=== PATIENT | male | born 1940 | race Caucasian/White ===

== ENCOUNTER 2017-01-18 18:04 | Emergency (ER) | payer MEDICARE ==
[2017-01-18 18:08] VITALS: BP 146/77
--- NOTE | 2017-01-18 19:34 | ED ---
Upper Extremity Pain - HPI Summary HPI Summary: Patient was using a pneumatic nail gun and his left middle finger nail was under a board that a nail went through and he suffered a puncture wound to the nail. It barely bleed and he just wants to make sure it didn't hit the bone. He denies pain and has not taken anything. No swelling, redness or drainage noted. - History of Current Complaint Chief Complaint: EDExtremityUpper Stated Complaint: NAIL THROUGH FINGER Time Seen by Provider: 01/18/17 18:51 Hx Obtained From: Patient Mechanism Of Injury: Blunt Trauma Onset/Duration: Started Minutes Ago, Traumatic, Still Present Timing: Constant Severity Initially: Mild Severity Currently: None Pain Location: Finger Character: Unable to Describe Aggravating Factor(s): Nothing Alleviating Factor(s): Nothing Associated Signs & Symptoms: Positive: Negative - Allergies/Home Medications Allergies/Adverse Reactions: Allergies Allergy/AdvReac Type Severity Reaction Status Date / Time Morphine Allergy Unknown Unknown Verified 08/09/16 16:28 Reaction Details Statins Allergy Unknown Unknown Verified 08/09/16 16:28 Reaction Details PMH/Surg Hx/FS Hx/Imm Hx Endocrine/Hematology History: Reports: Hx Anticoagulant Therapy - PLAVIX Denies: Hx Diabetes, Hx Unexplained Bleeding Cardiovascular History: Reports: Hx Angina, Hx Angioplasty, Hx Coronary Artery Disease, Hx Hypertension Denies: Hx Auto Implanted Cardiovert Defib, Hx Cardiac Arrest, Hx Congenital Heart Disease, Hx Congestive Heart Failure, Hx Deep Vein Thrombosis, Hx Hypercholesterolemia, Hx Hypotension, Hx Pacemaker/ICD, Hx Peripheral Vascular Disease, Hx Rheumatic Fever, Hx Syncope, Hx Valvular Heart Disease, Other Cardiovascular Problems/Disorders Respiratory History: Denies: Hx Asthma GI History: Reports: Hx Ulcer - takes omeprazole Denies: Other GI Disorders History: Reports: Other Problems/Disorders - prostate ca approx 2007 prostatectomy Denies: Hx Renal Disease Sensory History: Reports: Hx Cataracts - 2 removed one each eye, Hx Contacts or Glasses Comment Only: Other Sensory Impairments - hx left eye detatched retina Opthamlomology History: Reports: Hx Cataracts - 2 removed one each eye, Hx Contacts or Glasses Comment Only: Other Sensory Impairments - hx left eye detatched retina Neurological History: Reports: Hx Transient Ischemic Attacks (TIA) - drs with dr renee, ? recent tia Denies: Other Neuro Impairments/Disorders Psychiatric History: Denies: Hx Panic Disorder - Cancer History Cancer Type, Location and Year: PROSTATE Hx Chemotherapy: No Hx Radiation Therapy: No - Surgical History Surgery Procedure, Year, and Place: BY PASS 1992, HERNIA 2008, PROSTATECTOMY, EYE PUCKER REPAIR, DETACHED RETINA(CLEARED FOR MRI NOVEMBER [address] VICK) TONSILECTOMY, STERNUM WIRES, STENTS 2001,2009 Infectious Disease History: No Infectious Disease History: Denies: Traveled Outside the [place] in Last 30 Days - Family History Known Family History: Positive: Cardiac Disease - Social History Occupation: Retired Lives: With Family Alcohol Use: Occasionally Alcohol Amount: wine Hx Substance Use: No Substance Use Type: Reports: None Hx Tobacco Use: No Smoking Status (MU): Never Smoked Tobacco Review of Systems Negative: Myalgia, Decreased ROM, Edema Positive: Other - pinpoint punture wound to mid-nail of left middle finger. Negative: Bruising Negative: Paresthesia, Numbness All Other Systems Reviewed And Are Negative: Yes Physical Exam Triage Information Reviewed: Yes Vital Signs On Initial Exam: Initial Vitals Temp Pulse Resp BP Pulse Ox 96.6 F 57 20 146/77 100 01/18/17 18:06 01/18/17 18:06 01/18/17 18:06 01/18/17 18:06 01/18/17 18:06 Vital Signs Reviewed: Yes Appearance: Positive: Well-Appearing, No Pain Distress, Well-Nourished Skin: Positive: Warm, Skin Color Reflects Adequate Perfusion, Dry, Soft Head/Face: Positive: Normal Head/Face Inspection Eyes: Positive: EOMI, LUKE, Conjunctiva Clear ENT: Positive: Hearing grossly normal Respiratory/Lung Sounds: Positive: Breath Sounds Present Cardiovascular: Positive: RRR Musculoskeletal: Positive: Strength/ROM Intact. Negative: Pain @ - he denies pain to palpation over the nail, Edema Left Diagnostics - Vital Signs Vital Signs Temp Pulse Resp BP Pulse Ox 01/18/17 18:08 96.9 F 54 20 146/77 100 01/18/17 18:06 96.6 F 57 20 146/77 100 - Laboratory Lab Statement: Any lab studies that have been ordered have been reviewed, and results considered in the medical decision making process. - Radiology No standard instances Xray Interpretation: No Acute Changes Radiology Interpretation Completed By: Radiologist Course/Dx - Diagnoses Differential Diagnosis/HQI/PQRI: Positive: Bursitis, Contusion, Laceration, Strain, Sprain Provider Diagnoses: superficial puncture wound Discharge - Discharge Plan Condition: Stable Disposition: HOME Patient Education Materials: Puncture Wound (ED), Tetanus (ED) Referrals: Js Claudio MD [Primary Care Provider] - Additional Instructions: You have a superficial puncture wound to your nail. Soak the finger in warm soapy water three times daily for 3 days. Follow-up with your primary care provider in 2 days for a wound check. Return to the emergency department if symptoms worsen.
[2017-01-18] MEDS ORDERED: Tetan/Diph/Pertus SYR(Tdap)* 0.5 ML SYR(BOOSTRIX) use SYR IM ONE (19:47)
--- NOTE | 2017-01-18 20:48 | RAD ---
Indication: Left finger injury. 3 views of left middle finger demonstrates no fracture. There is a tiny radiopaque foreign body noted in the soft tissues at the level of the the distal interphalangeal joint. IMPRESSION: No fractures identified. Question foreign body at the distal interphalangeal joint on the volar aspect.
== END 2017-01-18 20:00 | disposition home or self-care (01) ==
LOC: ED 18:04
DX: S61.233A Puncture wound without foreign body of left middle finger without damage to nail, initial encounter (principal); W45.0XXA Nail entering through skin, initial encounter; Y93.9 Activity, unspecified; Y92.9 Unspecified place or not applicable
CPT/HCPCS: 73140; 90471; 90715; 99281

== ENCOUNTER 2017-07-02 22:20 | Emergency (ER) | payer MEDICARE ==
[2017-07-02] MEDS ORDERED: Diltiazem IV* 5 MG/ML 5 ML VIAL (for loading dose/IV Push) (25 MG) IV SLOW PU ONE (23:06)
[2017-07-02 23:42] LABS: Hematocrit 44 % (42-52); Hemoglobin 14.6 g/dl (14.0-18.0); Mean Corpuscular HGB Conc 34 g/dl (31-36); Mean Corpuscular Hemoglobin 30 pg (27-31); Mean Corpuscular Volume 91 fL (80-94); Mean Platelet Volume 9 um3 (7.4-10.4); Red Cell Distribution Width 13 % (10.5-15); White Blood Count 5.1 10^3/ul (3.5-10.8)
[2017-07-03] MEDS ORDERED: Diltiazem IV* 5 MG/ML 5 ML VIAL (for loading dose/IV Push) (25 MG) IV SLOW PU ONE (00:01)
[2017-07-03 00:03] LABS: Albumin 4.1 g/dL (3.2-5.2); BUN/Creatinine Ratio 20.4 (8-20); EGFR African American 95.1 (>60); Globulin 2.8 g/dL (2-4); Magnesium 2.1 mg/dL (1.9-2.7); Potassium 4.1 mmol/L (3.5-5.0); Total Bilirubin 0.4 mg/dL (0.2-1.0); Total Protein 6.9 g/dL (6.4-8.9)
[2017-07-03 00:04] LABS: Troponin I 0.01 ng/mL (<0.04)
[2017-07-03 00:55] LABS: TSH (Thyroid Stimulating Horm) 1.52 mcIU/mL (0.34-5.60)
--- NOTE | 2017-07-03 01:24 | ED ---
Manisha Mijares Alfonso, scribed for Efra So MD on 07/02/17 at 2307 . HPI Cardiac - HPI Summary HPI Summary: This patient is a 77 year old M presenting to [facility] accompanied by with a chief complaint of racing palpitations for several days that worsened since late this afternoon. The patient rates the pain 0/10 in severity. Symptoms aggravated by nothing. Symptoms alleviated by nothing. Patient reports lightheadedness and chest pain. Patient denies SOB. The patient is on a blood thinner. - History of Current Complaint Chief Complaint: EDDysrhythmPalp Stated Complaint: IRREGULAR HEART RATE Hx Obtained From: Patient Onset/Duration: Started Hours Ago, Still Present Timing: Constant, Lasting Hours Pain Intensity: 0 Pain Scale Used: 0-10 Numeric Character: Fast Aggravating Factor(s): Nothing Alleviating Factor(s): Nothing Associated Signs and Symptoms: Positive: Other: - lightheadedness, chest pain; NEGATIVE: SOB - Allergy/Home Medications Allergies/Adverse Reactions: Allergies Allergy/AdvReac Type Severity Reaction Status Date / Time Morphine Allergy Unknown Unknown Verified 07/02/17 22:30 Reaction Details Statins Allergy Unknown Unknown Verified 07/02/17 22:30 Reaction Details PMH/Surg Hx/FS Hx/Imm Hx Previously Healthy: No Endocrine/Hematology History: Reports: Hx Anticoagulant Therapy - PLAVIX Denies: Hx Diabetes, Hx Unexplained Bleeding Cardiovascular History: Reports: Hx Angina, Hx Angioplasty, Hx Coronary Artery Disease, Hx Hypertension Denies: Hx Auto Implanted Cardiovert Defib, Hx Cardiac Arrest, Hx Congenital Heart Disease, Hx Congestive Heart Failure, Hx Deep Vein Thrombosis, Hx Hypercholesterolemia, Hx Hypotension, Hx Pacemaker/ICD, Hx Peripheral Vascular Disease, Hx Rheumatic Fever, Hx Syncope, Hx Valvular Heart Disease, Other Cardiovascular Problems/Disorders Respiratory History: Denies: Hx Asthma GI History: Reports: Hx Ulcer - takes omeprazole Denies: Other GI Disorders History: Reports: Other Problems/Disorders - prostate ca approx 2007 prostatectomy Denies: Hx Renal Disease Sensory History: Reports: Hx Cataracts - 2 removed one each eye, Hx Contacts or Glasses Comment Only: Other Sensory Impairments - hx left eye detatched retina Opthamlomology History: Reports: Hx Cataracts - 2 removed one each eye, Hx Contacts or Glasses Comment Only: Other Sensory Impairments - hx left eye detatched retina Neurological History: Reports: Hx Transient Ischemic Attacks (TIA) - drs with dr renee, ? recent tia Denies: Other Neuro Impairments/Disorders Psychiatric History: Denies: Hx Panic Disorder - Cancer History Cancer Type, Location and Year: PROSTATE Hx Chemotherapy: No Hx Radiation Therapy: No - Surgical History Surgery Procedure, Year, and Place: BY PASS 1992, HERNIA 2008, PROSTATECTOMY, EYE PUCKER REPAIR, DETACHED RETINA(CLEARED FOR MRI NOVEMBER [address] VICK) TONSILECTOMY, STERNUM WIRES, STENTS 2001,2009 Infectious Disease History: No Infectious Disease History: Denies: Traveled Outside the US in Last 30 Days - Family History Known Family History: Positive: Cardiac Disease - Social History Alcohol Use: Occasionally Alcohol Amount: wine Hx Substance Use: No Substance Use Type: Reports: None Hx Tobacco Use: No Smoking Status (MU): Never Smoked Tobacco Review of Systems Negative: Fever Positive: Palpitations, Chest Pain Negative: Shortness Of Breath Neurological: Other - Lightheadedness All Other Systems Reviewed And Are Negative: Yes Physical Exam - Summary Physical Exam Summary: VITAL SIGNS: Reviewed. GENERAL: Patient is a well-developed and nourished male who is lying comfortable in the stretcher. Patient is not in any acute respiratory distress. HEAD AND FACE: No signs of trauma. No ecchymosis, hematomas or skull depressions. No sinus tenderness. EYES: PERRLA, EOMI x 2, No injected conjunctiva, no nystagmus. EARS: Hearing grossly intact. Ear canals and tympanic membranes are within normal limits. MOUTH: Oropharynx within normal limits. NECK: Supple, trachea is midline, no adenopathy, no JVD, no carotid bruit, no c- spine tenderness, neck with full ROM. CHEST: Symmetric, no tenderness at palpation LUNGS: Clear to auscultation bilaterally. No wheezing or crackles. CVS: Regular rhythm, tachycardia. S1 and S2 present, no murmurs or gallops appreciated. ABDOMEN: Soft, non-tender. No signs of distention. No rebound no guarding, and no masses palpated. Bowel sounds are normal. EXTREMITIES: FROM in all major joints, no cyanosis or clubbing. Trace pitting edema in bilateral lower extremities. NEURO: Alert and oriented x 3. No acute neurological deficits. Speech is normal and follows commands. SKIN: Dry and warm Triage Information Reviewed: Yes Vital Signs On Initial Exam: Initial Vitals Temp Pulse Resp BP Pulse Ox 97.7 F 115 16 163/93 98 07/02/17 22:20 07/02/17 22:20 07/02/17 22:20 07/02/17 22:20 07/02/17 22:20 Vital Signs Reviewed: Yes - Ben Coma Scale Coma Scale Total: 15 Diagnostics - Vital Signs Vital Signs Temp Pulse Resp BP Pulse Ox 07/02/17 22:48 10 131/81 07/02/17 22:20 97.7 F 115 16 163/93 98 - Laboratory Lab Results: Lab Results 07/02/17 07/02/17 07/02/17 Range/Units 23:30 23:30 23:30 WBC 5.1 (3.5-10.8) 10^3/ul RBC 4.80 (4.0-5.4) 10^6/ul Hgb 14.6 (14.0-18.0) g/dl Hct 44 (42-52) % MCV 91 (80-94) fL MCH 30 (27-31) pg MCHC 34 (31-36) g/dl RDW 13 (10.5-15) % Plt Count 156 (150-450) 10^3/ul MPV 9 (7.4-10.4) um3 Neut % (Auto) 51.7 (38-83) % Lymph % (Auto) 26.5 (25-47) % [place] % (Auto) 14.1 H (1-9) % Eos % (Auto) 6.6 H (0-6) % Baso % (Auto) 1.1 (0-2) % Absolute Neuts (auto) 2.6 (1.5-7.7) 10^3/ul Absolute Lymphs (auto) 1.4 (1.0-4.8) 10^3/ul Absolute Monos (auto) 0.7 (0-0.8) 10^3/ul Absolute Eos (auto) 0.3 (0-0.6) 10^3/ul Absolute Basos (auto) 0.1 (0-0.2) 10^3/ul Absolute Nucleated RBC 0 10^3/ul Nucleated RBC % 0.1 INR (Anticoag Therapy) 0.99 (0.89-1.11) APTT 30.2 (26.0-36.3) seconds Sodium 136 (133-145) mmol/L Potassium 4.1 (3.5-5.0) mmol/L Chloride 105 (101-111) mmol/L Carbon Dioxide 26 (22-32) mmol/L Anion Gap 5 (2-11) mmol/L BUN 20 (6-24) mg/dL Creatinine 0.98 (0.67-1.17) mg/dL Est GFR ( Amer) 95.1 (>60) Est GFR (Non-Af Amer) 74.0 (>60) BUN/Creatinine Ratio 20.4 H (8-20) Glucose 125 H (70-100) mg/dL Calcium 9.0 (8.6-10.3) mg/dL Magnesium 2.1 (1.9-2.7) mg/dL Total Bilirubin 0.40 (0.2-1.0) mg/dL AST 24 (13-39) U/L ALT 29 (7-52) U/L Alkaline Phosphatase 98 (34-104) U/L Troponin I 0.01 (<0.04) ng/mL Total Protein 6.9 (6.4-8.9) g/dL Albumin 4.1 (3.2-5.2) g/dL Globulin 2.8 (2-4) g/dL Albumin/Globulin Ratio 1.5 (1-3) TSH 1.52 (0.34-5.60) mcIU/mL Result Diagrams: 07/02/17 23:30 07/02/17 23:30 Lab Statement: Any lab studies that have been ordered have been reviewed, and results considered in the medical decision making process. - EKG 2234 Cardiac Rate: Tachycardia EKG Rhythm: Atrial Flutter - 102 BPM EKG Interpretation: Normal axis. Nonspecific t wave changes. 0014 Cardiac Rate: Bradycardia EKG Rhythm: Sinus Bradycardia - BPM 54 EKG Interpretation: after 20 mg of Diltiazem IV. Nml axis. Nml intervals. Nonspecific T changes Disposition - Course Assessment/Plan: This patient is a 77 year old M presenting to [facility] accompanied by with a chief complaint of racing palpitations for several days that worsened since late this afternoon. The patient rates the pain 0/10 in severity. Symptoms aggravated by nothing. Symptoms alleviated by nothing. Patient reports lightheadedness and chest pain. Patient denies SOB. The patient is on a blood thinner. An EKG reveals A-flutter at 102 BPM. A second EKG reveals , after 20 mg of Diltiazem, sinus bradycardia at 54 BPM. In the ED course the patient was given Diltiazem IV push. He has a history of an ablation. This patient use to take 50 mg BID of atenolol and was recently decreased to 25 mg BID. Pt on Elikaren. He has a Cardiology appointment in 1-2 days. I recommended he must speak to criminal investigator customs regarding atenolol dosing and consult an pipeline superintendent division. Patient will be discharged with follow up from Patient Carrier and PCP. The patient is agreeable with this plan. - Diagnoses Provider Diagnoses: Paroxysmal atrial flutter Discharge - Discharge Plan Condition: Stable Disposition: HOME Patient Education Materials: Atrial Flutter (ED) Referrals: Js Claudio MD [Primary Care Provider] - Additional Instructions: Call your criminal investigator customs tomorrow to discuss with him increasing the Atenolol to 50 mg twice a day. You may need to follow up with your pipeline superintendent division. Cont Elquis. Return to ED if worse. The documentation as recorded by the Manisha forde Alfonso accurately reflects the service I personally performed and the decisions made by me, Efra So MD.
[2017-07-03 01:41] VITALS: BP 134/74
[2017-07-05] MEDS ORDERED: Acetaminophen TAB* 325 MG PO PRN (10:14)
[2017-07-05] MEDS ORDERED: Sotalol TAB* 80 MG PO SCH (11:00)
[2017-07-05] MEDS ORDERED: Saline FLUSH-PERIPHERAL* 10 ML SYRINGE PERIPH SCH (11:00)
[2017-07-05] MEDS ORDERED: Apixaban* 5 MG TAB PO SCH (21:00)
[2017-07-05] MEDS ORDERED: Lisinopril TAB* 10 MG PO SCH (21:00)
[2017-07-06] MEDS ORDERED: Aspirin Low Dose CHEW TAB* 81 MG PO SCH (09:00)
[2017-07-06] MEDS ORDERED: GLUCOSAMINE CHONDROITIN PO SCH (09:00)
[2017-07-06] MEDS ORDERED: amLODIPine TAB* 5 MG PO SCH (09:00)
[2017-07-06] MEDS ORDERED: Rosuvastatin (NF) 5 MG TAB PO SCH (09:00)
--- NOTE | 2017-07-06 11:45 | RAD ---
Indication: Coronary artery disease, angina with tachycardia. Myocardial perfusion scan was performed utilizing 1 day protocol. Rest myocardial perfusion was performed after intravenous injection of 10.8 mCi of technetium 99 and tetrofosmin. Pharmacological stress was applied and 26.3 mCi of technetium 99 and tetrofosmin was injected for the rest portion of the study. There is homogeneous distribution of the radiotracer throughout the left ventricle. There is no evidence of fixed or reversible perfusion defect identified. The ejection fraction at stress is 38% which is decreased. Evaluation of wall motion demonstrates diffuse hypokinesis. IMPRESSION: Decreased ejection fraction of 38%. No evidence of fixed or mobile perfusion defect. ASSESSMENT: Intermediate risk Based on imaging criteria from ACC/AHA 2002 Guideline Update for the Management of Patients With Chronic Stable Angina Table 23. Noninvasive Risk Stratification.
== END 2017-07-03 01:42 | disposition home or self-care (01) ==
LOC: ED 22:20
DX: I48.92 Unspecified atrial flutter (principal); Z79.02 Long term (current) use of antithrombotics/antiplatelets; Z85.46 Personal history of malignant neoplasm of prostate; Z88.5 Allergy status to narcotic agent; I10 Essential (primary) hypertension; I25.10 Atherosclerotic heart disease of native coronary artery without angina pectoris; I20.9 Angina pectoris, unspecified; Z86.73 Personal history of transient ischemic attack (TIA), and cerebral infarction without residual deficits
CPT/HCPCS: 36415; 78452; 80053; 83735; 84443; 84484; 85025; 85610; 85730; 93005; 96374; 96376; 99284; A9502

== ENCOUNTER 2017-07-05 08:48 | Observation (INO) | payer MEDICARE ==
[2017-07-05 10:56] LABS: BUN/Creatinine Ratio 17.7 (8-20); Calcium 8.7 mg/dL (8.6-10.3); EGFR African American 80.7 (>60); EGFR Non-African American 62.8 (>60); Potassium 4.3 mmol/L (3.5-5.0)
[2017-07-05 11:21] LABS: TSH (Thyroid Stimulating Horm) 0.97 mcIU/mL (0.34-5.60)
[2017-07-05] MEDS ORDERED: Acetaminophen TAB* 325 MG PO PRN (12:43)
[2017-07-05] MEDS: [UNRECOGNIZED DRUG - OTHER] PERIPH SCH ×2 (14:25→21:22)
[2017-07-05] MEDS: Sotalol TAB* 80 MG PO SCH ×2 (14:26→21:21)
--- NOTE | 2017-07-05 14:34 | HP ---
CC: Dr. Claudio; Dr. Cohen; Dr. Anand Blanchard HISTORY AND PHYSICAL: DATE OF ADMISSION: 07/05/17 HISTORY OF PRESENT ILLNESS: Mr. Arzola is a 77-year-old gentleman followed by my partner Dr. Cohen with a history of atypical paroxysmal atrial flutter. He has undergone ablation with Dr. Anand Blanchard in the past. The patient presented to the emergency department 3 days ago on with complaints of palpitations and racing of heart and EKGs revealed a narrow complex tachycardia just over 100 beats per minute. He then spontaneously went into his normal rhythm, which he did not recall. The patient then called yesterday telling me that he left the emergency department with the instructions to double his atenolol from 25 mg twice a day to 50 mg twice a day, but he continued to feel racing with any sort of activity. He had breakfast and lunch yesterday and I advised him to present today for possible cardioversion. On arrival to the ICU this morning, the patient's ECG showed a regular atrial rhythm at 90 beats a minute with the first-degree AV block. He then spontaneously went into sinus rhythm in the 50s. I printed and reviewed his ECGs from the ED night and his tachycardia was consistent with junctional versus ectopic atrial tachycardia at a 102 beats a minute, QRS axis plus [address]. Today's rhythm as stated that we can now see the P-waves are from the T- waves at the lower rate and is consistent with an ectopic atrial rhythm with a prolonged WV interval as opposed to shorter normal WV interval in a sinus rhythm (EKGs with sinus rhythm shows sinus rhythm at 54 beats a minute, WV interval of 203 beats per minute versus the WV interval of 260 beats a minute with the ectopic rhythm.) The prolonged WV interval could be rate related or based on the origin of the atrial rhythm. According to the patient when his heart is jumping around or racing, he gets substernal chest discomfort. Reminiscent of discomfort he had before his bypass and his says with when he feels his heart is racing, his color is not good, he gets very red and does not look well. The patient otherwise felt well. When he feels he is in rhythm, he denies any of the exertional dyspnea or chest discomfort. PAST MEDICAL HISTORY: 1. The patient has a past medical history of paroxysmal atrial flutter, status post flutter ablation of 01/27/17. 2. Ectopic atrial tachycardia. 3. Coronary artery disease. 4. With history of bypass surgery in 1992 (POWERS to the LAD, YAEL to OM2 saphenous vein graft to D1, saphenous vein graft to distal right coronary artery and PDA). He has had subsequent stenting most recently in October 2014 in [place] with stenting to the proximal LAD, integrity drug-eluting stent. 5. dyslipidemia, 6. hypertension, 7. TIA in September 2014 in [place], 8. sleep apnea (CPAP). PAST SURGICAL HISTORY: Includes his bypass surgery in 1992, inguinal hernia repair in 2007, macular pucker in 1990, tonsillectomy in 1971, varicose veins in 2010, detached retina in 1990, and multiple stents in 2008 and 2014. OUTPATIENT MEDICATIONS: Include: 1. Eliquis 5 mg b.i.d. 2. Atenolol 50 mg b.i.d. 3. Crestor 5 mg a day. 4. Amlodipine 10 mg a day. 5. Aspirin 81 mg a day. 6. MultiVites. 7. Glucosamine chondroitin. 8. Lisinopril 20 mg a day. 9. Nitroglycerin p.r.n. 10. Omeprazole p.r.n. ALLERGIES: Allergies include STATINS. FAMILY HISTORY: Significant that his father of heart problems at age 62. He has 3 brothers with a history of stents and bypass in his brothers. His mother had a history of probable renal failure dying between age 75 to 80. SOCIAL HISTORY: Significant that is , lives with his , retired, never smoked, a cup of coffee a day, no alcohol intake and active. REVIEW OF SYSTEMS: A 14-point review of systems done. He denies any recent fevers, chills, sweats. No recent travel or change in activity. They had friends in town, they are eating heavier food what they called finer food than usual, but he denies any recent alcohol. He states regular cup of coffee a day. No recreational drugs. No [id number] medications and no missed medications. The patient denies change in bowel or bladder habits or change in sleep habits and was positive for several days of racing of the heart, exercise intolerance and with racing of the lower substernal chest discomfort and feeling poorly as above. All other review of systems was negative. PHYSICAL EXAMINATION GENERAL APPEARANCE: The patient is a tall leaned male in no acute distress. VITAL SIGNS: Blood pressure 134/74; pulse on arrival was 90, currently 54; respiratory rate is 12 to 15; temperature 97.6; oxygen saturation on room air 97 %. HEENT: Mucous membranes moist. NECK: Without increased JVP appreciated. Good carotid pulses that are symmetrical and no thyromegaly. LUNGS: Breath sounds were clear with good effort. No wheezes, rales, or rhonchi. CORONARY: S1, S2, regular without murmurs or rubs. Midline sternotomy scar is well healed. ABDOMEN: Flat, nontender. No hepatosplenomegaly or masses are nontender. No epigastric discomfort. EXTREMITIES: Lower extremities showed trace edema and were warm. NEUROLOGIC: Awake, alert, and oriented x3. No gross sensory or motor deficits and ambulating in the room normally. SKIN: Warm, dry. Cheeks are smalls. No cyanosis appreciated. DIAGNOSTIC STUDIES/LAB DATA: EKG from the ED July 02, 2017 at 2234 shows a regular narrow complex rhythm at 102 beats a minute. P-waves were not seen, in hindsight they are buried in the T-waves and therefore it is a regular atrial rhythm with the first-degree AV block with WV interval of approximately 380 milliseconds, QT interval of 377 milliseconds. We have still in the ED repeat EKG 07/03/17 at 1400 shows normal sinus rhythm 54 beats a minute QRS axis plus 60, normal AV and IV conduction x WV interval 203 milliseconds and a corrected QT interval of 417 milliseconds. A 12-lead ECG on arrival this morning shows normal sinus rhythm 90 beats a minute with the first-degree AV block with a WV interval of 258 milliseconds. QRS axis plus 60 normal AV and IV conduction, QTc of 475 milliseconds, QT of 388 milliseconds. T-waves are somewhat flattened laterally compared with his 12 -lead ECG from sinus rhythm. Labs; white count 5.1, hemoglobin 14.6, hematocrit 44, platelets 156. INR 0.99 , PTT 30.2. Sodium 136, potassium 4.1, chloride 105, bicarb 26, BUN 20, creatinine 0.98, glucose 125, ALT of 29, TSH 1.52. Troponin pending. ASSESSMENT AND PLAN: In summary, Mr. Arzola is a 77-year-old gentleman with distant bypass stenting is recently in 2014. He has a history of paroxysmal atrial flutter and ectopic atrial rhythm for which he has undergone flutter ablation earlier this summer. The patient now presents with recurrent episodes of racing of the heart associated with substernal chest discomfort. In the office, his atenolol had been back down from 50 mg b.i.d. to 25 mg b.i.d. 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 As the patient is symptomatic with his mild tachycardia that I believe is from an ectopic atrial pacer. I think we should try to suppress the ectopic pacer and I am going to try converting the atenolol to a low dose of sotalol 40 mg b.i.d. I am going to put him on the monitor to watch his QT interval and lower rate. Because he is symptomatic with possible anginal equivalent I am going to also order an exercise stress test on him. We will try to do it on his medications, but he may need to be converted to a chemical test. The indication for it observation in order to watch his QT interval and evaluate for possible ischemia, understood to the patient and his . [id number] #: [id number] MTDD
[2017-07-05] MEDS ORDERED: Lisinopril TAB* 10 MG PO SCH (21:00)
[2017-07-05] MEDS: Apixaban* 5 MG TAB PO SCH (21:21)
[2017-07-06] MEDS: [UNRECOGNIZED DRUG - OTHER] PERIPH SCH (04:24)
[2017-07-06] MEDS: Apixaban* 5 MG TAB PO SCH (08:34)
[2017-07-06] MEDS: Sotalol TAB* 80 MG PO SCH (08:35)
[2017-07-06] MEDS ORDERED: CMC:Rosuvastatin (NF) 5 MG TAB PO SCH (09:00)
[2017-07-06] MEDS ORDERED: Aspirin Low Dose CHEW TAB* 81 MG PO SCH (09:00)
[2017-07-06] MEDS ORDERED: amLODIPine TAB* 5 MG PO SCH (09:00)
[2017-07-06] MEDS ORDERED: Multivitamins/Minerals TAB PO SCH (09:00)
[2017-07-06] MEDS ORDERED: Regadenoson* 0.4 MG/5 ML SYRINGE ONE (09:34)
[2017-07-06] MEDS ORDERED: Aminophylline IV* 25 MG/ML 10 ML VIAL ONE (09:35)
[2017-07-06 12:51] VITALS: BP 143/87
--- NOTE | 2017-07-07 03:25 | DS ---
CC: Dr. Js Claudio * DISCHARGE SUMMARY: DATE OF ADMISSION: 07/05/17 DATE OF DISCHARGE: 07/06/17 INDICATION FOR ADMISSION: Atrial tachycardia. Please see Dr. Holm's admission history and physical regarding his presentation. The patient is a 77-year-old gentleman with a history of coronary artery disease, history of atrial flutter, and atrial tachycardias, who was admitted to the hospital because of atrial tachycardia. The patient called Dr. Holm over the weekend saying his heart rate was racing. The patient had had a recent flutter ablation up at [facility] in January of 2017. Since then, he has been having episodes of atrial tachycardia also with bradycardia when he is in normal sinus rhythm. I have been adjusting his atenolol medication. The patient came to the hospital and was in an atrial tachycardia at 100 beats per minute. He subsequently broke to a sinus bradycardia at 50 beats per minute. The patient was also describing intermittent chest pain. He was admitted to the hospital for evaluation. SUMMARY OF HOSPITAL COURSE: The patient had been going in and out of atrial tachycardia at 100 beats per minute and normal sinus rhythm at 50 beats per minute. The patient was started on a very low dose of sotalol at 40 mg b.i.d. The patient did well overnight. This morning, the patient underwent a chemical nuclear stress test, which demonstrated normal perfusion throughout his myocardium. No evidence of ischemia. He had normal LV function. After extensive discussion with the patient, the decision was to place a permanent pacemaker. Because the patient is on Eliquis, the decision is the patient will be discharged home and follow up next Thursday for dual-chamber permanent pacemaker implantation. The patient was agreeable with this plan. OUTPATIENT MEDICATIONS: 1. Eliquis 5 mg b.i.d. until 07/12/17. 2. Atenolol 50 mg twice a day. 3. Crestor 5 mg a day. 4. Amlodipine 10 mg a day. 5. Aspirin 81 mg a day. 6. Multivitamin a day. 7. Glucosamine. 8. Lisinopril 20 mg a day. 9. Omeprazole 20 mg a day. ALLERGIES: He is intolerant of statin medications, but has been able to tolerate Crestor at 5 mg a day. LABORATORY DATA: No significant laboratory studies except for at admission when they were normal. DISPOSITION: The patient will be discharged home for followup. Pacemaker implantation in 1 week. [id number]/[facility] #: [id number] NYA
--- NOTE | 2017-07-07 11:10 | RAD ---
Indication: Coronary artery disease, angina with tachycardia. Myocardial perfusion scan was performed utilizing 1 day protocol. Rest myocardial perfusion was performed after intravenous injection of 10.8 mCi of technetium 99 and tetrofosmin. Pharmacological stress was applied and 26.3 mCi of technetium 99 and tetrofosmin was injected for the rest portion of the study. There is homogeneous distribution of the radiotracer throughout the left ventricle. There is no evidence of fixed or reversible perfusion defect identified. The ejection fraction at stress is 38% which is decreased. Evaluation of wall motion demonstrates diffuse hypokinesis. IMPRESSION: Decreased ejection fraction of 38%. No evidence of fixed or mobile perfusion defect. ASSESSMENT: Intermediate risk Based on imaging criteria from ACC/AHA 2002 Guideline Update for the Management of Patients With Chronic Stable Angina Table 23. Noninvasive Risk Stratification. MTDD
== END 2017-07-06 14:26 | disposition home or self-care (01) ==
LOC: SDS 08:48 → CHICATH 08:48 → MEDTELE 08:49 → EDSTATUS 10:01
PROVIDERS: ADMIT Specialist; ATTEND Specialist
DX: I47.1 Supraventricular tachycardia (principal); I25.10 Atherosclerotic heart disease of native coronary artery without angina pectoris; I10 Essential (primary) hypertension; E78.5 Hyperlipidemia, unspecified; I48.92 Unspecified atrial flutter; Z79.01 Long term (current) use of anticoagulants; Z79.899 Other long term (current) drug therapy; Z86.73 Personal history of transient ischemic attack (TIA), and cerebral infarction without residual deficits; G47.30 Sleep apnea, unspecified
CPT/HCPCS: 36415; 80048; 83735; 84443; 93005; 93017; A9270-GY; G0378; J0280; J2785

== ENCOUNTER 2017-07-13 08:12 | Observation (INO) | payer MEDICARE ==
[2017-07-13] MEDS ORDERED: ceFAZolin 2 GM PREMIX (*) 2 GM/50 ML BAG IVPB ONE (08:20)
[2017-07-13] MEDS ORDERED: CEFAZOLIN IVPB ONE (08:20)
[2017-07-13] MEDS ORDERED: SODIUM CHLORIDE IVPB ONE (08:20)
[2017-07-13] MEDS ORDERED: Diazepam TAB(*) 5 MG PO ONE (08:20)
[2017-07-13] MEDS ORDERED: NS 0.9% 1000 ML* 1,000 ML IV SCH (08:30)
[2017-07-13] MEDS ORDERED: Diazepam TAB(*) 5 MG ONE (10:06)
[2017-07-13] MEDS ORDERED: Lidocaine 1% INJ* 10 MG/ML 30 ML SDV ONE (10:14)
[2017-07-13] MEDS ORDERED: Midazolam* 1 MG/ML 5 ML VIAL (5 MG) ONE (10:23)
[2017-07-13] MEDS ORDERED: fentaNYL* 50 MCG/ML 2 ML VIAL (100 MCG VIAL) ONE (10:23)
[2017-07-13] MEDS ORDERED: oxyCODONE/Acetamin 5/325 MG* TAB PO PRN (11:37)
--- NOTE | 2017-07-13 14:57 | RAD ---
INDICATION: Device implant COMPARISON: July 17, 2016 TECHNIQUE: An AP portable view obtained at 1300 hours is submitted. FINDINGS: Bones/Soft Tissues: There are no acute bony findings. There is a left-sided cardiac pacemaker. There is prior sternotomy Cardiomediastinal: The cardiomediastinal silhouette is normal. Lungs: There are no infiltrates. There is no pneumothorax. There is no vascular congestion. Pleura: There are no pleural effusions. Other: None IMPRESSION: LEFT-SIDED CHRONIC PACEMAKER. LUNGS CLEAR.
[2017-07-13] MEDS: Acetaminophen TAB* 325 MG PO PRN ×2 (15:02→20:50)
[2017-07-13] MEDS ORDERED: CEFAZOLIN IVPB SCH (16:30)
[2017-07-13] MEDS ORDERED: SODIUM CHLORIDE IVPB SCH (16:30)
[2017-07-13] MEDS: ceFAZolin 1 GM* Q8H x 3 doses IVPB SCH ×4 (16:41→23:42)
[2017-07-13] MEDS: Atenolol TAB* 50 MG PO SCH (20:50)
[2017-07-13] MEDS ORDERED: Lisinopril TAB* 10 MG PO SCH (21:00)
[2017-07-14 07:42] VITALS: BP 140/70
[2017-07-14] MEDS: ceFAZolin 1 GM* Q8H x 3 doses IVPB SCH ×2 (07:58)
[2017-07-14] MEDS: Atenolol TAB* 50 MG PO SCH (07:58)
--- NOTE | 2017-07-14 08:16 | OP ---
CC: Dr Js Claudio OPERATIVE REPORT: DATE OF OPERATION: 07/13/17 DATE OF : 38 SURGEON: Rex Cohen MD ANESTHESIA: Local anesthesia with conscious sedation. PRE-OP DIAGNOSES: Sick sinus syndrome, atrial flutter. POST-OP DIAGNOSES: Sick sinus syndrome, atrial flutter. OPERATIVE PROCEDURE: Dual-chamber pacemaker implantation. INDICATIONS: The patient is a 77-year-old gentleman with a history of coronary artery disease, histo ry of paroxysmal atrial flutter, who underwent a flutter ablation this past spring. The patient cont inues to have episodes of bradycardia and atrial flutter. Permanent pacemaker implantation was recom mended. ESTIMATED BLOOD LOSS: Nil. COMPLICATIONS: None. DESCRIPTION OF PROCEDURE: The patient was brought to the procedure room in a fasting state. Informe d consent had been obtained prior to the procedure. All labs had been reviewed. The patient was araseli gary supine on the procedure table. His left deltopectoral area was cleaned and draped in the usual f ashion. 1% lidocaine was used for local anesthesia. The left axillary vein was entered by a suellen galindo Seldinger technique using ultrasound guidance. A guidewire was placed. The second guidewire was p laced in the same technique. A 4-cm incision was made in the pectoral area and blunt dissection was carried down to the pectoral fascia. A pocket was fashioned for the pacemaker. Over the first guide wire, a 7-Urdu sheath introducer was placed, through which a right ventricular lead was advanced th e RV apex. The right ventricular lead is a Medtronic model 5076, serial #[id number] that had an R-wa ve sensitivity of 7, impedance 1480 ohms, threshold 1 volt at 0.5 milliseconds. The ventricular lead was sutured to the pectoral fascia using 0 silk. Over the second guidewire, a 7-Urdu sheath intro ducer was placed, through which a right atrial lead was advanced to the high right atrium. The right atrial lead is a Medtronic model 5076, serial #[id number] that had a P-wave sensitivity of 0.6, impe dance 700 ohms, threshold 1.3 volts at 0.5 milliseconds. The atrial lead was then sutured to the pect oral fascia using 0 silk. The pocket was flushed with antibiotic-infused normal saline. A generator was attached appropriately to the ventricular and atrial lead. The generator is a Thinker Thing model A 2DR01, serial #[id number]. The device was placed into the pocket. The surgical incision was closed in 3 layers. The patient was returned to the holding area in stable condition. [id number]/[facility] #: [id number]
--- NOTE | 2017-07-14 08:31 | RAD ---
INDICATION: Status post cardiac pacer implantation. COMPARISON: Similar chest x-ray July 13, 2017 TECHNIQUE: PA and lateral views of the chest were obtained. FINDINGS: Stable iatrogenic findings include a left upper chest to lead cardiac pacemaker with surgical clips overlying the skin. Also noted are sternotomy wires and surgical clips at the superior right of midline mediastinum. The heart and mediastinum are normal in size and contour. The lungs are grossly clear. There is no evidence of large pleural effusion. Visualized bones are normal for the patient's age. There is no radiographic evidence of free air beneath the diaphragm IMPRESSION: STABLE POSTOPERATIVE FINDINGS WITHOUT PNEUMOTHORAX OR OTHER RADIOGRAPHICALLY APPARENT CARDIOPULMONARY DISEASE.
[2017-07-14] MEDS ORDERED: amLODIPine TAB* 5 MG PO SCH (09:00)
[2017-07-14] MEDS ORDERED: Aspirin Low Dose CHEW TAB* 81 MG PO SCH (09:00)
--- NOTE | 2017-07-15 00:43 | DS ---
DISCHARGE SUMMARY: DATE OF ADMISSION: 07/13/17 DATE OF DISCHARGE: 07/14/17 INDICATION FOR ADMISSION: Dual-chamber pacemaker implantation. DIAGNOSES: Sick sinus syndrome, atrial fibrillation. HISTORY OF PRESENT ILLNESS: Please see admission history and physical for details of patient's presentation. The patient is a 77-year-old gentleman with a history of coronary artery disease, history of atrial flutter, history of sick sinus syndrome, who I recommended pacemaker implantation for maximization of his medical therapy. SUMMARY OF HOSPITAL COURSE: The patient was brought to the holding area at the [facility] and was prepped for dual-chamber pacemaker implantation. The patient went to the operating room and had a dual-chamber pacemaker implanted. It is a Medtronic model A2DR01. Implantation went without difficulty. Post procedure chest x-ray showed normal position of the atrial and ventricular leads. The patient had no issues overnight. This morning, the patient's pacemaker was interrogated and had a P-wave sensitivity of 1.8 and R-wave sensitivity of 13. Atrial impedance 513 ohms, ventricular impedance 930 ohms. Atrial threshold 0.5 volts at 0.4 milliseconds. Ventricular threshold 0.4 volts at 0.4 milliseconds. He is atrial paced 98% of the time, ventricularly paced 1.4% of the time, no arrhythmias. DISPOSITION: The patient will be discharged home. DISCHARGE MEDICATIONS: Are the same as admission. 1. Eliquis 5 mg b.i.d. 2. Atenolol 50 mg b.i.d. 3. Crestor 5 mg a day. 4. Amlodipine 10 mg a day. 5. Aspirin 81 mg a day. 6. Multivitamin. 7. Lisinopril 20 mg a day. 8. Nitroglycerin p.r.n. 9. Omeprazole 20 mg a day. 10. The patient will be on Keflex 500 mg 3 times a day for 3 days. FOLLOWUP: The patient will up follow with me in 1 week. He will do daily dressing changes and the structure packet was discharged with the patient. The patient will restart his Eliquis in the morning of 07/15/17. PHYSICAL EXAMINATION: On physical exam, temperature 97.7, heart rate is 70, blood pressure 140/70, respiratory rate is 20. Lungs are clear to auscultation. Cardiac Exam: S1 and S2 without any murmurs, rubs, or gallops. The pacemaker site is clean, dry, and intact. No erythema, no hematoma. No ecchymosis. DISPOSITION: The patient will be discharged home. [id number]/[facility] #: [id number] MTDD
== END 2017-07-14 10:40 | disposition home or self-care (01) ==
LOC: CHICATH 08:12 → MEDTELE 11:19
PROVIDERS: ADMIT Specialist; ATTEND Specialist
DX: I49.5 Sick sinus syndrome (principal); I48.0 Paroxysmal atrial fibrillation; Z79.01 Long term (current) use of anticoagulants; I25.10 Atherosclerotic heart disease of native coronary artery without angina pectoris; E78.5 Hyperlipidemia, unspecified; I45.10 Unspecified right bundle-branch block; Z95.5 Presence of coronary angioplasty implant and graft; Z79.899 Other long term (current) drug therapy; Z88.1 Allergy status to other antibiotic agents
CPT/HCPCS: 33208; 71010; 71020; 93005; A9270-GY; C1785; C1898; G0378; J0690; J2250; J3010

== ENCOUNTER 2017-07-18 13:27 | Inpatient (IN) | payer MEDICARE ==
[2017-07-18] MEDS ORDERED: fentaNYL* 50 MCG/ML 2 ML VIAL (100 MCG VIAL) IV SLOW PU ONE (13:49)
[2017-07-18] MEDS ORDERED: Nitroglycerin TAB 0.4 MG* 0.4 MG TAB SL ONE (13:49)
[2017-07-18] MEDS ORDERED: Ondansetron INJ* 2 MG/ML VIAL IV ONE ×2 (13:49→14:49)
[2017-07-18] MEDS ORDERED: NS 0.9% 1000 ML* 1,000 ML IV SCH (14:00)
[2017-07-18 14:01] LABS: Hematocrit 44 % (42-52); Hemoglobin 14.6 g/dl (14.0-18.0); Mean Corpuscular HGB Conc 34 g/dl (31-36); Mean Corpuscular Hemoglobin 30 pg (27-31); Mean Corpuscular Volume 91 fL (80-94); Mean Platelet Volume 10 um3 (7.4-10.4); Red Blood Count 4.81 10^6/ul (4.0-5.4); Red Cell Distribution Width 13 % (10.5-15); White Blood Count 5.9 10^3/ul (3.5-10.8)
[2017-07-18 14:13] LABS: Albumin 4.1 g/dL (3.2-5.2); BUN/Creatinine Ratio 18.6 (8-20); C Reactive Protein 3.39 mg/L (< 5.00); Calcium 9.2 mg/dL (8.6-10.3); EGFR African American 90.8 (>60); EGFR Non-African American 70.6 (>60); Globulin 2.6 g/dL (2-4); Magnesium 2.2 mg/dL (1.9-2.7); Potassium 4.2 mmol/L (3.5-5.0); Total Bilirubin 0.5 mg/dL (0.2-1.0); Total Protein 6.7 g/dL (6.4-8.9)
[2017-07-18 14:17] LABS: Troponin I 0.06 ng/mL (<0.04)
--- NOTE | 2017-07-18 14:57 | RAD ---
INDICATION: Chest pain in a patient with a recently placed cardiac pacemaker COMPARISON: Most recent comparison chest x-rays July 14, 2017 TECHNIQUE: Single AP portable view of the chest was obtained. FINDINGS: Image quality is compromised due to the relative inferiority of a portable chest x-ray. The left upper chest cardiac pacemaker with 2 leads overlying the heart is unchanged from the prior chest x-ray. There are skin malini overlying the left upper chest. Sternotomy wires and surgical clips are seen overlying the mediastinum. The heart and mediastinum exhibit normal size and contour. The lungs are grossly clear. There is no evidence of a large pleural effusion. Visualized bones are normal for the patient's age. IMPRESSION: Stable iatrogenic findings described above.
[2017-07-18] MEDS ORDERED: Aspirin Low Dose CHEW TAB* 81 MG PO ONE (14:58)
[2017-07-18] MEDS ORDERED: Aspirin Low Dose CHEW TAB* 81 MG ONE (15:00)
[2017-07-18] MEDS ORDERED: Clopidogrel TAB* 300 MG PO ONE (15:13)
[2017-07-18] MEDS ORDERED: Nitroglycerin TAB 0.4 MG* 0.4 MG TAB SL PRN (15:29)
[2017-07-18 16:08] LABS: TSH (Thyroid Stimulating Horm) 1.05 mcIU/mL (0.34-5.60)
--- NOTE | 2017-07-18 16:41 | ED ---
[place] Emily, scribed for Sancho Young MD on 07/18/17 at 1343 . HPI Chest Pain - HPI Summary HPI Summary: This patient is a 77 year old M presenting to [facility] accompanied by with a chief complaint of burning, diffuse CP that began yesterday. Symptoms worsened at 0700 today. The patient rates the pain 8/10 in severity. Symptoms aggravated by ambulation, deep breaths, and cold air. Symptoms alleviated by nitroglycerin tabs. Patient reports ankle edema (chronic). Patient denies abd pain, SOB, nausea, diaphoresis, and wheezing. Pt has had a pacemaker implanted on 2016. Pt reports symptoms being similar to symptoms he experienced prior to his CABG. Allergies noted. - History of Current Complaint Chief Complaint: EDChestPainROMI Time Seen by Provider: 07/18/17 13:34 Hx Obtained From: Patient Onset/Duration: Started Days Ago, Still Present Timing: Constant, Lasting Days Initial Severity: Severe Current Severity: Severe Pain Intensity: 8 Pain Scale Used: 0-10 Numeric Chest Pain Location: Diffuse Character: Burning Aggravating Factor(s): Other: - Ambulation, deep breaths, and cold air Alleviating Factor(s): Other: - NTG Associated Signs and Symptoms: Positive: Other: - Positive ankle edema (chronic) . Negative abd pain, SOB, nausea, diaphoresis, and wheezing - Allergy/Home Medications Allergies/Adverse Reactions: Allergies Allergy/AdvReac Type Severity Reaction Status Date / Time Morphine Allergy Unknown Unknown Verified 07/02/17 22:30 Reaction Details Statins Allergy Unknown Unknown Verified 07/02/17 22:30 Reaction Details PMH/Surg Hx/FS Hx/Imm Hx Previously Healthy: No Endocrine/Hematology History: Reports: Hx Anticoagulant Therapy - eloquis Denies: Hx Diabetes, Hx Unexplained Bleeding Cardiovascular History: Reports: Hx Angina, Hx Angioplasty, Hx Coronary Artery Disease, Hx Hypertension Denies: Hx Auto Implanted Cardiovert Defib, Hx Cardiac Arrest, Hx Congenital Heart Disease, Hx Congestive Heart Failure, Hx Deep Vein Thrombosis, Hx Hypercholesterolemia, Hx Hypotension, Hx Pacemaker/ICD, Hx Peripheral Vascular Disease, Hx Rheumatic Fever, Hx Syncope, Hx Valvular Heart Disease, Other Cardiovascular Problems/Disorders Respiratory History: Reports: Hx Sleep Apnea - uses CPAP at home Denies: Hx Asthma GI History: Reports: Hx Ulcer - takes omeprazole Denies: Other GI Disorders History: Reports: Other Problems/Disorders - prostate ca approx 2007 prostatectomy Denies: Hx Renal Disease Sensory History: Reports: Hx Cataracts - 2 removed one each eye, Hx Hearing Problem Denies: Hx Contacts or Glasses, Hx Hearing Aid Comment Only: Other Sensory Impairments - hx left eye detatched retina Opthamlomology History: Reports: Hx Cataracts - 2 removed one each eye Denies: Hx Contacts or Glasses Comment Only: Other Sensory Impairments - hx left eye detatched retina Neurological History: Reports: Hx Transient Ischemic Attacks (TIA) - drs with dr renee, ? recent tia Denies: Other Neuro Impairments/Disorders Psychiatric History: Denies: Hx Panic Disorder - Cancer History Cancer Type, Location and Year: PROSTATE Hx Chemotherapy: No Hx Radiation Therapy: No - Surgical History Surgery Procedure, Year, and Place: BY PASS 1992, HERNIA 2008, PROSTATECTOMY, EYE PUCKER REPAIR, DETACHED RETINA(CLEARED FOR MRI NOVEMBER [address] VICK) TONSILECTOMY, STERNUM WIRES, STENTS 2001,2009 Infectious Disease History: No Infectious Disease History: Denies: Hx Clostridium Difficile, Hx Hepatitis, Hx Human Immunodeficiency Virus (HIV), Hx of Known/Suspected MRSA, Hx Shingles, Hx Tuberculosis, Traveled Outside the [place] in Last 30 Days - Family History Known Family History: Positive: Cardiac Disease - Social History Occupation: Retired Lives: With Family Alcohol Use: Weekly Alcohol Amount: reports a couple of drink/week Hx Substance Use: No Substance Use Type: Reports: None Hx Tobacco Use: No Smoking Status (MU): Never Smoked Tobacco Review of Systems Negative: Skin Diaphoresis Positive: Chest Pain Positive: Other - Negative wheezing. Negative: Shortness Of Breath Negative: Abdominal Pain, Nausea Positive: Edema - Ankle (chronic) All Other Systems Reviewed And Are Negative: Yes Physical Exam Triage Information Reviewed: Yes Vital Signs On Initial Exam: Initial Vitals Temp Pulse Resp BP Pulse Ox 97.7 F 72 16 146/71 98 07/18/17 13:30 07/18/17 13:30 07/18/17 13:30 07/18/17 13:30 07/18/17 13:30 Vital Signs Reviewed: Yes Appearance: Positive: Well-Appearing, Pain Distress - Mild Skin: Positive: Warm, Skin Color Reflects Adequate Perfusion, Dry, Other - Incision is clean, dry, and intact. No erythema Head/Face: Positive: Normal Head/Face Inspection Eyes: Positive: EOMI, LUKE ENT: Positive: Normal ENT inspection Neck: Positive: Supple, Nontender Respiratory/Lung Sounds: Positive: Clear to Auscultation, Breath Sounds Present Cardiovascular: Positive: RRR Abdomen Description: Positive: Nontender, Soft Bowel Sounds: Positive: Present Musculoskeletal: Positive: Normal, Strength/ROM Intact Neurological: Positive: Normal, Sensory/Motor Intact, Alert, Oriented to Person Place, Time Diagnostics - Vital Signs Vital Signs Temp Pulse Resp BP Pulse Ox 07/18/17 13:30 97.7 F 72 16 146/71 98 - Laboratory Lab Results: Lab Results 07/18/17 07/18/17 07/18/17 Range/Units 13:47 13:47 13:47 WBC (3.5-10.8) 10^3/ul RBC (4.0-5.4) 10^6/ul Hgb (14.0-18.0) g/dl Hct (42-52) % MCV (80-94) fL MCH (27-31) pg MCHC (31-36) g/dl RDW (10.5-15) % Plt Count (150-450) 10^3/ul MPV (7.4-10.4) um3 Neut % (Auto) (38-83) % Lymph % (Auto) (25-47) % [place] % (Auto) (1-9) % Eos % (Auto) (0-6) % Baso % (Auto) (0-2) % Absolute Neuts (auto) (1.5-7.7) 10^3/ul Absolute Lymphs (auto) (1.0-4.8) 10^3/ul Absolute Monos (auto) (0-0.8) 10^3/ul Absolute Eos (auto) (0-0.6) 10^3/ul Absolute Basos (auto) (0-0.2) 10^3/ul Absolute Nucleated RBC 10^3/ul Nucleated RBC % INR (Anticoag Therapy) 1.14 H (0.77-1.02) APTT 31.5 (26.0-36.3) seconds D-Dimer, Quantitative 225 (Less Than 230) ng/mL Sodium 136 (133-145) mmol/L Potassium 4.2 (3.5-5.0) mmol/L Chloride 103 (101-111) mmol/L Carbon Dioxide 26 (22-32) mmol/L Anion Gap 7 (2-11) mmol/L BUN 19 (6-24) mg/dL Creatinine 1.02 (0.67-1.17) mg/dL Est GFR ( Amer) 90.8 (>60) Est GFR (Non-Af Amer) 70.6 (>60) BUN/Creatinine Ratio 18.6 (8-20) Glucose 136 H (70-100) mg/dL Lactic Acid (0.5-2.0) mmol/L Calcium 9.2 (8.6-10.3) mg/dL Magnesium 2.2 (1.9-2.7) mg/dL Total Bilirubin 0.50 (0.2-1.0) mg/dL AST 30 (13-39) U/L ALT 31 (7-52) U/L Alkaline Phosphatase 92 (34-104) U/L Total Creatine Kinase 39 (10-223) U/L CK-MB (CK-2) 1.4 (0.6-6.3) ng/mL Troponin I 0.06 H* (<0.04) ng/mL C-Reactive Protein 3.39 (< 5.00) mg/L B-Natriuretic Peptide 91 ( - 100) pg/mL Total Protein 6.7 (6.4-8.9) g/dL Albumin 4.1 (3.2-5.2) g/dL Globulin 2.6 (2-4) g/dL Albumin/Globulin Ratio 1.6 (1-3) Lipase 12 (11.0-82.0) U/L TSH 1.05 (0.34-5.60) mcIU/mL 07/18/17 07/18/17 Range/Units 13:47 13:47 WBC 5.9 (3.5-10.8) 10^3/ul RBC 4.81 (4.0-5.4) 10^6/ul Hgb 14.6 (14.0-18.0) g/dl Hct 44 (42-52) % MCV 91 (80-94) fL MCH 30 (27-31) pg MCHC 34 (31-36) g/dl RDW 13 (10.5-15) % Plt Count 164 (150-450) 10^3/ul MPV 10 (7.4-10.4) um3 Neut % (Auto) 60.5 (38-83) % Lymph % (Auto) 20.2 L (25-47) % [place] % (Auto) 12.1 H (1-9) % Eos % (Auto) 6.4 H (0-6) % Baso % (Auto) 0.8 (0-2) % Absolute Neuts (auto) 3.6 (1.5-7.7) 10^3/ul Absolute Lymphs (auto) 1.2 (1.0-4.8) 10^3/ul Absolute Monos (auto) 0.7 (0-0.8) 10^3/ul Absolute Eos (auto) 0.4 (0-0.6) 10^3/ul Absolute Basos (auto) 0 (0-0.2) 10^3/ul Absolute Nucleated RBC 0 10^3/ul Nucleated RBC % 0.1 INR (Anticoag Therapy) (0.77-1.02) APTT (26.0-36.3) seconds D-Dimer, Quantitative (Less Than 230) ng/mL Sodium (133-145) mmol/L Potassium (3.5-5.0) mmol/L Chloride (101-111) mmol/L Carbon Dioxide (22-32) mmol/L Anion Gap (2-11) mmol/L BUN (6-24) mg/dL Creatinine (0.67-1.17) mg/dL Est GFR ( Amer) (>60) Est GFR (Non-Af Amer) (>60) BUN/Creatinine Ratio (8-20) Glucose (70-100) mg/dL Lactic Acid 1.3 (0.5-2.0) mmol/L Calcium (8.6-10.3) mg/dL Magnesium (1.9-2.7) mg/dL Total Bilirubin (0.2-1.0) mg/dL AST (13-39) U/L ALT (7-52) U/L Alkaline Phosphatase (34-104) U/L Total Creatine Kinase (10-223) U/L CK-MB (CK-2) (0.6-6.3) ng/mL Troponin I (<0.04) ng/mL C-Reactive Protein (< 5.00) mg/L B-Natriuretic Peptide ( - 100) pg/mL Total Protein (6.4-8.9) g/dL Albumin (3.2-5.2) g/dL Globulin (2-4) g/dL Albumin/Globulin Ratio (1-3) Lipase (11.0-82.0) U/L TSH (0.34-5.60) mcIU/mL Result Diagrams: 07/18/17 13:47 07/18/17 13:47 Lab Statement: Any lab studies that have been ordered have been reviewed, and results considered in the medical decision making process. - Radiology CXR Radiology Interpretation Completed By: Radiologist - CXR reveals, per radiologist, stable iatrogenic findings as described in radiology report. ED physician has reviewed this radiology report and agrees. - EKG 1336 Cardiac Rate: NL ST Segment: Normal EKG Interpretation: Atrial paced at 71 PM. Re-Evaluation - Re-Evaluation First Eval Re-Evaluation Time: 14:34 Change: Improved Comment: Discussed plan of care with pt Chest Pain Course/Dx - Course Course Of Treatment: DISCUSSED RESULTS WITH PATIENT. ADMIT HOSPITALIST. NO CRITICAL CARE TIME. - Diagnoses Provider Diagnoses: Chest pain, Troponin level elevated - Provider Notifications Discussed Care Of Patient With: Dereje Constantino Time Discussed With Above Provider: 14:40 Instructed by Provider To: Other - Consult with Dr. Constantino (hospitalist) at 1440. He agrees to admit pt. Discharge - Discharge Plan Condition: Stable Disposition: ADMITTED TO [facility] documentation as recorded by the [place] Emily accurately reflects the service I personally performed and the decisions made by me, Sancho Young MD.
[2017-07-18] MEDS: Atorvastatin* 80 MG TAB PO SCH (18:03)
--- NOTE | 2017-07-18 19:56 | HP ---
HISTORY AND PHYSICAL: DATE OF ADMISSION: 07/18/17 ADMITTING PROVIDER: Dereje Constantino MD CHIEF COMPLAINT: Burning chest pain, relieved by nitroglycerin. PRIMARY CARE PHYSICIAN: Dr. Js Claudio. PRINCIPAL [employer]INE [employer] ATTENDANT: Dr. Cohen. PAST MEDICAL HISTORY: CAD, status post CABG, 1992 with POWERS to LAD, YAEL to OM2 , saphenous vein graft to D1, saphenous vein graft to distal RCA and PDA, 4 stents, last 2 proximal LAD drug-eluting stents, October 2014; sick sinus syndrome ; atrial fibrillation, status post failed ablation procedures and status post permanent pacemaker, 07/13/17, with Dr. Cohen; GERD; hyperlipidemia. HISTORY OF PRESENT ILLNESS: Andrzej Arzola is a 77-year-old male, PMH as above, presenting with burning chest pain started last night with gradual onset while he was reading a book sitting down with no exertion, progressed to 7/10 burning sensation, took a nitroglycerin and quickly resolved, went to bed, woke up at 4 a.m. with a few minutes of bilateral numbness in both hands, which went away, and he went back to sleep. When he walked out to get the newspaper, he felt return of burning sensation, took another nitroglycerin with improvement in symptoms. Third episode while at lunch, had ran out of nitroglycerin, the pain eventually resolved. He presented to the [facility] ED for concern as these symptoms somewhat remind him of the feelings he had before he got his CABG in 1992 and not at all like his regular acid reflux-like symptoms. The pain radiates into his biceps during these events. Denied any shortness of breath or chest heaviness. No nausea up until the time he got in to the ED around 3 p.m. during my evaluation. He took aspirin 81 mg this morning along with his atenolol 50 mg (b.i.d.) and Eliquis 5 mg (b.i.d.). Initial troponin was 0.06. EKG was atrial paced rhythm at rate 71. The patient is being admitted for ACS rule out. He had a negative D-dimer 225. Denies any shortness of breath. MEDICATIONS: Include: 1. Amlodipine 10 mg q.a.m. 2. Crestor 5 mg q.h.s. 3. Prilosec 20 mg q.a.m. 4. Nitroglycerin 0.4 mg sublingual p.r.n. 5. Lisinopril 20 mg q.p.m. 6. Atenolol 50 mg b.i.d. 7. Eliquis 5 mg b.i.d. 8. Aspirin 81 mg q.a.m. 9. Tylenol 650 mg p.r.n. 10. Glucosamine chondroitin 1 capsule p.o. daily. 11. Multivitamin 1 capsule p.o. daily. ALLERGIES: The patient with some intolerance to higher doses of statins, morphine. FAMILY HISTORY: Father with likely heart attack, suddenly at age 62. Mother of acute renal failure. Two other brothers have coronary artery disease with 4 and 2 stents respectively. SOCIAL HISTORY: The patient is a never smoker. Occasional drinker. Medical proxy is his , Mayela Arzola. REVIEW OF SYSTEMS: Complete 14-point review of systems is negative except as per HPI. PHYSICAL EXAMINATION GENERAL APPEARANCE: No acute distress, sitting in the hospital bed, nonlabored breathing. VITAL SIGNS: Blood pressure 131/74, oxygen sat 99%, respiratory rate 13, heart rate 71, temperature 97.7. HEENT: Normocephalic, atraumatic. Pupils equal, round, and reactive to light. Extraocular motions intact. NECK: Supple. No cervical lymphadenopathy. PULMONARY: Clear to auscultation bilaterally with no wheezing, rales, or rhonchi. CARDIOVASCULAR: Regular rate and rhythm. No murmurs, rubs, or gallops. ABDOMEN: Soft, nontender, nondistended. No rebound or guarding or Talbot's sign. EXTREMITIES: 1 to 2+ pitting edema bilaterally (unchanged from baseline). Warm , well perfused. NEUROLOGICAL: Cranial nerves II through XII intact. Celery Wrapper strength intact. Hip flexion 5/5 bilaterally. Sensation intact in all extremities. No numbness. SKIN: No lesions. No rashes. DIAGNOSTIC STUDIES/LAB DATA: White count 5.9, hemoglobin 14.6, hematocrit 44, platelets 164. INR 1.14. Sodium 136, potassium 4.2, chloride 103, BUN 19, creatinine 1.02, glucose 136, lactic acid 1.3. AST 30, ALT 31, alk phos 92. Troponin 0.06. CK-MB 1.4. CRP 3.39. BNP 91. Albumin 4.9. Lipase 12. TSH pending. Imaging: Chest x-ray demonstrated no acute pulmonary process. EKG as per HPI. ASSESSMENT AND PLAN: 1. Andrzej Arzola is a 77-year-old male with history of coronary artery bypass graft, hyperlipidemia, atrial fibrillation, and sick sinus syndrome, status post recent permanent pacemaker placed, 07/13/17, presenting with burning chest pain, now nausea and episode of bilateral hand numbness that quickly resolved. The patient's symptoms suggest similar anginal equivalent to before he had his coronary artery bypass graft. He took 1 baby aspirin this morning. I have given him another 3 baby aspirin and though his chest pain is now resolved, I am applying nitroglycerin ointment as this is now the fourth episode in the last 18 hours. I am loading him with 300 mg of Plavix. Continue telemetry. Repeat EKG in a few hours. With severe chest pain, continue his aspirin 81 mg daily and Eliquis 5 twice a day. We are going to hold his Crestor 5 and give him atorvastatin 80 mg daily in the acute setting of potential ischemia or stable angina. The patient will be n.p.o. May need cardiac catheterization versus repeat stress test in the morning. Of note, his last stress test was very recently, 2 weeks ago, on 07/06/17, which was read as intermediate risk, ejection fraction 38% with diffuse hypokinesis. Last echo in our system, 03/04/17, with ejection fraction 40% to 45%, no regional wall motion or significant valvular dysfunction noted. In regard to his acute coronary syndrome rule out, chest pain, I will trend troponins q.3 hours, initial 0.06. 2. For his atrial fibrillation and sick sinus syndrome, status post pacemaker, we will continue his Eliquis 5 mg b.i.d. Continue telemetry. The patient denies any palpitations. 3. Hyperlipidemia. Change in statin as above. 4. Code status. He is full code. Medical proxy is Mayela Arzola, his . 5. For his gastroesophageal reflux disease, we will continue his Prilosec 20 mg q.a.m. The patient denies this feels like his gastroesophageal reflux disease like symptoms. [id number]/[facility] #: [id number] [facility]
[2017-07-18] MEDS: Acetaminophen TAB* 325 MG PO PRN (20:52)
[2017-07-18] MEDS: Apixaban* 5 MG TAB PO SCH (20:53)
[2017-07-18] MEDS: Atenolol TAB* 50 MG PO SCH (20:53)
[2017-07-18] MEDS ORDERED: Lisinopril TAB* 10 MG PO SCH (21:00)
[2017-07-19 06:29] LABS: HDL Cholesterol 32.7 mg/dL
[2017-07-19] MEDS ORDERED: Nitroglycerin 2% OINT* 1 GM PAK TOPICAL SCH (08:00)
[2017-07-19] MEDS: Aspirin Low Dose CHEW TAB* 81 MG PO SCH (08:19)
[2017-07-19] MEDS: Atenolol TAB* 50 MG PO SCH ×2 (08:19→21:43)
[2017-07-19] MEDS: Apixaban* 5 MG TAB PO SCH (08:19)
[2017-07-19] MEDS ORDERED: Omeprazole CAP* 20 MG PO SCH (09:00)
[2017-07-19] MEDS: Nitroglycerin 0.4 MG/HR PATCH* (10 MG) TRANSDERM SCH (11:20)
[2017-07-19 11:29] LABS: Hematocrit 45 % (42-52); Hemoglobin 15.4 g/dl (14.0-18.0); Mean Corpuscular HGB Conc 34 g/dl (31-36); Mean Corpuscular Hemoglobin 30 pg (27-31); Mean Corpuscular Volume 89 fL (80-94); Mean Platelet Volume 9 um3 (7.4-10.4); Red Blood Count 5.06 10^6/ul (4.0-5.4); Red Cell Distribution Width 13 % (10.5-15); White Blood Count 5.6 10^3/ul (3.5-10.8)
[2017-07-19] MEDS ORDERED: Clopidogrel TAB* 300 MG PO ONE (11:36)
[2017-07-19] MEDS: amLODIPine TAB* 5 MG PO SCH (12:09)
[2017-07-19] MEDS ORDERED: Heparin VIAL(*) 5000 UNITS/ML VIAL (FIVE THOUSAND) IV SCH (14:00)
[2017-07-19] MEDS ORDERED: Heparin DRIP 25,000 UNITS(*) 25,000 UNITS/500 ML BAG IV SCH (14:00)
[2017-07-19] MEDS: Acetaminophen TAB* 325 MG PO PRN (14:15)
--- NOTE | 2017-07-19 16:27 | CONS ---
CC: Dr. Cohen; Dr. Claudio CARDIOLOGY CONSULTATION: DATE OF CONSULT: 07/19/17 CONSULTING PHYSICIAN: Dr. Constantino. PATIENT OF: Dr. Cohen and Dr. Claudio REASON FOR EVALUATION: Chest pain. HISTORY OF PRESENT ILLNESS: This is a very pleasant 77-year-old gentleman with a longstanding history of coronary artery disease, tachy-fahad syndrome, hypertension, hyperlipidemia, status post recent pacemaker implantation who says that he was in his usual state of health until approximately 07/04/17. He said at that time he had some exertional chest pain after walking, which resolved with resting for a couple of minutes. He said it is the first time that it happened in years. He said 2 days ago and yesterday, he had several episodes of chest discomfort, some of which occurred while sitting, one of which occurred after eating, and one of which occurred with walking briefly. He said these episodes consisted of a pressure in his chest. It radiated across his chest, without associated gas, diaphoresis or shortness of breath. He said it was reminiscent of what he had prior to his bypass surgery in 1992. It took him a few minutes to get a nitro and one episode lasted for about 10 or 15 minutes before he took a nitro and then his pain was relieved in 1 to 2 minutes. He had 3 episodes yesterday and one the day before. Because of his symptoms, he came to the emergency room. He has had no further overnight. He said that if he does walk around the oneil here briskly, he will start to get a feeling of mild chest discomfort and then it resolves with resting. He said he has no pain just walking around the room and going to the toilet. He has had no orthopnea, no peripheral edema, no fevers, chills or sweats. No syncope or near syncope. He said he had a pacemaker placed on 07/13/17, and since then he said he has had resolution of the racing heart rates. He states that his episodes of elevated heart rate seem to have improved. PAST MEDICAL HISTORY: Includes coronary artery disease, status post coronary artery bypass grafting in 1992. He has also had 4 subsequent interventions. He said the last one at this hospital was 5 or 6 years ago when he had 2 stents placed and in October 2014 he had a stent placed in his LAD at [facility] in [place]. His catheterization from July 2011 revealed normal LV function and the LAD was occluded after its diagonal branch and proximally he had a stent, which was open and had a 10% in-stent restenosis. There was a small septal software development specialist measuring 1.2 that had a proximal 95% lesion. The circumflex was open and patent. Two stents to the mid proximal and mid left circumflex were open. Two OM branches patent. RCA was dominant. Mid portion RCA was open and patent. There was 40% narrowing of the right coronary artery at the ostium of the PDA. The POWERS to the LAD was open and patent. Saphenous vein graft to OM was not injected. It was known to be occluded. Severe 3-vessel coronary artery disease. POWERS patent to the LAD. Sensitive circumflex LAD and right coronary were open and patent. Critical stenosis of the septal software development specialist at the LAD with a 95% ostial stenosis of the posterior descending of the right coronary artery, on maximum medical therapy. He also has a history of hyperlipidemia. He has been intolerant of some statins , but is tolerating his current statin. He has hypertension. Denies tobacco use. He has had TIAs in the past. He has tachy-fahad syndrome. He had an ablation in January 2017 for atrial tachycardia and atrial flutter. He had successful ablation for atrial flutter. A Medtronic pacemaker was placed on . He had bypass surgery in 1992. He had cataract surgery and retinal surgery, hernia surgery, and prostatectomy for prostate cancer. His allergies include intolerance of some statins and he says sometimes he feels uncomfortable on morphine. He has sleep apnea, TIA in September 2014, detached retina in 1990, varicose veins in 2010, tonsillectomy in 1971. Of note, he did have a recent admission for possible cardioversion in February. He was seen by Dr. Holm, underwent LORE, which revealed an EF of 40% to 45%, mild RV dysfunction , trace AI, [id number] MR, mild TR, atrial flutter. He did have successful conversion of Aflutter to normal sinus rhythm. He also had a nuclear stress test on 07/06/17. He had had angina with tachycardia. EF was 38%, it was decreased. Diffuse hypokinesis, EF of 38%, intermediate risk, with no evidence of fixed or reversible perfusion defects. MEDICATIONS: As an inpatient include: 1. Atorvastatin 80 mg, that is up from Crestor 5 mg. 2. Acetaminophen p.r.n. 3. Aspirin 81 mg a day. 4. IV heparin. 5. Lisinopril 20 mg a day. 6. Nitroglycerin patch 10 mg, on in the morning, off in the evening. 7. Omeprazole 20 mg a day. 8. He is also on atenolol 50 mg b.i.d. As an outpatient, he had been on: 1. Amlodipine 10 mg a day. 2. Eliquis 5mg b.i.d. 3. Rosuvastatin 5 mg instead of the Lipitor. FAMILY HISTORY: Includes 2 brothers, one 83 who has had 2 stents and one 70 who has had 4 stents. 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 He has no children. He is . He has a cup of decaffeinated coffee a day. He has 2 glasses of wine a week. He denies tobacco use. PHYSICAL EXAMINATION: On physical exam, he is a well-developed, well-nourished gentleman, in no apparent distress. Weight 198 pounds. Pulse of 70, blood pressure 133/73, O2 sat 96%. No significant JVD. Carotids 2+ without bruits. No cervical adenopathy or thyromegaly. Extraocular muscles are intact. Sclerae anicteric. Cardiac Exam: S1, S2, with no murmurs, gallops, or rubs. Chest was clear. No CVAT. Abdomen: Obese. Bowel sounds present, nontender. No hepatosplenomegaly. Femoral pulses intact without bruits. Distal pulses intact. No edema. Motor strength 5/5 bilaterally. Unable to elicit deep tendon reflexes in the lower extremities, 2/4 in the upper extremities. Alert and oriented x3. LABORATORY DATA/DIAGNOSTIC STUDIES: Labs include normal CBC. BUN of 19, creatinine of 1.02. Troponin of 0.6, 0.7, and 0.7. Cholesterol 107, LDL 54, HDL of 33. EKG from this morning revealed poor baseline atrial paced rhythm with first- degree AV block and nonspecific inferior ST-T changes. EKG from yesterday revealed sinus rhythm with poor baseline, somewhat more pronounced lateral, minor nonspecific ST-T changes and inferolateral ST-T changes, slightly improved compared to yesterday. The EKG from 07/13/17 revealed normal sinus rhythm with really no ST changes. Chest x-ray from 07/18/17 revealed pacemaker, no effusion. IMPRESSION: My impression is that Mr. Arzola has a history of coronary disease, hypertension, hyperlipidemia, and multiple revascularizations, now presents with angina at rest and with minimal exertion, raising possibility of acute coronary syndrome. His EKG show minimal nonspecific changes. His troponins are minimally elevated. Given the decrease in EF noted on his LORE and his stress test in recent months and his new symptoms, I suspect that he may have progression of his coronary artery disease. PLan: Given his symptoms with minimal exertion and at rest, I suggest that we continue the IV heparin that was added yesterday. We will hold his Eliquis. We would recommend consideration of a cardiac catheterization. I will discuss this with Dr. Cohen. I would add nitrates as you are doing. We will consider the possibility that pacemaker in a rate response mode may be increasing heart rate with exertion and increasing myocardial demand. If he continue to have angina, we may have to consider reprograming his pacemaker. He, in the past, has had trouble tolerating statins. He may develop fatigue or weakness on his atorvastatin 80 mg. We would recommend switching back to Crestor after this admission or sooner if he develops symptoms. We would continue aspirin. We will add Plavix to his regimen in the short term, but would avoid exterminator, given the potential for increased risk of bleeding in the absence of fresh stent. We will also consider restarting a low dose of amlodipine to help with angina. [id number]/[facility] #: [id number] [facility]
[2017-07-19] MEDS: Atorvastatin* 80 MG TAB PO SCH (17:54)
--- NOTE | 2017-07-19 19:18 | PN ---
Subjective Date of Service: 07/19/17 Interval History: Chest pain/buring free after ED. Troponins flat 0.06, 0.06, 0.07. However when walked around unit today burning sensation started to return. Cardiology consulted for possible LHC vs repeat stress consideration. Heparin gtt started. eliquis stopped. Nitro patch Objective Active Medications: Acetaminophen (Tylenol Tab*) 650 mg PO QID PRN PRN Reason: PAIN OR TEMPERATURE Last Admin: 07/19/17 14:15 Dose: 650 mg Amlodipine Besylate (Norvasc Tab*) 2.5 mg PO DAILY [facility] Last Admin: 07/19/17 12:09 Dose: 2.5 mg Aspirin (Aspirin Low Dose Tab*) 81 mg PO DAILY [facility] Last Admin: 07/19/17 08:19 Dose: 81 mg Atenolol (Tenormin Tab*) 50 mg PO BID [facility] Last Admin: 07/19/17 08:19 Dose: 50 mg Atorvastatin Calcium (Lipitor*) 80 mg PO 1700 [facility] Last Admin: 07/19/17 17:54 Dose: 80 mg Clopidogrel Bisulfate (Plavix Tab*) 75 mg PO DAILY [facility] Heparin Sodium (Porcine) (Heparin Vial(*)) 0 units IV .PER PROTOCOL [facility] PRN Reason: Protocol Heparin Sodium/Dextrose (Heparin Drip 25,000 Units(*)) 25,000 units in 500 mls @ 0 mls/hr IV .NO INITIAL BOLUS [facility]; As Directed PRN Reason: Protocol Last Admin: 07/19/17 14:07 Dose: 25 mls/hr Lisinopril (Prinivil Tab*) 5 mg PO DAILY [facility] Nitroglycerin (Nitroglycerin Tab 0.4 Mg*) 0.4 mg SL . NEEDED PRN PRN Reason: PAIN - CHEST Nitroglycerin (Nitroglycerin 10 Mg Patch*) 1 patch TRANSDERM DAILY [facility] Last Admin: 07/19/17 11:20 Dose: 1 patch Pantoprazole Sodium (Protonix Tab (Nf)) 40 mg PO DAILY [facility] Pharmacy Profile Note (Nitro Patch/Oint Remove*) 1 note TOPICAL BEDTIME [facility] Vital Signs 07/18/17 07/18/17 07/19/17 20:30 23:48 04:01 Temperature 99.0 F 97.9 F Pulse Rate 70 72 70 Respiratory 20 20 20 Rate Blood Pressure 136/65 120/60 135/69 (mmHg) O2 Sat by Pulse 99 96 98 Oximetry 07/19/17 07/19/17 07/19/17 07:17 11:25 15:10 Temperature 97.5 F 97.2 F 97.6 F Pulse Rate 70 70 70 Respiratory 18 18 17 Rate Blood Pressure 133/73 137/76 110/63 (mmHg) O2 Sat by Pulse 96 97 95 Oximetry Oxygen Devices in Use Now: None Appearance: NAD Eyes: No Scleral Icterus, PERRLA Ears/Nose/Mouth/Throat: NL Teeth, Lips, Gums, Mucous Membranes Moist Neck: NL Appearance and Movements; NL JVP Respiratory: Symmetrical Chest Expansion and Respiratory Effort, Clear to Auscultation Cardiovascular: NL Sounds; No Murmurs; No JVD, RRR Abdominal: NL Sounds; No Tenderness; No Distention, No Hepatosplenomegaly Extremities: - - 1+ edema Skin: No Rash or Ulcers Neurological: Alert and Oriented x 3, NL Sensation, NL Muscle Strength and Tone Result Diagrams: 07/19/17 11:19 07/19/17 11:19 Additional Lab and Data: Laboratory Results - last 24 hr 07/19/17 07/19/17 07/19/17 05:47 05:50 11:19 WBC 5.6 RBC 5.06 Hgb 15.4 Hct 45 MCV 89 MCH 30 MCHC 34 RDW 13 Plt Count 156 MPV 9 Neut % (Auto) 66.8 Lymph % (Auto) 16.4 L [place] % (Auto) 11.3 H Eos % (Auto) 4.5 Baso % (Auto) 1.0 Absolute Neuts (auto) 3.7 Absolute Lymphs (auto) 0.9 L Absolute Monos (auto) 0.6 Absolute Eos (auto) 0.3 Absolute Basos (auto) 0.1 Absolute Nucleated RBC 0.01 Nucleated RBC % 0.1 APTT BUN Hemoglobin A1c 5.7 H Triglycerides 104 Cholesterol 107 LDL Cholesterol 54 HDL Cholesterol 32.7 07/19/17 07/19/17 11:19 11:19 WBC RBC Hgb Hct MCV MCH MCHC RDW Plt Count MPV Neut % (Auto) Lymph % (Auto) [place] % (Auto) Eos % (Auto) Baso % (Auto) Absolute Neuts (auto) Absolute Lymphs (auto) Absolute Monos (auto) Absolute Eos (auto) Absolute Basos (auto) Absolute Nucleated RBC Nucleated RBC % APTT 32.1 BUN 18 Hemoglobin A1c Triglycerides Cholesterol LDL Cholesterol HDL Cholesterol Assess/Plan/Problems-Billing Assessment: 77 yo male PMH CABG and 4 subsequent stents (last October 2014), GERD, very recent PPM , aFib. P/w burning chest pain relieved by nitro. NSTEMI with planned [facility] 07/20/17 - Patient Problems (1) CAD (coronary artery disease) Current Visit: Yes Status: Acute Code(s): I25.10 - ATHSCL HEART DISEASE OF [place] CORONARY ARTERY W/O ANG PCTRS SNOMED Code(s): 09108253 Comment: Appreciate Cardiolgy recs s/p plavix load 300mg on admission. Continue 75mg daily (this is new med, was not on triple therapy prior) stop eliquis, start heparin gtt. continue aspirin 81mg (s/p 324 on admission) crestor 5mg was increased to atorvastation 80mg but plan decrease in near future /discharge if [facility] w/o suspicious lesion may need to reprogram his new PPM. very recent stress test (intermediate risk 07/06 with diffuse hypokinesis EF 38% ) ECHO planned [facility] 07/20 (2) Hx of CABG Current Visit: Yes Status: Acute Comment: plan as above. (3) GERD (gastroesophageal reflux disease) Current Visit: Yes Status: Acute Code(s): K21.9 - GASTRO-ESOPHAGEAL REFLUX DISEASE WITHOUT ESOPHAGITIS SNOMED Code(s): 494194897 Comment: continue prilosec chest pain does not feel like his normal acid reflux symptoms. (4) Atrial flutter Current Visit: Yes Status: Acute Code(s): I48.92 - UNSPECIFIED ATRIAL FLUTTER SNOMED Code(s): 4046732 Comment: s/p PPM Mg>2, K>4. None on tele (5) CHF (congestive heart failure) Current Visit: Yes Status: Acute Code(s): I50.9 - HEART FAILURE, UNSPECIFIED SNOMED Code(s): 60085450 Comment: EF 38% on recent stress test, EF 40-45% on last ECHO per cardiology repeat ECHO continue lisinopril, BB. Status and Disposition: medicine inpatient Attending: Dereje Constantino
[2017-07-19] MEDS: Nitro Patch/OINT Remove TOPICAL SCH (21:48)
[2017-07-19] MEDS: Psyllium PAK PO SCH (21:49)
[2017-07-20] MEDS ORDERED: Perflutren Lipid Microsphere* 3 ML VIAL ONE (07:47)
[2017-07-20 08:35] LABS: Hematocrit 43 % (42-52); Hemoglobin 14.4 g/dl (14.0-18.0); Mean Corpuscular HGB Conc 34 g/dl (31-36); Mean Corpuscular Hemoglobin 30 pg (27-31); Mean Corpuscular Volume 89 fL (80-94); Mean Platelet Volume 9 um3 (7.4-10.4); Red Blood Count 4.76 10^6/ul (4.0-5.4); Red Cell Distribution Width 13 % (10.5-15); White Blood Count 4.6 10^3/ul (3.5-10.8)
--- NOTE | 2017-07-20 09:06 | ECHO ---
Patient: PAULA JORGENSEN [facility] Rec#: [id number] : 1940 Date: 07/20/2017 Age: 77y Height: 180.34 cm / 71.0 in Weight: 89.81 kg / 197.9 lbs Sex: M BSA: 2.1 Room#: 443 Admit Date#: 07/18/2017 Type: Inpatient Referring: Dereje Constantino Reading: Rex Cohen MD [employer] Manager: Lora Wolfe,RDCS,RDMS CC: Js Claudio MD Transthoracic Echocardiogram Indication: CP BP: 126/63 HR: 72 Rhythm: NSR Findings History: Recent pacemaker.CAD, CABG, PCI, AFIB, HLD, GLENN Technical Comments: The study quality is fair. Completed 0830 Left Ventricle: The left ventricular chamber size is normal. Mild to moderate concentric left ventricular hypertrophy is observed. Left ventricular systolic function is at the lower limits of normal. The estimated ejection fraction is 45-50%. Abnormal left ventricular diastolic filling is observed, consistent with impaired relaxation. Left Atrium: The left atrium is mildly dilated. Right Ventricle: The right ventricle wall thickness is mildly increased. The right ventricular cavity size is normal. The right ventricular global systolic function is mildly reduced. A pacemaker wire is visualized in the right ventricle. Right Atrium: The right atrium is mildly dilated. A pacemaker wire is visualized in the right atrium. Aortic Valve: There is no evidence of aortic valve thickening. Systolic excursion of the aortic valve is normal. There is a trace of aortic regurgitation. There is no evidence of aortic stenosis. Mitral Valve: The mitral valve leaflets are mildly thickened. There is a trace of mitral regurgitation. There is no evidence of mitral stenosis. Tricuspid Valve: The tricuspid valve leaflets are normal. There is trace tricuspid regurgitation. Unable to estimate the right ventricular systolic pressure. Pulmonic Valve: The pulmonic valve structure is not well visualized. Pericardium: There is no significant pericardial effusion. Aorta: The aortic root appears normal. There is no dilatation of the aortic arch. Pulmonary Artery: The main pulmonary artery is not well visualized. Venous: The inferior vena cava appears normal. There is a greater than 50% respiratory change in the inferior vena cava dimension. Contrast: Definity was used to optimize study. A total of 3 ml was used Summary: There are no significant changes when compared to the previous study done on 03/04/17 Conclusions Mild to moderate concentric left ventricular hypertrophy is observed. Left ventricular systolic function is at the lower limits of normal. The estimated ejection fraction is 45-50%. A pacemaker wire is visualized in the right atrium. There is a trace of aortic regurgitation. There is a trace of mitral regurgitation. There is trace tricuspid regurgitation. Unable to estimate the right ventricular systolic pressure. There is no significant pericardial effusion. There are no significant changes when compared to the previous study done on 03/04/17 Measurements Name Value Normal Range RVIDd (AP) 2D 2.7 cm (0.9 - 2.6) RAd ISD 4CH 5.4 cm (3.4 - 4.9) RA (A4C)W 4.8 cm (2.9 - 4.6) IVSd (2D) 1.4 cm (0.6 - 1) LVPWd (2D) 1.3 cm (0.6 - 1) LVIDd (2D) 4.2 cm (3.6 - 5.4) LVIDs (2D) 3.9 cm - LV FS (2D) 7 % (25 - 45) Aortic Annulus 2 cm (1.4 - 2.6) Ao root diameter (2D) 3.2 cm (2.1 - 3.5) Ascending Ao 3 cm (2.1 - 3.4) Aortic arch 2.8 cm (1.8 - 3.4) LA dimension (AP) 2D 4.3 cm (2.3 - 3.8) LAd ISD 4CH 6.1 cm (2.9 - 5.3) LA ISD 4CH W 4.2 cm (2.5 - 4.5) Name Value Normal Range LA ESV SP 4CH (A/L) 71.33 ml - LA ESV SP 2CH (A/L) 96.66 ml - LA ESV BP (A/L) 83.35 ml - LA ESV BP (A/L) index 40 ml/m2 - LA ESV SP 4CH (MOD) 65.81 ml - LA ESV SP 2CH (MOD) 90.73 ml - Name Value Normal Range MV E-wave Vmax 0.4 m/sec - MV deceleration time 252 msec - MV A-wave Vmax 0.7 m/sec - MV E:A ratio 0.6 ratio - LV septal e' Vmax 0.06 m/sec - LV lateral e' Vmax 0.07 m/sec - LV E:e' septal ratio 7 ratio - LV E:e' lateral ratio 6 ratio - Name Value Normal Range AV Vmax 1.2 m/sec - AV VTI 25 cm - AV peak gradient 6 mmHg - AV mean gradient 3.3 mmHg - LVOT Vmax 0.8 m/sec - LVOT VTI 15.7 cm - LVOT peak gradient 2.8 mmHg - LVOT mean gradient 1.2 mmHg - JETT Vmax 0.5 m/sec - Name Value Normal Range RAP 8 mmHg - IVC diameter 1.2 cm - Name Value Normal Range PV Vmax 0.5 m/sec - PV peak gradient 1 mmHg -
[2017-07-20] MEDS: Atenolol TAB* 50 MG PO SCH ×2 (09:58→20:49)
[2017-07-20] MEDS: Nitroglycerin 0.4 MG/HR PATCH* (10 MG) TRANSDERM SCH (09:58)
[2017-07-20] MEDS: Psyllium PAK PO SCH (09:58)
[2017-07-20] MEDS: Clopidogrel TAB* 75 MG PO SCH (09:58)
[2017-07-20] MEDS: Lisinopril TAB* 5 MG PO SCH (09:58)
[2017-07-20] MEDS: CMC: Pantoprazole TAB (NF) 40 MG TAB PO SCH (09:58)
[2017-07-20] MEDS: amLODIPine TAB* 5 MG PO SCH (09:58)
[2017-07-20] MEDS: Aspirin Low Dose CHEW TAB* 81 MG PO SCH (09:59)
[2017-07-20] MEDS: Atorvastatin* 80 MG TAB PO SCH (16:11)
--- NOTE | 2017-07-20 18:11 | PN ---
Subjective Date of Service: 07/20/17 Interval History: No complaints of chest pain return overnight. Dr. Cohen planning [facility] 07/21. No other complaints. Objective Active Medications: Acetaminophen (Tylenol Tab*) 650 mg PO QID PRN PRN Reason: PAIN OR TEMPERATURE Last Admin: 07/19/17 14:15 Dose: 650 mg Amlodipine Besylate (Norvasc Tab*) 2.5 mg PO DAILY [facility] Last Admin: 07/20/17 09:58 Dose: 2.5 mg Aspirin (Aspirin Low Dose Tab*) 81 mg PO DAILY [facility] Last Admin: 07/20/17 09:59 Dose: 81 mg Atenolol (Tenormin Tab*) 50 mg PO BID [facility] Last Admin: 07/20/17 09:58 Dose: 50 mg Atorvastatin Calcium (Lipitor*) 80 mg PO 1700 [facility] Last Admin: 07/20/17 16:11 Dose: 80 mg Clopidogrel Bisulfate (Plavix Tab*) 75 mg PO DAILY [facility] Last Admin: 07/20/17 09:58 Dose: 75 mg Lisinopril (Prinivil Tab*) 5 mg PO DAILY [facility] Last Admin: 07/20/17 09:58 Dose: 5 mg Nitroglycerin (Nitroglycerin Tab 0.4 Mg*) 0.4 mg SL . NEEDED PRN PRN Reason: PAIN - CHEST Nitroglycerin (Nitroglycerin 10 Mg Patch*) 1 patch TRANSDERM DAILY [facility] Last Admin: 07/20/17 09:58 Dose: 1 patch Pantoprazole Sodium (Protonix Tab (Nf)) 40 mg PO DAILY [facility] Last Admin: 07/20/17 09:58 Dose: 40 mg Pharmacy Profile Note (Nitro Patch/Oint Remove*) 1 note TOPICAL BEDTIME [facility] Last Admin: 07/19/17 21:48 Dose: 1 note Psyllium Hydrophilic Mucilloid (Metamucil Ross*) 1 pkt PO DAILY [facility] Last Admin: 07/20/17 09:58 Dose: 1 pkt Vital Signs 07/19/17 07/19/17 07/19/17 20:00 20:03 23:55 Temperature 98.0 F 98.3 F Pulse Rate 70 70 Respiratory 16 16 20 Rate Blood Pressure 112/64 123/63 (mmHg) O2 Sat by Pulse 96 97 Oximetry 07/20/17 07/20/17 07/20/17 03:44 08:00 09:09 Temperature 99.7 F 98.9 F Pulse Rate 75 69 Respiratory 20 16 16 Rate Blood Pressure 126/63 141/75 (mmHg) O2 Sat by Pulse 97 97 Oximetry 07/20/17 07/20/17 11:53 15:36 Temperature 98.2 F 98.7 F Pulse Rate 70 70 Respiratory 16 18 Rate Blood Pressure 130/70 118/68 (mmHg) O2 Sat by Pulse 97 98 Oximetry Oxygen Devices in Use Now: None Appearance: NAD Eyes: No Scleral Icterus, PERRLA Ears/Nose/Mouth/Throat: NL Teeth, Lips, Gums, Mucous Membranes Moist Neck: NL Appearance and Movements; NL JVP, Trachea Midline Respiratory: Symmetrical Chest Expansion and Respiratory Effort, Clear to Auscultation Cardiovascular: NL Sounds; No Murmurs; No JVD, RRR Abdominal: NL Sounds; No Tenderness; No Distention, No Hepatosplenomegaly Extremities: No Edema Skin: No Rash or Ulcers, No Nodules or Sclerosis Neurological: Alert and Oriented x 3, NL Sensation, NL Muscle Strength and Tone Result Diagrams: 07/20/17 08:14 07/19/17 11:19 Additional Lab and Data: Laboratory Results - last 24 hr 07/19/17 07/20/17 07/20/17 22:43 08:14 08:14 WBC 4.6 RBC 4.76 Hgb 14.4 Hct 43 MCV 89 MCH 30 MCHC 34 RDW 13 Plt Count 139 L MPV 9 Neut % (Auto) 56.3 Lymph % (Auto) 24.2 L [place] % (Auto) 11.8 H Eos % (Auto) 6.7 H Baso % (Auto) 1.0 Absolute Neuts (auto) 2.6 Absolute Lymphs (auto) 1.1 Absolute Monos (auto) 0.5 Absolute Eos (auto) 0.3 Absolute Basos (auto) 0 Absolute Nucleated RBC 0.01 Nucleated RBC % 0.1 APTT 74.6 H 72.7 H Assess/Plan/Problems-Billing Assessment: 77 yo male PMH CABG and 4 subsequent stents (last October 2014), GERD, very recent PPM , aFib. P/w burning chest pain relieved by nitro. NSTEMI with planned C 07/21/17 - Patient Problems (1) CAD (coronary artery disease) Current Visit: Yes Status: Acute Code(s): I25.10 - ATHSCL HEART DISEASE OF [place] CORONARY ARTERY W/O ANG PCTRS SNOMED Code(s): 45143119 Comment: Appreciate Cardiolgy recs s/p plavix load 300mg on admission. Continue 75mg daily (this is new med, was not on triple therapy prior) eliquis has been held since AM 12/3 dose, on heparin gtt. continue aspirin 81mg (s/p 324 on admission) crestor 5mg was increased to atorvastation 80mg but plan decrease in near future /discharge if [facility] w/o suspicious lesion may need to reprogram his new PPM. very recent stress test (intermediate risk 07/06 with diffuse hypokinesis EF 38% ) 07/20 ECHO: EF 40-45%, diastolic dysfunction planned [facility] 07/21 (2) Hx of CABG Current Visit: Yes Status: Acute Comment: plan as above. (3) GERD (gastroesophageal reflux disease) Current Visit: Yes Status: Acute Code(s): K21.9 - GASTRO-ESOPHAGEAL REFLUX DISEASE WITHOUT ESOPHAGITIS SNOMED Code(s): 842586028 Comment: continue prilosec chest pain does not feel like his normal acid reflux symptoms. (4) Atrial flutter Current Visit: Yes Status: Acute Code(s): I48.92 - UNSPECIFIED ATRIAL FLUTTER SNOMED Code(s): 8514245 Comment: s/p PPM Mg>2, K>4. None on tele (5) CHF (congestive heart failure) Current Visit: Yes Status: Acute Code(s): I50.9 - HEART FAILURE, UNSPECIFIED SNOMED Code(s): 85393075 Comment: stable EF 40-45% on ECHO with diastolic dysfunction. no regional wma continue lisinopril, BB. Status and Disposition: medicine inpatient Attending: Dereje Constantino
[2017-07-20] MEDS: Nitro Patch/OINT Remove TOPICAL SCH (20:50)
[2017-07-21] MEDS: CMC: Pantoprazole TAB (NF) 40 MG TAB PO SCH (08:39)
[2017-07-21] MEDS: Aspirin Low Dose CHEW TAB* 81 MG PO SCH (08:39)
[2017-07-21] MEDS: Atenolol TAB* 50 MG PO SCH ×2 (08:39→21:28)
[2017-07-21] MEDS: amLODIPine TAB* 5 MG PO SCH (08:40)
[2017-07-21] MEDS: Lisinopril TAB* 5 MG PO SCH (08:40)
[2017-07-21] MEDS: Clopidogrel TAB* 75 MG PO SCH (08:40)
[2017-07-21] MEDS: Psyllium PAK PO SCH (08:41)
[2017-07-21] MEDS: Nitroglycerin 0.4 MG/HR PATCH* (10 MG) TRANSDERM SCH (08:41)
[2017-07-21] MEDS ORDERED: Lidocaine 1% INJ* 10 MG/ML 30 ML SDV ONE (09:14)
[2017-07-21] MEDS ORDERED: Heparin 2 UNITS/ML IVPREMIX* 3,000 ML IV ONE (09:14)
[2017-07-21] MEDS ORDERED: Midazolam* 1 MG/ML 10 ML VIAL (10 MG) ONE (09:14)
[2017-07-21] MEDS ORDERED: fentaNYL* 50 MCG/ML 2 ML VIAL (100 MCG VIAL) ONE (09:14)
[2017-07-21] MEDS ORDERED: Iohexol 350 (CONTRAST) 200 ML MDV IV ONE (09:15)
[2017-07-21] MEDS ORDERED: Clopidogrel TAB* 75 MG ONE (10:16)
[2017-07-21] MEDS ORDERED: nitroGLYCERIN DRIP* 25,000 MCG/250 ML BTL ONE (10:22)
[2017-07-21] MEDS ORDERED: Nitroglycerin TAB 0.4 MG* 0.4 MG TAB SL PRN (11:00)
[2017-07-21] MEDS: NS 0.9% 1000 ML* 1,000 ML IV SCH ×2 (11:19→19:37)
[2017-07-21] MEDS ORDERED: Metoprolol Tartrate IV* 1 MG/ML 5 ML VIAL IV ONE (14:00)
--- NOTE | 2017-07-21 17:07 | PN ---
Subjective Date of Service: 07/21/17 Interval History: Pt is feeling well. He denies any groin pain. No chest pain or SOB. Objective Active Medications: Acetaminophen (Tylenol Tab*) 650 mg PO QID PRN PRN Reason: PAIN OR TEMPERATURE Last Admin: 07/19/17 14:15 Dose: 650 mg Amlodipine Besylate (Norvasc Tab*) 2.5 mg PO DAILY [facility] Last Admin: 07/21/17 08:40 Dose: 2.5 mg Aspirin (Aspirin Low Dose Tab*) 81 mg PO DAILY [facility] Last Admin: 07/21/17 08:39 Dose: 81 mg Atenolol (Tenormin Tab*) 50 mg PO BID [facility] Last Admin: 07/21/17 08:39 Dose: 50 mg Atorvastatin Calcium (Lipitor*) 80 mg PO 1700 [facility] Last Admin: 07/20/17 16:11 Dose: 80 mg Clopidogrel Bisulfate (Plavix Tab*) 75 mg PO DAILY [facility] Last Admin: 07/21/17 08:40 Dose: 75 mg Sodium Chloride (Ns 0.9% 1000 Ml*) 1,000 mls @ 100 mls/hr IV .per rate [facility] Stop: 07/22/17 05:00 Last Admin: 07/21/17 11:19 Dose: 100 mls/hr Lisinopril (Prinivil Tab*) 5 mg PO DAILY [facility] Last Admin: 07/21/17 08:40 Dose: 5 mg Nitroglycerin (Nitroglycerin Tab 0.4 Mg*) 0.4 mg SL . NEEDED PRN PRN Reason: PAIN - CHEST Nitroglycerin (Nitroglycerin 10 Mg Patch*) 1 patch TRANSDERM DAILY [facility] Last Admin: 07/21/17 08:41 Dose: Not Given Nitroglycerin (Nitroglycerin Tab 0.4 Mg*) 0.4 mg SL Q5M PRN PRN Reason: ANGINA Pantoprazole Sodium (Protonix Tab (Nf)) 40 mg PO DAILY [facility] Last Admin: 07/21/17 08:39 Dose: 40 mg Pharmacy Profile Note (Nitro Patch/Oint Remove*) 1 note TOPICAL BEDTIME [facility] Last Admin: 07/20/17 20:50 Dose: 1 note Psyllium Hydrophilic Mucilloid (Metamucil Ross*) 1 pkt PO DAILY [facility] Last Admin: 07/21/17 08:41 Dose: Not Given Vital Signs - 8 hr 07/21/17 07/21/17 07/21/17 11:14 11:15 11:25 Temperature 97.6 F Pulse Rate 70 70 Respiratory 21 14 21 Rate Blood Pressure 168/72 154/76 (mmHg) O2 Sat by Pulse 100 100 Oximetry 07/21/17 07/21/17 07/21/17 11:30 11:31 11:45 Temperature 97.6 F Pulse Rate 70 70 70 Respiratory 19 14 15 Rate Blood Pressure 144/84 156/79 151/84 (mmHg) O2 Sat by Pulse 99 100 100 Oximetry 07/21/17 07/21/17 07/21/17 12:00 12:17 12:30 Temperature Pulse Rate 70 70 70 Respiratory 12 9 12 Rate Blood Pressure 147/84 157/93 140/83 (mmHg) O2 Sat by Pulse 100 100 100 Oximetry 07/21/17 07/21/17 07/21/17 12:45 13:00 13:15 Temperature Pulse Rate 70 70 70 Respiratory 14 7 5 Rate Blood Pressure 147/83 160/86 152/87 (mmHg) O2 Sat by Pulse 100 100 99 Oximetry 07/21/17 07/21/17 07/21/17 13:30 13:45 13:47 Temperature Pulse Rate 70 70 70 Respiratory 7 7 9 Rate Blood Pressure 145/85 160/88 150/88 (mmHg) O2 Sat by Pulse 99 99 99 Oximetry 07/21/17 14:00 Temperature Pulse Rate 70 Respiratory 10 Rate Blood Pressure 144/82 (mmHg) O2 Sat by Pulse 100 Oximetry Oxygen Devices in Use Now: Nasal Cannula Appearance: Elderly male lying flat in bed, NAD Eyes: No Scleral Icterus Ears/Nose/Mouth/Throat: Mucous Membranes Moist Respiratory: Symmetrical Chest Expansion and Respiratory Effort, Clear to Auscultation Cardiovascular: NL Sounds; No Murmurs; No JVD, RRR, No Edema Abdominal: NL Sounds; No Tenderness; No Distention Extremities: No Clubbing, Cyanosis Skin: No Rash or Ulcers, No Nodules or Sclerosis Neurological: Alert and Oriented x 3 Result Diagrams: 07/20/17 08:14 07/19/17 11:19 Additional Lab and Data: Laboratory Results - last 24 hr 07/19/17 07/20/17 07/20/17 22:43 08:14 08:14 WBC 4.6 RBC 4.76 Hgb 14.4 Hct 43 MCV 89 MCH 30 MCHC 34 RDW 13 Plt Count 139 L MPV 9 Neut % (Auto) 56.3 Lymph % (Auto) 24.2 L [place] % (Auto) 11.8 H Eos % (Auto) 6.7 H Baso % (Auto) 1.0 Absolute Neuts (auto) 2.6 Absolute Lymphs (auto) 1.1 Absolute Monos (auto) 0.5 Absolute Eos (auto) 0.3 Absolute Basos (auto) 0 Absolute Nucleated RBC 0.01 Nucleated RBC % 0.1 APTT 74.6 H 72.7 H Assess/Plan/Problems-Billing 77 yo male PMHx of CABG and 4 subsequent stents (last October 2014), GERD, very recent PPM , aFib. P/w burning chest pain relieved by nitro and was admitted for NSTEMI. - Patient Problems (1) CAD (coronary artery disease) Current Visit: Yes Status: Acute Code(s): I25.10 - ATHSCL HEART DISEASE OF [place] CORONARY ARTERY W/O ANG PCTRS SNOMED Code(s): 28980315 Comment: s/p catheterization today. He received a BLANCA. Continue ASA 81mg daily, lipitor. The patient follows with Dr. Cohen as an outpatient. He will need to follow up with Dr. Cohen in about 7 days. (2) Atrial flutter Current Visit: Yes Status: Acute Code(s): I48.92 - UNSPECIFIED ATRIAL FLUTTER SNOMED Code(s): 3130662 Comment: Pt will need to be resumed on elquis when ok'ed with cardiology. (3) GERD (gastroesophageal reflux disease) Current Visit: Yes Status: Acute Code(s): K21.9 - GASTRO-ESOPHAGEAL REFLUX DISEASE WITHOUT ESOPHAGITIS SNOMED Code(s): 432493051 Comment: Continue prilosec. (4) DVT prophylaxis Current Visit: Yes Status: Acute Code(s): NLQ4844 - SNOMED Code(s): 347261893 (5) Full code status Current Visit: Yes Status: Acute Code(s): Z78.9 - OTHER SPECIFIED HEALTH STATUS SNOMED Code(s): 753940842 Status and Disposition: medicine inpatient
[2017-07-21] MEDS: Atorvastatin* 80 MG TAB PO SCH (17:54)
[2017-07-21] MEDS: Nitro Patch/OINT Remove TOPICAL SCH (21:28)
[2017-07-22] MEDS: Acetaminophen TAB* 325 MG PO PRN (00:08)
--- NOTE | 2017-07-22 02:29 | CATH ---
CC: Dr. Rex Cohen; Dr. Js Claudio * INTERVENTIONAL REPORT: DATE OF PROCEDURE: 07/21/17 - ROOM #ICU-04 INDICATION FOR THE PROCEDURE: Patient with unstable angina on presentation, acute coronary syndrome with critical 90% to 95% distal right coronary artery lesion prior to the posterior descending artery. PROCEDURE: Primary stenting of the distal right coronary artery with 3.0 x 16 mm long Synergy drug-eluting stent. The patient was already prepped and draped in sterile fashion by Dr. Cohen, who performed the diagnostic catheterization. A 6-Macedonian sheath was in place. The patient received a total of 7500 units of heparin intravenously for anticoagulation and had received an additional 150 mg of clopidogrel. Guiding views were obtained utilizing a 6-[place]acedonian ART four curve right coronary artery guide catheter. The guidewire was a Orthocon 0.014 guidewire. The stent was a 3.0 x 16 mm long Synergy drug-eluting stent dilated to high pressure with post deployment dilatations to high pressure utilizing a 3.0 x 8 mm noncompliant Emerge balloon. Following this, the artery was assessed in multiple views. RESULTS: Successful intervention into critically stenosed distal right coronary artery (90% to 95% stenosed) with residual stenosis of 0% SHELLI 3 flow and no dissection seen. The patient will be managed for his general cardiology by Dr. Rex Cohen, his primary wildlife conservationist.Recommendations to remain on dual antiplatelet therapy at this point for a minimum of year's time should be considered, however if the patient is placed back on a NOAC agent, consideration at some point for switching him to just clopidogrel and the NOAC agent would be reasonable. This will be at the discretion of Dr. Cohen. [id number]/[facility] #: [id number] [facility]
[2017-07-22] MEDS: NS 0.9% 1000 ML* 1,000 ML IV SCH (03:36)
--- NOTE | 2017-07-22 04:49 | CATH ---
CC: Dr. Js Claudio; Dr. Jerson Brown * CARDIAC CATHETERIZATION: DATE OF STUDY: 07/21/17 - ROOM #ICU-04 PROCEDURE: Cardiac catheterization including coronary angiography, internal mammary artery angiography, left heart catheterization. INDICATION: Unstable angina; coronary artery disease. The patient is a 77-year-old gentleman with a long history of coronary artery disease. The patient has had a bypass surgery in 1992 and multiple stents since then. 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 The patient was admitted to the hospital with unstable angina. The patient had a stress test less than a month ago which showed normal perfusion throughout the myocardium. Cardiac catheterization was recommended. DESCRIPTION OF PROCEDURE: The patient was brought to the cardiac catheterization lab in a fasting state. Informed consent had been obtained prior to the procedure. All labs had been reviewed. The patient was placed supine on the catheterization stable. Both femoral areas were cleaned and draped in the usual fashion. 1% lidocaine was used for local anesthesia. The right femoral artery was entered via modified Seldinger technique and a 6- Bengali sheath introducer was placed. The patient underwent coronary angiography and internal mammary angiography using a 6- Bengali JL4 catheter and 6-Bengali JESUS ALBERTO catheter. At the end of the procedure, the patient underwent angioplasty and stenting to his right coronary artery by Dr. Brown. Please see his report. The patient tolerated the procedure well. There were no complications. A total of 4.7 minutes of fluoro time was used. The report stated that there was a 160 cc of Omnipaque dye used for my procedure. I do not think that is correct. I think I used less than a 100 cc of Omnipaque dye. FINDINGS: HEMODYNAMICS: Central aortic blood pressure 154/72 with a mean of 103. The aortic valve was crossed and end-diastolic pressure of 14 was recorded. CORONARY ARTERIES: 1. Left main: The left main was normal in size. It bifurcated into the LAD and circumflex. There was no evidence of stenosis. 2. Left anterior descending artery: The LAD was normal in size. It gave off 1 diagonal vessel, that was normal. The LAD was occluded after the first diagonal. There was a septal instrument specialist with a 90% stenosis in the proximal portion. 3. Left circumflex artery: The circumflex artery was normal in size. It gave off 3 obtuse marginal branches. There was no evidence of stenosis. There was a fourth obtuse marginal branch between the first and third obtuse marginal that was completely occluded. 4. Right coronary artery: The RCA was normal in size. It was a dominant vessel. It gave off the PDA and a large posterolateral branch. The proximal portion of the right coronary artery was mildly calcified. The stent to the distal RCA was open and patent except for the distal one-third that had a 95% stenosis in the stent itself. The PDA itself and posterolateral branches had no disease. Internal mammary artery to the LAD was open and patent. The touchdown to the LAD was normal. The mid and distal LAD was without disease. The patient had a free YAEL graft in the past that was occluded. The patient also had a saphenous vein graft to the OM2 vessel and the PDA that was occluded, was well known in the past. IMPRESSION: 1. Occluded LAD with a patent POWERS to the distal LAD. 2. A 95% in-stent restenosis of the right coronary artery stent. 3. Stent to the left circumflex artery was open and patent. RECOMMENDATION: The patient will undergo angioplasty and stenting of the right coronary artery. [id number]/[facility] #: [id number] [facility]
[2017-07-22 06:29] LABS: Hematocrit 42 % (42-52); Hemoglobin 14.1 g/dl (14.0-18.0); Mean Corpuscular HGB Conc 34 g/dl (31-36); Mean Corpuscular Hemoglobin 31 pg (27-31); Mean Corpuscular Volume 90 fL (80-94); Mean Platelet Volume 9 um3 (7.4-10.4); Red Blood Count 4.62 10^6/ul (4.0-5.4); Red Cell Distribution Width 13 % (10.5-15); White Blood Count 5.5 10^3/ul (3.5-10.8)
[2017-07-22 06:32] LABS: BUN/Creatinine Ratio 15.8 (8-20); Calcium 8.7 mg/dL (8.6-10.3); EGFR African American 91.9 (>60); EGFR Non-African American 71.4 (>60); Potassium 4.2 mmol/L (3.5-5.0)
--- NOTE | 2017-07-22 08:47 | PN ---
Subjective Date of Service: 07/22/17 Interval History: Pt is feeling well. He denies any groin pain. No CP or SOB. He has started to move around a little this am and feels well. Objective Active Medications: Acetaminophen (Tylenol Tab*) 650 mg PO QID PRN PRN Reason: PAIN OR TEMPERATURE Last Admin: 07/22/17 00:08 Dose: 650 mg Amlodipine Besylate (Norvasc Tab*) 2.5 mg PO DAILY [facility] Last Admin: 07/21/17 08:40 Dose: 2.5 mg Aspirin (Aspirin Low Dose Tab*) 81 mg PO DAILY [facility] Last Admin: 07/21/17 08:39 Dose: 81 mg Atenolol (Tenormin Tab*) 50 mg PO BID [facility] Last Admin: 07/21/17 21:28 Dose: 50 mg Atorvastatin Calcium (Lipitor*) 80 mg PO 1700 [facility] Last Admin: 07/21/17 17:54 Dose: 80 mg Clopidogrel Bisulfate (Plavix Tab*) 75 mg PO DAILY [facility] Last Admin: 07/21/17 08:40 Dose: 75 mg Lisinopril (Prinivil Tab*) 5 mg PO DAILY [facility] Last Admin: 07/21/17 08:40 Dose: 5 mg Nitroglycerin (Nitroglycerin Tab 0.4 Mg*) 0.4 mg SL . NEEDED PRN PRN Reason: PAIN - CHEST Nitroglycerin (Nitroglycerin 10 Mg Patch*) 1 patch TRANSDERM DAILY [facility] Last Admin: 07/21/17 08:41 Dose: Not Given Nitroglycerin (Nitroglycerin Tab 0.4 Mg*) 0.4 mg SL Q5M PRN PRN Reason: ANGINA Pantoprazole Sodium (Protonix Tab (Nf)) 40 mg PO DAILY [facility] Last Admin: 07/21/17 08:39 Dose: 40 mg Pharmacy Profile Note (Nitro Patch/Oint Remove*) 1 note TOPICAL BEDTIME [facility] Last Admin: 07/21/17 21:28 Dose: 1 note Psyllium Hydrophilic Mucilloid (Metamucil Ross*) 1 pkt PO DAILY [facility] Last Admin: 07/21/17 08:41 Dose: Not Given Vital Signs - 8 hr 07/22/17 07/22/17 07/22/17 00:55 01:00 02:00 Temperature Pulse Rate 70 70 70 Respiratory 19 11 11 Rate Blood Pressure 123/66 128/82 134/72 (mmHg) O2 Sat by Pulse 95 96 94 Oximetry 07/22/17 07/22/17 07/22/17 03:00 03:52 04:00 Temperature 98.1 F Pulse Rate 69 69 Respiratory 12 13 Rate Blood Pressure 135/77 122/76 (mmHg) O2 Sat by Pulse 97 97 Oximetry 07/22/17 07/22/17 07/22/17 05:00 06:00 06:01 Temperature Pulse Rate 69 72 Respiratory 7 14 10 Rate Blood Pressure 100/58 (mmHg) O2 Sat by Pulse 94 97 Oximetry 07/22/17 08:00 Temperature 98.2 F Pulse Rate Respiratory Rate Blood Pressure (mmHg) O2 Sat by Pulse Oximetry Oxygen Devices in Use Now: None Appearance: Elderly male sitting up in bed, NAD Eyes: No Scleral Icterus Ears/Nose/Mouth/Throat: Mucous Membranes Moist Respiratory: Symmetrical Chest Expansion and Respiratory Effort, Clear to Auscultation Cardiovascular: NL Sounds; No Murmurs; No JVD, RRR Abdominal: NL Sounds; No Tenderness; No Distention Extremities: No Clubbing, Cyanosis Skin: No Rash or Ulcers, No Nodules or Sclerosis Neurological: Alert and Oriented x 3 Result Diagrams: 07/22/17 05:20 07/22/17 05:20 Additional Lab and Data: Laboratory Results - last 24 hr 07/19/17 07/20/17 07/20/17 22:43 08:14 08:14 WBC 4.6 RBC 4.76 Hgb 14.4 Hct 43 MCV 89 MCH 30 MCHC 34 RDW 13 Plt Count 139 L MPV 9 Neut % (Auto) 56.3 Lymph % (Auto) 24.2 L Isabela % (Auto) 11.8 H Eos % (Auto) 6.7 H Baso % (Auto) 1.0 Absolute Neuts (auto) 2.6 Absolute Lymphs (auto) 1.1 Absolute Monos (auto) 0.5 Absolute Eos (auto) 0.3 Absolute Basos (auto) 0 Absolute Nucleated RBC 0.01 Nucleated RBC % 0.1 APTT 74.6 H 72.7 H Microbiology and Other Data: Microbiology 07/21/17 19:40 Nasal Screen MRSA (PCR)(LADAN) - Final Nasal Mrsa Negative Assess/Plan/Problems-Billing 77 yo male PMHx of CABG and 4 subsequent stents (last October 2014), GERD, very recent PPM , aFib. P/w burning chest pain relieved by nitro and was admitted for NSTEMI. - Patient Problems (1) CAD (coronary artery disease) Current Visit: Yes Status: Acute Code(s): I25.10 - ATHSCL HEART DISEASE OF [place] CORONARY ARTERY W/O ANG PCTRS SNOMED Code(s): 59107372 Comment: The patient is s/p BLANCA to the distal RCA. The patient is doing well today. Dr. Brown will follow up the groin today. Continue aspirin, plavix and lipitor. Follow up with Dr. Cohen in about 7 days. Will get the patient up and moving this AM and likely d/c home later today. (2) HTN (hypertension) Current Visit: Yes Status: Acute Code(s): I10 - ESSENTIAL (PRIMARY) HYPERTENSION SNOMED Code(s): 23574554 Comment: The patient's amlodipine and lisinopril doses have been reduced significantly. His BP needs to be monitored closely and if his blood pressure increases his doses will need to be increased. (3) Atrial flutter Current Visit: Yes Status: Acute Code(s): I48.92 - UNSPECIFIED ATRIAL FLUTTER SNOMED Code(s): 9888512 Comment: Pt remains in NSR. Will resume eliquis on Thursday if he is feeling well. However, if the patient develops an irregular HR he needs to alert Dr. Cohen and get started on the eliquis sooner. (4) GERD (gastroesophageal reflux disease) Current Visit: Yes Status: Acute Code(s): K21.9 - GASTRO-ESOPHAGEAL REFLUX DISEASE WITHOUT ESOPHAGITIS SNOMED Code(s): 041664716 Comment: Continue prilosec. (5) DVT prophylaxis Current Visit: Yes Status: Acute Code(s): MZF8286 - SNOMED Code(s): 999721299 Comment: ambulation-home today. (6) Full code status Current Visit: Yes Status: Acute Code(s): Z78.9 - OTHER SPECIFIED HEALTH STATUS SNOMED Code(s): 828758384 Status and Disposition: medicine inpatient
[2017-07-22] MEDS: Clopidogrel TAB* 75 MG PO SCH (09:22)
[2017-07-22] MEDS: amLODIPine TAB* 5 MG PO SCH (09:22)
[2017-07-22] MEDS: Atenolol TAB* 50 MG PO SCH (09:22)
[2017-07-22] MEDS: Lisinopril TAB* 5 MG PO SCH (09:22)
[2017-07-22] MEDS: Aspirin Low Dose CHEW TAB* 81 MG PO SCH (09:22)
[2017-07-22] MEDS: Nitroglycerin 0.4 MG/HR PATCH* (10 MG) TRANSDERM SCH (09:23)
[2017-07-22] MEDS: CMC: Pantoprazole TAB (NF) 40 MG TAB PO SCH (09:29)
[2017-07-22] MEDS: Psyllium PAK PO SCH (09:30)
[2017-07-22] MEDS ORDERED: Atenolol TAB* 25 MG PO ONE (09:49)
[2017-07-22 11:19] VITALS: BP 128/74
== END 2017-07-22 12:20 | disposition home or self-care (01) | DRG 287 ==
LOC: ED 13:27 → OBSVTOIN 14:28 → MEDTELE 14:28 → ICU 07-21 11:16
PROVIDERS: ADMIT Internal Medicine; ATTEND Hospitalist
PROC: B211YZZ Fluoroscopy of Multiple Coronary Arteries using Other Contrast (ICD-10-PCS; 2017-07-21)
PROC: 4A023N7 Measurement of Cardiac Sampling and Pressure, Left Heart, Percutaneous Approach (ICD-10-PCS; principal; 2017-07-21 09:00)
DX: I25.110 Atherosclerotic heart disease of native coronary artery with unstable angina pectoris (principal); I11.0 Hypertensive heart disease with heart failure; I48.91 Unspecified atrial fibrillation; I49.5 Sick sinus syndrome; Z95.1 Presence of aortocoronary bypass graft; Z95.5 Presence of coronary angioplasty implant and graft; E78.5 Hyperlipidemia, unspecified; Z95.0 Presence of cardiac pacemaker; K21.9 Gastro-esophageal reflux disease without esophagitis; Z79.01 Long term (current) use of anticoagulants; Z79.1 Long term (current) use of non-steroidal anti-inflammatories (NSAID); Z79.82 Long term (current) use of aspirin; Z79.899 Other long term (current) drug therapy; Z82.49 Family history of ischemic heart disease and other diseases of the circulatory system
CPT/HCPCS: 36415; 71010; 80048; 80053; 80061; 82550; 82553; 83036; 83605; 83690; 83735; 83880; 84443; 84484; 84520; 85025; 85379; 85610; 85730; 86140; 87641; 93005; 93306; 93455; 94660; 99156; 99157; A9270-GY; C1725; C1769; C1876; C1887; C8929; J1644; J2250; J2405; J3010; J3490

== ENCOUNTER 2018-04-08 15:45 | Observation (INO) | payer MEDICARE ==
[2018-04-08] MEDS ORDERED: Nitroglycerin TAB 0.4 MG* 0.4 MG TAB SL ONE (15:54)
--- NOTE | 2018-04-08 16:02 | ED ---
HPI Chest Pain - HPI Summary HPI Summary: This patient is a 78 year old M presenting to [facility] accompanied by his with a chief complaint of 4/10 diffuse CP since 04/07/18. Pt was at [facility] and the provider said she couldnt find an underlying rhythm. Pt is paced but barely keeping up; pt will become bradycardic into the 40s, then pacer will kick in and pt will go back into the 70s. Pt endorses all of his teeth ache, and his teeth feel like they are going to pop out. He endorses diffuse CP with deep breaths, and peripheral edema (baseline). Pt denies nausea and diaphoresis. He notes that the pain yesterday was sporadic and randomly located, including his abdomen and chest. SHx 5 stents, 4x CABG. Denies PMHx PE , DVT, DM, and AL. - History of Current Complaint Chief Complaint: EDChestPainROMI Time Seen by Provider: 04/08/18 15:52 Hx Obtained From: Patient Onset/Duration: Started Days Ago, Still Present Timing: Intermittent - with deep breaths, Lasting Days Initial Severity: Moderate Current Severity: Mild Pain Intensity: 0 Pain Scale Used: 0-10 Numeric Chest Pain Location: Diffuse Chest Pain Radiates: Yes Chest Pain Radiates To:: Jaw Character: Dull/Aching, Tightness Aggravating Factor(s): Deep Breaths Alleviating Factor(s): Nothing Associated Signs and Symptoms: Positive: Chest Pain, Abdominal Pain, Edema - baseline. Negative: Fever, Diaphoresis, Nausea - Allergy/Home Medications Allergies/Adverse Reactions: Allergies Allergy/AdvReac Type Severity Reaction Status Date / Time morphine Allergy Unknown Unknown Verified 04/08/18 16:58 Reaction Details Vubwgpx-Aeh-Qrr Reductase Allergy Unknown Unknown Verified 04/08/18 16:58 Inhibitor Reaction Details Home Medications: Home Medications Clopidogrel TAB* [Plavix TAB*] 75 mg PO DAILY 04/08/18 [History Confirmed ] Codeine Phosphate/Guaifenesin [Guaifen-Codeine 100-10 mg/5 ml] 5 - 10 ml PO Q12HR PRN 04/08/18 [History Confirmed 04/08/18] Gluc Murray/Chondro Murray A/Vit C/Mn [Glucosamine Chondroitin] 1 tab PO DAILY 04/08/18 [History Confirmed 04/08/18] Lisinopril TAB* [Prinivil TAB*] 5 mg PO DAILY 04/08/18 [History Confirmed ] Metoprolol Succinate XL TAB* [Toprol XL TAB*] 50 mg PO BID 04/08/18 [History Confirmed 04/08/18] Nitroglycerin TAB 0.4 MG* 0.4 mg SL Q5M PRN 04/08/18 [History Confirmed 04/08/18 ] Pantoprazole TAB (NF) [Protonix TAB (NF)] 40 mg PO DAILY 04/08/18 [History Confirmed 04/08/18] Rosuvastatin (NF) [Crestor (NF)] 5 mg PO DAILY 04/08/18 [History Confirmed 04/08] amLODIPine TAB* [Norvasc 5 mg TAB*] 10 mg PO DAILY 04/08/18 [History Confirmed 04/08/18] PMH/Surg Hx/FS Hx/Imm Hx Endocrine/Hematology History: Reports: Hx Anticoagulant Therapy - eloquis Denies: Hx Diabetes, Hx Unexplained Bleeding Cardiovascular History: Reports: Hx Angina, Hx Angioplasty, Hx Coronary Artery Disease, Hx Hypertension, Hx Pacemaker/ICD Denies: Hx Auto Implanted Cardiovert Defib, Hx Cardiac Arrest, Hx Congenital Heart Disease, Hx Congestive Heart Failure, Hx Deep Vein Thrombosis, Hx Hypercholesterolemia, Hx Hypotension, Hx Peripheral Vascular Disease, Hx Rheumatic Fever, Hx Syncope, Hx Valvular Heart Disease, Other Cardiovascular Problems/Disorders Respiratory History: Reports: Hx Sleep Apnea - uses CPAP at home Denies: Hx Asthma GI History: Reports: Hx Ulcer - takes omeprazole Denies: Other GI Disorders History: Reports: Other Problems/Disorders - prostate ca approx 2007 prostatectomy Denies: Hx Renal Disease Sensory History: Reports: Hx Cataracts - 2 removed one each eye, Hx Hearing Problem Denies: Hx Contacts or Glasses, Hx Legally Blind, Hx Deafness, Hx Hearing Aid Comment Only: Other Sensory Impairments - hx left eye detatched retina Opthamlomology History: Reports: Hx Cataracts - 2 removed one each eye Denies: Hx Contacts or Glasses, Hx Legally Blind Comment Only: Other Sensory Impairments - hx left eye detatched retina EENT History: Denies: Hx Deafness Neurological History: Reports: Hx Transient Ischemic Attacks (TIA) - drs with dr renee, ? recent tia Denies: Other Neuro Impairments/Disorders Psychiatric History: Denies: Hx Panic Disorder, Hx Schizophrenia - Cancer History Cancer Type, Location and Year: PROSTATE Hx Chemotherapy: No Hx Radiation Therapy: No - Surgical History Surgery Procedure, Year, and Place: BY PASS 1992, HERNIA 2008, PROSTATECTOMY, EYE PUCKER REPAIR, DETACHED RETINA(CLEARED FOR MRI NOVEMBER [address] VICK) TONSILECTOMY, STERNUM WIRES, STENTS 2001,2009 Infectious Disease History: Yes Infectious Disease History: Denies: Hx Clostridium Difficile, Hx Hepatitis, Hx Human Immunodeficiency Virus (HIV), Hx of Known/Suspected MRSA, Hx Shingles, Hx Tuberculosis, Traveled Outside the [place] in Last 30 Days - Family History Known Family History: Positive: Cardiac Disease - Social History Occupation: Retired Lives: With Family Alcohol Use: Weekly Alcohol Amount: reports a couple of drink/week Hx Substance Use: No Substance Use Type: Reports: None Hx Tobacco Use: No Smoking Status (MU): Never Smoked Tobacco Review of Systems Negative: Fever, Skin Diaphoresis Positive: Dental Pain Positive: Chest Pain Negative: Nausea Positive: no symptoms reported Positive: Arthralgia - jaw ache, Edema - baseline peripheral All Other Systems Reviewed And Are Negative: Yes Physical Exam - Summary Physical Exam Summary: General: well-appearing, no pain distress Skin: warm, color reflects adequate perfusion, dry Head: normal Eyes: EOMI, LUKE ENT: normal Neck: supple, non-tender Respiratory: CTA, breath sounds present Cardiovascular: RRR Abdomen: soft, non-tender Bowel: present Musculoskeletal: normal, strength/ROM intact Neurological: sensory/motor intact, A&O x3 Psychological: affect/mood appropriate Triage Information Reviewed: Yes Vital Signs On Initial Exam: Initial Vitals Temp Pulse Resp BP Pulse Ox 97.6 F 74 16 143/68 99 04/08/18 15:48 04/08/18 15:48 04/08/18 15:48 04/08/18 15:48 04/08/18 15:48 Vital Signs Reviewed: Yes Diagnostics - Vital Signs Vital Signs Temp Pulse Resp BP Pulse Ox 04/08/18 15:52 77 13 140/79 99 04/08/18 15:51 74 23 99 04/08/18 15:48 97.6 F 74 16 143/68 99 - Laboratory Result Diagrams: 04/08/18 16:08 04/08/18 16:08 Lab Statement: Any lab studies that have been ordered have been reviewed, and results considered in the medical decision making process. - Radiology CXR Xray Interpretation: No Acute Changes Radiology Interpretation Completed By: Radiologist - Post-surgical change, no active disease. Dr. Young has reviewed this report. - EKG 1554 Cardiac Rate: NL - 84 EKG Rhythm: Atrial Fibrillation EKG Interpretation: Ventricularly paced complexes, no PVCs Re-Evaluation - Re-Evaluation First Eval Re-Evaluation Time: 16:56 Change: Improved Comment: Discussed results. Pt did not endorse tooth/dental pain. Chest Pain Course/Dx - Course Course Of Treatment: ADMIT HOSPITALIST - Diagnoses Provider Diagnoses: Chest pain - Provider Notifications Discussed Care Of Patient With: Marlyn Patel Time Discussed With Above Provider: 17:11 Instructed by Provider To: Other - accepts admission Discharge - Sign-Out/Discharge Documenting (check all that apply): Patient Departure - Admit - Discharge Plan Condition: Stable Disposition: ADMITTED TO [facility] Referrals: Js Claudio MD [Primary Care Provider] - - Billing Disposition and Condition Condition: STABLE Disposition: Admitted to [facility] - Attestation Statements Document Initiated by Scribe: Yes Documenting Scribe: Emerson Richard Provider For Whom Scribe is Documenting (Include Credential): Dr. Sancho Young MD Scribe Attestation: Emerson Mijares scribed for Dr. Sancho Young MD on 04/08/18 at 1808. Scribe Documentation Reviewed: Yes Provider Attestation: The documentation as recorded by the Emerson forde accurately reflects the service I personally performed and the decisions made by me, Dr. Sancho Young MD
[2018-04-08] MEDS: NS 0.9% 1000 ML* 1,000 ML IV SCH ×2 (16:14→19:40)
[2018-04-08 16:17] LABS: ABS Basophils 0.1 10^3/ul (0-0.2); ABS Eosinophils 0.3 10^3/ul (0-0.6); ABS Lymphocytes 1.2 10^3/ul (1.0-4.8); ABS Monocytes 0.6 10^3/ul (0-0.8); ABS Neutrophils 3.1 10^3/ul (1.5-7.7); ABS Nucleated RBC 0 10^3/ul; Eosinophil % 5.7 % (0-6); Hematocrit 40 % (42-52); Hemoglobin 13.6 g/dl (14.0-18.0); Lymphocyte % 22.1 % (25-47); Mean Corpuscular HGB Conc 34 g/dl (31-36); Mean Corpuscular Hemoglobin 31 pg (27-31); Mean Corpuscular Volume 90 fL (80-94); Nucleated Red Blood Cells % 0; Platelet Count 150 10^3/ul (150-450); Red Blood Count 4.45 10^6/ul (4.00-5.40); Red Cell Distribution Width 13 % (10.5-15); White Blood Count 5.3 10^3/ul (3.5-10.8)
--- NOTE | 2018-04-08 16:18 | RAD ---
INDICATION: Chest pain COMPARISON: July 18, 2017 TECHNIQUE: An AP portable view obtained at 1601 hours is submitted. FINDINGS: Bones/Soft Tissues: There are no acute bony findings. There is sternotomy. There is a left-sided cardiac pacemaker, unchanged Cardiomediastinal: The cardiomediastinal silhouette is normal. Lungs: There are no infiltrates. Pleura: There are no pleural effusions. Other: None IMPRESSION: POSTSURGICAL CHANGE. NO ACTIVE DISEASE.
[2018-04-08 16:36] LABS: EGFR Non-African American 63.9 (>60)
[2018-04-08] MEDS ORDERED: Al Hydrox/Mg Hydrox/Simet LIQ* 30 ML UDC PO PRN (18:27)
[2018-04-08] MEDS ORDERED: Morphine INJ* 2 MG/ML 1 ML SYRINGE (TWO MG - NEW SYRINGE VERSION) IV PRN (18:27)
[2018-04-08] MEDS ORDERED: Acetaminophen TAB* 325 MG PO PRN (18:27)
[2018-04-08] MEDS ORDERED: Temazepam CAP* 15 MG PO PRN (18:27)
[2018-04-08] MEDS ORDERED: Nitroglycerin TAB 0.4 MG* 0.4 MG TAB SL PRN (18:32)
--- NOTE | 2018-04-08 21:02 | HP ---
CC: Dr. Claudio; Dr. Cohen; Dr. Robins * HISTORY AND PHYSICAL: DATE OF ADMISSION: 04/08/18 PRIMARY CARE PROVIDER: Dr. Claudio. RESEARCH INSTRUMENTATION TECHNICIAN: Dr. Cohen. CHIEF COMPLAINT: Jaw pain and chest pain. HISTORY OF PRESENT ILLNESS: Mr. Arzola is a 78-year-old male with history of significant coronary artery disease status post coronary artery bypass grafting in 1992 as well as subsequent total of 5 stents with the most recent one into the right coronary artery in July 2017, who presents complaining of chest pain. The patient also complains of jaw pain. He stated that it occurred yesterday, 1 episode, and today in the morning upon awakening and getting up out of bed. He stated that the pain was in bilateral jaws and radiated to his chest. He also stated that he felt like it hurt to breathe for a few seconds and then it resolved. He also noted that he has had increased fatigue for the past couple of weeks, but no decrease in exercise tolerance per se. His initial troponin is unremarkable, but he had some EKG changes, although it is difficult to evaluate the patient's paced rhythm. He is going to be placed on overnight observation with the diagnosis of chest pain. PAST MEDICAL HISTORY: 1. History of coronary artery bypass grafting in 1992. 2. History of a total of 5 stents, the most recent one into RCA in July 2017. 3. History of atrial fibrillation status post ablation procedures and pacemaker placement for tachybrady syndrome. 4. History of hyperlipidemia. 5. Gastroesophageal reflux disease. 6. History of hernia surgery. 7. History of retinal surgery. 8. History of cataract surgery. 9. History of prostatectomy for prostate cancer. 10. History of TIA in September 2014. 11. Obstructive sleep apnea. 12. History of detached retina in 1990. 13. Varicose vein surgery in 2010. 14. Tonsillectomy in 1971. ALLERGIES: Include intolerance to morphine and statins. FAMILY HISTORY: Positive for father who of a sudden cardiac at the age of 62. Mother of acute renal failure. The patient's both brothers also have history of heart disease with stents in the past. SOCIAL HISTORY: The patient denies any tobacco or drug use. He drinks alcohol rarely. His healthcare proxy is his , Mayela. REVIEW OF SYSTEMS: Please see history of present illness. All of the remaining 12 systems were reviewed with the patient and were otherwise negative. PHYSICAL EXAMINATION GENERAL: The patient is a very pleasant 78-year-old male who is in no acute distress. Alert, awake, and oriented x3. VITAL SIGNS: Blood pressure of 142/80, heart rate of 81 and regular, respiratory rate 16, oxygen saturation 99% on room air, temperature 97.5. HEENT: Head: Atraumatic, normocephalic. Eyes: Pupils are equal, reactive to light and accommodation. Oropharynx clear. Mucosa moist. NECK: Supple. No JVD. No bruits bilaterally. RESPIRATORY: Clear to auscultation bilaterally. CARDIOVASCULAR: Regular rate and rhythm. No murmur. ABDOMEN: Soft, nontender. Bowel sounds are present in all 4 quadrants. EXTREMITIES: There is no edema. Pulses are +2 bilaterally. No clubbing or cyanosis. NEUROLOGIC: Speech is clear. Cranial nerves II through XII grossly intact. Motor strength is 5/5 bilaterally. PSYCHIATRIC: Oriented x3 with no evidence of anxiety or depression. LABORATORY DATA: Show white blood cell count of 5.3, hemoglobin of 13.6, hematocrit of 40, and platelets of 150,000. Sodium 136, potassium 4.4, chloride 109, carbon dioxide 22, BUN 18, creatinine 1.11. Liver function tests were unremarkable. Troponin of 0. Brain natriuretic peptide was 420. TSH of 1.01. IMAGING: Portable chest x-ray showed postsurgical changes and no acute disease. The patient's EKG showed what appears to be new inversion in the leads V3 and V4 to V5, comparing with EKGs from July 2017. The patient also has underlying, today, AFib and flutter with ventricular paced complexes. ASSESSMENT AND PLAN: 1. In regards to the patient's chest pain. It does appear to maybe anginal like. At this point, the patient is chest pain free. I discussed the case with Dr. Robins. The patient's troponin is unremarkable. His EKG may be different from prior due to the patient's pacer. At this point, it was recommended for the patient to undergo a cardiac stress test, which is going to be pharmacologic in the morning assuming his troponins continue to be negative. The patient is going to be continued on his aspirin and Plavix. 2. In regards to the patient's paroxysmal atrial fibrillation. Currently, it appears to be in the underlying rhythm. The patient is going to be continued on metoprolol succinate for rate control as well as Eliquis for anticoagulation. 3. For DVT prophylaxis, the patient is on Eliquis. 4. The patient's code status is full and his surrogate is his . TIME SPENT: Approximately 55 minutes were spent on the admission of this patient, more than half that time was spent [id number] with the patient during the interview and physical exam. [id number]/[facility] #: [id number] [facility]
[2018-04-08] MEDS: Metoprolol Succinate XL TAB* 50 MG PO SCH (21:03)
[2018-04-08] MEDS: Apixaban* 5 MG TAB PO SCH (21:03)
--- NOTE | 2018-04-08 22:58 | CONS ---
CC: Dr. Rex Cohen; Dr. Claudio * CARDIOLOGY CONSULTATION: DATE OF CONSULT: 04/08/18 PATIENT OF: Dr. Rex Cohen. CONSULTING PHYSICIAN: Dr. Padilla. REASON FOR EVALUATION: Chest pain, abnormal EKG. HISTORY OF PRESENT ILLNESS: This is a very pleasant 78-year-old gentleman who has a history of coronary artery disease. He was in his usual state of health and went camping last week until when he returned earlier this week. He said on Thursday night, he noted some funny sensations in his abdomen and on Thursday during the day, he had some sharp fleeting sensations in his chest. He said these were lasting second in various areas over his chest, not associated with any gas, diaphoresis, nausea, vomiting, or lightheadedness. He said this morning, he continued to have some lesser fleeting pain in his chest, but was also having some pain in his teeth and jaw, he said that lasted several hours. He says sometimes a deep breath would make it hurt worse. Because of those symptoms, he went to see his physician and he was noted to have some EKG change and was referred to the emergency room. He denies any discomforts currently. He denies any fevers, chills, or sweats. No hematemesis, hematochezia. No nausea, vomiting, or diarrhea. He said he exercises regularly and works out at the [facility] 2 to 3 times a week and does about 45 minutes of aerobics each time. He last did that and felt well doing that. PAST MEDICAL HISTORY: Includes hypertension, coronary artery disease, status post bypass grafting in 1992 and he has had 5 stents since then, the most recent stent was in July 2017, and he had a pacemaker placed for tachybrady syndrome. He has a history of paroxysmal atrial fibrillation, which he is not aware of. He has a history of hyperlipidemia. He denies tobacco use or diabetes. PAST SURGICAL HISTORY: Includes the bypass surgery, prostate resection, herniorrhaphy, and he has had multiple eye surgeries including a macular pucker. MEDICATIONS: As an outpatient include: 1. Glucosamine/chondroitin. 2. Metoprolol XL 50 mg b.i.d. 3. Amlodipine 5 mg 2 tablets a day. 4. Plavix 75 mg a day. 5. Rosuvastatin 5 mg a day. 6. Lisinopril 5 mg a day. 7. Protonix 40 mg a day. 8. Aspirin 81 mg a day. 9. Eliquis 5 mg b.i.d. 10. Codeine. ALLERGIES: Include MORPHINE with unknown reaction and STATINS with unknown reaction, although he is on rosuvastatin now. SOCIAL HISTORY: He drinks decaffeinated coffee. He has about 2 glasses of wine a week. He is . No children. 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 REVIEW OF SYSTEMS: Review of systems x10 was negative except as above. PHYSICAL EXAM: He is a well-developed, well-nourished gentleman, in no apparent distress. Blood pressure 142/80, pulse 81, afebrile, O2 sat 99% on room air. No significant JVD. Carotids 2+ without bruits. No cervical adenopathy or thyromegaly. Cardiac Exam: S1, S2, without murmurs, gallops, or rubs. Chest was clear. No CVAT. Abdomen: Bowel sounds present, nontender. Femoral pulses intact without bruits. Distal pulses intact. No edema. Motor strength 5/5 bilaterally. Deep tendon reflexes 2/4. Alert and oriented x3. DIAGNOSTIC STUDIES/LAB DATA: Include a white count of 5.3, hemoglobin of 13.6, hematocrit of 40, platelet count of 150. Sodium 136, potassium of 4.4, BUN of 18, creatinine of 1.1. BNP elevated at 420. Troponin of 0. Normal TSH. D- dimer less than 200. Chest x-ray, postsurgical change. Nothing acute. His EKG from today revealed normal. The atrial fibrillation with inferior T- wave inversion, occasional and rare PVCs, inferolateral ST-T changes. Previous EKG from July 2017 revealed sinus rhythm with minor nonspecific inferior T-wave flattening and EKG from July 2017 revealed atrial pacing with nonspecific inferior ST-T changes. His pacemaker interrogation from January 2018 revealed AFib for 9 hours of the time with a controlled heart rate, on average in AFib. IMPRESSION: My impression is that Mr. Arzola has chest pain of unclear etiology, somewhat atypical pattern with negative troponin after several hours of jaw pain yesterday. He has nonspecific EKG changes, some of his symptoms are fleeting and worse with respiratory changes, raising the possibility of inflammatory process. The EKG changes are nonspecific and could represent ischemia or pericarditis or post-pacer changes. RECOMMENDATIONS: For the time being, I have recommended the followin. Would rule out for DC as you are doing. 2. Would check serial troponins and EKGs. 3. Would check a CRP and sed rate. 4. Would arrange a nuclear stress test tomorrow to exclude a coronary syndrome and ischemia. 5. It was possible that his symptoms may be related to more persistent atrial fibrillation. Further recommendations will depend on his clinical course. [id number]/[facility] #: [id number] [facility]
[2018-04-09] MEDS: NS 0.9% 1000 ML* 1,000 ML IV SCH (05:11)
[2018-04-09] MEDS ORDERED: Lisinopril TAB* 5 MG PO SCH (09:00)
[2018-04-09] MEDS ORDERED: Clopidogrel TAB* 75 MG PO SCH (09:00)
[2018-04-09] MEDS ORDERED: amLODIPine TAB* 5 MG PO SCH (09:00)
[2018-04-09] MEDS ORDERED: Aspirin 81 mg CHEW TAB* 81 MG TAB.CHEW PO SCH (09:00)
[2018-04-09] MEDS ORDERED: Multivitamins/Minerals TAB PO SCH (09:00)
[2018-04-09] MEDS: Apixaban* 5 MG TAB PO SCH (10:06)
[2018-04-09] MEDS: Metoprolol Succinate XL TAB* 50 MG PO SCH (10:08)
--- NOTE | 2018-04-09 10:09 | ECHO ---
Patient: PAULA JORGENSEN [facility] Rec#: [id number] : 1940 Date: 04/09/2018 Age: 78y Height: 183 cm / 72.0 in Weight: 90.7 kg / 199.9 lbs Sex: M BSA: 2.13 Room#: 438 Admit Date#: 04/08/2018 Type: Inpatient Referring: Emeterio Robins MD Reading: Emeterio Robins MD [employer] Coordinator: Lora Rudd LISA CC: Rex Cohen MD Transthoracic Echocardiogram Indication: Chest Pain BP: 120/70 HR: 71 Rhythm: Paced Findings History: HTN,CABG',PCI ',HLD. Technical Comments: The study quality is fair. Completed at 0825. Left Ventricle: The left ventricular chamber size is normal. Mild concentric left ventricular hypertrophy is observed. There are multiple regional wall motion abnormalities. The estimated ejection fraction is 40-45%. Ventricular septal wall motion has a post-operative appearance. There is abnormal ventricular septal wall motion consistent with right ventricular pacemaker. Abnormal left ventricular diastolic function is observed. The mid anteroseptal, mid anterior, mid anterolateral, mid inferoseptal, apical anterior, and apical lateral wall segments are hypokinetic (score 2). Overall wallmotion score index is 1.38 Left Atrium: The left atrium is moderately dilated. Right Ventricle: The right ventricular cavity size is normal. The right ventricular global systolic function is mildly to moderately reduced. A pacemaker wire is visualized in the right ventricle. Right Atrium: The right atrium is mildly dilated. A pacemaker wire is visualized in the right atrium. Aortic Valve: The aortic valve is trileaflet. The aortic valve leaflets are mildly thickened. Systolic excursion of the aortic valve cusps is reduced. There is no evidence of aortic regurgitation. There is no evidence of aortic stenosis. Mitral Valve: The mitral valve leaflets are mildly thickened. There is a trace of mitral regurgitation. There is no evidence of mitral stenosis. Tricuspid Valve: The tricuspid valve leaflets are normal. There is mild tricuspid regurgitation. No pulmonary hypertension is noted. There is no tricuspid stenosis. Pulmonic Valve: The pulmonic valve structure is not well visualized. Pericardium: The pericardium appears normal. Aorta: There is no dilatation of the ascending aorta. The aortic arch is not well visualized. There is no dilation of the aortic root. Pulmonary Artery: The main pulmonary artery is not well visualized. Venous: The inferior vena cava appears normal in size. There is a greater than 50% respiratory change in the inferior vena cava dimension. Conclusions There are multiple regional wall motion abnormalities. The estimated ejection fraction is 40-45%. Abnormal left ventricular diastolic function is observed. The left atrium is moderately dilated. Ventricular septal wall motion has a post-operative appearance. There is abnormal ventricular septal wall motion consistent with right ventricular pacemaker. Mild concentric left ventricular hypertrophy is observed. The right ventricular cavity size is normal. The right ventricular global systolic function is mildly to moderately reduced. The right atrium is mildly dilated. The aortic valve leaflets are mildly thickened. There is a trace of mitral regurgitation. Mild decrease in EF c/t 07/2017 when the ef was 45-50%. Measurements Name Value Normal Range RVIDd (AP) 2D 3.6 cm (0.9 - 2.6) RVDdMajor (2D) 2.4 cm (2.2 - 4.4) RAd ISD 4CH 5.4 cm (3.4 - 4.9) RA (A4C)W 4.4 cm (2.9 - 4.6) IVSd (2D) 0.9 cm (0.6 - 1) LVPWd (2D) 1.1 cm (0.6 - 1) LVIDd (2D) 4.6 cm (3.6 - 5.4) LVIDs (2D) 4 cm - LV FS (2D) 13 % (25 - 45) Aortic Annulus 2 cm (1.4 - 2.6) Ao root diameter (2D) 3.3 cm (2.1 - 3.5) Ascending Ao 3 cm (2.1 - 3.4) LA dimension (AP) 2D 5 cm (2.3 - 3.8) LAd ISD 4CH 6 cm (2.9 - 5.3) LA ISD 4CH W 3.8 cm (2.5 - 4.5) Name Value Normal Range LA ESV SP 4CH (A/L) 29 ml - LA ESV SP 2CH (A/L) 38 ml - LA ESV BP (A/L) index 34 ml/m2 - Name Value Normal Range MV E-wave Vmax 1.2 m/sec - LV E:e' septal ratio 0.1 ratio - LV E:e' lateral ratio 0.12 ratio - Name Value Normal Range AV Vmax 1.1 m/sec - AV VTI 23.8 cm - AV peak gradient 2 mmHg - AV mean gradient 1 mmHg - LVOT Vmax 0.8 m/sec - LVOT VTI 16.8 cm - LVOT peak gradient 2 mmHg - LVOT mean gradient 1 mmHg - Name Value Normal Range TR Vmax 2.2 m/sec - TR peak gradient 20 mmHg - RAP 3 mmHg - RVSP 23 mmHg - IVC diameter 1.9 cm - Name Value Normal Range PV Vmax 0.6 m/sec - PV peak gradient 2 mmHg - Wallmotion BAS Normal BA Normal BAL Normal MAGALY Normal BI Normal BIS Normal MAS Hypokinetic MA Hypokinetic MAL Hypokinetic MIL Normal FL Normal MIS Hypokinetic Normal AA Hypokinetic AL Hypokinetic AI Normal APEX Normal
[2018-04-09 11:31] VITALS: BP 139/65
[2018-04-09] MEDS ORDERED: Aminophylline IV* 25 MG/ML 10 ML VIAL ONE (11:37)
[2018-04-09] MEDS ORDERED: Regadenoson* 0.4 MG/5 ML SYRINGE ONE (11:37)
--- NOTE | 2018-04-09 13:03 | RAD ---
HISTORY: CP, EKG changes COMPARISONS: July 06, 2017 TECHNIQUE: A 1 day stress/rest myocardial perfusion study was performed, with pharmacologic stress. The stress portion was monitored by Dr. Pradhan. Gated SPECT imaging was performed, without CT-based attenuation correction secondary to patient physical limitation DOSE: Stress: Technetium 99m tetrofosmin, 26.29 millicuries, injected at 11:55 AM on April 09, 2018 Rest: Technetium 99m tetrofosmin, 10.6 millicuries, injected at 6:45 AM on April 09, 2018 Pharmacologic agent: Lexiscan FINDINGS: CARDIAC MONITORING: Nondiagnostic EKG portion secondary to baseline abnormalities. EF: 54 % TID: 104 MOTION: There is septal hypokinesia PERFUSION: There are no fixed or reversible perfusion defects. OTHER: None IMPRESSION: NO FIXED OR REVERSIBLE PERFUSION DEFECTS. ASSESSMENT: INTERMEDIATE RISK. Based on imaging criteria from ACC/AHA 2002. Guideline Update for the Management of Patient's with Chronic Stable Angina, table 23. Noninvasive Risk Stratification.
--- NOTE | 2018-04-10 01:35 | DS ---
CC: Dr. Robins; Dr. Cohen.* DISCHARGE SUMMARY: DATE OF ADMISSION: 04/08/18 DATE OF DISCHARGE: 04/09/18 PRIMARY CARE PROVIDER: Dr. Claudio. WORK TICKET DISTRIBUTOR: Dr. Cohen. DISCHARGE DIAGNOSES: Chest pain with cardiac stress test negative for reversible change that would indicate ischemia. SECONDARY DIAGNOSES: 1. History of coronary artery disease, status post coronary artery bypass graft in 1992. 2. History of multiple cardiac stents total of 5, with the last one in July 2017. 3. History of paroxysmal atrial fibrillation, status post ablation procedure and pacemaker placement for tachybrady syndrome. 4. Hyperlipidemia. 5. Gastroesophageal reflux disease. 6. History of hernia surgery. 7. History of cataract surgery and retinal surgery. 8. History of prostatectomy for prostate cancer. 9. History of transient ischemic attack in September 2014. MEDICATIONS ON DISCHARGE: Unchanged from admission and includes: 1. Amlodipine 10 mg daily. 2. Aspirin 81 mg daily. 3. Plavix 75 mg daily. 4. Glucosamine chondroitin 1 tablet daily. 5. Lisinopril 5 mg daily. 6. Metoprolol succinate 50 mg b.i.d. 7. Multivitamin 1 tablet daily. 8. Nitroglycerin on p.r.n. basis. 9. Protonix 40 mg daily. 10. Crestor 5 mg daily. 11. Eliquis 5 mg b.i.d. CONSULTATIONS DONE DURING THE HOSPITAL STAY: Include Dr. Robins from cardiology. LABORATORY DATA AND STUDIES PERFORMED DURING THE HOSPITAL STAY: Included: The patient's troponin continued to be 0 throughout his hospital stay. The patient' s D-dimer was below 200. Brain natriuretic peptide was 420. The patient's nuclear medicine cardiac stress is documented on 04/09/18 show no fixed or reversible perfusion defects but intermediate risk due to EF of 54% and septal hypokinesia. The patient's transthoracic echocardiogram, impression: "multiple regional wall motion abnormalities estimated ejection fraction of 40 to 45%, abnormal ventricular diastolic function. Left atrium is moderately dilated. Ventricular septal motion has postoperative appearance. There was abnormal ventricular septal wall motion consistent with right ventricular pacemaker. There was mild concentric for ventricular hypertrophy. There was trace mitral regurgitation. There was mild decrease in EF comparing with July 2017, when the EF was noted to be 45 to 50%." HOSPITALIZATION COURSE: Andrzej Arzola is a 78-year-old male who presented complaining of chest pain as described in history and physical dictated by myself on 04/08/18. Shortly, the patient had another episode of chest pain that appeared to be positional. It happened when he was lying down and more so when he was lying on the left side and resolved when he was lying on the right side. His troponin continued to be negative throughout his hospital stay and his cardiac stress test was deemed intermediate risk due to septal motion abnormality. The patient's echocardiogram was evaluated by Dr. Robins. It was as above. The patient at the time of discharge was chest pain free for several hours. 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 At this point, the suspicion is that the chest pain could be related to musculoskeletal origin. The patient was recommended to follow with primary care provider in approximately 4 to [address] Cohen in approximately 3 to 4 weeks. PHYSICAL EXAMINATION AT DISCHARGE: Unchanged from admission. [id number] #: [id number] MTDD
== END 2018-04-09 15:32 | disposition home or self-care (01) ==
LOC: ED 15:45 → MEDTELE 18:19
PROVIDERS: ADMIT Internal Medicine; ATTEND Internal Medicine
DX: R07.9 Chest pain, unspecified (principal); I25.10 Atherosclerotic heart disease of native coronary artery without angina pectoris; Z95.5 Presence of coronary angioplasty implant and graft; I25.2 Old myocardial infarction; Z95.1 Presence of aortocoronary bypass graft; E78.5 Hyperlipidemia, unspecified; K21.9 Gastro-esophageal reflux disease without esophagitis; Z95.0 Presence of cardiac pacemaker; R68.84 Jaw pain; I48.91 Unspecified atrial fibrillation; R06.02 Shortness of breath; Z79.899 Other long term (current) drug therapy; Z79.82 Long term (current) use of aspirin; Z79.01 Long term (current) use of anticoagulants; G47.33 Obstructive sleep apnea (adult) (pediatric); Z86.73 Personal history of transient ischemic attack (TIA), and cerebral infarction without residual deficits
CPT/HCPCS: 36415; 71045; 78452; 80053; 82550; 82553; 83605; 83690; 83735; 83880; 84443; 84484; 85025; 85379; 85610; 85652; 85730; 86140; 93005; 93017; 93306; 96360; 96361; 99284; A9270-GY; A9502; G0378; J0280; J2785

== ENCOUNTER 2018-04-14 19:58 | Emergency (ER) | payer MEDICARE ==
--- OUTSIDE RECORDS SUMMARY | 2018-04-14 20:31 | XMS REPORT ---
:1940 External Reference #:[id number] Author Organization [facility] Address [address] [place] [address] [place] [address] Phone [phone] Care Team Providers Name Role Phone Js Claudio MD Care Team Information Muffler Tender Unavailable Js Claudio MD Primary Care Physician Unavailable Payers Type Date Identification Numbers Payment Provider Subscriber Medicare Primary Policy Number: [id number] Medicare Andrzej Arzola PayID: [id number] [address] [place] [address] [facility] Part B Policy Number: [id number] [facility] Andrzej Arzola PayID: [id number] [address] [place] [address] Problems Date Description Provider Status Onset: 12/07/2013 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 Active Onset: 12/07/2013 Premature beats Rex Cohen M.D. Active Onset: 07/19/2015 Obstructive sleep apnea syndrome Hiram Noel M.D. 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 Active Family History Date Family Member(s) Problem(s) Comments General non contributory Father of heart issue at age 62 Mother ?Renal failure age 75-80 Siblings 3 Siblings Brothers w/stents, bypass Social History Type Date Description Comments Marital Status Lives With Occupation Retired Cigarette Use Never Smoked Cigarettes ETOH Use Occasionally consumes wine Smoking Patient has never smoked Recreational Drug Use Denies Drug Use Daily Caffeine Comsumes on average 1 cup of decaff 1-2 cups daily coffee per day Exercise Type/Frequency Active with housework Allergies, Adverse Reactions, Alerts Date Description Reaction Status Severity Comments 06/03/2013 Statin Drugs arm/muscle ache active 12/07/2013 NKDA inactive Medications Medication Date Status Form Strength Qnty SIG Indications Ordering Provider Pantoprazole 12/01/ Active Tablets DR 40mg 1 by Peter Claudio 2018 mouth MD Js every day Amlodipine 09/30/ Active Tablets 10mg 90tabs 1 by Rex Rae Besylate 2017 mouth Brand, every day M.D. Toprol XL 07/23/ Active Tablets ER 50mg 180tab 1 by Rex Rae 2016 24HR s mouth Brand, twice M.D. daily Clopidogrel 07/21/ Active Tablets 75mg 90tabs 1 by Rex Rae Bisulfate 2016 mouth Brand, every day M.D. Eliquis 03/03/ Active Tablets 5mg 180tab 1 by Rex Rae 2016 s mouth Brand, twice a M.D. day Crestor 01/02/ Active Tablets 5mg 90tabs 1 by I25.810 Rex Rae 2015 mouth Brand, every day M.D. Aspirin Low Dose / Active Tablets 81mg 30tabs 1 po qd Unknown 0000 Multivitamins / Active Tablets 90tabs 1 po qd Unknown 0000 Glucosamine-Matias / Active Tablets 500-400 1 po Unknown droitin 0000 daily Nitrostat / Active Tablets 0.4mg 1bottl one sl Rxe Rae 0000 Sub e q5min up Brand, to 3 M.D. doses as needed Lisinopril / Active Tablets 5mg 90tabs 1 by Rex Rae 0000 mouth Brand, every day M.D. Amlodipine 07/28/ Hx Tablets 2.5mg 90tabs 1 by Rex Rae Besylate 2017 - mouth Brand, 09/30/ every day M.D. 2018 Keflex 07/14/ Hx Capsules 500mg 9caps 1 by Rex Rae 2017 - mouth Brand, 07/17/ three M.D. 2017 times a day for 3 days Atenolol 12/09/ Hx Tablets 50mg 180tab 1 tablet Rex Rae 2017 - s by mouth Brand, 07/22/ twice a M.D. 2016 day.( dose change at hospital) Multaq 07/09/ Hx Tablets 400mg 60tabs 1 by I47.1 Rex Rae 2015 - mouth Brand, 12/08/ twice a M.D. 2016 Atenolol 05/11/ Hx Tablets 25mg 1 by Rex Rae 2015 - mouth Brand, 12/10/ every day M.D. 2016 Clopidogrel 01/05/ Hx Tablets 75mg 90tabs 1 tab by Rex Rae Bisulfate 2014 - mouth Brand, 03/03/ every day M.D. 2016 Lisinopril 06/15/ Hx Tablets 20mg 90tabs 1 by 414.02 Rex Rae 2013 - mouth Brand, 11/15/ every day M.D. 2014 Enalapril 07/17/ Hx Tablets 20mg 90tabs 1 po qd 414.02 Rex Rae Maleate 2012 - Brand, 06/15/ M.D. 2013 Amlodipine 12/09/ Hx Tablets 10mg 90tabs 1 by Rex Rae Besylate 2012 - mouth Brand, 07/21/ every day M.D. 2016 Atorvastatin 12/09/ Hx Tablets 10mg 45tabs take 1/2 Rex Rae Calcium 2012 - tablet at Brand, 06/03/ bedtime M.D. 2012 Ramipril 10/12/ Hx Capsules 10mg 180cap 2 tabs by Rex Rae 2012 - s mouth Brand, 07/17/ every day M.D. 2012 Atorvastatin 06/28/ Hx Tablets 20mg 45tabs take 1/2 Rex Rae Calcium 2011 - tablet at Brand, 12/06/ bedtime M.D. 2012 Nitrostat 06/28/ Hx Tablets 0.4mg 1bottl One SL Rex Rae 2011 - Sub e prn chest Brand, 11/15/ pain, december M.D. 2014 repeat x2 every 5 minutes, if no relief call 911 Amlodipine / Hx Tablets 10mg 90tabs 1 po qd Unknown Besylate 0000 - 2012 Clopidogrel / Hx Tablets 75mg 90tabs 1 tab by Rex Rae 0000 - mouth Brand, 01/05/ every day M.D. 2014 Omeprazole /00/ Hx Capsules 20mg 90caps 1 po qd Unknown 0000 - DR 2016 Atenolol 00/ Hx Tablets 50mg 90tabs 1 by Rex Rae 0000 - mouth Brand, 05/12/ every day M.D. 2015 Pravastatin 00/ Hx Tablets 20mg 1 tablet Unknown Sodium 0000 - by mouth once 2015 daily at bedtime Enalapril / Hx Tablets 20mg 1 by Unknown Maleate 0000 - mouth 11/15/ every day 2014 Livalo / Hx Tablets 1mg 30tabs 1 tab by Rex Rae 0000 - mouth Brand, every M.D. 2015 night Lisinopril / Hx Tablets 20mg 90tabs 1 by Rex Rae 0000 - mouth Brand, 07/21/ day M.D. 2016 Omeprazole / Hx Capsules 20mg prn Unknown 0000 - DR 2016 Amlodipine / Hx Tablets 2.5mg 1 by Rex Rae Besylate 0000 - mouth Brand, 07/28/ day M.D. 2016 Medications Administered in Office Medication Date Status Form Strength Qnty SIG Indications Ordering Provider Technetium TC Administered Injection Gilberto Kennedy 99M 017 DO Zuhair Tetrofosmin, FACC Per Unit Dose Up To 40 Millicuries Technetium TC Administered Injection Rex Rae 99M 016 Gibson Cohen Tetrofosmin, Per Unit Dose Up To 40 Millicuries Technetium TC Administered Injection Rex Rae 99M 015 Gibson Cohen Tetrofosmin, Per Unit Dose Up To 40 Millicuries Vital Signs Date Vital Result Comment 02/10/2018 Height 71 inches 5'11" Weight 193.00 lb with shoes Heart Rate 70 /min BP Systolic Sitting 120 mmHg Lue reg cuff BP Diastolic Sitting 70 mmHg Lue reg cuff BP Systolic Standing 128 mmHg Lue reg cuff BP Diastolic Standing 70 mmHg Lue reg cuff Respiratory Rate 16 /min BMI (Body Mass Index) 26.9 kg/m2 Ejection Fraction 45-50% date 07/20/17 ECHO 09/30/2017 Height 71 inches 5'11" Weight 195.00 lb No shoes Heart Rate 70 /min BP Systolic Sitting 146 mmHg Rue reg cuff BP Diastolic Sitting 86 mmHg Rue reg cuff BP Systolic Standing 144 mmHg Rue reg cuff BP Diastolic Standing 90 mmHg Rue reg cuff Respiratory Rate 16 /min BMI (Body Mass Index) 27.2 kg/m2 Ejection Fraction 45-50% 07/20/2017-echo 07/28/2017 Height 71 inches 5'11" Weight 194.00 lb w/ shoes Heart Rate 70 /min reg BP Systolic Sitting 130 mmHg Rue, reg cuff BP Diastolic Sitting 80 mmHg Rue, reg cuff BP Systolic Standing 126 mmHg Rue BP Diastolic Standing 80 mmHg Rue Respiratory Rate 16 /min BMI (Body Mass Index) 27.1 kg/m2 Ejection Fraction 45-50% as of 2016 echo 04/24/2017 Height 71 inches 5'11" Weight 198.00 lb Heart Rate 60 /min BP Systolic Sitting 168 mmHg Rue reg cuff BP Diastolic Sitting 82 mmHg Rue reg cuff BP Systolic Standing 164 mmHg Rue BP Diastolic Standing 82 mmHg Rue Respiratory Rate 16 /min BMI (Body Mass Index) 27.6 kg/m2 Ejection Fraction 55-60% 06/05/16 03/03/2017 Height 71 inches 5'11" Weight 196.50 lb with shoes Heart Rate 100 /min BP Systolic Sitting 126 mmHg Lue reg cuff BP Diastolic Sitting 90 mmHg Lue reg cuff BP Systolic Standing 134 mmHg Lue reg cuff BP Diastolic Standing 100 mmHg Lue reg cuff Respiratory Rate 16 /min BMI (Body Mass Index) 27.4 kg/m2 12/10/2016 Height 71 inches 5'11" Weight 199.00 lb with shoes Heart Rate 58 /min irregular BP Systolic Sitting 146 mmHg Lue reg cuff BP Diastolic Sitting 70 mmHg Lue reg cuff BP Systolic Standing 142 mmHg Lue reg cuff BP Diastolic Standing 72 mmHg Lue reg cuff Respiratory Rate 16 /min BMI (Body Mass Index) 27.8 kg/m2 Ejection Fraction 55-60% echo 05/201612/09/2016 Height 71 inches 5'11" Weight 199.00 lb Heart Rate 56 /min BP Systolic Sitting 116 mmHg BP Diastolic Sitting 58 mmHg Respiratory Rate 14 /min Pain Level 0 O2 % BldC Oximetry 97 % BMI (Body Mass Index) 27.8 kg/m2 07/31/2016 Height 71 inches 5'11" Weight 199.00 lb no shoes Heart Rate 54 /min BP Systolic Sitting 156 mmHg Rue reg cuff BP Diastolic Sitting 70 mmHg Rue reg cuff BP Systolic Standing 152 mmHg Rue reg cuff BP Diastolic Standing 72 mmHg Rue reg cuff Respiratory Rate 16 /min BMI (Body Mass Index) 27.8 kg/m2 Ejection Fraction 55-60% 06/05/2016 07/09/2016 Height 71 inches 5'11" Weight 198.00 lb w/ shoes Heart Rate 60 /min reg BP Systolic Sitting 124 mmHg Rue, reg cuff BP Diastolic Sitting 76 mmHg Rue, reg cuff BP Systolic Standing 120 mmHg Rue BP Diastolic Standing 70 mmHg Rue Respiratory Rate 16 /min BMI (Body Mass Index) 27.6 kg/m2 Ejection Fraction 55-60% as of 06/05/16 echo 06/04/2016 Height 71 inches 5'11" Weight 193.00 lb Heart Rate 60 /min BP Systolic Sitting 146 mmHg LA reg cuff BP Diastolic Sitting 86 mmHg LA reg cuff BP Systolic Standing 152 mmHg LA BP Diastolic Standing 88 mmHg LA Respiratory Rate 14 /min BMI (Body Mass Index) 26.9 kg/m2 Waist to Hip Ratio 69% 05/26/12 2016 Height 71 inches 5'11" Weight 196.00 lb with shoes Heart Rate 58 /min BP Systolic Sitting 150 mmHg Ra reg cuff BP Diastolic Sitting 76 mmHg Ra reg cuff BP Systolic Standing 146 mmHg Ra reg cuff BP Diastolic Standing 76 mmHg Ra reg cuff Respiratory Rate 16 /min BMI (Body Mass Index) 27.3 kg/m2 Ejection Fraction 69% 05/26/12 12/06/2015 Height 71 inches 5'11" Weight 195.00 lb Heart Rate 59 /min BP Systolic Sitting 136 mmHg BP Diastolic Sitting 74 mmHg Respiratory Rate 16 /min O2 % BldC Oximetry 98 % BMI (Body Mass Index) 27.2 kg/m2 08/02/2015 Height 71.5 inches 5'11.50" Weight 189.00 lb no shoes Heart Rate 60 /min BP Systolic Sitting 138 mmHg LA, reg cuff BP Diastolic Sitting 78 mmHg LA, reg cuff BP Systolic Standing 136 mmHg LA BP Diastolic Standing 78 mmHg LA Respiratory Rate 16 /min BMI (Body Mass Index) 26.0 kg/m2 Ejection Fraction 69% 05/26/12 07/19/2015 Height 71.5 inches 5'11.50" Weight 196.00 lb Heart Rate 62 /min BP Systolic Sitting 130 mmHg BP Diastolic Sitting 60 mmHg Respiratory Rate 18 /min O2 % BldC Oximetry 98 % BMI (Body Mass Index) 27.0 kg/m2 Neck Circumference in inches 16.5 01/12/2015 Height 71.5 inches 5'11.50" Weight 190.31 lb with shoes Heart Rate 58 /min BP Systolic Sitting 136 mmHg Ra, reg cuff BP Diastolic Sitting 62 mmHg Ra, reg cuff BP Systolic Standing 132 mmHg Ra BP Diastolic Standing 66 mmHg Ra Respiratory Rate 14 /min BMI (Body Mass Index) 26.2 kg/m2 Ejection Fraction 69% 05/26/2012 12/01/2014 Height 71.5 inches 5'11.50" Weight 190.00 lb with shoes Heart Rate 60 /min BP Systolic Sitting 130 mmHg LA, reg cuff BP Diastolic Sitting 66 mmHg LA, reg cuff BP Systolic Standing 122 mmHg LA BP Diastolic Standing 70 mmHg LA Respiratory Rate 14 /min BMI (Body Mass Index) 26.1 kg/m2 12/01/2014 Height 71.5 inches 5'11.50" Weight 190.00 lb Heart Rate 60 /min BP Systolic Sitting 146 mmHg BP Diastolic Sitting 70 mmHg Respiratory Rate 12 /min BMI (Body Mass Index) 26.1 kg/m2 06/15/2014 Height 71.5 inches 5'11.50" Weight 190.00 lb with shoes Heart Rate 62 /min BP Systolic Sitting 118 mmHg LA, reg cuff BP Diastolic Sitting 82 mmHg LA, reg cuff BP Systolic Standing 120 mmHg LA BP Diastolic Standing 82 mmHg LA Respiratory Rate 16 /min BMI (Body Mass Index) 26.1 kg/m2 12/07/2013 Height 71.5 inches 5'11.50" Weight 190.00 lb Heart Rate 60 /min BP Systolic Sitting 132 mmHg Ra reg cuff BP Diastolic Sitting 82 mmHg Ra reg cuff BP Systolic Standing 130 mmHg Ra BP Diastolic Standing 80 mmHg Ra Respiratory Rate 16 /min BMI (Body Mass Index) 26.1 kg/m2 06/03/2013 Heart Rate 56 /min BP Systolic Sitting 138 mmHg Lf arm, reg cuff BP Diastolic Sitting 72 mmHg Lf arm, reg cuff BP Systolic Standing 144 mmHg BP Diastolic Standing 72 mmHg Respiratory Rate 16 /min 12/06/2012 Heart Rate 52 /min BP Systolic Sitting 158 mmHg BP Diastolic Sitting 62 mmHg Respiratory Rate 14 /min 06/07/2012 Weight 180.00 lb Heart Rate 58 /min BP Systolic 120 mmHg BP Diastolic 78 mmHg Results Test Date Test Result H/L Range Note Basic Metabolic Panel 07/05/2017 Sodium 134 mmol/L 133-145 Potassium 4.3 mmol/L 3.5-5.0 Chloride 104 mmol/L 101-111 Co2 Carbon Dioxide 26 mmol/L 22-32 Anion Gap 4 mmol/L 2-11 Glucose 104 mg/dL High 70-100 Blood Urea Nitrogen 20 mg/dL 6-24 Creatinine 1.13 mg/dL 0.67-1.17 BUN/Creatinine Ratio 17.7 8-20 Calcium 8.7 mg/dL 8.6-10.3 Egfr Non- 62.8 >60 Egfr 80.7 >60 1 Laboratory test finding 07/05/2017 Magnesium 2.0 mg/dL 1.9-2.7 TSH (Thyroid Stim Horm) 0.97 mcIU/mL 0.34-5.60 CBC Auto Diff 04/28/2017 White Blood Count 4.7 10^3/uL 3.5-10.8 Red Blood Count 4.79 10^6/uL 4.0-5.4 Hemoglobin 14.7 g/dL 14.0-18.0 Hematocrit 43 % 42-52 Mean Corpuscular Volume 90 fL 80-94 Mean Corpuscular Hemoglobin 31 pg 27-31 Mean Corpuscular HGB Conc 34 g/dL 31-36 Red Cell Distribution Width 13 % 10.5-15 Platelet Count 145 10^3/uL Low 150-450 Mean Platelet Volume 10 um3 7.4-10.4 Abs Neutrophils 2.3 10^3/uL 1.5-7.7 Abs Lymphocytes 1.4 10^3/uL 1.0-4.8 Abs Monocytes 0.6 10^3/uL 0-0.8 Abs Eosinophils 0.4 10^3/uL 0-0.6 Abs Basophils 0.1 10^3/uL 0-0.2 Abs Nucleated RBC 0.01 10^3/uL Granulocyte % 48.3 % 38-83 Lymphocyte % 29.1 % 25-47 Monocyte % 13.3 % High 1-9 Eosinophil % 8.1 % High 0-6 Basophil % 1.2 % 0-2 Nucleated Red Blood Cells % 0.1 Basic Metabolic Panel 04/28/2017 Sodium 137 mmol/L 133-145 Potassium 4.5 mmol/L 3.5-5.0 Chloride 106 mmol/L 101-111 Co2 Carbon Dioxide 28 mmol/L 22-32 Anion Gap 3 mmol/L 2-11 Glucose 106 mg/dL High 70-100 Blood Urea Nitrogen 13 mg/dL 6-24 Creatinine 1.07 mg/dL 0.67-1.17 BUN/Creatinine Ratio 12.1 8-20 Calcium 9.3 mg/dL 8.6-10.3 Egfr Non- 66.8 >60 Egfr 86.0 >60 2 Basic Metabolic Panel 02/01/2014 Sodium 134 mmol/L 133-145 3 Potassium 4.8 mmol/L 3.7-5.6 3 Chloride 103 mmol/L 101-111 3 Co2 Carbon Dioxide 27 mmol/L 22-32 3 Anion Gap 4 mmol/L 2-11 3 Glucose 98 mg/dL 70-100 3 Blood Urea Nitrogen 17 mg/dL 6-24 3 Creatinine 1.00 mg/dL 0.67-1.17 3 BUN/Creatinine Ratio 17.0 8-20 3 Calcium 8.9 mg/dL 8.6-10.3 3 Egfr Non- 72.8 >60 3 Egfr 93.7 >60 3, 4 Laboratory test finding 02/01/2014 Troponin I 0.00 ng/mL <0.03 3, 5 1 Because ethnic data is not always readily available, this report includes an eGFR for both -Americans and non- Americans. The National Kidney Disease Education Program (NKDEP) does not endorse the use of the MDRD equation for patients that are not between the ages of 18 and 70, are , have extremes of body size, muscle mass, or nutritional status, or are non- or non-. According to the National Kidney Foundation, irrespective of diagnosis, the stage of the disease is based on the level of kidney function: Stage Description GFR(mL/min/1.73 m(2)) 1 Kidney damage with normal or decreased GFR 90 2 Kidney damage with mild decrease in GFR 60-89 3 Moderate decrease in GFR 30-59 4 Severe decrease in GFR 15-29 5 Kidney failure <15 (or dialysis) 2 Because ethnic data is not always readily available, this report includes an eGFR for both -Americans and non- Americans. The National Kidney Disease Education Program (NKDEP) does not endorse the use of the MDRD equation for patients that are not between the ages of 18 and 70, are , have extremes of body size, muscle mass, or nutritional status, or are non- or non-. According to the National Kidney Foundation, irrespective of diagnosis, the stage of the disease is based on the level of kidney function: Stage Description GFR(mL/min/1.73 m(2)) 1 Kidney damage with normal or decreased GFR 90 2 Kidney damage with mild decrease in GFR 60-89 3 Moderate decrease in GFR 30-59 4 Severe decrease in GFR 15-29 5 Kidney failure <15 (or dialysis) 3 today 02/01/14 4 Because ethnic data is not always readily available, this report includes an eGFR for both -Americans and non- Americans. The National Kidney Disease Education Program (NKDEP) does not endorse the use of the MDRD equation for patients that are not between the ages of 18 and 70, are , have extremes of body size, muscle mass, or nutritional status, or are non- or non-. According to the National Kidney Foundation, irrespective of diagnosis, the stage of the disease is based on the level of kidney function: Stage Description GFR(mL/min/1.73 m(2)) 1 Kidney damage with normal or decreased GFR 90 2 Kidney damage with mild decrease in GFR 60-89 3 Moderate decrease in GFR 30-59 4 Severe decrease in GFR 15-29 5 Kidney failure <15 (or dialysis) 5 Reference Range and Interpretation: TnI (ng/mL) Interpretation Less Than 0.03 ng/mL Not supportive of diagnosis of ME 0.03 - 0.50 ng/mL Indeterminate: suggest serial studies if clinically indicated. Greater than 0.5 ng/mL Consistent with diagnosis of ME Procedures Date CPT Code Description Status 01/27/2018 26321 Pace Maker Eval W/Iterative Adjment Dual Lead Completed 01/27/2018 74054 Pace Maker Eval W/Iterative Adjment Dual Lead Completed 08/26/2017 37481 Pace Maker Eval W/Iterative Adjment Dual Lead Completed 08/26/2017 15675 Pace Maker Eval W/Iterative Adjment Dual Lead Completed 07/28/2017 35127 EKG Tracing & Interpretation Completed 07/22/2017 46725 EKG, Interpretation Only Completed 07/21/2017 15576 Cardiac Cath,LT Hrtmincl Intraprocedural Ink LT Completed Ventricul Mammary 07/21/2017 20012 EKG, Interpretation Only Completed 07/21/2017 16923 Percutaneous Transcatheter Placement Of Intracoronary Completed Stent 07/20/2017 52592 ECHO Transthorasic Realtime 2D W Doppler & Color Flow Completed Hosp 07/19/2017 23525 EKG, Interpretation Only Completed 07/14/2017 71939 Pace Maker Eval W/Iterative Adjment Dual Lead Completed 07/14/2017 78753 EKG, Interpretation Only Completed 07/13/2017 716[address] Sequential Atrial And Ventricular Completed 07/13/2017 22176 EKG, Interpretation Only Completed 07/13/2017 38842 Moderate Sedation Services; Same Phys Intl 15 Mins; PT Completed >=5 Years 07/13/2017 30074 Moderate Sedation Services; Same Phys Each Additional Completed 15 Mins 07/06/2017 39396 Treadmill Interp/Report Only Completed 07/06/2017 98865 Stress Test Supervsn W/Out I/R Completed 07/06/2017 06721 EKG, Interpretation Only Completed 07/05/2017 19829 EKG, Interpretation Only Completed 04/24/2017 39488 EKG Tracing & Interpretation Completed 03/11/2017 34055 Stress Test Completed 03/11/2017 34030 Myocardial Perfusion Imaging Tomographic (Spect) Completed Multiple Studies 03/04/2017 53123 Cardioversion Completed 03/04/2017 81574 EKG, Interpretation Only Completed 03/04/2017 03483 Echocardiography, Transesophageal, Real Time W/Image 2D Completed W/W/O M-M 03/04/2017 11450 Pulse Wave/Continuous-Interp.RPT Completed 03/04/2017 16402 Color Flow Doppler/Interp & Reprt Completed 03/03/2017 03438 EKG Tracing & Interpretation Completed 02/24/2017 72644 Holter Monitor Review (24 hr)dr review & interp only Completed 02/06/2017 18271 ECG Monitor/Recording W/Visual Superimposition Scanning Completed 12/10/2016 48983 EKG Tracing & Interpretation Completed 07/31/2016 03851 EKG Tracing & Interpretation Completed 06/06/2016 73884 Mobile Cardiovascular Telemetry Over 24 HR Up To 30 Completed Days 06/05/2016 83764 ECHO Transthoracic, Real-Time 2D With Doppler And Color Completed Flow 06/04/2016 18671 EKG Tracing & Interpretation Completed 02/28/2016 04583 Stress Test Completed 02/28/2016 88311 Myocardial Perfusion Imaging Tomographic (Spect) Completed Multiple Studies 2016 65538 EKG Tracing & Interpretation Completed 01/04/2015 34591 Stress Test Completed 01/04/2015 90690 Myocardial Perfusion Imaging Tomographic (Spect) Completed Multiple Studies 12/01/2014 69583 EKG Tracing & Interpretation Completed 06/15/2014 33623 EKG Tracing & Interpretation Completed 02/01/2014 77284 EKG, Interpretation Only Completed 06/03/2013 27884 Holter Monitoring 24 HR New Completed 06/03/2013 07093 EKG Tracing & Interpretation Completed 02/21/2013 79126 Holter Monitoring 24 HR New Completed 06/28/2012 93801 EKG Tracing & Interpretation Completed 06/16/2012 50369 EKG, Interpretation Only Completed 06/15/2012 71826 EKG, Interpretation Only Completed 05/26/2012 97993 ECHO Transthoracic, Real-Time 2D With Doppler And Color Completed Flow 05/20/2012 37187 ECHO Transthoracic, Real-Time 2D With Doppler And Color Completed Flow Encounters Type Date Location Provider CPT E/M Dx Office Visit 02/10/2018 10:30a [facility] Adriane Cohen, [address] [address] [facility].DArnold I25.110 Z95.0 Office Visit 09/30/2017 3:45p [facility] [place] Adriane Cohen, 43256 Z95.0 [facility] M.DArnold I49.5 I25.110 I10 Office Visit 07/28/2017 2:00p [facility] Adriane Cohen, 15534 I25.110 [facility] AT [facility].Butch Z95.1 R07.9 Z95.0 I49.5 Office Visit 07/22/2017 2:45p [facility],jordon Patel, 94712 I24.9 Hospitalists D.O. I25.119 E78.5 I48.0 Office Visit 07/22/2017 2:26p [facility] Jerson Brown, 86255 I25.110 Aeronautical Engineer AT [facility] M.D., FACC, FSCAI Office Visit 07/21/2017 2:44p [facility] Marlyn Patel, 83124 I24.9 Hospitalists D.O. I25.119 E78.5 I48.0 Office Visit 07/20/2017 9:58a [facility] Rex Cohen, 61745 I25.110 [facility] M.DArnold Office Visit 07/20/2017 2:44p [facility], [place] [address] I24.9 Hospitalists I25.119 E78.5 I48.0 Office Visit 07/19/2017 11:57a [facility] Emeterio Robins, 32958 I25.119 M.D. I10 E78.5 R79.89 Office Visit 07/19/2017 2:43p [facility], [place] [address] I24.9 Hospitalists I25.119 E78.5 I48.0 Office Visit 07/18/2017 2:42p [facility], [place] [address] I24.9 Hospitalists I25.119 E78.5 I48.0 Office Visit 07/06/2017 10:52a [facility] Rex Cohen, 45707 I25.10 [facility] Gibson I49.5 Office Visit 07/05/2017 1:58p [facility] Of Naomi Holm M.D. 79984 R00.2 Aeronautical Engineer R07.9 Office Visit 04/24/2017 8:30a [facility] Rex Cohen, 70325 I48.4 Robbi Arreaga R94.31 I25.10 Office Visit 03/03/2017 2:15p [facility] Of Naomi Holm M.D. 61881 I47.1 [facility] I48.0 I48.4 I25.10 Office Visit 12/10/2016 10:45a [facility] Rex Cohen, 30195 I25.810 Robbi Arreaga I47.1 Office Visit 12/09/2016 9:30a [facility] Rosangela Turner, 71764 G47.33 Services Of [facility] DNP, RN, [facility]- R09.02 Office Visit 07/31/2016 12:15p [facility] Butch Cohen, 23844 I25.810 Aeronautical Engineer M.D. R00.2 R07.89 Office Visit 07/09/2016 9:45a [facility] Butch Cohen, 35835 I25.810 Aeronautical Engineer M.D. R00.2 I47.1 Office Visit 06/04/2016 1:15p [facility] Butch Cohen, 35852 I25.810 Aeronautical Engineer M.D. R00.2 R42 Office Visit 2016 8:30a [facility] Butch Cohen, 04307 I25.810 [facility] M.DArnold R07.89 R00.2 Office Visit 12/06/2015 10:30a [facility] Hiram Noel, 14329 G47.33 Services Of [facility] M.DArnold Office Visit 08/02/2015 10:00a [facility] Butch Cohen, 85280 I25.810 [facility] M.D. I10 R07.89 Office Visit 07/19/2015 10:00a [facility] Hiram Noel, 89105 G47.33 Services Of Aeronautical Engineer M.DArnold Office Visit 01/12/2015 11:00a [facility] Rexdemetrio Cohen, 84144 414.01 Robbi Arreaga 414.02 Office Visit 12/01/2014 11:30a [facility] 6[address] 414.02 Robbi Arreaga 401.9 Office Visit 12/01/2014 9:00a [facility] Tucker Kennedy 14994 346.02 [facility] Office Visit 06/15/2014 11:15a [facility] Rex Rae 58426 414.02 Gibson Cohen 401.9 414.01 Office Visit 12/07/2013 9:15a [facility] Rex Butch Cohen 80849 414.02 Robbi Arreaga 401.9 427.69 Office Visit 06/03/2013 1:15p [facility] Of Nurse [facility] 34363 785.1 [facility] Office Visit 04/08/2013 3:45p [place] Cardiology Rex Cohen, [id number] 414.9 [facility] M.Butch 427.69 Office Visit 02/24/2013 2:15p [facility] Rex Cohen, 39978 414.9 [facility] M.Butch 427.69 401.9 Office Visit 12/09/2012 1:30p [facility] Rex Cohen, 56829 414.9 Aeronautical Engineer M.DArnold Office Visit 12/06/2012 8:30a [facility] Gokul Ballesteros, [id number] 782.0 Services Of Aeronautical Engineer M.DArnold Office Visit 06/28/2012 2:45p [facility] Adriane Cohen, 93845 414.9 Aeronautical Engineer [place] [facility] [place] M.Butch 414.02 Office Visit 06/15/2012 4:09p [facility] Adriane Cohen, 69705 [phone] Robbi Roque.Butch 414.9 Office Visit 06/07/2012 8:45a [facility] Gokul Ballesteros, 04096 782.0 Services Of Robbi Arreaga 794.02 Office Visit 06/03/2012 1:45p [facility] Rex Cohen, 13691 414.9 Robbi M.Butch 414.02 Office Visit 05/13/2012 1:00p [facility] Gokul Ballesteros, 97414 435.9 Services Of Robbi M.DArnold Plan of Care 02/10/2018 - Rex Cohen M.D.I10 Essential (primary) hypertensionFollow up :6 [id number] 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
[2018-04-14 20:47] LABS: ABS Basophils 0 10^3/ul (0-0.2); ABS Eosinophils 0.3 10^3/ul (0-0.6); ABS Lymphocytes 1.3 10^3/ul (1.0-4.8); ABS Monocytes 0.6 10^3/ul (0-0.8); ABS Nucleated RBC 0 10^3/ul; Eosinophil % 5.8 % (0-6); Hematocrit 41 % (42-52); Hemoglobin 13.8 g/dl (14.0-18.0); Lymphocyte % 24.2 % (25-47); Mean Corpuscular HGB Conc 34 g/dl (31-36); Mean Corpuscular Hemoglobin 31 pg (27-31); Mean Corpuscular Volume 90 fL (80-94); Mean Platelet Volume 8.7 um3 (7.4-10.4); Nucleated Red Blood Cells % 0.1; Platelet Count 179 10^3/ul (150-450); Red Blood Count 4.51 10^6/ul (4.00-5.40); Red Cell Distribution Width 14 % (10.5-15); White Blood Count 5.2 10^3/ul (3.5-10.8)
[2018-04-14 20:53] LABS: INR 1.16 (0.77-1.02)
[2018-04-14 21:05] LABS: EGFR Non-African American 54.7 (>60)
[2018-04-14] MEDS ORDERED: Diltiazem IV VIAL* 5 MG/ML 10 ML VIAL IV SLOW PU ONE (21:20)
[2018-04-14] MEDS ORDERED: Diltiazem IV* 5 MG/ML 5 ML VIAL (for loading dose/IV Push) (25 MG) IV SLOW PU ONE (22:00)
--- NOTE | 2018-04-14 22:38 | ED ---
HPI Cardiac - HPI Summary HPI Summary: Patient is a 78 y/o M w/ c/o irregular heartbeat and tachycardia. Patient denies any chest pain and discomfort. Heart rhythm is described as a "flippy- floppy" and rate is tachycardic. He reports some slight SOB. Per triage, nothing aggravates/alleviates SX, denies N/V. Sx onset this afternoon while he was at [employer] doing cardiac exercises. Patient has a pacemaker for afib and high pulse. Patient is on eliquis and clavix. He notes he was here last week for chest pain with no palpitations. He stated overnight and received an ECHO. Dad had cardiac problems, denies PMHx of diabetes. He denies smoking and alcohol use. Home medications and allergies are reviewed. - History of Current Complaint Chief Complaint: EDDysrhythmPalp Stated Complaint: IRREGULAR HEARTBEAT Time Seen by Provider: 04/14/18 21:09 Hx Obtained From: Patient Onset/Duration: Started Hours Ago - onset this afternoon, Still Present Current Severity: None - pain denied. Pain Intensity: 0 Pain Scale Used: 0-10 Numeric - 0/10 Aggravating Factor(s): Nothing Alleviating Factor(s): Nothing Associated Signs and Symptoms: Positive: Shortness of Breath, Palpitations - "flippy-floppy" rhythm and fast rate. Negative: Chest Pain, Nausea, Vomiting - Additional Pertinent History Primary Care Physician: JEFFRY - Allergy/Home Medications Allergies/Adverse Reactions: Allergies Allergy/AdvReac Type Severity Reaction Status Date / Time morphine Allergy Unknown Unknown Verified 04/14/18 20:09 Reaction Details Rdfvicr-Fhj-Ywp Reductase Allergy Unknown Unknown Verified 04/14/18 20:09 Inhibitor Reaction Details PMH/Surg Hx/FS Hx/Imm Hx Endocrine/Hematology History: Reports: Hx Anticoagulant Therapy - eloquis Denies: Hx Diabetes, Hx Unexplained Bleeding Cardiovascular History: Reports: Hx Angina, Hx Angioplasty, Hx Coronary Artery Disease, Hx Hypercholesterolemia, Hx Hypertension, Hx Myocardial Infarction, Hx Pacemaker/ICD Denies: Hx Auto Implanted Cardiovert Defib, Hx Cardiac Arrest, Hx Congenital Heart Disease, Hx Congestive Heart Failure, Hx Deep Vein Thrombosis, Hx Hypotension, Hx Peripheral Vascular Disease, Hx Rheumatic Fever, Hx Syncope, Hx Valvular Heart Disease, Other Cardiovascular Problems/Disorders Respiratory History: Reports: Hx Sleep Apnea - uses CPAP at home Denies: Hx Asthma GI History: Reports: Hx Ulcer - takes omeprazole Denies: Other GI Disorders History: Reports: Other Problems/Disorders - prostate ca approx 2007 prostatectomy Denies: Hx Renal Disease Sensory History: Reports: Hx Cataracts - 2 removed one each eye, Hx Hearing Problem Denies: Hx Contacts or Glasses, Hx Legally Blind, Hx Deafness, Hx Hearing Aid Comment Only: Other Sensory Impairments - hx left eye detatched retina Opthamlomology History: Reports: Hx Cataracts - 2 removed one each eye Denies: Hx Contacts or Glasses, Hx Legally Blind Comment Only: Other Sensory Impairments - hx left eye detatched retina Neurological History: Reports: Hx Transient Ischemic Attacks (TIA) - drs with dr renee, ? recent tia Denies: Other Neuro Impairments/Disorders Psychiatric History: Denies: Hx Panic Disorder, Hx Schizophrenia - Cancer History Cancer Type, Location and Year: PROSTATE Hx Chemotherapy: No Hx Radiation Therapy: No - Surgical History Surgery Procedure, Year, and Place: BY PASS 1992, HERNIA 2008, PROSTATECTOMY, EYE PUCKER REPAIR, DETACHED RETINA(CLEARED FOR MRI NOVEMBER [address] VICK) TONSILECTOMY, STERNUM WIRES, STENTS 2001,2009 Infectious Disease History: No Infectious Disease History: Denies: Hx Clostridium Difficile, Hx Hepatitis, Hx Human Immunodeficiency Virus (HIV), Hx of Known/Suspected MRSA, Hx Shingles, Hx Tuberculosis, Traveled Outside the [place] in Last 30 Days - Family History Known Family History: Positive: Cardiac Disease - Social History Alcohol Use: Occasionally Alcohol Amount: reports a couple of drink/week Hx Substance Use: No Substance Use Type: Reports: None Hx Tobacco Use: No Smoking Status (MU): Never Smoked Tobacco Review of Systems Positive: Palpitations - "flippy-floppy" rhythm and fast rate . Negative: Chest Pain Positive: Shortness Of Breath Negative: Vomiting, Nausea All Other Systems Reviewed And Are Negative: Yes Physical Exam - Summary Physical Exam Summary: Appearance: Well appearing, no pain distress Skin: warm, dry, reflects adequate perfusion Head/face: normal Eyes: EOMI, LUKE ENT: normal, JVD in neck Neck: supple, non-tender Respiratory: CTA, breath sounds present Cardiovascular: irregularly irregular rhythm with an occasional fast-paced rate , pulses symmetrical; pacemaker in left chest, sternotomy scar at left chest. Abdomen: non-tender, soft Bowel Sounds: present Musculoskeletal: strength/ROM intact; LE edema and LLE scar from stent placement in leg Neuro: normal, sensory motor intact, A&Ox3 Triage Information Reviewed: Yes Vital Signs On Initial Exam: Initial Vitals Temp Pulse Resp BP Pulse Ox 98.5 F 75 16 169/94 97 04/14/18 20:09 04/14/18 20:09 04/14/18 20:09 04/14/18 20:09 04/14/18 20:09 Vital Signs Reviewed: Yes Diagnostics - Vital Signs Vital Signs Temp Pulse Resp BP Pulse Ox 04/14/18 21:45 72 16 106/61 95 04/14/18 20:09 98.5 F 75 16 169/94 97 - Laboratory Lab Results: Lab Results 04/14/18 04/14/18 04/14/18 Range/Units 20:36 20:36 20:36 WBC 5.2 (3.5-10.8) 10^3/ul RBC 4.51 (4.00-5.40) 10^6/ul Hgb 13.8 L (14.0-18.0) g/dl Hct 41 L (42-52) % MCV 90 (80-94) fL MCH 31 (27-31) pg MCHC 34 (31-36) g/dl RDW 14 (10.5-15) % Plt Count 179 (150-450) 10^3/ul MPV 8.7 (7.4-10.4) um3 Neut % (Auto) 56.8 (38-83) % Lymph % (Auto) 24.2 L (25-47) % [place] % (Auto) 12.4 H (0-7) % Eos % (Auto) 5.8 (0-6) % Baso % (Auto) 0.8 (0-2) % Absolute Neuts (auto) 3.0 (1.5-7.7) 10^3/ul Absolute Lymphs (auto) 1.3 (1.0-4.8) 10^3/ul Absolute Monos (auto) 0.6 (0-0.8) 10^3/ul Absolute Eos (auto) 0.3 (0-0.6) 10^3/ul Absolute Basos (auto) 0 (0-0.2) 10^3/ul Absolute Nucleated RBC 0 10^3/ul Nucleated RBC % 0.1 INR (Anticoag Therapy) 1.16 H (0.77-1.02) Sodium 136 (135-145) mmol/L Potassium 3.9 (3.5-5.0) mmol/L Chloride 106 (101-111) mmol/L Carbon Dioxide 23 (22-32) mmol/L Anion Gap 7 (2-11) mmol/L BUN 20 (6-24) mg/dL Creatinine 1.27 H (0.67-1.17) mg/dL Est GFR ( Amer) 66.2 (>60) Est GFR (Non-Af Amer) 54.7 (>60) BUN/Creatinine Ratio 15.7 (8-20) Glucose 149 H (70-100) mg/dL Lactic Acid (0.5-2.0) mmol/L Calcium 8.6 (8.6-10.3) mg/dL Total Bilirubin 0.50 (0.2-1.0) mg/dL AST 18 (13-39) U/L ALT 21 (7-52) U/L Alkaline Phosphatase 85 (34-104) U/L Total Creatine Kinase 58 (10-223) U/L Troponin I 0.00 (<0.04) ng/mL B-Natriuretic Peptide ( - 100) pg/mL Total Protein 6.6 (6.4-8.9) g/dL Albumin 4.1 (3.2-5.2) g/dL Globulin 2.5 (2-4) g/dL Albumin/Globulin Ratio 1.6 (1-3) TSH 1.10 (0.34-5.60) mcIU/mL Thyroxine (T4) 9.45 (6.09-12.23) mcg/mL 04/14/18 04/14/18 Range/Units 20:36 20:36 WBC (3.5-10.8) 10^3/ul RBC (4.00-5.40) 10^6/ul Hgb (14.0-18.0) g/dl Hct (42-52) % MCV (80-94) fL MCH (27-31) pg MCHC (31-36) g/dl RDW (10.5-15) % Plt Count (150-450) 10^3/ul MPV (7.4-10.4) um3 Neut % (Auto) (38-83) % Lymph % (Auto) (25-47) % [place] % (Auto) (0-7) % Eos % (Auto) (0-6) % Baso % (Auto) (0-2) % Absolute Neuts (auto) (1.5-7.7) 10^3/ul Absolute Lymphs (auto) (1.0-4.8) 10^3/ul Absolute Monos (auto) (0-0.8) 10^3/ul Absolute Eos (auto) (0-0.6) 10^3/ul Absolute Basos (auto) (0-0.2) 10^3/ul Absolute Nucleated RBC 10^3/ul Nucleated RBC % INR (Anticoag Therapy) (0.77-1.02) Sodium (135-145) mmol/L Potassium (3.5-5.0) mmol/L Chloride (101-111) mmol/L Carbon Dioxide (22-32) mmol/L Anion Gap (2-11) mmol/L BUN (6-24) mg/dL Creatinine (0.67-1.17) mg/dL Est GFR ( Amer) (>60) Est GFR (Non-Af Amer) (>60) BUN/Creatinine Ratio (8-20) Glucose (70-100) mg/dL Lactic Acid 1.0 (0.5-2.0) mmol/L Calcium (8.6-10.3) mg/dL Total Bilirubin (0.2-1.0) mg/dL AST (13-39) U/L ALT (7-52) U/L Alkaline Phosphatase (34-104) U/L Total Creatine Kinase (10-223) U/L Troponin I (<0.04) ng/mL B-Natriuretic Peptide 262 H ( - 100) pg/mL Total Protein (6.4-8.9) g/dL Albumin (3.2-5.2) g/dL Globulin (2-4) g/dL Albumin/Globulin Ratio (1-3) TSH (0.34-5.60) mcIU/mL Thyroxine (T4) (6.09-12.23) mcg/mL Result Diagrams: 04/14/18 20:36 04/14/18 20:36 Lab Statement: Any lab studies that have been ordered have been reviewed, and results considered in the medical decision making process. - Radiology CXR Xray Interpretation: Positive (See Comments) Radiology Interpretation Completed By: ED Physician - small right pleura effusion, no other significant changes - EKG 2114 Cardiac Rate: Other Rate - ventricular paced rhythm with rate of [address] Segment: Non-Specific EKG Interpretation: left axis deviation Re-Evaluation - Re-Evaluation First Eval Re-Evaluation Time: 22:24 Change: Improved Comment: Patient states he is completely better. Discussed follow up and discharge plan. He is agreeable with this plan. Disposition - Course Course Of Treatment: Patient with a history of underlying atrial fibrillation who received a pacemaker for that presents with palpitations and rapid heartbeat while at the gym. He is found to have rapid atrial fibrillation underlying. He was given calcium channel jose j which improved this. His heart rate was down into the 70s, totally ventricularly paced. 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 Discharged in good condition. - Differential Dx - Cardiopulmonary Differential Diagnoses - Cardiopulmonary: Atrial Fibrillation, Atrial Flutter, Hyperkalemia, Hypokalemia, Paroxysmal VT - Diagnoses Provider Diagnoses: Rapid atrial fibrillation - Physician Notifications Discussed Care Of Patient With: Naomi Holm Time Discussed With Above Provider: 21:30 Instructed by Provider To: Other - Dr. Holm was consulted on patient's case at 21:30; patient will have his heart rhythm recontrolled and patient will be discharged. 21:37 -- Dr. Holm called back to discuss plan of care further. Patient will be given diltiazem and told to stop taking amlodipine. - Critical Care Time Critical Care Time: 30-74 min - Critical care time is exclusive of separately billable procedures Discharge - Sign-Out/Discharge Documenting (check all that apply): Patient Departure - discharge - Discharge Plan Condition: Improved Disposition: HOME Prescriptions: dilTIAZem HCl [Diltiazem ER] 120 mg PO DAILY #30 cap.er.deg Patient Education Materials: A-fib (Atrial Fibrillation) (ED) Referrals: Js Claudio MD [Primary Care Provider] - Rex Cohen MD [Medical Doctor] - Additional Instructions: Stop your amlodipine. Medication has been prescribed call diltiazem. Return with chest pain, palpitations, shortness of breath, worse, new symptoms or other concerns. Call Dr. Cohen first thing in the morning to follow-up. - Billing Disposition and Condition Condition: IMPROVED Disposition: Home - Attestation Statements Document Initiated by Scribe: Yes Documenting Scribe: Harjit Nelson Provider For Whom Scribe is Documenting (Include Credential): Vinay Killian MD Scribe Attestation: I, Harjit Nelson, scribed for Vinay Killian MD on 04/15/18 at 0623. Scribe Documentation Reviewed: Yes Provider Attestation: The documentation as recorded by the scribHarjit valverde accurately reflects the service I personally performed and the decisions made by me, Vinay Killian MD
[2018-04-14 22:49] VITALS: BP 124/73
--- NOTE | 2018-04-15 07:32 | RAD ---
INDICATION: Palpitations COMPARISON: April 08, 2018 TECHNIQUE: An AP portable view obtained at 2018 hours is submitted. FINDINGS: Bones/Soft Tissues: There are no acute bony findings. There is sternotomy. There is a left-sided cardiac pacemaker. Cardiomediastinal: The cardiomediastinal silhouette is normal. Lungs: There are no infiltrates. Pleura: There are no significant pleural effusions. Other: None IMPRESSION: CABG. CARDIAC PACEMAKER. NO ACTIVE DISEASE. R0
== END 2018-04-14 22:48 | disposition home or self-care (01) ==
LOC: ED 19:58
DX: I48.91 Unspecified atrial fibrillation (principal); Z79.01 Long term (current) use of anticoagulants; Z95.810 Presence of automatic (implantable) cardiac defibrillator; R06.02 Shortness of breath; K25.9 Gastric ulcer, unspecified as acute or chronic, without hemorrhage or perforation; Z85.46 Personal history of malignant neoplasm of prostate; Z95.1 Presence of aortocoronary bypass graft; Z88.5 Allergy status to narcotic agent
CPT/HCPCS: 36415; 71045; 80053; 82550; 83605; 83880; 84436; 84443; 84484; 85025; 85610; 93005; 96374; 99284; J3490

== ENCOUNTER 2018-05-22 18:02 | Emergency (ER) | payer MEDICARE ==
--- OUTSIDE RECORDS SUMMARY | 2018-05-22 18:37 | XMS REPORT ---
:1940 External Reference #:[id number] Author Organization [employer] Address [address] [place] [address] [place] [address] Phone [phone] Care Team Providers Name Role Phone Js Claudio MD Primary Care Physician Unavailable Payers Type Date Identification Numbers Payment Provider Subscriber Medicare Primary Policy Number: [id number] Medicare Andrzej Arzola PayID: [id number] [address] [place] [address] [facility] Part B Policy Number: [id number] [facility] Andrzej Arzola PayID: [id number] [address] [place] [address] Problems Date Description Provider Status Onset: 12/07/2013 [...] 03/03/2017 Atrial flutter Naomi Holm M.D. Active Onset: 04/09/2018 Hyperlipidemia Marine Padilla M.D. 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 Active Onset: 04/08/2018 Jaw pain Marine Padilla M.D. Active Onset: 04/08/2018 Paroxysmal atrial fibrillation Marine Padilla M.D. Active Family History Date Family Member(s) [...] Form Strength Qnty SIG Indications Ordering Provider Multaq 05/19/ Active Tablets 400mg 60tabs 1 by I25.110 Rex Rae 2017 mouth Brand, twice a M.D. day Pantoprazole 12/01/ Active Tablets DR 40mg 1 by Peter Claudio 2018 mouth MD Js every day Toprol XL 07/23/ Active Tablets ER 50mg 180tab 1 by Rex Rae 2017 24HR s mouth Brand, twice M.D. daily [...] 30tabs 1 po qd Unknown 0000 Multivitamins 00// Active Tablets 90tabs 1 po qd Unknown 0000 Glucosamine-Matias / Active Tablets 500-400 1 po Unknown droitin 0000 daily Nitrostat / Active Tablets 0.4mg 1bottl one sl Rex Rae 0000 Sub e q5min up Brand, to 3 M.D. doses as needed Lisinopril / Active Tablets 5mg 90tabs 1 by Rex Rae 0000 mouth Brand, every day M.D. Amlodipine 09/30/ Hx Tablets 10mg 90tabs 1 by Rex Rae Besylate 2017 - mouth Brand, 05/18/ every day M.D. 2017 Amlodipine 07/28/ Hx Tablets 2.5mg 90tabs 1 by Rex Rae Besylate 2016 - mouth Brand, 09/30/ every day M.D. 2017 Keflex 07/14/ Hx Capsules 500mg 9caps 1 by Rex Rae 2016 - mouth Brand, 07/17/ three M.D. 2017 times a day for 3 days Atenolol 12/09/ Hx Tablets 50mg 180tab 1 tablet Rex Rae 2016 - s by mouth Brand, 07/22/ twice a M.D. 2016 day.( dose change at hospital) Multaq 07/09/ Hx Tablets 400mg 60tabs 1 by I47.1 Rex Rae 2015 - mouth Brand, 12/08/ twice a M.D. 2016 day Atenolol 05/11/ Hx Tablets 25mg 1 by [...] Atorvastatin 12/09/ Hx Tablets 10mg 45tabs take /2 Rex Rae Calcium 2012 - tablet at Brand, 06/03/ bedtime M.D. 2012 Ramipril 10/12/ Hx Capsules 10mg 180cap 2 tabs by Rex Rae 2012 - s mouth Brand, 07/17/ every day M.D. 2012 Atorvastatin 06/28/ Hx Tablets 20mg 45tabs take 08/18 Rex Rae Calcium 2011 - tablet at [...] Rex Rae 0000 - mouth Brand, 01/05/ day M.D. 2014 Omeprazole / Hx Capsules 20mg 90caps 1 po qd Unknown 0000 - DR 2016 Atenolol / Hx Tablets 50mg 90tabs 1 by Rex Rae 0000 - mouth Brand, 05/12/ day M.D. 2015 Pravastatin / Hx Tablets 20mg 1 tablet Unknown Sodium 0000 - by mouth 11/15/ once 2015 daily at bedtime Enalapril / Hx Tablets 20mg 1 by Unknown Maleate 0000 - mouth 11/15/ day 2014 Livalo / Hx Tablets 1mg 30tabs 1 tab by Rex Rae 0000 - mouth Brand, 01/01/ M.D. 2016 night Lisinopril / Hx Tablets 20mg 90tabs 1 by Rex Rae 0000 - mouth Brand, 07/21/ day M.D. 2016 Omeprazole / Hx Capsules 20mg prn Unknown 0000 - DR 2016 Amlodipine / Hx Tablets 2.5mg 1 by Rex Rae Besylate 0000 - mouth Brand, 07/28/ every day M.D. 2016 Diltiazem HCL / Hx Tablets 120mg 1 by Rex Rae 0000 - mouth Brand, 05/20/ day M.D. 2018 Medications Administered in Office Medication Date Status Form Strength Qnty SIG Indications Ordering Provider Technetium TC Administered Injection Gilberto Moffett DO Tetrofosmin, FACC Per Unit Dose Up To 40 Millicuries Technetium TC Administered Injection Rex DArnold 99M 016 Gibson Cohen Tetrofosmin, Per Unit Dose Up To 40 Millicuries Technetium TC Administered Injection Rex DArnold 99M 015 Gibson Cohen Tetrofosmin, Per Unit Dose Up To 40 Millicuries Vital Signs Date Vital Result Comment 05/19/2018 Height 71 inches 5'11" Weight 194.00 lb with shoes Heart Rate 66 /min BP Systolic Sitting 146 mmHg Lue reg cuff BP Diastolic Sitting 88 mmHg Lue reg cuff BP Systolic Standing 140 mmHg Lue reg cuff BP Diastolic Standing 80 mmHg Lue reg cuff Respiratory Rate 16 /min BMI (Body Mass Index) 27.1 kg/m2 04/27/2018 Height 71 inches 5'11" Weight 193.00 lb Heart Rate 68 /min BP Systolic Sitting 148 mmHg Lue regular cuff BP Diastolic Sitting 88 mmHg Lue regular cuff Respiratory Rate 20 /min BMI (Body Mass Index) 26.9 kg/m2 Ejection Fraction 40-45% 02/10/2018 Height 71 inches 5'11" Weight 193.00 [...] Non- 66.8 >60 Egfr 86.0 >60 2 Laboratory test finding 02/01/2014 Troponin I 0.00 ng/mL <0.03 3, 4 Basic Metabolic Panel 02/01/2014 Sodium 134 mmol/L [...] 72.8 >60 3 Egfr 93.7 >60 3, 5 1 Because ethnic data is [...] <15 (or dialysis) 3 today 02/01/14 4 Reference Range and Interpretation: TnI (ng/mL) Interpretation Less Than 0.03 ng/mL Not supportive of diagnosis of [place] 0.03 - 0.50 ng/mL Indeterminate: suggest serial studies if clinically indicated. Greater than 0.5 ng/mL Consistent with diagnosis of [place] 5 Because ethnic data is not always readily [...] 15-29 5 Kidney failure <15 (or dialysis) Procedures Date CPT Code Description Status 05/19/2018 11298 EKG Tracing & Interpretation Completed 05/18/2018 87202 Pace Maker Eval W/Iterative Adjment Dual Lead Completed 04/09/2018 90411 ECHO Transthorasic Realtime 2D W Doppler & Color Flow Completed Hosp 04/09/2018 54557 Treadmill Interp/Report Only Completed 04/09/2018 13499 Stress Test Supervsn W/Out I/R Completed 01/27/2018 82599 Pace Maker Eval W/Iterative Adjment Dual Lead Completed 01/27/2018 19627 Pace Maker Eval W/Iterative Adjment Dual Lead Completed 08/26/2017 14552 Pace Maker Eval W/Iterative Adjment Dual Lead Completed 08/26/2017 02755 Pace Maker Eval W/Iterative Adjment Dual Lead Completed 07/28/2017 56218 EKG Tracing & Interpretation Completed 07/22/2017 27823 EKG, Interpretation Only Completed 07/21/2017 77807 Cardiac Cath,LT Hrtmincl Intraprocedural Ink LT Completed Ventricul Mammary 07/21/2017 98529 EKG, Interpretation Only Completed 07/21/2017 60413 Percutaneous Transcatheter Placement Of Intracoronary Completed Stent 07/20/2017 00396 ECHO Transthorasic Realtime 2D W Doppler & Color Flow Completed Hosp 07/19/2017 20821 EKG, Interpretation Only Completed 07/14/2017 64231 Pace Maker Eval W/Iterative Adjment Dual Lead Completed 07/14/2017 38936 EKG, Interpretation Only Completed 07/13/2017 88659 Moderate Sedation Services; Same Phys Each Additional Completed 15 Mins 07/13/2017 41006 Moderate Sedation Services; Same Phys Intl 15 Mins; PT Completed >=5 Years 07/13/2017 45406 EKG, Interpretation Only Completed 07/13/2017 87842 Perm Pacemaker Av Sequential Atrial And Ventricular Completed 07/06/2017 78199 Treadmill Interp/Report Only Completed 07/06/2017 15631 Stress Test Supervsn W/Out I/R Completed 07/06/2017 56861 EKG, Interpretation Only Completed 07/05/2017 37616 EKG, Interpretation Only Completed 04/24/2017 21189 EKG Tracing & Interpretation Completed 03/11/2017 52801 Stress Test Completed 03/11/2017 26649 Myocardial Perfusion Imaging Tomographic (Spect) Completed Multiple Studies 03/04/2017 78453 Cardioversion Completed 03/04/2017 28225 EKG, Interpretation Only Completed 03/04/2017 04166 Echocardiography, Transesophageal, Real Time W/Image 2D Completed W/W/O M-M 03/04/2017 72689 Pulse Wave/Continuous-Interp.RPT Completed 03/04/2017 45596 Color Flow Doppler/Interp & Reprt Completed 03/03/2017 92631 EKG Tracing & Interpretation Completed 02/24/2017 04660 Holter Monitor Review (24 hr)dr review & interp only Completed 02/06/2017 50559 ECG Monitor/Recording W/Visual Superimposition Scanning Completed 12/10/2016 92878 EKG Tracing & Interpretation Completed 07/31/2016 27923 EKG Tracing & Interpretation Completed 06/06/2016 06529 Mobile Cardiovascular Telemetry Over 24 HR Up To 30 Completed Days 06/05/2016 46128 ECHO Transthoracic, Real-Time 2D With Doppler And Color Completed Flow 06/04/2016 92187 EKG Tracing & Interpretation Completed 02/28/2016 97748 Stress Test Completed 02/28/2016 10824 Myocardial Perfusion Imaging Tomographic (Spect) Completed Multiple Studies 2016 92749 EKG Tracing & Interpretation Completed 01/04/2015 47792 Stress Test Completed 01/04/2015 11121 Myocardial Perfusion Imaging Tomographic (Spect) Completed Multiple Studies 12/01/2014 07346 EKG Tracing & Interpretation Completed 06/15/2014 16512 EKG Tracing & Interpretation Completed 02/01/2014 98251 EKG, Interpretation Only Completed 06/03/2013 54130 Holter Monitoring 24 HR New Completed 06/03/2013 68234 EKG Tracing & Interpretation Completed 02/21/2013 40894 Holter Monitoring 24 HR New Completed 06/28/2012 61017 EKG Tracing & Interpretation Completed 06/16/2012 32357 EKG, Interpretation Only Completed 06/15/2012 06146 EKG, Interpretation Only Completed 05/26/2012 93529 ECHO Transthoracic, Real-Time 2D With Doppler And Color Completed Flow 05/20/2012 88117 ECHO Transthoracic, Real-Time 2D With Doppler And Color Completed Flow Encounters Type Date Location Provider CPT E/M Dx Office Visit 04/27/2018 1:00p [facility] Adriane Cohen, 48427 I10 [facility] MArtur I25.110 Z95.0 I48.0 Office Visit 04/09/2018 11:45a [facility], Marine Padilla, 28615 R07.9 Hospitalists MArtur I48.91 I25.10 E78.5 Office Visit 04/08/2018 11:45a [facility], Marine Padilla, 71189 I48.0 Hospitalists MArtur R68.84 R07.9 Office Visit 04/08/2018 2:30p [facility] Emeterio Robins M.D. 42199 R07.9 R94.31 R68.84 Office Visit 02/10/2018 10:30a [facility] Rex Cohen, 87553 I10 M.Butch I25.110 Z95.0 Office Visit 09/30/2017 3:45p [facility] Adriane Cohen, 44741 Z95.0 [facility] Gibson I49.5 I25.110 I10 Office Visit 07/28/2017 2:00p [facility] Adriane Cohen 23827 I25.110 Dobby Loom Chain Pegger AT [facility] M.DArnold Z95.1 R07.9 Z95.0 I49.5 Office Visit 07/22/2017 2:45p [facility],pc Marlyn Patel, 29420 I24.9 Hospitalists D.O. I25.119 E78.5 I48.0 Office Visit 07/22/2017 2:26p [facility] Of Jerson Stephanie, 28117 I25.110 Dobby [employer] Chain Pegger AT [facility] M.Butch, FAC, FSCAI Office Visit 07/21/2017 2:44p [facility],pc Marlyn Patel, 47933 I24.9 Hospitalists D.O. I25.119 E78.5 I48.0 Office Visit 07/20/2017 2:44p [facility], [place] [address] I24.9 Hospitalists I25.119 E78.5 I48.0 Office Visit 07/20/2017 9:58a [facility] Of Rex Cohen, 16273 I25.110 Robbi M.D. Office Visit 07/19/2017 2:43p [facility], [place] [address] I24.9 Hospitalists I25.119 E78.5 I48.0 Office Visit 07/19/2017 11:57a [facility] Emeterio Robins, 02428 I25.119 M.D. I10 E78.5 R79.89 Office Visit 07/18/2017 2:42p [facility], [place] [address] I24.9 Hospitalists I25.119 E78.5 I48.0 Office Visit 07/06/2017 10:52a [facility] Of Rex Cohen, 35993 I25.10 Dobby L[employer] Chain Pegger M.DArnold I49.5 Office Visit 07/05/2017 1:58p [facility] Of Naomi Holm M.D. 66845 R00.2 Dobby L[employer] Chain Pegger R07.9 Office Visit 04/24/2017 8:30a [facility] Adriane Cohen, 04786 I48.4 Robbi Arreaga R94.31 I25.10 Office Visit 03/03/2017 2:15p [facility] Naomi Holm M.D. 19069 I47.1 [facility] I48.0 I48.4 I25.10 Office Visit 12/10/2016 10:45a [facility] ArletteArnold Cohen, 46929 I25.810 Dobby Loom Chain Pegger M.D. I47.1 Office Visit 12/09/2016 9:30a [facility] Rosangela Turner, 33964 G47.33 Services Of [facility] ALFREDO RN, [facility]- R09.02 Office Visit 07/31/2016 12:15p [facility] Butch Cohen, 17059 I25.810 [employer] Chain Pegger M.D. R00.2 R07.89 Office Visit 07/09/2016 9:45a [facility] Butch Cohen, 54215 I25.810 [employer] Chain Pegger M.DArnold R00.2 I47.1 Office Visit 06/04/2016 1:15p [facility] Butch Cohen, 97808 I25.810 Dobby Loom Chain Pegger M.D. R00.2 R42 Office Visit 2016 8:30a [facility] Butch Cohen, 44544 I25.810 Dobby Loom Chain Pegger M.D. R07.89 R00.2 Office Visit 12/06/2015 10:30a [facility] Hiram Noel, 45944 G47.33 Services Of D[employer] Chain Pegger M.D. Office Visit 08/02/2015 10:00a [facility] Butch Cohen, 73822 I25.810 Dobby Loom Chain Pegger M.D. I10 R07.89 Office Visit 07/19/2015 10:00a [facility] Hiram Noel, 46362 G47.33 Services Of [employer] Chain Pegger M.D. Office Visit 01/12/2015 11:00a [facility] Rex Cohen, 27781 414.01 Robbi Roque.Butch 414.02 Office Visit 12/01/2014 11:30a [facility] Butch Cohen, 33651 414.02 Robbi M.DArnold 401.9 Office Visit 12/01/2014 9:00a [facility] Tucker Kennedy 63719 346.02 [facility] Office Visit 06/15/2014 11:15a [facility] Of [facility] Rex Rae 13905 414.02 Gibson Cohen 401.9 414.01 Office Visit 12/07/2013 9:15a [facility] Of Rex Cohen, 80800 414.02 Dobby Loom Chain Pegger M.D. 401.9 427.69 Office Visit 06/03/2013 1:15p [facility] [place] [address] 785.1 [facility] Office Visit 04/08/2013 3:45p [facility] Of Rex Cohen, 48575 414.9 Dobby Loom Chain Pegger M.D. 427.69 Office Visit 02/24/2013 2:15p [facility] Of Rex Cohen, 36224 414.9 Dobby Loom Chain Pegger M.D. 427.69 401.9 Office Visit 12/09/2012 1:30p [facility] Of Rex Cohen, 96383 414.9 Dobby Loom Chain Pegger M.DArnold Office Visit 12/06/2012 8:30a [facility] Gokul Ballesteros, 53720 782.0 Services Of Robbi M.DArnold Office Visit 06/28/2012 2:45p [facility] Of Rex Cohen, 44294 414.9 [facility] AT [facility] MArtur 414.02 Office Visit 06/15/2012 4:09p [facility] Of Rex Cohen, 49553 786.50 Dobby L[employer] Chain Pegger M.D. 414.9 Office Visit 06/07/2012 8:45a [facility] Gokul Ballesteros, 78531 782.0 Services Of [place] Chain Pegger MArnoldD. 794.02 Office Visit 06/03/2012 1:45p [facility] Of Rex Cohen, 15344 414.9 [place] Chain Pegger M.D. 414.02 Office Visit 05/13/2012 1:00p [facility] Gokul Ballesteros, 73279 435.9 Services Of [place] Chain Pegger M.D. Plan of Care Future Appointment(s):06/29/2018 1:00 pm - Rex Cohen M.D. at [facility]05/25/2018 9:30 am - Rex Cohen M.D. at [facility]05/19/2018 - Rex Cohen M.D.I25.110 Athscl heart disease of [place] cor art w unstable ang pctrsNew Medication:Multaq 400 mgNew Orders:CardioversionFollow up:1 hfymqH64.91 Unspecified atrial fibrillation
--- OUTSIDE RECORDS SUMMARY | 2018-05-22 18:38 | XMS REPORT ---
:1940 External Reference #:[id number] Author Organization [employer] Address [address] [facility] [place] [address] [place] [address] Phone [phone] Care Team Providers Name Role Phone Js Claudio MD Primary Care Physician Unavailable Payers Type Date Identification Numbers Payment Provider Subscriber Medicare Primary Policy Number: [id number] Medicare Andrzej Arzola PayID: [id number] [address] [place] [address] [facility] Part B Policy Number: [id number] [facility] Andrzej Arzola PayID: [id number] [address] [place] [address] Problems Date Description Provider Status Onset: 12/07/2013 [...] Active Onset: 04/09/2018 [facility] heart disease of [place] Marine Padilla M.D. 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 Eliquis 03/03/ Active Tablets 5mg 180tab 1 by Rex Rae 2017 s mouth Brand, twice a M.D. day Crestor 01/02/ Active Tablets 5mg 90tabs 1 by I25.810 Rex Rae 2016 mouth Brand, every day M.D. Aspirin Low [...] Rae 0000 mouth Brand, every day M.D. Diltiazem HCL / Active Tablets 120mg 1 by Rex Rae 0000 mouth Brand, every day M.D. Amlodipine 07/28/ Hx Tablets 2.5mg 90tabs 1 by Rex Rae Besylate 2016 - mouth Brand, 09/30/ every day M.D. 2017 Keflex 07/14/ Hx Capsules 500mg 9caps 1 by Rex Rae 2016 - mouth Brand, 07/17/ three M.D. 2016 times a day for 3 days Atenolol [...] - mouth Brand, 11/15/ every day M.D. 2015 Enalapril 07/17/ Hx Tablets 20mg 90tabs 1 [...] Atorvastatin 06/28/ Hx Tablets 20mg 45tabs take /2 Rex Rae Calcium 2011 - tablet at Brand, 12/06/ bedtime M.D. 2012 Nitrostat 06/28/ Hx Tablets 0.4mg 1bottl One SL Rex Rae 2011 - Sub e prn chest Brand, 11/15/ pain, december M.D. 2014 repeat x2 every 5 minutes, if no relief call 911 Amlodipine /00/ Hx Tablets 10mg 90tabs 1 po qd Unknown Besylate 0000 - 2012 Clopidogrel / Hx Tablets 75mg 90tabs 1 tab by Rex Rae 0000 - mouth Brand, 01/05/ every day M.D. 2014 Omeprazole 00/ Hx Capsules 20mg 90caps 1 po qd Unknown [address] 2016 Atenolol / Hx Tablets 50mg 90tabs 1 by Rex Rae 0000 - mouth Brand, 05/12/ every day M.D. 2015 Pravastatin / Hx Tablets 20mg 1 tablet Unknown Sodium 0000 - by mouth 11/15/ once 2015 daily at bedtime Enalapril / Hx Tablets 20mg 1 by Unknown Maleate 0000 - mouth 11/15/ day 2014 Livalo / Hx Tablets 1mg 30tabs 1 tab by Rex Rae 0000 - mouth Brand, 01/01/ every M.D. 2016 night Lisinopril / Hx Tablets 20mg 90tabs 1 by Rex Rae 0000 - mouth Brand, 07/21/ every day M.D. 2016 Omeprazole 00/ Hx Capsules 20mg prn Unknown [address] 2016 Amlodipine 00/ Hx Tablets 2.5mg 1 by Rex Rae Besylate 0000 - mouth Brand, 07/28/ every day M.D. 2016 Medications Administered in Office Medication Date Status Form Strength Qnty SIG Indications Ordering Provider Technetium TC Administered Injection Gilberto Kennedy 99M 017 DO Zuhair Tetrofosmin, FACC Per Unit Dose Up To 40 Millicuries Technetium TC Administered Injection Rex aRe 99M 016 Gibson Cohen Tetrofosmin, Per Unit Dose Up To 40 Millicuries Technetium TC Administered Injection Rex Cohen M.D. Tetrofosmin, Per Unit Dose Up To 40 Millicuries Vital Signs Date Vital Result Comment 04/27/2018 Height 71 inches 5'11" Weight 193.00 [...] 0.03 ng/mL Not supportive of diagnosis of [place] 0.03 - 0.50 ng/mL Indeterminate: suggest serial studies if clinically indicated. Greater than 0.5 ng/mL Consistent with diagnosis of WI 5 Because ethnic data is not always [...] dialysis) Procedures Date CPT Code Description Status 04/09/2018 25039 ECHO Transthorasic Realtime 2D W Doppler & Color Flow Completed Hosp 04/09/2018 82373 Treadmill Interp/Report Only Completed 04/09/2018 69471 Stress Test Supervsn W/Out I/R Completed 01/27/2018 59658 Pace Maker Eval W/Iterative Adjment Dual Lead Completed 01/27/2018 29511 Pace Maker Eval W/Iterative Adjment Dual Lead Completed 08/26/2017 99778 Pace Maker Eval W/Iterative Adjment Dual Lead Completed 08/26/2017 46588 Pace Maker Eval W/Iterative Adjment Dual Lead Completed 07/28/2017 22397 EKG Tracing & Interpretation Completed 07/22/2017 47427 EKG, Interpretation Only Completed 07/21/2017 04319 Cardiac Cath,LT Hrtmincl Intraprocedural Ink LT Completed Ventricul Mammary 07/21/2017 75004 EKG, Interpretation Only Completed 07/21/2017 48713 Percutaneous Transcatheter Placement Of Intracoronary Completed Stent 07/20/2017 61007 ECHO Transthorasic Realtime 2D W Doppler & Color Flow Completed Hosp 07/19/2017 76864 EKG, Interpretation Only Completed 07/14/2017 37644 EKG, Interpretation Only Completed 07/14/2017 68248 Pace Maker Eval W/Iterative Adjment Dual Lead Completed 07/13/2017 09249 Moderate Sedation Services; Same Phys Each Additional Completed 15 Mins 07/13/2017 33493 Moderate Sedation Services; Same Phys Intl 15 Mins; PT Completed >=5 Years 07/13/2017 73872 EKG, Interpretation Only Completed 07/13/2017 71900 Perm Pacemaker Av Sequential Atrial And Ventricular Completed 07/06/2017 73077 Treadmill Interp/Report Only Completed 07/06/2017 65721 Stress Test Supervsn W/Out I/R Completed 07/06/2017 29867 EKG, Interpretation Only Completed 07/05/2017 61854 EKG, Interpretation Only Completed 04/24/2017 70123 EKG Tracing & Interpretation Completed 03/11/2017 32660 Stress Test Completed 03/11/2017 40081 Myocardial Perfusion Imaging Tomographic (Spect) Completed Multiple Studies 03/04/2017 03236 Cardioversion Completed 03/04/2017 39892 EKG, Interpretation Only Completed 03/04/2017 99482 Echocardiography, Transesophageal, Real Time W/Image 2D Completed W/W/O M-M 03/04/2017 73221 Pulse Wave/Continuous-Interp.RPT Completed 03/04/2017 14983 Color Flow Doppler/Interp & Reprt Completed 03/03/2017 37398 EKG Tracing & Interpretation Completed 02/24/2017 04259 Holter Monitor Review (24 hr)dr review & interp only Completed 02/06/2017 23951 ECG Monitor/Recording W/Visual Superimposition Scanning Completed 12/10/2016 60535 EKG Tracing & Interpretation Completed 07/31/2016 46478 EKG Tracing & Interpretation Completed 06/06/2016 02525 Mobile Cardiovascular Telemetry Over 24 HR Up To 30 Completed Days 06/05/2016 15127 ECHO Transthoracic, Real-Time 2D With Doppler And Color Completed Flow 06/04/2016 80190 EKG Tracing & Interpretation Completed 02/28/2016 97763 Stress Test Completed 02/28/2016 42048 Myocardial Perfusion Imaging Tomographic (Spect) Completed Multiple Studies 2016 33800 EKG Tracing & Interpretation Completed 01/04/2015 16047 Stress Test Completed 01/04/2015 10424 Myocardial Perfusion Imaging Tomographic (Spect) Completed Multiple Studies 12/01/2014 65004 EKG Tracing & Interpretation Completed 06/15/2014 09659 EKG Tracing & Interpretation Completed 02/01/2014 97615 EKG, Interpretation Only Completed 06/03/2013 73204 Holter Monitoring 24 HR New Completed 06/03/2013 99571 EKG Tracing & Interpretation Completed 02/21/2013 84106 Holter Monitoring 24 HR New Completed 06/28/2012 93184 EKG Tracing & Interpretation Completed 06/16/2012 00106 EKG, Interpretation Only Completed 06/15/2012 99664 EKG, Interpretation Only Completed 05/26/2012 32648 ECHO Transthoracic, Real-Time 2D With Doppler And Color Completed Flow 05/20/2012 99741 ECHO Transthoracic, Real-Time 2D With Doppler And Color Completed Flow Encounters Type Date Location Provider CPT E/M Dx Office Visit 04/09/2018 [place] [facility] Ceballos,jordon Padilla M.D. 19929 R07.9 11:45a Hospitalists I48.91 I25.10 E78.5 [facility] Visit [facility]/08[facility]2018 [facility], 28477 I48.0 [facility] Gibson R68.84 R07.9 Office Visit 04/08/2018 2:30p [facility] Emeterio Robins M.D. 74524 R07.9 R94.31 R68.84 Office Visit 02/10/2018 10:30a [facility] Rex Cohen, 46436 I10 M.DArnold I25.110 Z95.0 Office Visit 09/30/2017 3:45p [facility] Cohen, [address] [facility] I25.110 I10 Office Visit 07/28/2017 2:00p [facility] Adriane Cohen, 05784 I25.110 [facility] Z95.1 R07.9 Z95.0 I49.5 Office Visit 07/22/2017 2:26p [facility] Rhoda Brown, 82341 I25.110 [employer] Delivery Driver AT [facility] Gibson, FACC, [facility] Office Visit 07/22/2017 2:45p [facility] Patel, 11112 I24.9 Hospitalists D.O. I25.119 E78.5 I48.0 Office Visit 07/21/2017 2:44p [facility],jordon Patel, 54567 I24.9 Hospitalists D.O. I25.119 E78.5 I48.0 Office Visit 07/20/2017 2:44p [facility],[place] [address] I24.9 Hospitalists I25.119 E78.5 I48.0 Office Visit 07/20/2017 9:58a [facility] Rex Cohen, 77289 I25.110 [employer] Delivery Driver M.D. Office Visit 07/19/2017 2:43p [facility], [place] [address] I24.9 Hospitalists I25.119 E78.5 I48.0 Office Visit 07/19/2017 11:57a [facility] Emeterio Robins, 90354 I25.119 M.D. I10 E78.5 R79.89 Office Visit 07/18/2017 2:42p [facility], [place] [address] I24.9 Hospitalists I25.119 E78.5 I48.0 Office Visit 07/06/2017 10:52a [facility] Rex Cohen, 39064 I25.10 Robbi Arreaga I49.5 Office Visit 07/05/2017 1:58p [facility] Of Naomi Holm M.D. 55900 R00.2 [employer] Delivery Driver R07.9 Office Visit 04/24/2017 8:30a [facility] Rex Cohen, 37176 I48.4 Robbi Arreaga R94.31 I25.10 Office Visit 03/03/2017 2:15p [facility] Naomi Holm M.D. 41084 I47.1 Robbi I48.0 I48.4 I25.10 Office Visit 12/10/2016 10:45a [facility] Rex Cohen, 44958 I25.810 Robbi Arreaga I47.1 Office Visit 12/09/2016 9:30a [facility] Rosangela Turner, 45029 G47.33 Services Of [facility] ALFREDO, RN, MEDIA ACCOUNT EXECUTIVE- R09.02 Office Visit 07/31/2016 12:15p [facility] Rex Cohen, 48370 I25.810 Robbi Arreaga R00.2 R07.89 Office Visit 07/09/2016 9:45a [facility] Rex Cohen, 03612 I25.810 Robbi Arreaga R00.2 I47.1 Office Visit 06/04/2016 1:15p [facility] ArletteArnold Cohen, 97894 I25.810 [employer]ourier Delivery Driver M.D. R00.2 R42 Office Visit 2016 8:30a [facility] Of Rex ArletteArnold Cohen, 85840 I25.810 [employer] Delivery Driver M.D. R07.89 R00.2 Office Visit 12/06/2015 10:30a [facility] Hiram Noel, 78071 G47.33 Services Of [employer] Delivery Driver M.D. Office Visit 08/02/2015 10:00a [facility] ArletteArnold Cohen, 81796 I25.810 [employer] Delivery Driver M.D. I10 R07.89 Office Visit 07/19/2015 10:00a [facility] Hiram Noel, 89766 G47.33 Services Of [employer] Delivery Driver M.D. Office Visit 01/12/2015 11:00a [facility] Butch Cohen, 52099 414.01 [employer] Delivery Driver M.DArnold 414.02 Office Visit 12/01/2014 11:30a [facility] Butch Cohen, 87224 414.02 Robbi M.DArnold 401.9 Office Visit 12/01/2014 9:00a [facility] Tucker Kennedy 47167 346.02 [facility] Office Visit 06/15/2014 11:15a [facility] Rex Rae 36206 414.02 Gibson Cohen 401.9 414.01 Office Visit 12/07/2013 9:15a [facility] Butch Cohen, 39025 414.02 Robbi OakesDArnold 401.9 427.69 Office Visit 06/03/2013 1:15p [facility] [place] [address] 785.1 [facility] Office Visit 04/08/2013 3:45p [facility] Rex Cohen, 91477 414.9 Robbi M.DArnold 427.69 Office Visit 02/24/2013 2:15p [facility] Rex Cohen, 97775 414.9 [employer] Delivery [employer] M.DArnold 427.69 401.9 Office Visit 12/09/2012 1:30p [facility] Butch Cohen 68586 414.9 Robbi M.DArnold Office Visit 12/06/2012 8:30a [facility] Gokul Ballesteros, 67125 782.0 Services Of Courier Delivery Driver M.DArnold Office Visit 06/28/2012 2:45p [facility] Rex Cohen, 58690 414.9 Courier Delivery Driver AT [facility] M.Butch 414.02 Office Visit 06/15/2012 4:09p [facility] Adriane Cohen, 72110 786.50 Robbi Arreaga 414.9 Office Visit 06/07/2012 8:45a [facility] Gokul Ballesteros, 88094 782.0 Services Of Robbi Arreaga 794.02 Office Visit 06/03/2012 1:45p [facility] Adriane Cohen, 21497 414.9 Robbi Arreaga 414.02 Office Visit 05/13/2012 1:00p Thelma Ballesteros, 51250 435.9 Services Of Robbi Arreaga Plan of Care Future Appointment(s):06/02/2018 2:45 pm - Rex Cohen M.D. 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
--- NOTE | 2018-05-22 18:53 | ED ---
Complex/Multi-Sys Presentation - HPI Summary HPI Summary: Patient is a 78 y/o F w/ c/o chest pain, diffuse abdominal pain, and upper back pain. Patient reports abdominal pain onset in the past five days. He states that he saw Dr. Cohen about his abdominal pain. Dr. Cohen changed his medication from cardizem to multaq as a result. However, he reports that abdominal pain has still persisted. He notes that he has "mostly" been in afib over the past few weeks as well; he is scheduled for an appointment with Dr. Cohen in three days to deal with this. He notes some slight nausea, constipation and SOB. V/D is denied. Patient reports that abdominal pain is aggravated by food. He states that eating today at 1500 greatly aggravated his pain. Exertion aggravates upper back and chest pain. Patient is on Eliquis and Plavix. He reports bypass 25 years ago. On triage, pain is rated 2/10, nothing is noted to aggravate/alleviate Sx. Home medications and allergies are reviewed. - History Of Current Complaint Chief Complaint: EDChestPainROMI Time Seen by Provider: 05/22/18 18:14 Hx Obtained From: Patient Onset/Duration: Lasting Days - abdominal pain onset 5 days ago, Still Present Timing: Constant Severity Currently: Mild - 2/10 Location: Pain At: - chest, upper back, abdomen Aggravating Factor(s): eating aggravates abdominal pain, exertion aggravates upper back and chest pain Alleviating Factor(s): nothing Associated Signs And Symptoms: Positive: SOB, Chest Pain, Nausea, Abdominal Pain , Back Pain, Other - constipation. Negative: Vomiting, Diarrhea - Allergies/Home Medications Allergies/Adverse Reactions: Allergies Allergy/AdvReac Type Severity Reaction Status Date / Time morphine Allergy Unknown Unknown Verified 05/22/18 18:35 Reaction Details Xynpica-Rnu-Mxh Reductase Allergy Unknown Unknown Verified 05/22/18 18:35 Inhibitor Reaction Details Home Medications: Home Medications Dronedarone TAB* [Multaq TAB*] 400 mg PO BID 05/22/18 [History Confirmed ] PMH/Surg Hx/FS Hx/Imm Hx Endocrine/Hematology History: Reports: Hx Anticoagulant Therapy - eloquis Denies: Hx Diabetes, Hx Unexplained Bleeding Cardiovascular History: Reports: Hx Angina, Hx Angioplasty, Hx Coronary Artery Disease, Hx Hypercholesterolemia, Hx Hypertension, Hx Myocardial Infarction, Hx Pacemaker/ICD Denies: Hx Auto Implanted Cardiovert Defib, Hx Cardiac Arrest, Hx Congenital Heart Disease, Hx Congestive Heart Failure, Hx Deep Vein Thrombosis, Hx Hypotension, Hx Peripheral Vascular Disease, Hx Rheumatic Fever, Hx Syncope, Hx Valvular Heart Disease, Other Cardiovascular Problems/Disorders Respiratory History: Reports: Hx Sleep Apnea - uses CPAP at home Denies: Hx Asthma GI History: Reports: Hx Ulcer - takes omeprazole Denies: Other GI Disorders History: Reports: Other Problems/Disorders - prostate ca approx 2007 prostatectomy Denies: Hx Renal Disease Sensory History: Reports: Hx Cataracts - 2 removed one each eye, Hx Hearing Problem Denies: Hx Contacts or Glasses, Hx Legally Blind, Hx Deafness, Hx Hearing Aid Comment Only: Other Sensory Impairments - hx left eye detatched retina Opthamlomology History: Reports: Hx Cataracts - 2 removed one each eye Denies: Hx Contacts or Glasses, Hx Legally Blind Comment Only: Other Sensory Impairments - hx left eye detatched retina Neurological History: Reports: Hx Transient Ischemic Attacks (TIA) - drs with dr renee, ? recent tia Denies: Other Neuro Impairments/Disorders Psychiatric History: Denies: Hx Panic Disorder, Hx Schizophrenia - Cancer History Cancer Type, Location and Year: PROSTATE Hx Chemotherapy: No Hx Radiation Therapy: No - Surgical History Surgery Procedure, Year, and Place: BY PASS 1992, HERNIA 2008, PROSTATECTOMY, EYE PUCKER REPAIR, DETACHED RETINA(CLEARED FOR MRI NOVEMBER [address] VICK) TONSILECTOMY, STERNUM WIRES, STENTS 2001,2009 Infectious Disease History: No Infectious Disease History: Denies: Hx Clostridium Difficile, Hx Hepatitis, Hx Human Immunodeficiency Virus (HIV), Hx of Known/Suspected MRSA, Hx Shingles, Hx Tuberculosis, Traveled Outside the [place] in Last 30 Days - Family History Known Family History: Positive: Cardiac Disease - Social History Alcohol Use: Occasionally Alcohol Amount: reports a couple of drink/week Hx Substance Use: No Substance Use Type: Reports: None Hx Tobacco Use: No Smoking Status (MU): Never Smoked Tobacco Review of Systems Positive: Chest Pain Positive: Shortness Of Breath Positive: Abdominal Pain, Nausea, Other - constipation . Negative: Vomiting, Diarrhea Positive: Other - upper back pain All Other Systems Reviewed And Are Negative: Yes Physical Exam - Summary Physical Exam Summary: Appearance: The patient is well-nourished in no acute distress and in no acute pain. Skin: The skin is warm and dry and skin color reflects adequate perfusion. HEENT: The head is normocephalic and atraumatic. The pupils are equal and reactive. The conjunctivae are clear and without drainage. Nares are patent and without drainage. Mouth reveals moist mucous membranes and the throat is without erythema and exudate. The external ears are intact. The ear canals are patent and without drainage. The tympanic membranes are intact. Neck: The neck is supple with full range of motion and non-tender. There are no carotid bruits. There is no neck vein distension. Respiratory: Chest is non-tender. Lungs are clear to auscultation and breath sounds are symmetrical and equal. Cardiovascular: Heart is regular rate and rhythm. There is no murmur or rub auscultated. There is no peripheral edema and pulses are symmetrical and equal. Abdomen: The abdomen is soft. Mild diffuse abdominal tenderness is noted. There are normal bowel sounds heard in all four quadrants and there is no organomegaly palpated. Musculoskeletal: There is no back tenderness noted. Extremities are non-tender with full range of motion. There is good capillary refill. There is no peripheral edema or calf tenderness elicited. Neurological: Patient is alert and oriented to person, place and time. The patient has symmetrical motor strength in all four extremities. Cranial nerves are grossly intact. Deep tendon reflexes are symmetrical and equal in all four extremities. Psychiatric: The patient has an appropriate affect and does not exhibit any anxiety or depression. Triage Information Reviewed: Yes Vital Signs On Initial Exam: Initial Vitals Temp Pulse Resp BP Pulse Ox 97.6 F 94 16 143/101 97 05/22/18 18:07 05/22/18 18:07 05/22/18 18:07 05/22/18 18:07 05/22/18 18:07 Vital Signs Reviewed: Yes Diagnostics - Vital Signs Vital Signs Temp Pulse Resp BP Pulse Ox 05/22/18 18:17 87 11 96 05/22/18 18:16 78 14 153/87 96 05/22/18 18:07 97.6 F 94 16 143/101 97 - Laboratory Result Diagrams: 05/22/18 19:13 05/22/18 19:13 Lab Statement: Any lab studies that have been ordered have been reviewed, and results considered in the medical decision making process. - Ultrasound No standard instances Ultrasound Interpretation: No Acute Changes - No evidence of gallstones or other acute processes. Ultrasound Interpretation Completed By: Radiologist - ED physician has reviewed this report. - EKG 1821 Cardiac Rate: Other Rate - rate of 79 bpm EKG Rhythm: Atrial Fibrillation EKG Comparison: No Significant Change - afib w/ controlled rate, paced escaped beats, no change from prior. Complex Multi-Symp Course/Dx Course Of Treatment: Mr. Arzola presented with a complaint of about a week of abdominal pain that is diffuse. At times it goes up into his chest. He has been in and out of atrial fibrillation with a controlled rate for a couple of months and is scheduled for defibrillation on Thursday with Dr. Cohen. He is on Plavix and eloquent this. He's been urinating and moving his bowels normally and eating normally. His abdomen was mildly and diffusely tender. He saw Dr. Cohen on for this pain and Dr. Cohen felt that it could be due to some of his medications and switched some around. He also called on Thursday and an additional change was made. He was worked up here with labs including delayed troponin and a gallbladder ultrasound because the pain which has been waxing and waning for a week got suddenly very much worse today after he ate ham. His workup was unremarkable, he remained steady here and has been kept on a monitor. - Diagnoses Provider Diagnoses: Abdominal pain Discharge - Sign-Out/Discharge Documenting (check all that apply): Patient Departure - discharge - Discharge Plan Condition: Stable Disposition: HOME Patient Education Materials: Abdominal Pain (ED) Referrals: Js Claudio MD [Primary Care Provider] - 2 Days Additional Instructions: RETURN TO ED FOR ANY NEW OR WORSENING SYMPTOMS. FOLLOW UP WITH PRIMARY CARE PHYSICIAN IN 1-2 DAYS. - Billing Disposition and Condition Condition: STABLE Disposition: Home - Attestation Statements Document Initiated by Scribe: Yes Documenting Scribe: Harjit Nelson Provider For Whom Bandar is Documenting (Include Credential): Seth Croft MD Scribe Attestation: Harjit Mijares , scribed for Seth Croft MD on 05/23/18 at 1605. Scribe Documentation Reviewed: Yes Provider Attestation: The documentation as recorded by the Harjit forde accurately reflects the service I personally performed and the decisions made by me, Seth Croft MD
[2018-05-22 19:27] LABS: ABS Basophils 0.1 10^3/ul (0-0.2); ABS Eosinophils 0.3 10^3/ul (0-0.6); ABS Lymphocytes 1.1 10^3/ul (1.0-4.8); ABS Monocytes 0.7 10^3/ul (0-0.8); ABS Neutrophils 4.2 10^3/ul (1.5-7.7); ABS Nucleated RBC 0 10^3/ul; Eosinophil % 4.3 % (0-6); Hematocrit 41 % (42-52); Hemoglobin 13.8 g/dl (14.0-18.0); Lymphocyte % 17.7 % (25-47); Mean Corpuscular HGB Conc 34 g/dl (31-36); Mean Corpuscular Hemoglobin 31 pg (27-31); Mean Corpuscular Volume 91 fL (80-94); Mean Platelet Volume 9.2 um3 (7.4-10.4); Nucleated Red Blood Cells % 0; Platelet Count 152 10^3/ul (150-450); Red Blood Count 4.52 10^6/ul (4.00-5.40); Red Cell Distribution Width 14 % (10.5-15); White Blood Count 6.3 10^3/ul (3.5-10.8)
[2018-05-22 19:42] LABS: EGFR Non-African American 55.7 (>60)
[2018-05-22 20:09] LABS: Urine Appearance Clear; Urine Blood Negative (Negative); Urine Color Yellow; Urine Ketones Negative (Negative); Urine Protein Negative (Negative); Urine Urobilinogen Negative (Negative)
--- NOTE | 2018-05-22 22:20 | RAD ---
EXAM: US Abdomen Limited, Right Upper Quadrant CLINICAL HISTORY: 78 years old, male; Pain; Abdominal pain; Epigastric; Additional info: Ruq pain TECHNIQUE: Real-time ultrasound of the right upper quadrant with image documentation. COMPARISON: No relevant prior studies available. FINDINGS: Liver: The liver is normal in size and echotexture. No intrahepatic bile duct dilation. Gallbladder: The gallbladder is noted without evidence of stones. There is borderline wall thickening. No pericholecystic abnormalities. No focal pattern is noted. Common bile duct: 3.5 mm in diameter No stones. No dilation. Pancreas: Visualized pancreas appears normal. Right kidney: Unremarkable. No stones. No solid mass. No hydronephrosis. There is a small right pleural effusion. IMPRESSION: No evidence of gallstones or other acute process. To contact [facility] with a general question: Operations Center - [phone] For direct physician to physician contact: Physician Hotline - [phone] [facility] ([facility] Facility ID #[id number])
[2018-05-22 23:11] VITALS: BP 150/81
== END 2018-05-22 23:13 | disposition home or self-care (01) ==
LOC: ED 18:02
DX: R10.9 Unspecified abdominal pain (principal); R06.02 Shortness of breath; R07.9 Chest pain, unspecified; R11.0 Nausea; M54.9 Dorsalgia, unspecified; Z79.01 Long term (current) use of anticoagulants
CPT/HCPCS: 36415; 76705; 80053; 81003; 83605; 83690; 84484; 85025; 86140; 93005; 99283

== ENCOUNTER 2018-09-01 20:56 | Emergency (ER) | payer MEDICARE ==
--- OUTSIDE RECORDS SUMMARY | 2018-09-01 21:21 | XMS REPORT | Continuity of Care Document ---
:1940 External Reference #:[id number] Author Name Mike Chan MD Address [facility] [place] [address] Care Team Providers Name Role Phone Js Claudio MD Care Team Information Warp Drawer Unavailable Js Claudio MD Primary Care Physician Unavailable Payers Type Date Identification Numbers Payment Provider Subscriber Expires: 1999 Policy Number: [id number] [facility] Andrzej Arzola Group Number: [id number] [address] PayID: [id number] [place] [address] Policy Number: [id number] Medicare Andrzej Arzola PayID: [id number] [facility] [address] [place] [address] Policy Number: [id number] [facility] Health Care Option Andrzej Arzola PayID: [id number] Claims, [address] [place] [address] Advance Directives Description No Information Available Problems Date Description Provider Status Onset: 07/15/2018 Epigastric pain Mike Chan MD Active Family History Date Family Member(s) Problem(s) Comments Father Heart Disease Social History Type Date Description Comments Sex Unknown Tobacco Use Start: Unknown Patient has never smoked Smoking Status Reviewed: 07/15/18 Patient has never smoked Allergies, Adverse Reactions, Alerts Date Description Reaction Status Severity Comments 06/18/2018 Morphine Liposomal Active 06/18/2018 Simvastatin Active Medications Medication Date Status Form Strength Qnty SIG Indications Ordering Provider Dexilant Active Capsules DR 60mg 90caps 1 by Mike Peña mouth ines Chan MD day Ranitidine HCL Active Tablets 150mg 60tabs 1 po q R10.13 Mike Peña hs MD Rocio Pantoprazole Active Tablets DR 40mg 90tabs 1 po q Mike Chong. Sodium 018 MD Rocio Aspirin Active Tablets 81mg Unknown 000 Eliquis Active Tablets 5mg Unknown 000 Rosuvastatin Active Tablets 5mg Unknown Calcium 000 Lisinopril Active Tablets 5mg Unknown 000 Clopidogrel Active Tablets 75mg Unknown Bisulfate 000 Toprol XL Active Tablets ER 50mg Unknown 000 24HR Nitrostat Active Tablets Sub 0.4mg Unknown 000 Glucosamine Active Capsules 500-400mg Unknown Chondroitin 000 Complex Multaq Active Tablets 400mg Unknown 000 Metamucil Active Unknown 000 Immunizations Description No Information Available Vital Signs Date Vital Result Comment 07/15/2018 2:54pm Height 71 inches 5'11" Weight 189.00 lb BP Systolic 138 mmHg BP Diastolic 92 mmHg Heart Rate 88 /min BMI (Body Mass Index) 26.4 kg/m2 Results Test Date Facility Test Result H/L Range Note [facility]a Microscopic(!) 05/22/2018 [facility] WBC <pending> [facility] RBC <pending> [facility] Epithelial Cells <pending> [facility] Crystals <pending> [facility] Bacteria <pending> [facility] Mucous <pending> [facility] Amorphous <pending> [facility] Yeast <pending> [facility] Casts <pending> Laboratory test 05/22/2018 [facility] Lactic Acid <pending> finding Ser/Plas Mol/Vol CMP(!) 05/22/2018 [facility] Sodium(!) <pending> Potassium(!) <pending> Chloride Serum/Plasma(!) <pending> Carbon Dioxide Ser/Plasm(!) <pending> BUN - Urea Nitrogen(!) <pending> Calcium Ser/Plasma Mass/Vol(!) <pending> Creatinine Serum Mass/Vol(!) <pending> Glucose Serum(!) <pending> BUN/Creatinine Ratio(!) <pending> Albumin Serum/Plasma(!) <pending> Alkaline Phosphatase(!) <pending> Bilirubin Total Mass/Vol(!) <pending> Ast - Sgot <pending> Alt - SGPT <pending> Protein Total <pending> Laboratory test 05/22/2018 [facility] Allergy Lipase Ige <pending> finding Troponin I <pending> C-Reative Protein <pending> CBC W/Auto 05/22/2018 [facility] White Blood <pending> Differential(!) Count Ser Auto CNT RBC Red Blood Count <pending> Hemoglobin Blood <pending> Hematocrit <pending> MCV (Corpuscular Volume) <pending> MCH (Corpuscular Hemoglobin) <pending> MCHC (Corpuscular Hemog Conc) <pending> RDW <pending> Platelet Count Blood Auto CNT <pending> MPV <pending> Lymph% <pending> [place]% <pending> Neutrophil % <pending> Absolute Lymphocytes <pending> Absolute Monocytes <pending> Absolute Neutrophils <pending> Laboratory test 04/14/2018 N2N/CCD Import B-Type Natriuretic 262 pg/mL High 1 finding Peptide BNP Creatine Kinase(CK) 58 U/L 10-223 Lactic Acid 1.0 mmol/L 0.5-2.0 2 TSH (Thyroid Stim Horm) 1.10 mcIU/mL 0.34-5.60 Thyroxine 9.45 ug/mL 6.09-12.23 Troponin I 0.00 ng/mL <0.04 CBC Auto Diff 04/14/2018 N2N/CCD Import Abs Basophils 0 10^3/uL 0-0.2 Abs Eosinophils 0.3 10^3/uL 0-0.6 Abs Lymphocytes 1.3 10^3/uL 1.0-4.8 Abs Monocytes 0.6 10^3/uL 0-0.8 Abs Neutrophils 3.0 10^3/uL 1.5-7.7 Abs Nucleated RBC 0 10^3/uL Basophil % 0.8 % 0-2 Eosinophil % 5.8 % 0-6 Granulocyte % 56.8 % 38-83 Hematocrit 41 % Low 42-52 Hemoglobin 13.8 g/dL Low 14.0-18.0 Lymphocyte % 24.2 % Low 25-47 Mean Corpuscular HGB Conc 34 g/dL 31-36 Mean Corpuscular Hemoglobin 31 pg 27-31 Mean Corpuscular Volume 90 fL 80-94 Mean Platelet Volume 8.7 um3 7.4-10.4 Monocyte % 12.4 % High 0-7 Nucleated Red Blood Cells % 0.1 1 Platelet Count 179 10^3/uL 150-450 Red Blood Count 4.51 10^6/uL 4.00-5.40 Red Cell Distribution Width 14 % 10.5-15 White Blood Count 5.2 10^3/uL 3.5-10.8 Comp Metabolic Panel 04/14/2018 N2N/CCD Import Albumin 4.1 g/dL 3.2-5.2 Albumin/Globulin Ratio 1.6 1 1-3 Alkaline Phosphatase 85 U/L 34-104 Alt 21 U/L 7-52 Anion Gap 7 mmol/L 2-11 Ast 18 U/L 13-39 BUN/Creatinine Ratio 15.7 1 8-20 Blood Urea Nitrogen 20 mg/dL 6-24 Calcium 8.6 mg/dL 8.6-10.3 Chloride 106 mmol/L 101-111 Co2 Carbon Dioxide 23 mmol/L 22-32 Creatinine 1.27 mg/dL High 0.67-1.17 Egfr 66.2 1 >60 3 Egfr Non- 54.7 1 >60 Globulin 2.5 g/dL 2-4 Glucose 149 mg/dL High 70-100 Potassium 3.9 mmol/L 3.5-5.0 Sodium 136 mmol/L 135-145 Total Bilirubin 0.50 mg/dL 0.2-1.0 Total Protein 6.6 g/dL 6.4-8.9 Inr/Protime 04/14/2018 N2N/CCD Import Inr 1.16 1 High 0.77-1.02 Laboratory test finding 07/05/2017 N2N/CCD Import Anion Gap 4 mmol/L 2- 11 BUN/Creatinine Ratio 17.7 1 8-20 Blood Urea Nitrogen 20 mg/dL 6-24 Calcium 8.7 mg/dL 8.6-10.3 Chloride 104 mmol/L 101-111 Co2 Carbon Dioxide 26 mmol/L 22-32 Creatinine 1.13 mg/dL 0.67-1.17 Egfr 80.7 1 >60 4 Egfr Non- 62.8 1 >60 Glucose 104 mg/dL High 70-100 Magnesium 2.0 mg/dL 1.9-2.7 Potassium 4.3 mmol/L 3.5-5.0 Sodium 134 mmol/L 133-145 TSH (Thyroid Stim Horm) 0.97 mcIU/mL 0.34-5.60 1 >100 to <200 pg/mL: likely compensated congestive heart failure (CHF) 200 to 400 pg/mL: likely moderate CHF >400 pg/mL: likely moderate to severe CHF 2 [facility] Severe Sepsis and Septic Shock Management Bundle Measure requires all lactic acids initially measuring >2.0 mmol/L be repeated. 3 Because ethnic data is not always readily [...] 15-29 5 Kidney failure <15 (or dialysis) 4 Because ethnic data is not always [...] Kidney failure <15 (or dialysis) Procedures Date Code Description Status 02/21/2008 18114 EGD+Biopsy Single Or Multiple Completed 11/11/2007 01557 Colonoscopy Completed 11/11/2007 26508 EGD+Biopsy Single Or Multiple Completed Encounters Description No Information Available Plan of Treatment 07/15/2018 - Mike Chan, MDR10.13 Epigastric painComments:I had a long discussion with the patient regarding all of his symptoms. I do wonder if the patient had peptic ulcer disease and is doing better at this time. He states the ranitidine has helped his symptoms dramatically greater than 80%. Discussed potential causes such as his aspirin use. We discussed PPIs. He does take one already. With the combination of the PPI and H2 jose j he seems to be much better. We also discussed gastroesophageal reflux disease. I do not hear any alarm symptoms. We discussed performing an upper endoscopy however he would like to hold off at this point.
--- OUTSIDE RECORDS SUMMARY | 2018-09-01 21:21 | XMS REPORT | Continuity of Care Document ---
:1940 External Reference #:[id number] Author Name Twila Schmitz O.D. Address [address] [place] [address] [place] [address] Care Team Providers Name Role Phone Js Claudio M.D. Primary Care Physician Unavailable Payers Type Date Identification Numbers Payment Provider Subscriber Policy Number: [id number] Medicare - [place] Andrzej Arzola PayID: [id number] [address] [place] [address] Policy Number: [id number] [facility] Andrzej Arzola PayID: [id number] [address] [place] [address] Advance Directives Description No Information Available Problems Date Description Provider Status Onset: Dry skin Active Onset: Itching of skin Active Onset: Gastric ulcer Active Onset: Essential hypertension Active Onset: Pure hypercholesterolemia Active Onset: 01/10/2015 Epiretinal membrane Twila Schmitz O.D. Active Onset: 01/10/2015 Myopia Twila Schmitz O.D. 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 Active Onset: 01/10/2016 Vitreous degeneration Twila Schmitz O.D. Active Onset: 01/10/2016 Presence of intraocular lens Twila Schmitz O.D. Active Onset: Cardiac pacemaker in situ Active Note: 07/2017 Onset: Placement of stent in coronary artery Active Note: 07/2017 Onset: 08/11/2018 Regular astigmatism Twila Schmitz O.D. 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 ETOH Use Occasionally consumes alcohol Tobacco Use Start: Unknown Patient has never smoked Recreational Drug Use Never Used Drugs Smoking Status Reviewed: 08/11/18 Patient has never smoked Allergies, Adverse Reactions, Alerts Description No Known Drug Allergies Medications Medication Date Status Form Strength Qnty SIG Indications Ordering Provider Amlodipine 00/00/ Active Tablets 10mg Unknown Besylate 0000 Plavix 00/00/ Active Tablets 75mg Unknown 0000 Aspirin 00/00/ Active Tablets 81mg Unknown 0000 Multivitamins / Active Capsules Unknown 0000 Glucosamine & / Active Packet [id number]- Unknown Chondroiti 0000 800mg-mg-U N/Vitamin D nit Maximum Strength Lisinopril /00/ Active Tablets 5mg Unknown 0000 Crestor / Active Tablets 5mg Unknown 0000 Eliquis / Active Tablets 5mg Unknown 0000 Metoprolol // Active Tablets ER 50mg Unknown Succinate ER 0000 24HR Multaq /00/ Active Tablets 400mg Unknown 0000 Ramipril / Hx Capsules 10mg Unknown 0000 - 2014 Atenolol / Hx Tablets 100mg 1x per Unknown 0000 - day 2016 Omeprazole // Hx Capsules DR 20mg Unknown 0000 - 2015 Livalo // Hx Tablets 1mg Unknown 0000 - 2015 Fluticasone / Hx Suspension 50mcg/Act Inhale 1 Unknown Propionate 0000 - [place] In 2017 Nostril Once Daily Nitrostat / Hx Tablets Sub 0.4mg Place One Unknown 0000 - Tablet 02/22/ Under The 2017 Tongue Every 5 Minutes For Up To 3 Doses as Immunizations Description No Information Available Vital Signs Description No Information Available Results Description No Information Available Procedures Date Code Description Status 08/06/2017 25327 Scanning Computerized Opthalmic Diagnostic Posterior Seg Completed Retina 08/06/2017 09231 Est Patient Intermediate Exam Completed 02/24/2017 12038 Scanning Computerized Opthalmic Diagnostic Posterior Seg Completed Retina 02/24/2017 48043 Est Patient Intermediate Exam Completed 11/21/2016 98487 Determination Of Refractive State Completed 11/21/2016 06359 Est Patient Comprehensive Exam Completed 01/10/2016 38747 Est Patient Comprehensive Exam Completed 01/10/2015 68050 Scanning Computerized Opthalmic Diagnostic Posterior Seg Completed Retina 01/10/2015 02597 Determination Of Refractive State Completed 01/10/2015 03276 Est Patient Comprehensive Exam Completed 07/21/2013 63907 Scanning Computerized Opthalmic Diagnostic Posterior Seg Completed Retina 07/21/2013 49601 Determination Of Refractive State Completed 07/21/2013 54643 Est Patient Comprehensive Exam Completed 12/20/2010 33212 Remove Secondary Cataract, Laser (Yag) Completed 12/13/2010 80148 Est Patient Comprehensive Exam Completed Encounters Description No Information Available Plan of Treatment 08/11/2018 - Twila Schmitz O.D.H35.342 Macular cyst, hole, or pseudohole, left eyeComments:Smoking can increase the risk of developing or worsening any eye related disease, as well as affect your overall health. If you are a smoker , we strongly recommend that you quit.If you are not a smoker, we strongly recommend that you do not start. if you notice any changes to your vision, please call the office to be seenFollow up:1 year OCT mac/DFE or sooner as [id number] Vitreous degeneration, bilateralComments:You have a Posterior Vitreous Detachment. If you have any changes in your floaters or flashing lights , please contact this office.H52.13 Myopia, bilateralComments:You have Myopia, or near sightedness. I have given you a prescription for glasses.H52.4 PresbyopiaComments:You have presbyopia. This is when the lens in your eye loses the ability to change focus, and happens as we age. A pair of reading glasses will help you see up close.H52.223 Regular astigmatism, bilateralComments: Astigmatism is a common vision condition that happens when a person's cornea is not symmetrical. Dr. Schmitz has given you a prescription to correct for this.
--- NOTE | 2018-09-01 21:44 | ED ---
HPI Chest Pain - HPI Summary HPI Summary: A 78 y/o male presents to [facility] with a chief complaint of one episode of sharp chest pain lasting seconds around 19:00. He also reports an episode of sharp left arm pain lasting 10-15 minutes and an episode of right arm pain which he describes as grabbing. Per triage note, he rates his pain as a 4/10. In the ED room he reports feeling fine. He has a Hx of CABG, stents and pacemaker. He takes baby aspirin every morning and also takes Plavix and Eliquis. He denies any SOB, N/V, swelling or diaphoresis. - History of Current Complaint Chief Complaint: EDChestPainROMI Time Seen by Provider: 09/01/18 21:28 Hx Obtained From: Patient Onset/Duration: Started Hours Ago, Resolved Timing: Intermittent, Lasting Seconds Initial Severity: Moderate Current Severity: Moderate Pain Intensity: 4 Pain Scale Used: 0-10 Numeric Chest Pain Location: Diffuse Chest Pain Radiates: No Character: Sharp/Stabbing Aggravating Factor(s): Nothing Alleviating Factor(s): Nothing Associated Signs and Symptoms: Negative: Shortness of Breath, Swelling, Fever, Diaphoresis, Nausea, Vomiting - Additional Pertinent History Primary Care Physician: JEFFRY - Allergy/Home Medications Allergies/Adverse Reactions: Allergies Allergy/AdvReac Type Severity Reaction Status Date / Time morphine Allergy Unknown Unknown Verified 05/22/18 18:35 Reaction Details Xmmwoth-Gwx-Nya Reductase Allergy Unknown Unknown Verified 05/24/18 13:33 Inhibitor Reaction Details Home Medications: Home Medications Ranitidine TAB (NF) [Zantac TAB (NF)] 150 mg PO BID 09/01/18 [History Confirmed 09/01/18] PMH/Surg Hx/FS Hx/Imm Hx Endocrine/Hematology History: Reports: Hx Anticoagulant Therapy - eloquis Denies: Hx Diabetes, Hx Unexplained Bleeding Cardiovascular History: Reports: Hx Angina, Hx Angioplasty, Hx Coronary Artery Disease, Hx Hypercholesterolemia, Hx Hypertension, Hx Myocardial Infarction, Hx Pacemaker/ICD Denies: Hx Auto Implanted Cardiovert Defib, Hx Cardiac Arrest, Hx Congenital Heart Disease, Hx Congestive Heart Failure, Hx Deep Vein Thrombosis, Hx Hypotension, Hx Peripheral Vascular Disease, Hx Rheumatic Fever, Hx Syncope, Hx Valvular Heart Disease, Other Cardiovascular Problems/Disorders Respiratory History: Reports: Hx Sleep Apnea - uses CPAP at home Denies: Hx Asthma GI History: Reports: Hx Ulcer - takes omeprazole Denies: Other GI Disorders History: Reports: Other Problems/Disorders - prostate ca approx 2007 prostatectomy Denies: Hx Renal Disease Sensory History: Reports: Hx Cataracts - 2 removed one each eye, Hx Hearing Problem Denies: Hx Contacts or Glasses, Hx Legally Blind, Hx Deafness, Hx Hearing Aid Comment Only: Other Sensory Impairments - hx left eye detatched retina Opthamlomology History: Reports: Hx Cataracts - 2 removed one each eye Denies: Hx Contacts or Glasses, Hx Legally Blind Comment Only: Other Sensory Impairments - hx left eye detatched retina Neurological History: Reports: Hx Transient Ischemic Attacks (TIA) - drs with dr renee, ? recent tia Denies: Other Neuro Impairments/Disorders Psychiatric History: Denies: Hx Panic Disorder, Hx Schizophrenia - Cancer History Cancer Type, Location and Year: PROSTATE Hx Chemotherapy: No Hx Radiation Therapy: No - Surgical History Surgery Procedure, Year, and Place: BY PASS 1992, HERNIA 2008, PROSTATECTOMY, EYE PUCKER REPAIR, DETACHED RETINA(CLEARED FOR MRI NOVEMBER [address] VICK) TONSILECTOMY, STERNUM WIRES, STENTS 2001,2009 Infectious Disease History: No Infectious Disease History: Denies: Hx Clostridium Difficile, Hx Hepatitis, Hx Human Immunodeficiency Virus (HIV), Hx of Known/Suspected MRSA, Hx Shingles, Hx Tuberculosis, Traveled Outside the [place] in Last 30 Days - Family History Known Family History: Positive: Cardiac Disease - Social History Alcohol Use: Occasionally Alcohol Amount: reports a couple of drink/week Hx Substance Use: No Substance Use Type: Reports: None Hx Tobacco Use: No Smoking Status (MU): Never Smoked Tobacco Review of Systems Negative: Fever, Skin Diaphoresis Negative: Shortness Of Breath Negative: Vomiting, Nausea Positive: Myalgia - left arm and right arm pain. Negative: Edema All Other Systems Reviewed And Are Negative: Yes Physical Exam - Summary Physical Exam Summary: VITAL SIGNS: Reviewed. GENERAL: Patient is a well-developed and nourished MALE who is lying comfortable in the stretcher. Patient is not in any acute respiratory distress. HEAD AND FACE: No signs of trauma. No ecchymosis, hematomas or skull depressions. No sinus tenderness. EYES: PERRLA, EOMI x 2, No injected conjunctiva, no nystagmus. EARS: Hearing grossly intact. Ear canals and tympanic membranes are within normal limits. MOUTH: Oropharynx within normal limits. NECK: Supple, trachea is midline, no adenopathy, no JVD, no carotid bruit, no c- spine tenderness, neck with full ROM. CHEST: Symmetric, no tenderness at palpation LUNGS: Clear to auscultation bilaterally. No wheezing or crackles. CVS: Regular rate and rhythm, S1 and S2 present, no murmurs or gallops appreciated. ABDOMEN: Soft, non-tender. No signs of distention. No rebound no guarding, and no masses palpated. Bowel sounds are normal. EXTREMITIES: FROM in all major joints, no edema, no cyanosis or clubbing. NEURO: Alert and oriented x 3. No acute neurological deficits. Speech is normal and follows commands. SKIN: Dry and warm Triage Information Reviewed: Yes Vital Signs On Initial Exam: Initial Vitals Temp Pulse Resp BP Pulse Ox 96.9 F 81 20 192/110 99 09/01/18 20:57 09/01/18 20:57 09/01/18 20:57 09/01/18 20:57 09/01/18 20:57 Vital Signs Reviewed: Yes Diagnostics - Vital Signs Vital Signs Temp Pulse Resp BP Pulse Ox 09/01/18 20:57 96.9 F 81 20 192/110 99 - Laboratory Result Diagrams: 09/01/18 21:58 09/01/18 21:59 Lab Statement: Any lab studies that have been ordered have been reviewed, and results considered in the medical decision making process. - EKG 21:06 Cardiac Rate: Other Rate - Atrial paced rhythm at 81 bpm Summary of EKG Findings: Atrial paced rhythm at 81 bpm with no ischemic changes Chest Pain Course/Dx - Course Course Of Treatment: A 78 y/o male presents to [facility] with a chief complaint of one episode of sharp chest pain lasting seconds around 19:00. The physical exam was unremarkable. Lab results obtained and WNL. Troponin of 0.00 at 21:59 and 00 :40. EKG revealed Atrial paced rhythm at 81 bpm with no ischemic changes. The patient will be discharged. Strict return precautions given. He is agreeable with this plan. - Diagnoses Provider Diagnoses: Atypical chest pain Discharge - Sign-Out/Discharge Documenting (check all that apply): Patient Departure - DC - Discharge Plan Condition: Stable Disposition: HOME Referrals: Js Claudio MD [Primary Care Provider] - (1-2 days) Additional Instructions: RETURN TO THE EMERGENCY DEPARTMENT FOR CHANGING OR WORSENING SYMPTOMS. FOLLOW UP WITH PCP IN 1-2 DAYS. - Billing Disposition and Condition Condition: STABLE Disposition: Home - Attestation Statements Document Initiated by Bandar: Yes Documenting Scribe: Jerson Kaplan Provider For Whom Bandar is Documenting (Include Credential): Efra So MD Scribe Attestation: I, Jerson Kaplan, scribed for Efra So MD on 09/02/18 at 0632. Scribe Documentation Reviewed: Yes Provider Attestation: The documentation as recorded by the Jerson forde accurately reflects the service I personally performed and the decisions made by me, Efra So MD Status of Scribe Document: Viewed
[2018-09-01 22:07] LABS: ABS Basophils 0.1 10^3/ul (0-0.2); ABS Eosinophils 0.4 10^3/ul (0-0.6); ABS Lymphocytes 1.3 10^3/ul (1.0-4.8); ABS Monocytes 0.7 10^3/ul (0-0.8); ABS Neutrophils 2.8 10^3/ul (1.5-7.7); ABS Nucleated RBC 0 10^3/ul; Eosinophil % 8.1 %; Hematocrit 45 % (42-52); Hemoglobin 14.9 g/dl (14.0-18.0); Lymphocyte % 24.4 %; Mean Corpuscular HGB Conc 33 g/dl (31-36); Mean Corpuscular Hemoglobin 30 pg (27-31); Mean Corpuscular Volume 90 fL (80-94); Nucleated Red Blood Cells % 0.1; Platelet Count 155 10^3/ul (150-450); Red Cell Distribution Width 14 % (10.5-15); White Blood Count 5.2 10^3/ul (3.5-10.8)
[2018-09-01 22:17] LABS: Activated Partial Thrombo Time 32.9 seconds (26.0-36.3); INR 1.12 (0.77-1.02)
[2018-09-01 22:23] LABS: Albumin 3.8 g/dL (3.2-5.2); Albumin/Globulin Ratio 1.8 (1-3); BUN/Creatinine Ratio 18.2 (8-20); Calcium 8.6 mg/dL (8.6-10.3); EGFR Non-African American 57.8 (>60); Globulin 2.1 g/dL (2-4); Potassium 4.2 mmol/L (3.5-5.0); Total Bilirubin 0.4 mg/dL (0.2-1.0); Total Protein 5.9 g/dL (6.4-8.9)
[2018-09-02 01:32] VITALS: BP 151/82
== END 2018-09-02 01:39 | disposition home or self-care (01) ==
LOC: ED 20:56
DX: R07.89 Other chest pain (principal); Z79.01 Long term (current) use of anticoagulants; Z88.6 Allergy status to analgesic agent; Z85.46 Personal history of malignant neoplasm of prostate
CPT/HCPCS: 36415; 80053; 83735; 84484; 85025; 85610; 85730; 93005; 99283

== ENCOUNTER 2018-09-29 19:18 | Observation (INO) | payer MEDICARE ==
--- OUTSIDE RECORDS SUMMARY | 2018-09-29 19:34 | XMS REPORT | Continuity of Care Document ---
:1940 External Reference #:[id number] Author Name Rico Yoko Care Team Providers Name Role Phone Js Claudio MD Primary Care Physician Unavailable Payers Date Identification Numbers Payment Provider Subscriber Policy Number: [id number] Medicare Andrzej Arzola PayID: [id number] [address] [place] [address] Policy Number: [id number] [facility] Andrzej Arzola PayID: [id number] [address] [place] [address] Advance Directives Description No Information Available Problems Date Description Provider Status Onset: 12/07/2013 [...] Hyperlipidemia Marine Padilla M.D. 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 Active Onset: 04/08/2018 Jaw pain Marine Padilla M.D. Active Onset: 04/08/2018 Paroxysmal atrial fibrillation Marine Padilla M.D. Active Family History Date Family Member(s) Observation Comments General non contributory Father of heart issue at age 62 Mother ?Renal failure age 75-80 Siblings 3 Siblings Brothers w/stents, bypass Social History Type Date Description Comments Sex Unknown Marital Status Lives With Occupation Retired Tobacco Use Start: Unknown Never Smoked Cigarettes Smoking Status Reviewed: 07/27/18 Never Smoked Cigarettes ETOH Use Occasionally consumes wine Tobacco Use Start: Unknown Patient has never smoked Recreational Drug Use Denies Drug Use Exercise Type/Frequency Active with housework Allergies, Adverse Reactions, Alerts Date Description Reaction Status Severity Comments 06/03/2013 Statin Drugs arm/muscle ache Active 12/07/2013 NKDA Inactive Medications Medication Date Status Form Strength Qnty SIG Indications Ordering Provider Dexilant 07/27/ Active Capsules 30mg 30caps 1 by Linda Kennedy [address] usama Iqbal, every day N.P. Multaq 05/19/ Active Tablets 400mg 60tabs 1 by I25.110 Rex Rae 2018 mouth Brand, twice a M.D. day Toprol XL 07/23/ Active Tablets ER [...] 01/02/ Active Tablets 5mg 90tabs 1 by [id number] Rex Rae 2016 mouth Brand, every day [...] Rae 0000 mouth Brand, every day M.D. Pantoprazole 12/01/ Hx Tablets DR 40mg 1 by Peter Claudio 2018 - mouth MD Js 07/26/ every day 2017 Amlodipine 09/30/ Hx Tablets 10mg 90tabs 1 by Rex Damonylate 2017 - mouth Brand, 05/18/ every day [...] mouth Brand, 01/05/ day M.D. 2014 Omeprazole 0000/ Hx Capsules 20mg 90caps 1 po qd Unknown 0000 - DR 2016 Atenolol / Hx Tablets 50mg 90tabs 1 by Rex Rae 0000 - mouth Brand, 05/12/ day M.D. 2015 Pravastatin / Hx Tablets 20mg 1 tablet Unknown Sodium 0000 - by mouth 11/15/ once 2015 daily at bedtime Enalapril / Hx Tablets 20mg 1 by Unknown Maleate 0000 - mouth day 2014 Livalo / Hx Tablets 1mg 30tabs 1 tab by Rex Rae 0000 - mouth Brand, M.D. 2016 night Lisinopril / Hx Tablets 20mg 90tabs 1 by Rex Rae 0000 - mouth Brand, 07/21/ every day M.D. 2016 Omeprazole 00/ Hx Capsules 20mg prn Unknown 0000 - DR 2016 Amlodipine 00/ Hx Tablets 2.5mg 1 by Rex Rae Besylate 0000 - mouth Brand, 07/28/ every day M.D. 2016 Diltiazem HCL / Hx Tablets 120mg 1 by Rex Rae 0000 - mouth Brand, 05/20/ every day M.D. 2018 Ranitidine HCL / Hx Tablets 150mg take one Unknown 0000 - tablet by mouth 2018 twice a day Medications Administered in Office Medication Date Status Form Strength Qnty SIG Indications Ordering Provider Technetium TC Administered Injection Gilberto SArnold 99M 017 DO Zuhair Tetrofosmin, FACC Per Unit Dose Up To 40 Millicuries Technetium TC Administered Injection Rex D. 99M 016 Gibson Cohen Tetrofosmin, Per Unit Dose Up To 40 Millicuries Technetium TC Administered Injection Rex DArnold 99M 015 Gibson Cohen Tetrofosmin, Per Unit Dose Up To 40 Millicuries Immunizations Description No Information Available Vital Signs Date Vital Result Comment 07/27/2018 1:18pm Height 71 inches 5'11" Weight 189.00 lb with shoes Heart Rate 80 /min BP Systolic Sitting 120 mmHg lue reg cuff BP Diastolic Sitting 80 mmHg lue reg cuff BP Systolic Standing 128 mmHg lue reg cuff BP Diastolic Standing 80 mmHg lue reg cuff Respiratory Rate 20 /min BMI (Body Mass Index) 26.4 kg/m2 Ejection Fraction 40-45% echo.04/09/18 06/29/2018 12:50pm Height 71 inches 5'11" Weight 186.38 lb Heart Rate 80 /min BP Systolic Sitting 126 mmHg BP Diastolic Sitting 84 mmHg Respiratory Rate 20 /min BMI (Body Mass Index) 26.0 kg/m2 Ejection Fraction 40-45% 04-09-2018 06/15/2018 1:41pm Height 71 inches 5'11" Weight 190.00 lb Heart Rate 72 /min BP Systolic Sitting 122 mmHg Lue regular cuff BP Diastolic Sitting 76 mmHg Lue regular cuff Respiratory Rate 16 /min O2 % BldC Oximetry 97 % BMI (Body Mass Index) 26.5 kg/m2 05/19/2018 4:25pm Height 71 inches 5'11" Weight 194.00 lb with shoes Heart Rate 66 /min BP Systolic Sitting 146 mmHg Lue reg cuff BP Diastolic Sitting 88 mmHg Lue reg cuff BP Systolic Standing 140 mmHg Lue reg cuff BP Diastolic Standing 80 mmHg Lue reg cuff Respiratory Rate 16 /min BMI (Body Mass Index) 27.1 kg/m2 04/27/2018 12:46pm Height 71 inches 5'11" Weight 193.00 lb Heart Rate 68 /min BP Systolic Sitting 148 mmHg Lue regular cuff BP Diastolic Sitting 88 mmHg Lue regular cuff Respiratory Rate 20 /min BMI (Body Mass Index) 26.9 kg/m2 Ejection Fraction 40-45% 02/10/2018 10:08am Height 71 inches 5'11" Weight 193.00 lb with shoes Heart Rate 70 /min BP Systolic Sitting 120 mmHg Lue reg cuff BP Diastolic Sitting 70 mmHg Lue reg cuff BP Systolic Standing 128 mmHg Lue reg cuff BP Diastolic Standing 70 mmHg Lue reg cuff Respiratory Rate 16 /min BMI (Body Mass Index) 26.9 kg/m2 Ejection Fraction 45-50% date 07/20/17 ECHO 09/30/2017 3:40pm Height 71 inches 5'11" Weight 195.00 lb No shoes Heart Rate 70 /min BP Systolic Sitting 146 mmHg Rue reg cuff BP Diastolic Sitting 86 mmHg Rue reg cuff BP Systolic Standing 144 mmHg Rue reg cuff BP Diastolic Standing 90 mmHg Rue reg cuff Respiratory Rate 16 /min BMI (Body Mass Index) 27.2 kg/m2 Ejection Fraction 45-50% 07/20/2017-echo 07/28/2017 1:40pm Height 71 inches 5'11" Weight 194.00 lb w/ shoes Heart Rate 70 /min reg BP Systolic Sitting 130 mmHg Rue, reg cuff BP Diastolic Sitting 80 mmHg Rue, reg cuff BP Systolic Standing 126 mmHg Rue BP Diastolic Standing 80 mmHg Rue Respiratory Rate 16 /min BMI (Body Mass Index) 27.1 kg/m2 Ejection Fraction 45-50% as of 2016 echo 04/24/2017 8:06am Height 71 inches 5'11" Weight 198.00 lb Heart Rate 60 /min BP Systolic Sitting 168 mmHg Rue reg cuff BP Diastolic Sitting 82 mmHg Rue reg cuff BP Systolic Standing 164 mmHg Rue BP Diastolic Standing 82 mmHg Rue Respiratory Rate 16 /min BMI (Body Mass Index) 27.6 kg/m2 Ejection Fraction 55-60% 06/05/16 03/03/2017 10:16am Height 71 inches 5'11" Weight 196.50 lb with shoes Heart Rate 100 /min BP Systolic Sitting 126 mmHg Lue reg cuff BP Diastolic Sitting 90 mmHg Lue reg cuff BP Systolic Standing 134 mmHg Lue reg cuff BP Diastolic Standing 100 mmHg Lue reg cuff Respiratory Rate 16 /min BMI (Body Mass Index) 27.4 kg/m2 12/10/2016 10:32am Height 71 inches 5'11" Weight 199.00 lb with shoes Heart Rate 58 /min irregular BP Systolic Sitting 146 mmHg Lue reg cuff BP Diastolic Sitting 70 mmHg Lue reg cuff BP Systolic Standing 142 mmHg Lue reg cuff BP Diastolic Standing 72 mmHg Lue reg cuff Respiratory Rate 16 /min BMI (Body Mass Index) 27.8 kg/m2 Ejection Fraction 55-60% echo 05/201612/09/2016 9:45am Height 71 inches 5'11" Weight 199.00 lb Heart Rate 56 /min BP Systolic Sitting 116 mmHg BP Diastolic Sitting 58 mmHg Respiratory Rate 14 /min Pain Level 0 O2 % BldC Oximetry 97 % BMI (Body Mass Index) 27.8 kg/m2 07/31/2016 11:51am Height 71 inches 5'11" Weight 199.00 lb no shoes Heart Rate 54 /min BP Systolic Sitting 156 mmHg Rue reg cuff BP Diastolic Sitting 70 mmHg Rue reg cuff BP Systolic Standing 152 mmHg Rue reg cuff BP Diastolic Standing 72 mmHg Rue reg cuff Respiratory Rate 16 /min BMI (Body Mass Index) 27.8 kg/m2 Ejection Fraction 55-60% 06/05/2016 07/09/2016 9:20am Height 71 inches 5'11" Weight 198.00 lb w/ shoes Heart Rate 60 /min reg BP Systolic Sitting 124 mmHg Rue, reg cuff BP Diastolic Sitting 76 mmHg Rue, reg cuff BP Systolic Standing 120 mmHg Rue BP Diastolic Standing 70 mmHg Rue Respiratory Rate 16 /min BMI (Body Mass Index) 27.6 kg/m2 Ejection Fraction 55-60% as of 06/05/16 echo 06/04/2016 1:13pm Height 71 inches 5'11" Weight 193.00 lb Heart Rate 60 /min BP Systolic Sitting 146 mmHg LA reg cuff BP Diastolic Sitting 86 mmHg LA reg cuff BP Systolic Standing 152 mmHg LA BP Diastolic Standing 88 mmHg LA Respiratory Rate 14 /min BMI (Body Mass Index) 26.9 kg/m2 Waist to Hip Ratio 69% 05/26/12 2016 8:06am Height 71 inches 5'11" Weight 196.00 lb with shoes Heart Rate 58 /min BP Systolic Sitting 150 mmHg Ra reg cuff BP Diastolic Sitting 76 mmHg Ra reg cuff BP Systolic Standing 146 mmHg Ra reg cuff BP Diastolic Standing 76 mmHg Ra reg cuff Respiratory Rate 16 /min BMI (Body Mass Index) 27.3 kg/m2 Ejection Fraction 69% 05/26/12 12/06/2015 10:25am Height 71 inches 5'11" Weight 195.00 lb Heart Rate 59 /min BP Systolic Sitting 136 mmHg BP Diastolic Sitting 74 mmHg Respiratory Rate 16 /min O2 % BldC Oximetry 98 % BMI (Body Mass Index) 27.2 kg/m2 08/02/2015 9:31am Height 71.5 inches 5'11.50" Weight 189.00 lb no shoes Heart Rate 60 /min BP Systolic Sitting 138 mmHg LA, reg cuff BP Diastolic Sitting 78 mmHg LA, reg cuff BP Systolic Standing 136 mmHg LA BP Diastolic Standing 78 mmHg LA Respiratory Rate 16 /min BMI (Body Mass Index) 26.0 kg/m2 Ejection Fraction 69% 05/26/12 07/19/2015 9:59am Height 71.5 inches 5'11.50" Weight 196.00 lb Heart Rate 62 /min BP Systolic Sitting 130 mmHg BP Diastolic Sitting 60 mmHg Respiratory Rate 18 /min O2 % BldC Oximetry 98 % BMI (Body Mass Index) 27.0 kg/m2 Neck Circumference in inches 16.5 01/12/2015 10:58am Height 71.5 inches 5'11.50" Weight 190.31 lb with shoes Heart Rate 58 /min BP Systolic Sitting 136 mmHg Ra, reg cuff BP Diastolic Sitting 62 mmHg Ra, reg cuff BP Systolic Standing 132 mmHg Ra BP Diastolic Standing 66 mmHg Ra Respiratory Rate 14 /min BMI (Body Mass Index) 26.2 kg/m2 Ejection Fraction 69% 05/26/2012 12/01/2014 11:20am Height 71.5 inches 5'11.50" Weight 190.00 lb with shoes Heart Rate 60 /min BP Systolic Sitting 130 mmHg LA, reg cuff BP Diastolic Sitting 66 mmHg LA, reg cuff BP Systolic Standing 122 mmHg LA BP Diastolic Standing 70 mmHg LA Respiratory Rate 14 /min BMI (Body Mass Index) 26.1 kg/m2 12/01/2014 9:23am Height 71.5 inches 5'11.50" Weight 190.00 lb Heart Rate 60 /min BP Systolic Sitting 146 mmHg BP Diastolic Sitting 70 mmHg Respiratory Rate 12 /min BMI (Body Mass Index) 26.1 kg/m2 06/15/2014 11:12am Height 71.5 inches 5'11.50" Weight 190.00 lb with shoes Heart Rate 62 /min BP Systolic Sitting 118 mmHg LA, reg cuff BP Diastolic Sitting 82 mmHg LA, reg cuff BP Systolic Standing 120 mmHg LA BP Diastolic Standing 82 mmHg LA Respiratory Rate 16 /min BMI (Body Mass Index) 26.1 kg/m2 12/07/2013 9:40am Height 71.5 inches 5'11.50" Weight 190.00 lb Heart Rate 60 /min BP Systolic Sitting 132 mmHg Ra reg cuff BP Diastolic Sitting 82 mmHg Ra reg cuff BP Systolic Standing 130 mmHg Ra BP Diastolic Standing 80 mmHg Ra Respiratory Rate 16 /min BMI (Body Mass Index) 26.1 kg/m2 06/03/2013 1:33pm Heart Rate 56 /min BP Systolic Sitting 138 mmHg Lf arm, reg cuff BP Diastolic Sitting 72 mmHg Lf arm, reg cuff BP Systolic Standing 144 mmHg BP Diastolic Standing 72 mmHg Respiratory Rate 16 /min 12/06/2012 8:35am Heart Rate 52 /min BP Systolic Sitting 158 mmHg BP Diastolic Sitting 62 mmHg Respiratory Rate 14 /min 06/07/2012 8:59am Weight 180.00 lb Heart Rate 58 /min BP Systolic 120 mmHg BP Diastolic 78 mmHg Results Test Date Facility Test Result H/L Range Note Basic Metabolic 07/05/2017 [facility] Sodium 134 mmol/L N 133- 145 Panel [address] [place] [address] [phone] Potassium 4.3 mmol/L N 3.5-5.0 Chloride 104 mmol/L N 101-111 Co2 Carbon Dioxide 26 mmol/L N 22-32 Anion Gap 4 mmol/L N 2-11 Glucose 104 mg/dL High 70-100 Blood Urea Nitrogen 20 mg/dL N 6-24 Creatinine 1.13 mg/dL N 0.67-1.17 BUN/Creatinine Ratio 17.7 N 8-20 Calcium 8.7 mg/dL N 8.6-10.3 Egfr Non- 62.8 >60 Egfr 80.7 >60 1 Laboratory test 07/05/2017 [facility] Magnesium 2.0 mg/dL N 1.9-2.[address] [place] [address] [phone] TSH (Thyroid Stim Horm) 0.97 mcIU/mL N 0.34-5.60 Basic Metabolic Panel 04/28/2017 [facility] Sodium 137 mmol/L N 133-[address] [place] [address] [phone] Potassium 4.5 mmol/L N 3.5-5.0 Chloride 106 mmol/L N 101-111 Co2 Carbon Dioxide 28 mmol/L N 22-32 Anion Gap 3 mmol/L N 2-11 Glucose 106 mg/dL High 70-100 Blood Urea Nitrogen 13 mg/dL N 6-24 Creatinine 1.07 mg/dL N 0.67-1.17 BUN/Creatinine Ratio 12.1 N 8-20 Calcium 9.3 mg/dL N 8.6-10.3 Egfr Non- 66.8 N >60 Egfr 86.0 N >60 2 CBC Auto Diff 04/28/2017 [facility] White Blood 4.7 10^3/uL N 3.5-10.[address] [place] [address] [phone] Red Blood Count 4.79 10^6/uL N 4.0-5.4 Hemoglobin 14.7 g/dL N 14.0-18.0 Hematocrit 43 % N 42-52 Mean Corpuscular Volume 90 fL N 80-94 Mean Corpuscular Hemoglobin 31 pg N 27-31 Mean Corpuscular HGB Conc 34 g/dL N 31-36 Red Cell Distribution Width 13 % N 10.5-15 Platelet Count 145 10^3/uL Low 150-450 Mean Platelet Volume 10 um3 N 7.4-10.4 Abs Neutrophils 2.3 10^3/uL N 1.5-7.7 Abs Lymphocytes 1.4 10^3/uL N 1.0-4.8 Abs Monocytes 0.6 10^3/uL N 0-0.8 Abs Eosinophils 0.4 10^3/uL N 0-0.6 Abs Basophils 0.1 10^3/uL N 0-0.2 Abs Nucleated RBC 0.01 10^3/uL N Granulocyte % 48.3 % N 38-83 Lymphocyte % 29.1 % N 25-47 Monocyte % 13.3 % High 1-9 Eosinophil % 8.1 % High 0-6 Basophil % 1.2 % N 0-2 Nucleated Red Blood Cells % 0.1 N Laboratory test 02/01/2014 [facility] Troponin I 0.00 ng/mL N <0.03 3, [address] [place] [address] [phone] Basic Metabolic 02/01/2014 [facility] Sodium 134 mmol/L N 133- [address] [place] [address] [phone] Potassium 4.8 mmol/L N 3.7-5.6 Chloride 103 mmol/L N 101-111 Co2 Carbon Dioxide 27 mmol/L N 22-32 Anion Gap 4 mmol/L N 2-11 Glucose 98 mg/dL N 70-100 Blood Urea Nitrogen 17 mg/dL N 6-24 Creatinine 1.00 mg/dL N 0.67-1.17 BUN/Creatinine Ratio 17.0 N 8-20 Calcium 8.9 mg/dL N 8.6-10.3 Egfr Non- 72.8 N >60 Egfr 93.7 N >60 5 1 Because ethnic data is not [...] 0.03 ng/mL Not supportive of diagnosis of RI 0.03 - 0.50 ng/mL Indeterminate: suggest serial studies if clinically indicated. Greater than 0.5 ng/mL Consistent with diagnosis of RI 5 Because ethnic data is not always [...] (or dialysis) Procedures Date Code Description Status 07/27/2018 53928 Pace Maker Eval W/Iterative Adjment Dual Lead Completed 07/27/2018 77357 Pace Maker Eval W/Iterative Adjment Dual Lead Completed 06/29/2018 48788 EKG Tracing & Interpretation Completed 05/25/2018 90362 Moderate Sedation Services; Same Phys Intl 15 Mins; PT >=5 Completed Years 05/25/2018 51520 Cardioversion Completed 05/19/2018 98706 EKG Tracing & Interpretation Completed 05/18/2018 74808 Pace Maker Eval W/Iterative Adjment Dual Lead Completed 05/18/2018 48643 Pace Maker Eval W/Iterative Adjment Dual Lead Completed 04/09/2018 84082 ECHO Transthorasic Realtime 2D W Doppler & Color Flow Hosp Completed 04/09/2018 87505 Treadmill Interp/Report Only Completed 04/09/2018 40452 Stress Test Supervsn W/Out I/R Completed 04/09/2018 48777 EKG, Interpretation Only Completed 01/27/2018 61783 Pace Maker Eval W/Iterative Adjment Dual Lead Completed 01/27/2018 08080 Pace Maker Eval W/Iterative Adjment Dual Lead Completed 08/26/2017 23387 Pace Maker Eval W/Iterative Adjment Dual Lead Completed 08/26/2017 77316 Pace Maker Eval W/Iterative Adjment Dual Lead Completed 07/28/2017 82180 EKG Tracing & Interpretation Completed 07/22/2017 25444 EKG, Interpretation Only Completed 07/21/2017 91218 Cardiac Cath,LT Hrtmincl Intraprocedural Ink LT Ventricul Completed Mammary 07/21/2017 97477 EKG, Interpretation Only Completed 07/21/2017 49030 Percutaneous Transcatheter Placement Of Intracoronary Completed Stent 07/20/2017 83001 ECHO Transthorasic Realtime 2D W Doppler & Color Flow Hosp Completed 07/19/2017 05589 EKG, Interpretation Only Completed 07/14/2017 82296 Pace Maker Eval W/Iterative Adjment Dual Lead Completed 07/14/2017 26981 EKG, Interpretation Only Completed 07/13/2017 58707 Moderate Sedation Services; Same Phys Each Additional 15 Completed Mins 07/13/2017 76511 Moderate Sedation Services; Same Phys Intl 15 Mins; PT >=5 Completed Years 07/13/2017 64796 EKG, Interpretation Only Completed 07/13/2017 77179 Perm Pacemaker Av Sequential Atrial And Ventricular Completed 07/06/2017 84114 Treadmill Interp/Report Only Completed 07/06/2017 53066 Stress Test Supervsn W/Out I/R Completed 07/06/2017 56156 EKG, Interpretation Only Completed 07/05/2017 05487 EKG, Interpretation Only Completed 04/24/2017 22759 EKG Tracing & Interpretation Completed 03/11/2017 58663 Stress Test Completed 03/11/2017 07758 Myocardial Perfusion Imaging Tomographic (Spect) Multiple Completed Studies 03/04/2017 36926 Color Flow Doppler/Interp & Reprt Completed 03/04/2017 93892 Pulse Wave/Continuous-Interp.RPT Completed 03/04/2017 90915 Echocardiography, Transesophageal, Real Time W/Image 2D Completed W/W/O M-M 03/04/2017 43500 EKG, Interpretation Only Completed 03/04/2017 04707 Cardioversion Completed 03/03/2017 68536 EKG Tracing & Interpretation Completed 02/24/2017 17074 Holter Monitor Review (24 hr)dr review & interp only Completed 02/06/2017 21301 ECG Monitor/Recording W/Visual Superimposition Scanning Completed 12/10/2016 10127 EKG Tracing & Interpretation Completed 07/31/2016 60230 EKG Tracing & Interpretation Completed 06/06/2016 60746 Mobile Cardiovascular Telemetry Over 24 HR Up To 30 Days Completed 06/05/2016 04802 ECHO Transthoracic, Real-Time 2D With Doppler And Color Completed Flow 06/04/2016 12341 EKG Tracing & Interpretation Completed 02/28/2016 66292 Stress Test Completed 02/28/2016 13625 Myocardial Perfusion Imaging Tomographic (Spect) Multiple Completed Studies 2016 96843 EKG Tracing & Interpretation Completed 01/04/2015 85632 Stress Test Completed 01/04/2015 34852 Myocardial Perfusion Imaging Tomographic (Spect) Multiple Completed Studies 12/01/2014 01056 EKG Tracing & Interpretation Completed 06/15/2014 16424 EKG Tracing & Interpretation Completed 02/01/2014 07561 EKG, Interpretation Only Completed 06/03/2013 67817 Holter Monitoring 24 HR New Completed 06/03/2013 17700 EKG Tracing & Interpretation Completed 02/21/2013 68179 Holter Monitoring 24 HR New Completed 06/28/2012 27790 EKG Tracing & Interpretation Completed 06/16/2012 46267 EKG, Interpretation Only Completed 06/15/2012 73304 EKG, Interpretation Only Completed 05/26/2012 61060 ECHO Transthoracic, Real-Time 2D With Doppler And Color Completed Flow 05/20/2012 05658 ECHO Transthoracic, Real-Time 2D With Doppler And Color Completed Flow Encounters Type Date Location Provider Dx Diagnosis Office Visit 07/27/2018 [facility] Linda Iqbal, Z95.0 Presence of 1:30p Of Pet Care Assistant N.P. cardiac pacemaker I48.0 Paroxysmal atrial fibrillation I49.5 Sick sinus syndrome I25.110 [facility] heart disease of [place] cor art w unstable ang pctrs I10 Essential (primary) hypertension Z98.61 Coronary angioplasty status Office Visit 06/29/2018 1:00p [facility] Rex Rae I25.110 [facility] heart Of Pet Care Assistant AT [facility] Gibson Cohen disease of [place] cor art w unstable ang pctrs I10 Essential (primary) hypertension Z95.0 Presence of cardiac pacemaker I48.0 Paroxysmal atrial fibrillation Office Visit 06/15/2018 [facility] And Rosangela G47.33 Obstructive sleep 1:45p Sleep Services Of ALFREDO Turner, RN, apnea (adult) [facility] 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 disease of [place] cor art w unstable ang pctrs I48.91 Unspecified atrial fibrillation Office Visit 04/27/2018 1:00p [facility] Rex Rae I10 Essential (primary) Of Robbi AT [facility] Gibson Cohen hypertension I25.110 Athscl heart disease of [place] cor art w unstable ang pctrs Z95.0 Presence of cardiac pacemaker I48.0 Paroxysmal atrial fibrillation Office Visit 04/09/2018 [facility] Marine Padilla, R07.9 Chest pain, 11:45a Assoc,pc M.DArnold unspecified Hospitalists I48.91 Unspecified atrial fibrillation I25.10 Athscl heart disease of [place] coronary artery w/o ang pctrs E78.5 Hyperlipidemia, unspecified Office Visit 04/08/2018 [facility] Marine Padilla, I48.0 Paroxysmal atrial 11:45a Assoc,pc M.DArnold fibrillation Hospitalists R68.84 Jaw pain R07.9 Chest pain, unspecified Office Visit 04/08/2018 2:30p [facility] Emeterio Atkins R07.9 Chest pain, [place] unspecified R94.31 Abnormal electrocardiogram [ECG] [EKG] R68.84 Jaw pain Office Visit 02/10/2018 10:30a [facility] Rex Rae I10 Essential (primary) Of Robbi Cohen M.D. hypertension I25.110 Athscl heart disease of [place] cor art w unstable ang pctrs Z95.0 Presence of cardiac pacemaker Office Visit 09/30/2017 3:45p [facility] Rex Rae Z95.0 Presence of Of Robbi Cohen M.D. cardiac pacemaker I49.5 Sick sinus syndrome I25.110 Athscl heart disease of [place] cor art w unstable ang pctrs I10 Essential (primary) hypertension Office Visit 07/28/2017 2:00p [facility] Rex Rae I25.110 Athscl heart Of [facility] AT [facility] Virgie Cohen. disease of [place] cor art w unstable ang pctrs Z95.1 Presence of aortocoronary bypass graft R07.9 Chest pain, unspecified Z95.0 Presence of cardiac pacemaker I49.5 Sick sinus syndrome Office Visit 07/22/2017 2:45p [facility] Marlyn I24.9 Acute ischemic Assoc,jordon Patel D.O. heart disease, Hospitalists unspecified I25.119 Athscl heart disease of [place] cor art w unsp ang pctrs E78.5 Hyperlipidemia, unspecified I48.0 Paroxysmal atrial fibrillation Office Visit 07/22/2017 [facility] Jerson Brown, I25.110 Athscl heart 2:26p Of [facility] AT [facility] Gibson, FACC, disease of [place] FSCAI cor art w unstable ang pctrs Office Visit 07/21/2017 [facility] Marlyn I24.9 Acute ischemic 2:44p Assoc,jordon Patel D.O. heart disease, Hospitalists unspecified I25.119 Athscl heart disease of [place] cor art w unsp ang pctrs E78.5 Hyperlipidemia, unspecified I48.0 Paroxysmal atrial fibrillation Office Visit 07/20/2017 2:44p [facility] Dereje Constantino I24.9 Acute ischemic Assoc,jordon CASTRO heart disease, Hospitalists unspecified I25.119 Athscl heart disease of [place] cor art w unsp ang pctrs E78.5 Hyperlipidemia, unspecified I48.0 Paroxysmal atrial fibrillation Office Visit 07/20/2017 [facility] Rex Rae I25.110 Athscl heart 9:58a Of [facility] Gibson Cohen disease of [place] cor art w unstable ang pctrs Office Visit 07/19/2017 [facility] Dereje Constantino MD I24.9 Acute ischemic 2:43p Assoc,pc heart disease, Hospitalists unspecified I25.119 Athscl heart disease of [place] cor art w unsp ang pctrs E78.5 Hyperlipidemia, unspecified I48.0 Paroxysmal atrial fibrillation Office Visit 07/19/2017 11:57a [facility] mEeterio Atkins I25.119 Athscl heart Gibson Robins disease of [place] cor art w unsp ang pctrs I10 Essential (primary) hypertension E78.5 Hyperlipidemia, unspecified R79.89 Other specified abnormal findings of blood chemistry Office Visit 07/18/2017 2:[facility]p [facility], I24.9 Acute ischemic Assoc,pc heart disease, Hospitalists unspecified I25.119 Athscl heart disease of [place] cor art w unsp ang pctrs E78.5 Hyperlipidemia, unspecified I48.0 Paroxysmal atrial fibrillation Office Visit 07/06/2017 10:52a [facility] Rex Rae I25.10 Athscl heart Of Robbi Cohen M.D. disease of [place] coronary artery w/o ang pctrs I49.5 Sick sinus syndrome Office Visit 07/05/2017 1:58p [facility] Naomi Holm, R00.2 Palpitations Of Robbi Arreaga R07.9 Chest pain, unspecified Office Visit 04/24/2017 8:30a [facility] Rex Rae I48.4 Atypical atrial Of Robbi Cohen M.D. 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 CABG w/o angina Pet Care Assistant pectoris R00.2 Palpitations R07.89 Other chest pain Office Visit 07/09/2016 Ava Rae I25.810 Atherosclerosis of 9:45a Cardiology Emili Cohen M.D. CABG w/o angina Pet Care Assistant pectoris R00.2 Palpitations I47.1 Supraventricular tachycardia Office Visit 06/04/2016 Hollidayhiram Rae I25.810 Atherosclerosis of 1:15p Cardiology Emili Cohen M.D. CABG w/o angina Pet Care Assistant pectoris R00.2 Palpitations R42 Dizziness and giddiness Office Visit 2016 Ava Rae I25.810 Atherosclerosis of 8:30a Cardiology Emili Cohen M.D. CABG w/o angina Pet Care Assistant pectoris R07.89 Other chest pain R00.2 Palpitations Office Visit 12/06/2015 Pulmonology And Hiram SK. G47.33 Obstructive sleep 10:30a Sleep Services Of Gibson Noel apnea (adult) [facility] (pediatric) Office Visit 08/02/2015 [facility] Smith Rae I25.810 Atherosclerosis of 10:00a Of Robbi Cohen M.D. CABG w/o angina pectoris I10 Essential (primary) hypertension R07.89 Other chest pain Office Visit 07/19/2015 Pulmonology And Hiram ANABELLA. G47.33 Obstructive sleep 10:00a Sleep Services Of Gibson Noel apnea (adult) [facility] (pediatric) Office Visit 01/12/2015 [facility] Smith Rae 414.01 Coronary 11:00a Of Robbi Cohen M.D. Atherosclerosis Craig 414.02 Coronary Atherosclerosis Autologous Vein Bypass Graft Office Visit 12/01/2014 Ava Rae 414.02 Coronary 11:30a Cardiology Emili Cohen M.D. Atherosclerosis Pet Care Assistant Autologous Vein Bypass Graft 401.9 Hypertension Unspec Office 12/01/2014 Neurohospitalist Tucker Kennedy 346.02 Migraine Visit 9:00a [facility]alton Calzada/Luciano Arreaga Mention Of Intractable Migraine Office 06/15/2014 [facility] Adriane Rae 414.02 Coronary Visit 11:15a Robbi Cohen M.D. Atherosclerosis Autologous Vein Bypass Graft 401.9 Hypertension Unspec 414.01 Coronary Atherosclerosis Craig Office Visit 12/07/2013 Ava Rae 414.02 Coronary 9:15a Cardiology Of Gibson Cohen Atherosclerosis [facility] Autologous Vein Bypass Graft 401.9 Hypertension Unspec 427.69 Premature Beats Other Office Visit 06/03/2013 1:15p [facility] Nurse Visit IC 785.1 Palpitations Of [facility] Office Visit 04/08/2013 3:45p [facility] Rex Rae 414.9 Ischemic Heart Of Robbi Cohen M.D. Disease Chronic Unspec 427.69 Premature Beats Other Office Visit 02/24/2013 2:15p [facility] Rex Rae 414.9 Ischemic Heart Of Robbi Cohen M.D. Disease Chronic Unspec 427.69 Premature Beats Other 401.9 Hypertension Unspec Office Visit 12/09/2012 1:30p [facility] Rex Rae 414.9 Ischemic Heart Of Robbi Cohen M.D. Disease Chronic Unspec Office Visit 12/06/2012 8:30a Thelma Hodgson 782.0 Skin Sensation Services Of Robbi Ballesteros M.D. Disturbance Office Visit 06/28/2012 2:45p [facility] Rex Rae 414.9 Ischemic Heart Of [facility] AT [facility] Gibson Cohen Disease Chronic Unspec 414.02 Coronary Atherosclerosis Autologous Vein Bypass Graft Office Visit 06/15/2012 4:09p [facility] Rex Rae 786.50 Pain Chest Of Robbi Cohen M.D. Unspec 414.9 Ischemic Heart Disease Chronic Unspec Office Visit 06/07/2012 8:45a Thelma Hodgson 782.0 Skin Sensation Services Of Robbi Ballesteros M.D. Disturbance 794.02 Electroencephalogram Abnormal Brain & Central Nervous Sys Office Visit 06/03/2012 1:45p [facility] Rex Rae 414.9 Ischemic Heart Of Robbi Cohen M.D. Disease Chronic Unspec 414.02 Coronary Atherosclerosis Autologous Vein Bypass Graft Office Visit 05/13/2012 1:00p Edgargómez Hodgson 435.9 TIA Ischemia Services Of Robbi Ballesteros M.D. Cerebral Transient Unspec Plan of Treatment Future Appointment(s):10/01/2018 11:15 am - Rex Cohen M.D. at [facility]06/15/2019 1:45 pm - Rosangela Turner DNP, RN, KNOTTING MACHINE OPERATOR PORTABLE-BC at Pulmonology And Sleep Services Of [facility]11/16/2018 6:00 am - Remote Device Checks at [facility]07/27/2018 - Linda Iqbal, N.P.Z95.0 Presence of cardiac hfmnlqcloD23.0 Paroxysmal atrial fibrillationComments:You had 19 seconds of afib. which didn't correlate with sweatingYou did have one episode of fast heart rhythm on 07/12 for 1min.Continue Eliquis and MultaqFollow up:OV Brand 2moI49.5 Sick sinus nvnqatnfE79.110 Atherosclerotic heart disease of [place] coronary artery withI10 Essential (primary) bbpuvfzvtlnbD58.61 Coronary angioplasty status
--- OUTSIDE RECORDS SUMMARY | 2018-09-29 19:34 | XMS REPORT | Continuity of Care Document ---
:1940 External Reference #:[id number] Author Name Mike Chan MD Address [facility] [place] [address] Care Team Providers Name Role Phone Js Claudio MD Care Team Information Relay Record Clerk Unavailable Js Claudio MD Primary Care Physician Unavailable Payers Type Date Identification Numbers Payment Provider Subscriber Expires: 1999 Policy Number: [id number] [facility] Andrzej Arzola Group Number: [id number] [address] PayID: [id number] [place] [address] Policy Number: [id number] Medicare Andrzej Arzola PayID: [id number] [facility] [address] [place] [address] Policy Number: [id number] [facility] Care Option Andrzej Arzola PayID: [id number] Claims, [address] [place] [address] Advance Directives Description No Information Available Problems Date Description Provider Status Onset: 07/15/2018 Epigastric pain Mike Chan MD Active Family History Date Family Member(s) Problem(s) Comments Father Heart Disease Social History Type Date Description Comments Sex Unknown Tobacco Use Start: Unknown Patient has never smoked Smoking Status Reviewed: 09/15/18 Patient has never smoked Allergies, Adverse Reactions, Alerts Date Description Reaction Status Severity Comments 06/18/2018 Morphine Liposomal Active 06/18/2018 Simvastatin Active Medications Medication Date Status Form Strength Qnty SIG Indications Ordering Provider Ranitidine HCL 06/04/ Active Tablets 150mg 60tabs 1 po q hs R10.13 Mike D. 2018 MD Rocio Pantoprazole 08/20/ Active Tablets DR 40mg 90tabs 1 po q day Mike Rae Sodium 2017 MD Rocio Aspirin / Active Tablets 81mg Unknown 0000 Eliquis 00/ Active Tablets 5mg Unknown 0000 Rosuvastatin / Active Tablets 5mg Unknown Calcium 0000 Lisinopril / Active Tablets 5mg Unknown 0000 Clopidogrel / Active Tablets 75mg Unknown Bisulfate 0000 Toprol XL / Active Tablets ER 50mg Unknown 0000 24HR Nitrostat / Active Tablets 0.4mg Unknown 0000 Sub Glucosamine / Active Capsules 500-400mg Unknown Chondroitin 0000 Complex Multaq / Active Tablets 400mg Unknown 0000 Metamucil / Active Unknown 0000 Imiquimod / Active Cream 5% Apply To Unknown 0000 Affected Area S AT Bedtime For 14 Days Dexilant 08/11/ Hx Capsules 60mg 90caps 1 by mouth Mike Rae 2018 - every day Rocio, 09/14/ 2018 Immunizations Description No Information Available Vital Signs Date Vital Result Comment 09/15/2018 8:25am Height 71 inches 5'11" Weight 186.00 lb BP Systolic 130 mmHg BP Diastolic 84 mmHg Heart Rate 86 /min BMI (Body Mass Index) 25.9 kg/m2 07/15/2018 2:54pm Height 71 inches 5'11" Weight [...] Auto CNT <pending> MPV <pending> Lymph% <pending> Kaufman% <pending> Neutrophil % <pending> Absolute Lymphocytes <pending> [...] pg/mL: likely moderate to severe CHF 2 [facility] Severe Sepsis and Septic Shock Management [...] dialysis) Procedures Date Code Description Status 02/21/2008 29922 EGD+Biopsy Single Or Multiple Completed 11/11/2007 97476 Colonoscopy Completed 11/11/2007 79049 EGD+Biopsy Single Or Multiple Completed Encounters Type Date Location Provider Dx Diagnosis Office Visit 07/15/2018 [facility] Mike Rae R10.10 Upper abdominal 3:00p [facility] Chan MD pain, unspecified R10.13 Epigastric pain Plan of Treatment 09/15/2018 - Mike Chan, MDR10.13 Epigastric painComments:We had another very long discussion regarding his epigastric/upper abdominal pain. We discussed lactose intolerance, he tells me he does drink a large amount of milk. 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 I do not hear any alarm symptoms. I have asked him to go dairy free for the next 5 days. He will call me back and let me know how it goes. If it does not help then we will need to consider performing a small intestinal bacterial overgrowth breath test and/or performing an upper endoscopy to evaluate for hernias biopsy for celiac and H. pylori. He will call me back in a few days
[2018-09-29] MEDS ORDERED: Aspirin 81 mg CHEW TAB* 81 MG TAB.CHEW PO ONE (20:05)
--- NOTE | 2018-09-29 20:07 | ED ---
HPI Chest Pain - HPI Summary HPI Summary: This patient is a 78 year old M [facility] by with a chief complaint of intermittent, upper CP lasting minutes and radiating to bilateral arms that began at 0200 today. The patient rates the pain 4/10 in severity. Symptoms aggravated by nothing. Patient states the symptoms were not alleviated by nitroglycerin or aspirin. Patient reports diaphoresis. Patient states he has a history of stent placements and PA. - History of Current Complaint Chief Complaint: EDChestPainROMI Time Seen by Provider: 09/29/18 19:57 Hx Obtained From: Patient Onset/Duration: Started Hours Ago, Atraumatic, Still Present Time of Onset: 02:00 Timing: Intermittent, Lasting Minutes Initial Severity: Moderate Current Severity: Moderate Pain Intensity: 4 Pain Scale Used: 0-10 Numeric Chest Pain Location: Discrete at: - Upper Chest Pain Radiates: Yes Chest Pain Radiates To:: Arm Aggravating Factor(s): Nothing Alleviating Factor(s): Nothing Associated Signs and Symptoms: Positive: Other: - Positive diaphoresis - Additional Pertinent History Primary Care Physician: JEFFRY - Allergy/Home Medications Allergies/Adverse Reactions: Allergies Allergy/AdvReac Type Severity Reaction Status Date / Time morphine Allergy Unknown Unknown Verified 09/29/18 19:29 Reaction Details Fishmsr-Oly-Xvx Reductase Allergy Unknown Unknown Verified 09/29/18 19:29 Inhibitor Reaction Details PMH/Surg Hx/FS Hx/Imm Hx Previously Healthy: No Endocrine/Hematology History: Reports: Hx Anticoagulant Therapy - eloquis Denies: Hx Diabetes, Hx Unexplained Bleeding Cardiovascular History: Reports: Hx Angina, Hx Angioplasty, Hx Coronary Artery Disease, Hx Hypercholesterolemia, Hx Hypertension, Hx Myocardial Infarction, Hx Pacemaker/ICD Denies: Hx Auto Implanted Cardiovert Defib, Hx Cardiac Arrest, Hx Congenital Heart Disease, Hx Congestive Heart Failure, Hx Deep Vein Thrombosis, Hx Hypotension, Hx Peripheral Vascular Disease, Hx Rheumatic Fever, Hx Syncope, Hx Valvular Heart Disease, Other Cardiovascular Problems/Disorders Respiratory History: Reports: Hx Sleep Apnea - uses CPAP at home Denies: Hx Asthma GI History: Reports: Hx Ulcer - takes omeprazole Denies: Other GI Disorders History: Reports: Other Problems/Disorders - prostate ca approx 2007 prostatectomy Denies: Hx Renal Disease Sensory History: Reports: Hx Cataracts - 2 removed one each eye, Hx Hearing Problem Denies: Hx Contacts or Glasses, Hx Legally Blind, Hx Deafness, Hx Hearing Aid Comment Only: Other Sensory Impairments - hx left eye detatched retina Opthamlomology History: Reports: Hx Cataracts - 2 removed one each eye Denies: Hx Contacts or Glasses, Hx Legally Blind Comment Only: Other Sensory Impairments - hx left eye detatched retina Neurological History: Reports: Hx Transient Ischemic Attacks (TIA) - drs with dr renee, ? recent tia Denies: Other Neuro Impairments/Disorders Psychiatric History: Denies: Hx Panic Disorder, Hx Schizophrenia - Cancer History Cancer Type, Location and Year: PROSTATE Hx Chemotherapy: No Hx Radiation Therapy: No - Surgical History Surgery Procedure, Year, and Place: BY PASS 1992, HERNIA 2008, PROSTATECTOMY, EYE PUCKER REPAIR, DETACHED RETINA(CLEARED FOR MRI NOVEMBER [address] VICK) TONSILECTOMY, STERNUM WIRES, STENTS 2001,2009 Infectious Disease History: No Infectious Disease History: Denies: Hx Clostridium Difficile, Hx Hepatitis, Hx Human Immunodeficiency Virus (HIV), Hx of Known/Suspected MRSA, Hx Shingles, Hx Tuberculosis, Traveled Outside the [place] in Last 30 Days - Family History Known Family History: Positive: Cardiac Disease - Social History Occupation: Retired Lives: With Family Alcohol Use: Occasionally Alcohol Amount: reports a couple of drink/week Hx Substance Use: No Substance Use Type: Reports: None Hx Tobacco Use: No Smoking Status (MU): Never Smoked Tobacco Review of Systems Positive: Skin Diaphoresis Positive: Chest Pain All Other Systems Reviewed And Are Negative: Yes Physical Exam - Summary Physical Exam Summary: VITAL SIGNS: Reviewed. GENERAL: Patient is a well-developed and nourished male who is lying comfortable in the stretcher. Patient is not in any acute respiratory distress. HEAD AND FACE: No signs of trauma. No ecchymosis, hematomas or skull depressions. No sinus tenderness. EYES: PERRLA, EOMI x 2, No injected conjunctiva, no nystagmus. EARS: Hearing grossly intact. Ear canals and tympanic membranes are within normal limits. MOUTH: Oropharynx within normal limits. NECK: Supple, trachea is midline, no adenopathy, no JVD, no carotid bruit, no c- spine tenderness, neck with full ROM. CHEST: Symmetric, no tenderness at palpation LUNGS: Clear to auscultation bilaterally. No wheezing or crackles. CVS: Regular rate and rhythm, S1 and S2 present, no murmurs or gallops appreciated. ABDOMEN: Soft, non-tender. No signs of distention. No rebound no guarding, and no masses palpated. Bowel sounds are normal. EXTREMITIES: FROM in all major joints, no edema, no cyanosis or clubbing. NEURO: Alert and oriented x 3. No acute neurological deficits. Speech is normal and follows commands. SKIN: Dry and warm Triage Information Reviewed: Yes Vital Signs On Initial Exam: Initial Vitals Temp Pulse Resp BP Pulse Ox 97.1 F 187 16 187/104 99 09/29/18 19:26 09/29/18 19:26 09/29/18 19:26 09/29/18 19:26 09/29/18 19:26 Vital Signs Reviewed: Yes Diagnostics - Vital Signs Vital Signs Temp Pulse Resp BP Pulse Ox 09/29/18 19:26 97.1 F 187 16 187/104 99 - Laboratory Result Diagrams: 09/29/18 20:17 09/29/18 20:17 Lab Statement: Any lab studies that have been ordered have been reviewed, and results considered in the medical decision making process. - Radiology Chest XR Radiology Interpretation Completed By: ED Physician Summary of Radiographic Findings: CXR reveals, per ED physician, no acute process. - EKG 1917 Cardiac Rate: Other Rate - Atrial paced at 78 BPM Summary of EKG Findings: An EKG taken at 1917 reveals atrial paced rhythm at 78 BPM with no acute ischemic changes. Chest Pain Course/Dx - Course Course Of Treatment: This patient is a 78 year old M presenting to [facility] accompanied by with a chief complaint of intermittent, upper CP lasting minutes and radiating to bilateral arms that began at 0200 today. Physical Exam Findings: Nml. An EKG taken at 1917 reveals atrial paced rhythm at 78 BPM with no acute ischemic changes. CXR reveals, per ED physician, no acute process. Bloodwork obtained. In the ED course the patient was given aspirin. Consult with Dr. Shaw (hospitalist) at 2047. She agrees to admit the patient for further evaluation. The patient is agreeable with this plan. - Diagnoses Provider Diagnoses: Chest pain - Provider Notifications Discussed Care Of Patient With: Luz Shaw Time Discussed With Above Provider: 20:48 Instructed by Provider To: Other - Consult with Dr. Shaw (hospitalist) at 2047. She agrees to admit the patient for further evaluation. Discharge - Sign-Out/Discharge Documenting (check all that apply): Patient Departure - Admit to [facility] Patient Received Moderate/Deep Sedation with Procedure: No - Discharge Plan Condition: Stable Disposition: ADMITTED TO [facility] Referrals: Js Claudio MD [Primary Care Provider] - - Attestation Statements Document Initiated by Scribe: Yes Documenting Scribe: Camille Neal Provider For Whom Scribe is Documenting (Include Credential): Dr. Efra So MD Scribe Attestation: ICamille, scribed for Dr. Efra So MD on 09/29/18 at 2049. Status of Scribe Document: Ready
[2018-09-29 20:24] LABS: Hematocrit 45 % (42-52); Mean Corpuscular HGB Conc 33 g/dl (31-36); Mean Corpuscular Hemoglobin 30 pg (27-31); Mean Corpuscular Volume 90 fL (80-94); Mean Platelet Volume 9.9 fL (7.4-10.4); Platelet Count 157 10^3/ul (150-450); Red Cell Distribution Width 13 % (10.5-15); White Blood Count 5.2 10^3/ul (3.5-10.8)
[2018-09-29 20:33] LABS: Activated Partial Thrombo Time 28.7 seconds (26.0-36.3); INR 1.37 (0.77-1.02)
[2018-09-29 20:41] LABS: Albumin 3.7 g/dL (3.2-5.2); Albumin/Globulin Ratio 1.5 (1-3); BUN/Creatinine Ratio 14.4 (8-20); Calcium 8.8 mg/dL (8.6-10.3); EGFR African American 67.4 (>60); EGFR Non-African American 55.7 (>60); Globulin 2.4 g/dL (2-4); Magnesium 1.9 mg/dL (1.9-2.7); Potassium 4.3 mmol/L (3.5-5.0); Total Bilirubin 0.5 mg/dL (0.2-1.0); Total Protein 6.1 g/dL (6.4-8.9)
[2018-09-29 20:52] LABS: ABS Basophils 0.1 10^3/ul (0-0.2); ABS Eosinophils 0.2 10^3/ul (0-0.6); ABS Lymphocytes 1.5 10^3/ul (1.0-4.8); ABS Monocytes 0.7 10^3/ul (0-0.8); ABS Neutrophils 2.8 10^3/ul (1.5-7.7); ABS Nucleated RBC 0 10^3/ul; Eosinophil % 4.4 %; Lymphocyte % 28.1 %; Nucleated Red Blood Cells % 0.1
[2018-09-29] MEDS ORDERED: Al Hydrox/Mg Hydrox/Simet LIQ* 30 ML UDC PO PRN (22:24)
[2018-09-29] MEDS ORDERED: Acetaminophen TAB* 325 MG PO PRN (22:24)
[2018-09-29] MEDS ORDERED: Albuterol 2.5 MG/3 ML NEB.SOL* (0.083%) INH PRN (22:24)
[2018-09-29] MEDS ORDERED: Nitroglycerin TAB 0.4 MG* 0.4 MG TAB SL PRN (22:27)
--- NOTE | 2018-09-29 23:34 | HP ---
HISTORY AND PHYSICAL: ADDENDUM: Chest pain diagnosis, the patient recently had a negative nuclear stress test in March 2018, which showed no irreversible ischemic changes. NATALY SAENZ, PUBLIC WELFARE WORKER [id number]/[facility] #: [id number] [facility] HEALTHArlette
--- NOTE | 2018-09-30 01:13 | HP ---
ADDENDUM NOW INCLUDED ON THIS REPORT CC: Dr. Claudio; Dr. Cohen * HISTORY AND PHYSICAL: DATE OF ADMISSION: 09/29/18 PROVIDER: Laura Camp NP PRIMARY CARE PROVIDER: Dr. Claudio VISUAL ASSOCIATE: Dr. Cohen ATTENDING PHYSICIAN WHILE IN THE HOSPITAL: Luz Shaw MD * (dictated by Laura Camp NP) CHIEF COMPLAINT: Chest pain. HISTORY OF PRESENT ILLNESS: Mr. Arzola is a 78-year-old male with a past medical history significant for coronary artery disease, status post coronary artery bypass grafting in 1992, subsequent stent placement of total of 5 stents last in July of 2017, who presented to the emergency room with chest pain. The patient reports that he was trying to go to sleep approximately 2 a.m., at that time he developed a band of chest pain across his upper abdomen. He denied any shortness of breath or diaphoresis with the chest pain. He states that the pain felt like spasms and was sharp at times. He reports that at that time he took Tums with no relief and then took 2 nitro, again with no relief. The patient reports that he continued to have pain on and off throughout the day. He says the pain comes and goes, it is sharp at times. He does report that he rode 3 miles on his recumbent bike today without any difficulty. No increase of pain with the exercise. No change in the pain. He did not get diaphoretic. The patient reports that he is also following with Dr. Chan from Gastroenterology and was recently placed on a lactose-free diet, which she said had improved his symptoms of gas pains. The patient reports that he restarted lactose on Thursday and last evening, he had a large bowl of ice cream prior to going to bed. He states that he also had some milk today on his cereal and his coffee as well as some cottage cheese. Patient reports today he has had a lot of gas. He has been passing and burping a lot of gas. At the time when I review with the patient, he is currently chest pain free. He does report that nothing makes the pain worse. He reports that standing and activity seemed to make the pain better. Due to his past medical history significant for coronary artery disease and has presentation of chest pain, we were asked to see and evaluate him for admission. PAST MEDICAL HISTORY: Significant for: 1. Coronary artery bypass graft in 1992. 2. History of a total of 5 stents placements, last in the RCA in July of 2017. 3. 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 4. Hyperlipidemia. 5. Acid reflux. 6. History of TIA in 2014. 7. Obstructive sleep apnea. PAST SURGICAL HISTORY: 1. Hernia repair. 2. Retinal surgery. 3. Cataract surgery. 4. Prostatectomy. 5. Detached retina in 1990. 6. Tonsillectomy in 1971. 7. Varicose veins in 2010. HOME MEDICATIONS: 1. Clopidogrel 75 mg p.o. daily. 2. Aspirin 81 mg p.o. daily. 3. Eliquis 5 mg p.o. b.i.d. 4. Nitroglycerin 0.4 mg sublingual q.5 minutes as needed for chest pain. 5. Multivitamin 1 tablet p.o. daily. 6. Metoprolol 50 mg p.o. b.i.d. 7. Lisinopril 5 mg p.o. daily. 8. Glucosamine 1 tablet p.o. daily. 9. Multaq 400 mg p.o. b.i.d. 10. Crestor 5 mg p.o. daily. 11. Ranitidine 150 mg p.o. b.i.d. 12. Pantoprazole 40 mg p.o. daily. ALLERGIES: MORPHINE and STATINS. FAMILY HISTORY: Father of sudden cardiac at the age of 62. Mother of acute renal failure. Patient's both brothers have a history of heart disease and stent placement. SOCIAL HISTORY: Patient denies tobacco or illicit drug use. He reports he drinks alcohol rarely. His healthcare proxy in the event he is unable to make his own decisions is his , Mayela. He is a full code. REVIEW OF SYSTEMS: The patient denies any fever, chills. Denies any nausea, vomiting, or diarrhea. Does report chest pain that is sharp that comes and goes since 2 a.m. Denies any nausea or vomiting, diaphoresis or shortness of breath associated with the chest pain. Denies any gross hematuria, dysuria. Denies any focal weakness or sensory loss. Denies any visual complaints, dysphagia, arthralgias, myalgias, rashes, lesions, or open sores. Denies any psychosis or anxiety. PHYSICAL EXAMINATION GENERAL: At this time, Mr. Arzola is a 78-year-old male. He appears comfortable, resting in the stretcher in the emergency room. He is well nourished, well developed. VITAL SIGNS: Blood pressure 158/91, heart rate is 74, respirations 14, O2 saturation is 98%, temperature 97.1. HEENT: Head is atraumatic, normocephalic. Eyes: EOMs are intact. Sclerae anicteric and not pale. Oral mucosa appeared to be moist. NECK: Supple. RESPIRATORY: Lungs are clear to auscultation bilaterally. No wheezes, rales, or rhonchi. CARDIAC: S1, S2. Regular rate and rhythm. No murmurs, rubs, or gallops. ABDOMEN: Soft and nontender. Bowel sounds are present x4. EXTREMITIES: He is able to move all 4 extremities with 5/5 strength. NEUROLOGIC: He is awake, alert, oriented x3. Speech is clear. Thought process is intact. No gross focal deficits are seen. SKIN: Intact. DIAGNOSTIC STUDIES AND LABORATORY DATA: WBCs are 5.2, RBCs 5.00, hemoglobin 15.0, hematocrit is 45, platelet count is 157. INR was 1.37. Sodium 136, potassium 4.3, chloride 105, carbon dioxide was 24, anion gap was 7, BUN was 18 , creatinine 1.25, glucose was 119, calcium 8.8. Troponin 0.00, BNP 320. Albumin 3.7, magnesium 1.9. Second troponin is currently pending. Electrocardiogram shows a paced rhythm at a rate of 78. ASSESSMENT AND PLAN: Mr. Arzola is a 78-year-old male with a past medical history significant for coronary artery disease with bypass grafting and stent placement, last in the right coronary artery in July of 2017, who presented to the emergency room with the complaints of chest pain. He will be admitted under observation for: 1. Chest pain. We will continue to rule out acute coronary syndrome given the patient's significant past medical history for bypass grafting and stent placement, last being in 2017. We will continue to trend his troponins. Troponin is currently negative at this time. I will get a transthoracic echocardiogram in the a.m. The patient will continue on his home medications of Plavix, aspirin, Eliquis, Multaq, Toprol for coronary artery disease as well as Crestor 5 mg p.o. daily. I suspect underlying cause of this could be related to lactose intolerance as the patient recently was on a lactose-free diet and was doing well. Patient reports that he recently reintroduced lactose into his diet on Thursday and last evening. Prior to the start of this chest pain, he had a large bowl of ice cream and again this morning he had dairy in his coffee and on his cereal as well as a bowl of cottage cheese. The patient does report excessive gas and abdominal pain. If the patient should develop any positive troponins or changes in his chest pain, or any abnormal findings on the transthoracic echocardiogram, I would recommend consultation to Cardiology as the patient does have extensive history of coronary artery disease. Again at this time, the patient is chest pain free. 2. Hyperlipidemia. The patient will continue on Crestor. 3. Gastric reflux. He will continue on pantoprazole. 4. Hypertension. He will continue on Multaq and lisinopril as previously prescribed. 5. FEN: The patient can have a heart-healthy, decaf-okay diet. 6. Code status. He is a full code. 7. DVT prophylaxis: We will continue on Eliquis. 8. Disposition: The patient will be placed in observation on the telemetry floor. TIME SPENT: Time spent on this admission was 60 minutes, greater than half that time was spent [id number] with the patient obtaining my history and physical, the other half of the time was spent going over my plan of care and implementing my plan of care. I have discussed this with my attending, Dr. Luz Shaw; she is in agreement with my plan. LAURA CAMP NP ADDENDUM: Chest pain diagnosis: The patient recently had a negative nuclear stress test in March 2018, which showed no irreversible ischemic changes. LAURA CAMP NP [id number]/CPS #: [id number]/CPS #: [id number] [facility]
[2018-09-30 06:10] LABS: ABS Basophils 0 10^3/ul (0-0.2); ABS Eosinophils 0.3 10^3/ul (0-0.6); ABS Lymphocytes 1.4 10^3/ul (1.0-4.8); ABS Monocytes 0.6 10^3/ul (0-0.8); ABS Neutrophils 2.2 10^3/ul (1.5-7.7); ABS Nucleated RBC 0 10^3/ul; Eosinophil % 6.1 %; Hematocrit 44 % (42-52); Hemoglobin 14.6 g/dl (14.0-18.0); Lymphocyte % 31.6 %; Mean Corpuscular HGB Conc 33 g/dl (31-36); Mean Corpuscular Hemoglobin 30 pg (27-31); Mean Corpuscular Volume 89 fL (80-94); Mean Platelet Volume 9.3 fL (7.4-10.4); Nucleated Red Blood Cells % 0.1; Platelet Count 148 10^3/ul (150-450); Red Blood Count 4.87 10^6/ul (4.00-5.40); Red Cell Distribution Width 13 % (10.5-15); White Blood Count 4.5 10^3/ul (3.5-10.8)
[2018-09-30 06:47] LABS: BUN/Creatinine Ratio 14.7 (8-20); Calcium 8.6 mg/dL (8.6-10.3); EGFR Non-African American 65.3 (>60); HDL Cholesterol 36.2 mg/dL
[2018-09-30] MEDS ORDERED: Metoprolol Succinate XL TAB* 50 MG PO SCH (09:00)
[2018-09-30] MEDS ORDERED: Clopidogrel TAB* 75 MG PO SCH (09:00)
[2018-09-30] MEDS ORDERED: Multivitamins/Minerals TAB PO SCH (09:00)
[2018-09-30] MEDS ORDERED: Apixaban* 5 MG TAB PO SCH (09:00)
[2018-09-30] MEDS ORDERED: Aspirin 81 mg CHEW TAB* 81 MG TAB.CHEW PO SCH (09:00)
[2018-09-30] MEDS ORDERED: Atorvastatin* 10 MG TAB PO SCH (09:00)
[2018-09-30] MEDS ORDERED: Pantoprazole TAB * 40 MG TAB PO SCH (09:00)
[2018-09-30] MEDS ORDERED: Dronedarone TAB* 400 MG PO SCH (09:00)
[2018-09-30] MEDS ORDERED: Lisinopril TAB* 5 MG PO SCH (09:00)
--- NOTE | 2018-09-30 10:03 | ECHO ---
Patient: PAULA JORGENSEN [facility] Rec#: [id number] : 1940 Date: 09/30/2018 Age: 78y Height: 180 cm / 70.9 in Weight: 86 kg / 189.5 lbs Sex: M BSA: 2.06 Room#: 444 Admit Date#: 09/29/2018 Type: Inpatient Referring: Laura Camp Reading: Gilberto Moffett DO Director Of Managed Care: Lora Wolfe,HUDSONCS,RDMS CC: Js Claudio MD Transthoracic Echocardiogram Indication: CP BP: 136/71 HR: 76 Rhythm: NSR Findings History: CAD, CABG, PCI, HTN, HLD, GLENN Technical Comments: The study quality is good. Left Ventricle: The left ventricular chamber size is normal. There is no left ventricular hypertrophy. The estimated ejection fraction is 45-50%. Post surgical hypokinesis of the interventricular septum is observed consistent with coronary artery bypass. There is no consistent Doppler evidence of clinically significant diastolic dysfunction. Left Atrium: The left atrium is mildly dilated. Right Ventricle: The right ventricular cavity size is normal. The right ventricular global systolic function is mildly reduced. A pacemaker wire is visualized in the right ventricle. Right Atrium: The right atrial cavity size is normal. A pacemaker wire is visualized in the right atrium. Aortic Valve: There is no evidence of aortic valve thickening. Systolic excursion of the aortic valve is normal. There is no evidence of aortic regurgitation. There is no evidence of aortic stenosis. Mitral Valve: The mitral valve leaflets are mildly thickened. There is a trace of mitral regurgitation. There is no evidence of mitral stenosis. Tricuspid Valve: The tricuspid valve leaflets are normal. There is trace tricuspid regurgitation. Unable to estimate the right ventricular systolic pressure. Pulmonic Valve: The pulmonic valve structure is not well visualized. There is no evidence of pulmonic regurgitation. Pericardium: There is no significant pericardial effusion. Aorta: The aortic root appears normal. There is no dilatation of the aortic arch. Pulmonary Artery: The main pulmonary artery is not well visualized. Venous: The inferior vena cava appears normal in size. There is a greater than 50% respiratory change in the inferior vena cava dimension. Conclusions The left ventricular chamber size is normal. There is no left ventricular hypertrophy. The estimated ejection fraction is 45-50%. The left atrium is mildly dilated. The right ventricular cavity size is normal. The right ventricular global systolic function is mildly reduced. No significant valvular abnormalities noted Compared to prior study from 03/2018, no clinically significant changes noted Measurements Name Value Normal Range RVIDd (AP) 2D 2.6 cm (0.9 - 2.6) RVDdMajor (2D) 2.7 cm (2.2 - 4.4) RAd ISD 4CH 4.5 cm (3.4 - 4.9) RA (A4C)W 3.5 cm (2.9 - 4.6) IVSd (2D) 0.8 cm (0.6 - 1) LVPWd (2D) 0.9 cm (0.6 - 1) LVIDd (2D) 5.2 cm (3.6 - 5.4) LVIDs (2D) 4.3 cm - LV FS (2D) 16 % (25 - 45) Aortic Annulus 2 cm (1.4 - 2.6) Ao root diameter (2D) 3 cm (2.1 - 3.5) Ascending Ao 2.7 cm (2.1 - 3.4) Aortic arch 2.5 cm (1.8 - 3.4) LA dimension (AP) 2D 4.4 cm (2.3 - 3.8) LAd ISD 4CH 5.7 cm (2.9 - 5.3) LA ISD 4CH W 4.6 cm (2.5 - 4.5) Name Value Normal Range LA ESV BP (A/L) index 33 ml/m2 - Name Value Normal Range MV E-wave Vmax 0.7 m/sec - MV deceleration time 98 msec - MV A-wave Vmax 0.9 m/sec - MV E:A ratio 0.7 ratio - LV septal e' Vmax 0.4 m/sec - LV lateral e' Vmax 0.11 m/sec - LV E:e' septal ratio 2 ratio - LV E:e' lateral ratio 6 ratio - Name Value Normal Range AV Vmax 1.1 m/sec - AV VTI 26 cm - AV peak gradient 5 mmHg - AV mean gradient 3 mmHg - LVOT Vmax 0.7 m/sec - LVOT VTI 17 cm - LVOT peak gradient 2 mmHg - LVOT mean gradient 1 mmHg - JETT Vmax 0.5 m/sec - Name Value Normal Range RAP 8 mmHg - IVC diameter 1.6 cm - Name Value Normal Range PV Vmax 0.5 m/sec - PV peak gradient 1 mmHg -
[2018-09-30 12:14] VITALS: BP 155/85
--- NOTE | 2018-09-30 23:02 | DS ---
CC: Dr. Claudio; Dr. Cohen * DISCHARGE SUMMARY: DATE OF ADMISSION: 09/29/18 DATE OF DISCHARGE: 09/30/18 PRIMARY CARE PROVIDER: Dr. Claudio OUTPATIENT GLOBAL SUPPLY CHAIN DIRECTOR: Dr. Cohen ATTENDING PROVIDER: Dr. Patel * (DICTATED BY ANNIE CAMARENA NP) PRIMARY DIAGNOSIS: Chest pain. SECONDARY DIAGNOSES: 1. Coronary artery bypass graft in 1992. 2. History of total 5 stents, last in the right coronary artery in 2016. 3. 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 4. Hyperlipidemia. 5. Acid reflux. 6. History of transient ischemic attack in 2014. 7. Obstructive sleep apnea. STUDIES WHILE IN THE HOSPITAL: 1. EKG: Impression: Paced rhythm at a rate of 78. 2. Echocardiogram: Impression: Left ventricular chamber size is normal. No left ventricular hypertrophy. Estimated ejection fraction is 45 to 50%. Left atrium is mildly dilated. Right ventricular cavity is normal. Right ventricle global systolic function is mildly reduced. No significant valvular abnormalities noted. Compared to prior study from 2018, no clinically significant changes noted. 3. Chest x-ray: Impression: No acute cardiopulmonary disease. PROCEDURES WHILE IN THE HOSPITAL: No procedures. CONSULTS WHILE IN THE HOSPITAL: No consults. DISCHARGE HOME MEDICATIONS: [place] Medications: No new home medications. Continued Home Medications: 1. Plavix 75 mg p.o. daily. 2. Aspirin 81 mg p.o. daily. 3. Eliquis 5 mg p.o. b.i.d. 4. Nitroglycerin 0.5 mg sublingual q.5 minutes p.r.n. 5. Multivitamin 1 tab p.o. daily. 6. Metoprolol succinate 50 mg p.o. b.i.d. 7. Lisinopril 5 mg p.o. daily. 8. Glucosamine/chondroitin 1 tab p.o. daily. 9. Multaq 400 mg p.o. b.i.d. 10. Crestor 5 mg p.o. daily. 11. Zantac 150 mg p.o. b.i.d. 12. Pantoprazole 40 mg p.o. daily. Discontinued Home Medications: No home medications were discontinued. Changed Home Medications: No home medications were changed. HISTORY OF PRESENT ILLNESS/HOSPITAL COURSE: Mr. Arzola is a 78-year-old male with past medical history significant for coronary artery disease, status post coronary artery bypass graft, subsequent stent placement; who presented to the emergency department with chest pain. Please see history and physical dictated by Laura Camp NP for further details of the events leading up to presentation to the emergency department, but in short, patient reports onset of chest pain across his upper abdomen at approximately 2 a.m. He states this felt like spasms. He took Tums with no relief. He took nitro with no relief. He was able to ride 3 miles on recumbent bike today with no difficulty and no decrease in exercise endurance. He had no associated symptoms such as diaphoresis, nausea, vomiting. It should be noted that patient is working with Dr. Chan from Gastroenterology and recently placed on lactose free diet, which he reports improved his gas pains. He restarted himself on lactose on Thursday evening and over the past several days has been consuming large amounts of dairy including 2 large bowls of ice cream in the past 2 evenings. When assessed today, patient reports pain was resolved while in the emergency department. Patient reports there were no aggravating or alleviating symptoms. Patient reports pain would move from upper abdomen, midepigastric to upper right abdomen. Patient is currently pain free. Patient has been on a paced rhythm on tele with no ectopy. Patient's echo was unchanged. Patient's troponins were negative. Patient's EKG showed no acute findings. Patient is stable for discharge today. Vital signs as follows: Temp 98.1, HR 72, RR 14, O2 sat 100% on room air, BP 155 /85. REVIEW OF SYSTEMS: Patient denies chest pain, palpitations, shortness of breath , dizziness, nausea, vomiting, diuresis. A 14-point review of systems is completed, all others were negative. PHYSICAL EXAM: General: Mr. Arzola is a 78-year-old male who is sitting in bed, appears in no acute distress, appears stated age. HEENT: EOMs intact. PERRLA. Oral mucosa is moist without lesion. Posterior pharynx is clear. Neck : Supple. No lymphadenopathy. Respiratory: Lung sounds are clear. No rhonchi , wheezes, or rubs. Cardiac: S1, S2 present. No murmurs, rubs, or gallops. Abdomen: Soft, nontender. Bowel sounds x4. Extremities: No pain or deformities. No clubbing or cyanosis. Skin: Skin is intact. Neuro: No focal deficits or weakness. LABORATORY DATA: WBC 4.5, hemoglobin 14.6, hematocrit 44, platelet 148. Sodium 138, potassium 4.0, chloride 106, carbon dioxide 26, BUN 16, creatinine 0.09, glucose 89, troponin 0.00, repeat troponin 0.00, BNP 331. DISCHARGE PLAN/FOLLOWUP: 1. Chest pain: It is reassuring that patient's pain has resolved, he has had negative troponins, he had an echo with no change from prior study. I am suspicious that patient's pain might be related to the fact that he increased lactose into his diet suddenly. Patient pointed to upper abdomen when describing pain he was feeling prior to admission. Either way since pain has resolved, he is going to be discharged home. Patient already has a followup with Dr. Cohen tomorrow. I have encouraged patient to keep this followup. I have also encouraged patient to call Dr. Chan regarding further GI evaluation. 2. Coronary artery bypass graft/CAD: Patient has a followup with Dr. Cohen tomorrow. Patient should continue home medications the same. 3. History of atrial fibrillation: Patient should continue medications the same and follow up with Dr. Cohen as mentioned above. 4. Hyperlipidemia: Patient should continue statin. 5. Acid reflux: Patient should continue his ranitidine and pantoprazole. 6. History of transient ischemic attack: Patient should continue medications as same. 7. Sleep apnea: Patient should continue CPAP use. 8. Elevated BNP. It should be mentioned that patient's BNP was 320 on admission and 331 on repeat. I suspect this is due to patient's diastolic heart failure. He has no signs of heart failure exacerbation. I have encouraged him to follow up with Dr. Cohen tomorrow as already scheduled. 9. Education: I discussed at length signs and symptoms of new or worsening condition and when to return to the emergency department. The patient states understanding. This plan was discussed with my attending, Dr. Patel, who agrees with my plan. TIME SPENT: Approximately 35 minutes was spent on this discharge, greater than half that time was spent [id number] with the patient discussing my discharge plan and instructions. ANNIE CAMARENA, WARRANTY MANAGER [id number]/[facility] #: [id number] [facility]
== END 2018-09-30 14:46 | disposition home or self-care (01) ==
LOC: ED 19:18 → MEDTELE 22:24
PROVIDERS: ADMIT Pediatrics; ATTEND Hospitalist
DX: R07.9 Chest pain, unspecified (principal); Z79.01 Long term (current) use of anticoagulants; Z88.6 Allergy status to analgesic agent; Z85.46 Personal history of malignant neoplasm of prostate; I10 Essential (primary) hypertension; I25.10 Atherosclerotic heart disease of native coronary artery without angina pectoris; Z95.5 Presence of coronary angioplasty implant and graft; Z95.0 Presence of cardiac pacemaker; K21.9 Gastro-esophageal reflux disease without esophagitis; Z86.73 Personal history of transient ischemic attack (TIA), and cerebral infarction without residual deficits; G47.33 Obstructive sleep apnea (adult) (pediatric); E78.5 Hyperlipidemia, unspecified; I25.2 Old myocardial infarction
CPT/HCPCS: 36415; 71045; 80048; 80053; 80061; 83735; 83880; 84484; 85025; 85610; 85730; 93005; 93306; 99284; A9270-GY; G0378

== ENCOUNTER 2018-11-09 15:00 | Emergency (ER) | payer MEDICARE ==
--- OUTSIDE RECORDS SUMMARY | 2018-11-09 15:24 | XMS REPORT | Continuity of Care Document ---
:1940 External Reference #:[id number] Author Name Twila Schmitz O.D. Address [address] [place] [address] [place] [address] Care Team Providers Name Role Phone Js Claudio M.D. Primary Care Physician Unavailable Payers Date Identification Numbers Payment Provider Subscriber Policy Number: [id number] Medicare - [facility] Andrzej Arzola PayID: [id number] [address] [place] [address] Policy Number: [id number] [facility] Andrzej Arzola PayID: [id number] [address] [place] [address] Advance Directives Description No Information Available Problems [...] in coronary artery Active Note: 07/2017 Onset: 10/12/2018 Tear film insufficiency Twila Schmitz O.D. Active Onset: 08/11/2018 Regular astigmatism Twila Schmitz O.D. 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 ETOH Use Occasionally consumes alcohol Tobacco Use Start: Unknown Patient has never smoked Recreational Drug Use Never Used Drugs Smoking Status Reviewed: 10/12/18 Patient has never smoked Allergies, Adverse Reactions, Alerts Description No Known Drug Allergies Medications Medication Date Status Form Strength Qnty SIG Indications Ordering Provider Amlodipine 00/00/ Active Tablets 10mg Unknown Besylate 0000 Plavix 00/00/ Active Tablets 75mg Unknown 0000 Aspirin 0000/ Active Tablets 81mg Unknown 0000 Multivitamins / Active Capsules Unknown 0000 Glucosamine & 00/ Active Packet 2635-6326- Unknown Chondroiti 0000 800mg-mg-U N/Vitamin D nit Maximum Strength Lisinopril / Active Tablets 5mg Unknown 0000 Crestor / Active Tablets 5mg Unknown 0000 Eliquis / Active Tablets 5mg Unknown 0000 Metoprolol / Active Tablets ER 50mg Unknown Succinate ER 0000 24HR Multaq / Active Tablets 400mg Unknown 0000 Ramipril / Hx Capsules 10mg Unknown - 2014 Atenolol / Hx Tablets 100mg 1x per Unknown 0000 - day 2016 Omeprazole // Hx Capsules DR 20mg Unknown - 2015 Livalo / Hx Tablets 1mg Unknown - 2015 Fluticasone / Hx Suspension 50mcg/Act Inhale 1 Unknown Propionate 0000 - Phyllis In 02/22/ Each 2017 Nostril Once Daily Nitrostat / Hx Tablets Sub 0.4mg Place One Unknown 0000 - Tablet 02/22/ Under The 2017 Tongue Every 5 Minutes For Up To 3 Doses as Immunizations Description No Information Available Vital Signs Description No Information Available Results Description No Information Available Procedures Date Code Description Status 08/11/2018 69415 Determination Of Refractive State Completed 08/11/2018 06504 Est Patient Comprehensive Exam Completed 08/06/2017 77525 Scanning Computerized Opthalmic Diagnostic Posterior Seg Completed Retina 08/06/2017 70611 Est Patient Intermediate Exam Completed 02/24/2017 91782 Scanning Computerized Opthalmic Diagnostic Posterior Seg Completed Retina 02/24/2017 12782 Est Patient Intermediate Exam Completed 11/21/2016 30900 Determination Of Refractive State Completed 11/21/2016 21915 Est Patient Comprehensive Exam Completed 01/10/2016 86722 Est Patient Comprehensive Exam Completed 01/10/2015 45704 Scanning Computerized Opthalmic Diagnostic Posterior Seg Completed Retina 01/10/2015 55002 Determination Of Refractive State Completed 01/10/2015 03835 Est Patient Comprehensive Exam Completed 07/21/2013 03286 Scanning Computerized Opthalmic Diagnostic Posterior Seg Completed Retina 07/21/2013 19556 Determination Of Refractive State Completed 07/21/2013 73821 Est Patient Comprehensive Exam Completed 12/20/2010 28049 Remove Secondary Cataract, Laser (Yag) Completed 12/13/2010 53384 Est Patient Comprehensive Exam Completed Encounters Description No Information Available Plan of Treatment Future Appointment(s):08/11/2019 1:00 pm - Twila Schmitz O.D. at [facility] Sch[facility] MD, 10/12/2018 - Twila Schmitz O.D.H04.123 Dry eye syndrome of bilateral lacrimal glandsComments:Smoking can increase the risk of developing or worsening any eye related disease, as well as affect your overall health. If you are a smoker, we strongly recommend that you quit.If you are not a smoker , we strongly recommend that you do not start. Both of your eyes appear to be dry. Use artificial tears as directed. You can use the tears more often if you are reading a book or are on the computer,as we tend to blink less, making our eyes dry out more.[facility] offers a few items in our optical department to help alleviate dry eye symptoms. START ARTIFICIAL TEAR 4 TIMES A DAY IN THE RIGHT EYEIF YOUR SYMPTOMS WORSEN, PLEASE CALL THE OFFICE TO BE SEENFollow up:1 WEEK OR SOONER NEEDED
--- OUTSIDE RECORDS SUMMARY | 2018-11-09 15:24 | XMS REPORT | Continuity of Care Document ---
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 Onset: 04/08/2018 [...] Unknown Never Smoked Cigarettes Smoking Status Reviewed: 10/01/18 Never Smoked Cigarettes ETOH Use Occasionally consumes wine Tobacco Use Start: Unknown Patient has never smoked Recreational Drug Use Denies Drug Use Exercise Type/Frequency Active with housework Allergies, Adverse Reactions, Alerts Date Description Reaction Status Severity Comments 10/22/2018 NKDA Active 06/03/2013 Statin Drugs arm/muscle ache Active 12/07/2013 NKDA Inactive Medications Medication Date Status Form Strength Qnty SIG Indications Ordering Provider Toprol XL 07/23/ Active Tablets ER 50mg 180tab 1 by Rex Rae 2017 24HR s mouth Brand, twice M.D. daily Clopidogrel 07/21/ Active Tablets 75mg 90tabs 1 by Rex Rae Bisulfate 2016 mouth Brand, every day M.D. Eliquis 03/03/ Active Tablets 5mg 180tab 1 by Rex Rae 2017 s mouth Brand, twice a M.D. day Multaq 07/09/ Active Tablets 400mg 60tabs 1 by I47.1 Rex Rae 2015 mouth Brand, twice a M.D. day Crestor [...] 0000 mouth Brand, every day M.D. Pantoprazole / Active Tablets DR 40mg 1 by Unknown Sodium 0000 mouth every day Ranitidine 150 / Active Tablets 150mg one by Unknown Maximum Strength 0000 mouth twice a day Dexilant 07/27/ Hx Capsules 30mg 30caps 1 by Linda Kennedy 2018 - mouth Rasheed, 09/30/ every day N.P. 2019 Multaq 05/19/ Hx Tablets 400mg 60tabs 1 by I25.110 Rex Rae 2018 - mouth Brand, 10/20/ twice a M.D. 2018 day Pantoprazole 12/01/ Hx Tablets DR 40mg 1 by Peter Claudio 2017 - mouth MD Js 07/26/ every day [...] M.D. 2016 day.( dose change at hospital) Atenolol 05/11/ Hx Tablets 25mg 1 by [...] Atorvastatin 12/09/ Hx Tablets 10mg 45tabs take 2 Rex Rae Calcium 2012 - tablet at Brand, 06/03/ bedtime M.D. 2012 Ramipril 10/12/ Hx Capsules 10mg 180cap 2 tabs by Rex Rae 2012 - s mouth Brand, 07/17/ every day M.D. 2012 Atorvastatin 06/28/ Hx Tablets 20mg 45tabs take 2 Rex Rae Calcium 2011 - tablet at [...] - mouth Brand, 05/12/ every day M.D. 2016 Pravastatin / Hx Tablets 20mg 1 tablet Unknown Sodium 0000 - by mouth 11/15/ once 2014 daily at bedtime Enalapril / Hx Tablets 20mg 1 by Unknown Maleate 0000 - mouth 11/15/ day 2014 Livalo / Hx Tablets 1mg 30tabs 1 tab by Rex Rae 0000 - mouth Brand, 01/01/ every M.D. 2016 night Lisinopril / Hx Tablets 20mg 90tabs 1 by Rex Rae 0000 - mouth Brand, 07/21/ day M.D. 2016 Omeprazole 00/ Hx Capsules 20mg prn Unknown 0000 - DR 2016 Amlodipine / Hx Tablets 2.5mg 1 by Rex Rae Besylate 0000 - mouth Brand, 07/28/ every day M.D. 2016 Diltiazem HCL / Hx Tablets 120mg 1 by Rex Rae 0000 - mouth Brand, 05/20/ every day M.DArnold 2017 Ranitidine HCL / Hx Tablets 150mg take one Unknown 0000 - tablet by 2017 twice a day Medications Administered in Office [...] Available Vital Signs Date Vital Result Comment 10/01/2018 10:51am Height 71 inches 5'11" Weight 188.00 lb w/shoes BP Systolic Sitting 125 mmHg Lue BP Diastolic Sitting 80 mmHg Lue BP Systolic Standing 120 mmHg Lue BP Diastolic Standing 80 mmHg Lue Respiratory Rate 17 /min BMI (Body Mass Index) 26.2 kg/m2 07/27/2018 1:18pm Height 71 inches 5'11" Weight [...] Result H/L Range Note Basic Metabolic 07/05/2017 [facility] Sodium 134 mmol/L N 133- 145 Panel [address] [place] [address] [phone] Potassium 4.3 mmol/L N 3.5-5.0 Chloride 104 mmol/L N 101-111 Co2 Carbon Dioxide 26 mmol/L N 22-32 Anion Gap 4 mmol/L N 2-11 Glucose 104 mg/dL High 70-100 Blood Urea Nitrogen 20 mg/dL N 6-24 Creatinine 1.13 mg/dL N 0.67-1.17 BUN/Creatinine Ratio 17.7 N 8-20 Calcium 8.7 mg/dL N 8.6-10.3 Egfr Non- 62.8 >60 Egfr 80.7 >60 1 Laboratory test 07/05/2017 [facility] Magnesium 2.0 mg/dL N 1.9-2.[address] [place] [address] [phone] TSH (Thyroid Stim Horm) 0.97 mcIU/mL N 0.34-5.60 Basic Metabolic Panel 04/28/2017 [facility] Sodium 137 mmol/L N 133-[address] [place] [address] [phone] Potassium 4.5 mmol/L N 3.5-5.0 Chloride 106 [...] N >60 2 CBC Auto Diff 04/28/2017 [facility] White Blood 4.7 10^3/uL N 3.5-10.[address] [place] [address] [phone] Red Blood Count 4.79 10^6/uL N 4.0-5.4 [...] Cells % 0.1 N Laboratory test 02/01/2014 [facility] Troponin I 0.00 ng/mL N <0.03 3, [address] [place] [address] [phone] Basic Metabolic 02/01/2014 [facility] Sodium 134 mmol/L N 133- [address] [place] [address] [phone] Potassium 4.8 mmol/L N 3.7-5.6 Chloride 103 [...] (or dialysis) Procedures Date Code Description Status 10/01/2018 54685 EKG Tracing & Interpretation Completed 09/30/2018 83928 ECHO Transthorasic Realtime 2D W Doppler & Color Flow Hosp Completed 07/27/2018 69750 Pace Maker Eval W/Iterative Adjment Dual Lead Completed 07/27/2018 33409 Pace Maker Eval W/Iterative Adjment Dual Lead Completed 06/29/2018 82774 EKG Tracing & Interpretation Completed 05/25/2018 95616 Moderate Sedation Services; Same Phys Intl 15 Mins; PT >=5 Completed Years 05/25/2018 05124 Cardioversion Completed 05/19/2018 45479 EKG Tracing & Interpretation Completed 05/18/2018 48141 Pace Maker Eval W/Iterative Adjment Dual Lead Completed 05/18/2018 35777 Pace Maker Eval W/Iterative Adjment Dual Lead Completed 04/09/2018 69183 ECHO Transthorasic Realtime 2D W Doppler & Color Flow Hosp Completed 04/09/2018 28696 Treadmill Interp/Report Only Completed 04/09/2018 54079 Stress Test Supervsn W/Out I/R Completed 04/09/2018 66466 EKG, Interpretation Only Completed 01/27/2018 84328 Pace Maker Eval W/Iterative Adjment Dual Lead Completed 01/27/2018 95063 Pace Maker Eval W/Iterative Adjment Dual Lead Completed 08/26/2017 30767 Pace Maker Eval W/Iterative Adjment Dual Lead Completed 08/26/2017 05876 Pace Maker Eval W/Iterative Adjment Dual Lead Completed 07/28/2017 90023 EKG Tracing & Interpretation Completed 07/22/2017 74502 EKG, Interpretation Only Completed 07/21/2017 58839 Cardiac Cath,LT Hrtmincl Intraprocedural Ink LT Ventricul Completed Mammary 07/21/2017 33300 EKG, Interpretation Only Completed 07/21/2017 83467 Percutaneous Transcatheter Placement Of Intracoronary Completed Stent 07/20/2017 27459 ECHO Transthorasic Realtime 2D W Doppler & Color Flow Hosp Completed 07/19/2017 95976 EKG, Interpretation Only Completed 07/14/2017 77197 Pace Maker Eval W/Iterative Adjment Dual Lead Completed 07/14/2017 07168 EKG, Interpretation Only Completed 07/13/2017 41755 Moderate Sedation Services; Same Phys Each Additional 15 Completed Mins 07/13/2017 20325 Moderate Sedation Services; Same Phys Intl 15 Mins; PT >=5 Completed Years 07/13/2017 72360 EKG, Interpretation Only Completed 07/13/2017 [address] Sequential Atrial And Ventricular Completed 07/06/2017 24518 EKG, Interpretation Only Completed 07/06/2017 73359 Stress Test Supervsn W/Out I/R Completed 07/06/2017 68270 Treadmill Interp/Report Only Completed 07/05/2017 92101 EKG, Interpretation Only Completed 04/24/2017 62495 EKG Tracing & Interpretation Completed 03/11/2017 70371 Stress Test Completed 03/11/2017 75713 Myocardial Perfusion Imaging Tomographic (Spect) Multiple Completed Studies 03/04/2017 75249 Cardioversion Completed 03/04/2017 88110 EKG, Interpretation Only Completed 03/04/2017 55191 Echocardiography, Transesophageal, Real Time W/Image 2D Completed W/W/O M-M 03/04/2017 27035 Pulse Wave/Continuous-Interp.RPT Completed 03/04/2017 72408 Color Flow Doppler/Interp & Reprt Completed 03/03/2017 07947 EKG Tracing & Interpretation Completed 02/24/2017 25224 Holter Monitor Review (24 hr)dr review & interp only Completed 02/06/2017 80709 ECG Monitor/Recording W/Visual Superimposition Scanning Completed 12/10/2016 61873 EKG Tracing & Interpretation Completed 07/31/2016 76139 EKG Tracing & Interpretation Completed 06/06/2016 92178 Mobile Cardiovascular Telemetry Over 24 HR Up To 30 Days Completed 06/05/2016 40102 ECHO Transthoracic, Real-Time 2D With Doppler And Color Completed Flow 06/04/2016 39892 EKG Tracing & Interpretation Completed 02/28/2016 85915 Stress Test Completed 02/28/2016 49939 Myocardial Perfusion Imaging Tomographic (Spect) Multiple Completed Studies 2016 14180 EKG Tracing & Interpretation Completed 01/04/2015 40540 Stress Test Completed 01/04/2015 57633 Myocardial Perfusion Imaging Tomographic (Spect) Multiple Completed Studies 12/01/2014 33961 EKG Tracing & Interpretation Completed 06/15/2014 57039 EKG Tracing & Interpretation Completed 02/01/2014 45199 EKG, Interpretation Only Completed 06/03/2013 39447 Holter Monitoring 24 HR New Completed 06/03/2013 61614 EKG Tracing & Interpretation Completed 02/21/2013 59178 Holter Monitoring 24 HR New Completed 06/28/2012 09274 EKG Tracing & Interpretation Completed 06/16/2012 57363 EKG, Interpretation Only Completed 06/15/2012 21566 EKG, Interpretation Only Completed 05/26/2012 55768 ECHO Transthoracic, Real-Time 2D With Doppler And Color Completed Flow 05/20/2012 47783 ECHO Transthoracic, Real-Time 2D With Doppler And Color Completed Flow Encounters Type Date Location Provider Dx Diagnosis Office Visit 10/01/2018 [facility] Rex Cohen, 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 Of Robbi Arreaga syndrome Z95.0 Presence of cardiac pacemaker I48.0 Paroxysmal atrial fibrillation I25.110 [facility] heart disease of [place] cor art w unstable ang pctrs I10 Essential (primary) hypertension Office Visit 09/30/2018 9:32a [facility] R07.9 Chest pain, Assoc,pc Shortle, IMPROVEMENT AUDITOR unspecified Hospitalists I10 Essential (primary) hypertension K21.9 Gastro-esophageal reflux disease without esophagitis Z95.5 Presence of coronary angioplasty implant and graft Office Visit 09/29/2018 [facility] R07.9 Chest pain, 9:31a Assoc,pc Zoë, IMPROVEMENT AUDITOR unspecified Hospitalists E78.5 Hyperlipidemia, unspecified I10 Essential (primary) hypertension K21.9 Gastro-esophageal reflux disease without esophagitis Office Visit 07/27/2018 1:30p [facility] Linda SArnold Z95.0 Presence of Of Robbi Iqbal N.P. cardiac pacemaker I48.0 Paroxysmal atrial fibrillation I49.5 Sick sinus syndrome I25.110 [facility] heart disease of [place] cor art w unstable ang pctrs I10 Essential (primary) hypertension Z98.61 Coronary angioplasty status Office Visit 06/29/2018 1:00p [facility] Rex Rae I25.110 [facility] heart Of [facility] [place] Cohen disease of [place] cor art w unstable ang pctrs I10 Essential (primary) hypertension Z95.0 Presence of cardiac pacemaker I48.0 Paroxysmal atrial fibrillation Office Visit 06/15/2018 [facility] And Rosangela G47.33 Obstructive sleep 1:45p Sleep Services Of ALFREDO Turner, RN, apnea (adult) [facility] ACCOUNT AUDITOR- (pediatric) R09.02 Hypoxemia Z68.26 Body mass index (BMI) 26.0-26.9, adult Office Visit 05/19/2018 4:15p [facility] Rex Rae I25.110 [place] heart Of Robbi Cohen M.D. disease of [place] cor art w unstable ang pctrs I48.91 Unspecified atrial fibrillation Office Visit 04/27/2018 1:00p [facility] Rex Rae I10 Essential (primary) Of Instructional Coordinator [facility] Gibson Cohen hypertension I25.110 [facility] heart disease of [place] cor art w unstable ang pctrs Z95.0 Presence of cardiac pacemaker I48.0 Paroxysmal atrial fibrillation [facility] R07.9 Chest pain, 11:45a Assocjordon M.D. unspecified Hospitalists I48.91 Unspecified atrial fibrillation I25.10 Athscl heart disease of [place] coronary artery w/o ang pctrs E78.5 Hyperlipidemia, unspecified [facility], I48.0 Paroxysmal atrial 11:45a Assjordon curiel M.D. fibrillation Hospitalists R68.84 Jaw pain R07.9 Chest pain, unspecified Office Visit 04/08/2018 2:30p [facility] Emeterio Atkins R07.9 Chest pain, [place] unspecified R94.31 Abnormal electrocardiogram [ECG] [EKG] R68.84 Jaw pain Office Visit 02/10/2018 10:30a [facility] Rex Rae I10 Essential (primary) Of Robbi Cohen M.D. hypertension I25.110 [facility] heart disease of [place] cor art w unstable ang pctrs Z95.0 Presence of cardiac pacemaker Office Visit 09/30/2017 3:45p [facility] Rex Rae Z95.0 Presence of Of Robbi Cohen M.D. cardiac pacemaker I49.5 Sick sinus syndrome I25.110 [facility] heart disease of [place] cor art w unstable ang pctrs I10 Essential (primary) hypertension Office Visit 07/28/2017 2:00p [facility] Rex Rae I25.110 Aths[facility] heart Of Instructional Coordinator [facility] [place] Cohen disease of [place] cor art w unstable ang pctrs Z95.1 Presence of aortocoronary bypass graft R07.9 Chest pain, unspecified Z95.0 Presence of cardiac pacemaker I49.5 Sick sinus syndrome Office Visit 07/22/2017 2:45p [facility] Marlyn I24.9 Acute ischemic Assocjordon D.O. heart disease, Hospitalists unspecified I25.119 Athscl heart disease of [place] cor art w unsp ang pctrs E78.5 Hyperlipidemia, unspecified I48.0 Paroxysmal atrial fibrillation Office Visit 07/22/2017 [facility] Jerson Brown, I25.110 Athscl heart 2:26p Of Instructional Coordinator [facility] [place], [facility], disease [place] [facility] [place] w unstable ang pctrs Office Visit 07/21/2017 [facility] Marlyn I24.9 Acute ischemic 2:44p Assoc,pc Toni Patel heart disease, Hospitalists unspecified I25.119 Athscl heart disease of [place] cor art w unsp ang pctrs E78.5 Hyperlipidemia, unspecified I48.0 Paroxysmal atrial fibrillation Office Visit 07/20/2017 2:44p [facility] Dereje Constantino, I24.9 Acute ischemic Assoc,jordon CASTRO heart disease, Hospitalists unspecified I25.119 Athscl heart disease of [place] cor art w unsp ang pctrs E78.5 Hyperlipidemia, unspecified I48.0 Paroxysmal atrial fibrillation Office Visit 07/20/2017 [facility] Rex Rae I25.110 [facility] heart 9:58a Of Robbi Cohen M.D. disease of [place] cor art w unstable ang pctrs Office Visit 07/19/2017 [facility] Dereje Constantino MD I24.9 Acute ischemic 2:43p Assoc,pc heart disease, Hospitalists unspecified I25.119 Athscl heart disease of [place] cor art w unsp ang pctrs E78.5 Hyperlipidemia, unspecified I48.0 Paroxysmal atrial fibrillation Office Visit 07/19/2017 11:57a [facility] Emeterio Atkins I25.119 Aths[facility] heart [place] Robins disease of [place] cor art w unsp ang pctrs I10 Essential (primary) hypertension E78.5 Hyperlipidemia, unspecified R79.89 Other specified abnormal findings of blood chemistry Office Visit 07/18/2017 2:42p [facility] Dereje Constantino, I24.9 Acute ischemic Assoc,jordon CASTRO heart disease, Hospitalists unspecified I25.119 Athscl heart disease of [place] cor art w unsp ang pctrs E78.5 Hyperlipidemia, unspecified I48.0 Paroxysmal atrial fibrillation Office Visit 07/06/2017 10:52a [facility] Rex Rae I25.10 Athscl heart Of Robbi Cohen M.D. 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 CABG w/o angina Instructional Coordinator pectoris R00.2 Palpitations R07.89 Other chest pain Office Visit 07/09/2016 Ava Rae I25.810 Atherosclerosis of 9:45a Cardiology Emili Cohen M.D. CABG w/o angina Instructional Coordinator pectoris R00.2 Palpitations I47.1 Supraventricular tachycardia Office Visit 06/04/2016 Ava Rae I25.810 Atherosclerosis of 1:15p Cardiology Emili Cohen M.D. CABG w/o angina Instructional Coordinator pectoris R00.2 Palpitations R42 Dizziness and giddiness Office Visit 2016 Ava Rae I25.810 Atherosclerosis of 8:30a Cardiology Emili Cohen M.D. 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 CABG w/o angina pectoris I10 Essential (primary) hypertension R07.89 Other chest pain Office Visit 07/19/2015 Pul[facility] And Hirambeverly AUGUST G47.33 Obstructive sleep 10:00a Sleep Services Of Gibson Noel apnea (adult) [facility] (pediatric) Office Visit 01/12/2015 [facility] Rae 414.01 Coronary 11:00a Of Robbi Cohen M.D. Atherosclerosis [place] 414.02 Coronary Atherosclerosis Autologous Vein Bypass Graft Office 12/01/2014 Neurohospitalist Tucker Kennedy 346.02 Migraine Visit 9:00a [facility]Luciano Arreaga Mention Of Intractable Migraine Office 12/01/2014 [facility] Adriane Rae 414.02 Coronary Visit 11:30a Robbi Cohen M.D. Atherosclerosis Autologous Vein Bypass Graft 401.9 Hypertension Unspec Office Visit 06/15/2014 Ava Rae 414.02 Coronary 11:15a Cardiology Emili Cohen M.D. Atherosclerosis [facility] Autologous Vein Bypass Graft 401.9 Hypertension Unspec 414.01 Coronary Atherosclerosis [place] Office Visit 12/07/2013 Ava Rae 414.02 Coronary 9:15a Cardiology Emili Cohen M.D. Atherosclerosis Robbi Autologous Vein Bypass Graft 401.9 Hypertension Unspec 427.69 Premature Beats Other Office Visit 06/03/2013 1:15p [facility] Nurse Visit IC 785.1 Palpitations Of [facility] Office Visit 04/08/2013 3:45p [facility] Rex Rae 414.9 Ischemic Heart Of Robbi Cohen M.D. Disease Chronic Unspec 427.69 Premature Beats Other Office Visit 02/24/2013 2:15p [facility] Rex Rae 414.9 Ischemic Heart Of Robbi Cohen M.D. Disease Chronic Unspec 427.69 Premature Beats Other 401.9 Hypertension Unspec Office Visit 12/09/2012 1:30p [facility] Rex Rae 414.9 Ischemic Heart Of Robbi Cohen M.D. Disease Chronic Unspec Office Visit 12/06/2012 8:30a Thelma Hodgson 782.0 Skin Sensation Services Of Robbi Ballesteros M.D. Disturbance Office Visit 06/28/2012 2:45p [facility] Rex Rae 414.9 Ischemic Heart Of [facility] Gibson Cohen Disease Chronic Unspec 414.02 Coronary Atherosclerosis Autologous Vein Bypass Graft Office Visit 06/15/2012 4:09p [facility] Rex Rae 786.50 Pain Chest Of Robbi Cohen M.D. Unspec 414.9 Ischemic Heart Disease Chronic Unspec Office Visit 06/07/2012 8:45a Thelma Hodgson 782.0 Skin Sensation Services Of Robbi Ballesteros M.D. Disturbance 794.02 Electroencephalogram Abnormal Brain & Central Nervous Sys Office Visit 06/03/2012 1:45p [facility] Rex Rae 414.9 Ischemic Heart Of Robbi Cohen M.D. Disease Chronic Unspec 414.02 Coronary Atherosclerosis Autologous Vein Bypass Graft Office Visit 05/13/2012 1:00p [place] 435.9 TIA Ischemia Services Of Robbi Ballesteros M.D. Cerebral Transient Unspec Plan of Treatment Future Appointment(s):06/15/2019 1:45 pm - Rosangela Turner DNP, RN, ACCOUNT AUDITOR-BC at [facility] Of [facility]11/16/2018 6:00 am - Remote [facility] Checks at [facility]10/01/2018 - Rex Cohen M.D.I49.5 Sick sinus syndromeFollow up:4 monthsRecommendations:It would be OK to go off Eliquis and Plavix for a few days if need for Gastroenterology oihjmzyrweV64.0 Presence of cardiac odylwgmlvF57.0 Paroxysmal atrial xpnriwccotkuA82.110 Atherosclerotic heart disease of [place] coronary artery withI10 Essential (primary) hypertension
[2018-11-09 16:56] VITALS: BP 175/106
--- NOTE | 2018-11-10 05:45 | ED ---
Upper Extremity Pain - HPI Summary HPI Summary: Patient is 78-year-old male with past medical history of AArnold real currently taking aspirin and now requests presenting to the ED with a right forearm injury. He states a stack of wood fell down onto the dorsum of his forearm. He remains good strength in his hand and wrist and denies any pain to the hand, wrist, elbow. He is endorsing pain with making a fist. There is no ecchymosis or swelling noted. He arrives with ice. Patient states he is concerned for a fracture and/or due to his blood thinners, having complications from this. - History of Current Complaint Chief Complaint: EDExtremityUpper Stated Complaint: RIGHT ARM INJURY PER PT Time Seen by Provider: 11/09/18 15:37 Hx Obtained From: Patient Mechanism Of Injury: Direct Blow Onset/Duration: Started Hours Ago Timing: Constant Severity Initially: Mild Severity Currently: Mild Pain Location: Forearm Character: Aching Aggravating Factor(s): Nothing Alleviating Factor(s): Nothing Associated Signs & Symptoms: Positive: Negative - Risk Factors Non-Orthopedic Risk Factor: Negative DVT Risk Factors: Negative Septic Arthritis Risk Factor: Negative Compartment Syndrome Risk Factors: Pain - Allergies/Home Medications Allergies/Adverse Reactions: Allergies Allergy/AdvReac Type Severity Reaction Status Date / Time morphine Allergy Unknown Unknown Verified 11/09/18 15:12 Reaction Details Kglhqnq-Prq-Kyn Reductase Allergy Unknown Unknown Verified 11/09/18 15:12 Inhibitor Reaction Details PMH/Surg Hx/FS Hx/Imm Hx Previously Healthy: Yes Endocrine/Hematology History: Reports: Hx Anticoagulant Therapy - eloquis Denies: Hx Diabetes, Hx Unexplained Bleeding Cardiovascular History: Reports: Hx Angina, Hx Angioplasty, Hx Coronary Artery Disease, Hx Hypercholesterolemia, Hx Hypertension, Hx Myocardial Infarction, Hx Pacemaker/ICD Denies: Hx Auto Implanted Cardiovert Defib, Hx Cardiac Arrest, Hx Congenital Heart Disease, Hx Congestive Heart Failure, Hx Deep Vein Thrombosis, Hx Hypotension, Hx Peripheral Vascular Disease, Hx Rheumatic Fever, Hx Syncope, Hx Valvular Heart Disease, Other Cardiovascular Problems/Disorders Respiratory History: Reports: Hx Sleep Apnea - uses CPAP at home Denies: Hx Asthma GI History: Reports: Hx Ulcer - takes omeprazole Denies: Other GI Disorders History: Reports: Other Problems/Disorders - prostate ca approx 2007 prostatectomy Denies: Hx Renal Disease Sensory History: Reports: Hx Cataracts - 2 removed one each eye, Hx Contacts or Glasses, Hx Hearing Aid, Hx Hearing Problem Denies: Hx Legally Blind, Hx Deafness Comment Only: Other Sensory Impairments - hx left eye detatched retina Opthamlomology History: Reports: Hx Cataracts - 2 removed one each eye, Hx Contacts or Glasses Denies: Hx Legally Blind Comment Only: Other Sensory Impairments - hx left eye detatched retina Neurological History: Reports: Hx Transient Ischemic Attacks (TIA) - drs with dr renee, ? recent tia Denies: Other Neuro Impairments/Disorders Psychiatric History: Denies: Hx Panic Disorder, Hx Schizophrenia - Cancer History Cancer Type, Location and Year: PROSTATE Hx Chemotherapy: No Hx Radiation Therapy: No - Surgical History Surgery Procedure, Year, and Place: BY PASS 1992, HERNIA 2008, PROSTATECTOMY, EYE PUCKER REPAIR, DETACHED RETINA(CLEARED FOR MRI NOVEMBER [address] VICK) TONSILECTOMY, STERNUM WIRES, STENTS 2001,2009 - Immunization History Date of Influenza Vaccine: 2017 Hx Pertussis Vaccination: No Immunizations Up to Date: Yes Infectious Disease History: No Infectious Disease History: Denies: Hx Clostridium Difficile, Hx Hepatitis, Hx Human Immunodeficiency Virus (HIV), Hx of Known/Suspected MRSA, Hx Shingles, Hx Tuberculosis, Traveled Outside the [place] in Last 30 Days - Family History Known Family History: Positive: Cardiac Disease - Social History Occupation: Unemployed Lives: With Family Alcohol Use: Occasionally Alcohol Amount: reports a couple of drink/week Hx Substance Use: No Substance Use Type: Reports: None Hx Tobacco Use: No Smoking Status (MU): Never Smoked Tobacco Review of Systems Constitutional: Negative Negative: Fever, Chills, Fatigue, Skin Diaphoresis Negative: Palpitations, Chest Pain Negative: Shortness Of Breath, Cough Genitourinary: Negative Positive: no symptoms reported, see HPI Negative: Arthralgia, Myalgia Skin: Negative Neurological: Negative All Other Systems Reviewed And Are Negative: Yes Physical Exam Triage Information Reviewed: Yes Vital Signs On Initial Exam: Initial Vitals Temp Pulse Resp BP Pulse Ox 97.6 F 82 18 165/90 98 11/09/18 15:10 11/09/18 15:10 11/09/18 15:10 11/09/18 15:10 11/09/18 15:10 Vital Signs Reviewed: Yes Appearance: Positive: Well-Appearing, Well-Nourished Skin: Positive: Warm, Skin Color Reflects Adequate Perfusion Head/Face: Positive: Normal Head/Face Inspection Eyes: Positive: Normal, EOMI, LUKE, Conjunctiva Clear Neck: Positive: Supple, No Lymphadenopathy Respiratory/Lung Sounds: Positive: Clear to Auscultation, Breath Sounds Present Cardiovascular: Positive: RRR, Pulses are Symmetrical in both Upper and Lower Extremities Musculoskeletal: Positive: Pain @ - right forearm Neurological: Positive: Sensory/Motor Intact, Alert, Oriented to Person Place, Time, Speech Normal Psychiatric: Positive: Normal, Affect/Mood Appropriate AVPU Assessment: Alert Diagnostics - Vital Signs Vital Signs Temp Pulse Resp BP Pulse Ox 11/09/18 16:55 97.7 F 69 16 175/106 99 11/09/18 15:10 97.6 F 82 18 165/90 98 - Laboratory Lab Statement: Any lab studies that have been ordered have been reviewed, and results considered in the medical decision making process. Course/Dx - Course Course Of Treatment: Right forearm x-ray obtained which shows no acute findings. Patient has good cafe attendant strength. Flexion and extension of the right wrist and right elbow intact. Good pulses +2 bilaterally. Patient's endorses pain only with clinching of the fist. There is no ecchymosis or swelling noted. I discussed with patient the patient may have a hematoma over this area but does not be concerned unless it grows very large and he has decreased sensation into the ipsilateral hand, numbness or tingling or decreased cafe attendant strength. Patient will be discharged with contusion. - Diagnoses Provider Diagnoses: Contusion Discharge - Sign-Out/Discharge Documenting (check all that apply): Patient Departure Patient Received Moderate/Deep Sedation with Procedure: No - Discharge Plan Condition: Stable Disposition: HOME Patient Education Materials: Contusion in Adults (ED) Referrals: Js Claudio MD [Primary Care Provider] - Additional Instructions: Tylenol and Ice for comfort Ice to the area will help with swelling If you develop a large bruise with pain and swelling - return to the ED - Billing Disposition and Condition Condition: STABLE Disposition: Home
== END 2018-11-09 16:55 | disposition home or self-care (01) ==
LOC: ED 15:00
DX: S50.11XA Contusion of right forearm, initial encounter (principal); W20.8XXA Other cause of strike by thrown, projected or falling object, initial encounter; Y92.9 Unspecified place or not applicable; I48.91 Unspecified atrial fibrillation; Z79.01 Long term (current) use of anticoagulants; I25.119 Atherosclerotic heart disease of native coronary artery with unspecified angina pectoris; I10 Essential (primary) hypertension; Z95.1 Presence of aortocoronary bypass graft; Z95.5 Presence of coronary angioplasty implant and graft; Z95.810 Presence of automatic (implantable) cardiac defibrillator; G47.30 Sleep apnea, unspecified; Z88.5 Allergy status to narcotic agent; Z88.8 Allergy status to other drugs, medicaments and biological substances
CPT/HCPCS: 99281

== ENCOUNTER 2019-03-28 14:41 | Emergency (ER) | payer MEDICARE ==
[2019-03-28 15:16] VITALS: BP 165/95
--- NOTE | 2019-03-28 15:30 | UC ---
Back Pain HPI - HPI Summary HPI Summary: 79-year-old male presents for low back pain after fall that occurred 3 days ago. States he was outside cleaning up after power washing his house when he tripped and fell over backward landing on his back on a ladder that was lying on the ground. Reports he was able to get right up and ambulate after the incident. States did not hit his head or lose consciousness. States pain worsens with twisting, bending. Improves with rest, standing and lying. Has taken acetaminophen and tried OTC topical analgesic patch without improvement in pain. Denies chest pain, palpitations, dizziness, lightheadedness, neck pain , numbness, tingling, or weakness of extremities, abdominal pain, nausea, vomiting, hematuria, loss of bowel or bladder control. - History of Current Complaint Chief Complaint: UCBackPain Stated Complaint: BACK PAIN Time Seen by Provider: 03/28/19 15:13 Hx Obtained From: Patient Pain Intensity: 0 - Allergies/Home Medications Allergies/Adverse Reactions: Allergies Allergy/AdvReac Type Severity Reaction Status Date / Time morphine Allergy Unknown Unknown Verified 03/28/19 15:45 Reaction Details Opvidzo-Hek-Juv Reductase Allergy Unknown Unknown Verified 03/28/19 15:45 Inhibitor Reaction Details PMH/Surg Hx/FS Hx/Imm Hx Cardiovascular History: Cardiac Disease, Hypertension, Congestive Heart Failure , Atrial Fibrillation GI/ History: Gastroesophageal Reflux Other History Of: Anticoagulant Therapy - eloquis - Surgical History Surgical History: Yes Surgery Procedure, Year, and Place: BY PASS 1992, HERNIA 2008, PROSTATECTOMY, EYE PUCKER REPAIR, DETACHED RETINA(CLEARED FOR MRI NOVEMBER [address] VICK) TONSILECTOMY, STERNUM WIRES, STENTS 2001,2009. stents x5. varicose veins. eye surgeries - Family History Known Family History: Positive: Cardiac Disease - Social History Occupation: Retired Lives: With Family Alcohol Use: Occasionally Alcohol Amount: reports a couple of drink/week Substance Use Type: None Smoking Status (MU): Never Smoked Tobacco - Immunization History Most Recent Influenza Vaccination: Fall 2016 Most Recent Tetanus Shot: 10 yrs Most Recent Pneumonia Vaccination: In the past Review of Systems All Other Systems Reviewed And Are Negative: Yes Constitutional: Negative: Fever, Chills Skin: Negative: Bruising Respiratory: Positive: Negative Cardiovascular: Positive: Negative Gastrointestinal: Positive: Negative Genitourinary: Positive: Negative Motor: Negative: Weakness Neurovascular: Negative: Decreased Sensation Musculoskeletal: Positive: Other: - See HPI Neurological: Positive: Negative Is Patient Immunocompromised?: No Physical Exam - Summary Physical Exam Summary: GENERAL APPEARANCE: Alert and cooperative older adult male who appears to be in no acute distress. HEAD: Atraumatic. Normocephalic. EYES: Conjunctiva clear. No drainage. PERRL, EOM intact. Vision is grossly intact. NECK: Neck supple, non-tender with full ROM. CARDIAC: Normal S1 and S2. No S3, S4 or murmurs. Rhythm is regular. There is no peripheral edema, cyanosis or pallor. Extremities are warm and well perfused. Capillary refill is less than 2 seconds. Peripheral pulses intact. LUNGS: Clear to auscultation without rales, rhonchi, wheezing or diminished breath sounds. ABDOMEN: Positive bowel sounds. Soft, nondistended, nontender. No guarding or rebound. No masses or hepatosplenomegally. No CVA tenderness. MUSKULOSKELETAL: ROM intact to all extremities. No joint erythema or tenderness. Normal muscular development. Normal gait. BACK: Examination of the spine reveals no midline spinal deformity or tenderness , mild right lumbar paraspinous soft tissue tenderness without ecchymosis or lesions. No spasm. NEUROLOGICAL: Strength and sensation symmetric and intact throughout. SKIN: Skin normal color, texture and turgor with no lesions or eruptions. Triage Information Reviewed: Yes Vital Signs: Initial Vital Signs Temp 97.8 F 03/28/19 15:10 Pulse 72 03/28/19 15:10 Resp 18 03/28/19 15:10 BP 165/95 03/28/19 15:10 Pulse Ox 98 03/28/19 15:10 Vital Signs Reviewed: Yes Diagnostics - Radiology No standard instances Radiology Interpretation Completed By: Radiologist Summary of Radiographic Findings: Order Information: LUMBARSACRAL 4+ VWS. Accession Number: [id number]. CPT: 25996. HISTORY: pain s/p fall onto ladder. COMPARISONS: None relevant available at the time of dictation. VIEWS: 5 radiographs , Frontal, lateral, coned-down lateral sacral, and bilateral oblique views of the lumbar spine. FINDINGS: ALIGNMENT: The alignment is normal. VERTEBRAL BODIES: The vertebral body heights are normal. The interpedicular distances are normal. No fracture is demonstrated. JOINTS: Mild facet joint arthropathy is noted at L4-L5 and L5-S1 level. INTERVERTEBRAL DISCS : There is mild loss of intervertebral disc height at T12-L1 level. SOFT TISSUE : Unremarkable. OTHER: The pelvis is unremarkable. Surgical clips are noted in the pelvis anteriorly. IMPRESSION: 1. NEGATIVE FOR FRACTURE. 2. MILD FACET JOINT ARTHROPATHY AT L4-L5 AND L5-S1 LEVELS Back Pain Course/Dx - Course Course Of Treatment: 79-year-old male presents for low back pain after fall that occurred 3 days ago. States he was outside cleaning up after power washing his house when he tripped and fell over backward landing on his back on a ladder that was lying on the ground. Reports he was able to get right up and ambulate after the incident. States did not hit his head or lose consciousness. States pain worsens with twisting, bending. Improves with rest, standing and lying. Has taken acetaminophen and tried OTC topical analgesic patch without improvement in pain. Denies chest pain, palpitations, dizziness, lightheadedness, neck pain , numbness, tingling, or weakness of extremities, abdominal pain, nausea, vomiting, hematuria, loss of bowel or bladder control. Afebrile. Hypertensive otherwise VSS. Patient had no midline spinal tenderness or deformity, mild right lumbar paraspinous soft tissue tenderness without ecchymosis or lesions and otherwise normal exam. X-ray showed no acute fracture. Discussed findings with patient including that I cannot rule our a subtle fracture that is not evident on plain x-ray. Recommending conservative treatment for a lumbar back contusion/strain. He is to follow up with his primary care provider in 3-5 days especially if no improvement. Anticipatory guidance and warning symptoms reviewed with patient. Verbalizes understanding and agrees with POC. - Differential Dx/Diagnosis Differential Diagnosis/HQI/PQRI: Fracture, Herniated Disc, Strain Provider Diagnosis: Low back pain Discharge - Sign-Out/Discharge Documenting (check all that apply): Patient Departure All imaging exams completed and their final reports reviewed: Yes - Discharge Plan Condition: Stable Disposition: HOME Patient Education Materials: Back Pain (ED) Referrals: Js Claudio MD [Primary Care Provider] - 3 Days Additional Instructions: The x-ray of your spine showed no evidence of fracture. I suspect that you have a contusion and/or sprain of your lower back. Continue to use acetaminophen (Tylenol) according to directions as needed for pain. Try using ice, heat, or alternating ice then heat to the affected area to help reduce pain. Follow up with your primary care provider in 3-5 days especially if symptoms are not improving. Seek immediate medical attention in the emergency room if you have worsening pain despite taking pain medication, have weakness, numbness, or tingling in the lower extremities, you lose control of your bowels or bladder, are unable to walk, or have any worsening of symptoms. - Billing Disposition and Condition Condition: STABLE Disposition: Home
== END 2019-03-28 16:24 | disposition home or self-care (01) ==
LOC: UCEAST 14:41
DX: M54.5 Low back pain (principal); I10 Essential (primary) hypertension; I50.9 Heart failure, unspecified; I48.91 Unspecified atrial fibrillation; K21.9 Gastro-esophageal reflux disease without esophagitis; Z79.01 Long term (current) use of anticoagulants; Z88.5 Allergy status to narcotic agent
CPT/HCPCS: 72110; 99211; G0463

== ENCOUNTER 2019-05-10 09:48 | Observation (INO) | payer MEDICARE ==
[2019-05-10] MEDS ORDERED: Aspirin 81 mg CHEW TAB* 81 MG TAB.CHEW PO ONE (10:15)
--- NOTE | 2019-05-10 10:20 | ED ---
HPI Chest Pain - HPI Summary HPI Summary: This patient is a 79 year old M presenting to [facility] accompanied by with a chief complaint of chest pain and skin diaphoresis since 05/09/19. Patient states that he has had mild chest pain and diaphoresis episodes three separate times on 05/09/19. Patient drove here to [facility] on 05/09/19 but decided to go home after seeing how busy the ED was. 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 Cohen on 05/10/19 to come to the ED. Patient states that during these episodes he experiences high BP at 160/100 which is abnormal for him. Patient states that his normal BP is usually 145/95. Patient states that he has minor CP in his chest that radiates to his arm during these episodes. The patient rates the pain 0/10 in severity. Symptoms aggravated by nothing. Symptoms alleviated by nothing. Patient states that he took a baby aspirin. Patient reports diaphoresis, chest pain and SOB since resolved. Patient denies recent travel, nausea, vomiting, edema. Patient has a PMHx of coronary artery disease, HTN, cardiovascular disease. Patient has 5 coronary stents and a pacemaker. Patient denies any PMHx of HI and blood clots. Patient denies tobacco use and substance abuse. Patient reports EtOH use. Medications reviewed. Allergies noted. Allergies Allergy/AdvReac Type Severity Reaction Status Date / Time morphine Allergy Unknown Unknown Verified 05/10/19 10:17 Reaction Details Rowckyo-Onj-Hde Reductase Allergy Unknown Unknown Verified 05/10/19 10:17 Inhibitor Reaction Details Home Medications Medication Instructions Recorded Confirmed Type Aspirin 81 mg CHEW TAB* 81 mg PO DAILY 06/15/12 03/28/19 History Multivitamins/Minerals TAB* 1 tab PO DAILY 07/17/16 03/28/19 History [Theragran/minerals TAB*] Apixaban* [Eliquis*] 5 mg PO BID #0 07/22/17 03/28/19 Rx Clopidogrel TAB* [Plavix TAB*] 75 mg PO DAILY 04/08/18 03/28/19 History Gluc Murray/Chondro Murray A/Vit C/Mn 1 tab PO DAILY 04/08/18 03/28/19 History [Glucosamine Chondroitin Tab] Lisinopril TAB* [Prinivil TAB 5 5 mg PO DAILY 04/08/18 03/28/19 History MG*] Metoprolol Succinate XL TAB* 50 mg PO BID 04/08/18 03/28/19 History [Toprol XL TAB*] Nitroglycerin TAB 0.4 MG* 0.4 mg SL Q5M PRN 04/08/18 03/28/19 History Dronedarone TAB* [Multaq TAB*] 400 mg PO BID 05/22/18 03/28/19 History Pantoprazole Sodium 40 mg PO DAILY 05/24/18 03/28/19 History Rosuvastatin Calcium [Crestor] 5 mg PO DAILY 05/24/18 03/28/19 History Ranitidine TAB (NF) [Zantac TAB 150 mg PO BEDTIME 09/01/18 03/28/19 History (NF)] - History of Current Complaint Chief Complaint: EDShortnessOfBreath Time Seen by Provider: 05/10/19 10:06 Hx Obtained From: Patient Onset/Duration: Started Days Ago, Still Present Timing: Intermittent Current Severity: None Pain Intensity: 0 Pain Scale Used: 0-10 Numeric Chest Pain Location: Diffuse, Upper Sternal Chest Pain Radiates: Yes Chest Pain Radiates To:: Arm Aggravating Factor(s): Nothing Alleviating Factor(s): Nothing Associated Signs and Symptoms: Positive: Chest Pain, Shortness of Breath - since resolved, Diaphoresis. Negative: Swelling, Nausea, Vomiting, Edema - Additional Pertinent History Primary Care Physician: [id number] - Allergy/Home Medications Allergies/Adverse Reactions: Allergies Allergy/AdvReac Type Severity Reaction Status Date / Time morphine Allergy Unknown Unknown Verified 05/10/19 10:17 Reaction Details Nruwxcd-Sgi-Uki Reductase Allergy Unknown Unknown Verified 05/10/19 10:17 Inhibitor Reaction Details PMH/Surg Hx/FS Hx/Imm Hx Endocrine/Hematology History: Reports: Hx Anticoagulant Therapy - eloquis Denies: Hx Diabetes, Hx Unexplained Bleeding Cardiovascular History: Reports: Hx Angina, Hx Angioplasty, Hx Coronary Artery Disease, Hx Hypercholesterolemia, Hx Hypertension, Hx Myocardial Infarction, Hx Pacemaker/ICD Denies: Hx Auto Implanted Cardiovert Defib, Hx Cardiac Arrest, Hx Congenital Heart Disease, Hx Congestive Heart Failure, Hx Deep Vein Thrombosis, Hx Hypotension, Hx Peripheral Vascular Disease, Hx Rheumatic Fever, Hx Syncope, Hx Valvular Heart Disease, Other Cardiovascular Problems/Disorders Respiratory History: Reports: Hx Sleep Apnea - uses CPAP at home Denies: Hx Asthma GI History: Reports: Hx Ulcer - takes omeprazole Denies: Other GI Disorders History: Reports: Other Problems/Disorders - prostate ca approx 2007 prostatectomy Denies: Hx Renal Disease Sensory History: Reports: Hx Cataracts - 2 removed one each eye, Hx Contacts or Glasses, Hx Hearing Aid, Hx Hearing Problem Denies: Hx Legally Blind, Hx Deafness Comment Only: Other Sensory Impairments - hx left eye detatched retina Opthamlomology History: Reports: Hx Cataracts - 2 removed one each eye, Hx Contacts or Glasses Denies: Hx Legally Blind Comment Only: Other Sensory Impairments - hx left eye detatched retina Neurological History: Reports: Hx Transient Ischemic Attacks (TIA) - drs with dr renee, ? recent tia Denies: Other Neuro Impairments/Disorders Psychiatric History: Denies: Hx Panic Disorder, Hx Schizophrenia - Cancer History Cancer Type, Location and Year: PROSTATE Hx Chemotherapy: No Hx Radiation Therapy: No - Surgical History Surgical History: Yes Surgery Procedure, Year, and Place: BY PASS 1992, HERNIA 2008, PROSTATECTOMY, EYE PUCKER REPAIR, DETACHED RETINA(CLEARED FOR MRI NOVEMBER [address] VICK) TONSILECTOMY, STERNUM WIRES, STENTS 2001,2009. stents x5. varicose veins. eye surgeries - Immunization History Date of Influenza Vaccine: 2017 Infectious Disease History: No Infectious Disease History: Denies: Hx Clostridium Difficile, Hx Hepatitis, Hx Human Immunodeficiency Virus (HIV), Hx of Known/Suspected MRSA, Hx Shingles, Hx Tuberculosis, Traveled Outside the [place] in Last 30 Days - Family History Known Family History: Positive: Cardiac Disease - Social History Alcohol Use: Occasionally Alcohol Amount: reports a couple of drink/week Hx Substance Use: No Substance Use Type: Reports: None Hx Tobacco Use: No Smoking Status (MU): Never Smoked Tobacco Review of Systems Positive: Skin Diaphoresis Positive: Chest Pain Positive: Shortness Of Breath - since resloved Negative: Vomiting, Nausea Negative: Edema All Other Systems Reviewed And Are Negative: Yes Physical Exam - Summary Physical Exam Summary: Constitutional: Well-developed, Well-nourished, Alert. (-) Distressed Skin: Warm, Dry HENT: Normocephalic; Atraumatic Eyes: Conjunctiva normal Neck: Musculoskeletal ROM normal neck. (-) JVD, (-) Stridor, (-) Tracheal deviation Cardio: Rhythm regular, rate normal, Heart sounds normal; Intact distal pulses; The pedal pulses are 2+ and symmetric. Radial pulses are 2+ and symmetric. (-) Murmur Pulmonary/Chest wall: Effort normal. (-) Respiratory distress, (-) Wheezes, (-) Rales Abd: Soft, (-) tenderness, (-) Distension, (-) Guarding, (-) Rebound Musculoskeletal: (-) Edema, Good pulses bilaterally in radius, No calf tenderness, No venous cords, No pain with dorsiflexion of foot Lymph: (-) Cervical adenopathy Neuro: Alert, Oriented x3 Psych: Mood and affect Normal Triage Information Reviewed: Yes Vital Signs On Initial Exam: Initial Vitals Temp Pulse Resp BP Pulse Ox 97.6 F 76 20 148/79 100 05/10/19 10:03 05/10/19 10:03 05/10/19 10:03 05/10/19 10:03 05/10/19 10:03 Vital Signs Reviewed: Yes Diagnostics - Vital Signs Vital Signs Temp Pulse Resp BP Pulse Ox 05/10/19 10:03 97.6 F 76 20 148/79 100 - Laboratory Result Diagrams: 05/10/19 10:36 05/10/19 10:36 Lab Statement: Any lab studies that have been ordered have been reviewed, and results considered in the medical decision making process. - Radiology Chest Xray Radiology Interpretation Completed By: Radiologist Summary of Radiographic Findings: Chest Xray reveals, per radiologist, IMPRESSION: NO ACTIVE CARDIOPULMONARY DISEASE. ED Physician has reviewed this report. - EKG 0951 Cardiac Rate: Other Rate - 1st Degree Heart Rate at 76 bpm EKG Rhythm: 1st Degree HB ST Segment: Normal EKG Comparison: No Significant Change - 09/29/18 Summary of EKG Findings: EKG reveals a first degree heart rate at 76 with no obvious pacemaker spikes and no ST segment changes. No significant changes compared to prior EKG on 09/29/18. Re-Evaluation - Re-Evaluation First Eval Re-Evaluation Time: 11:09 Change: Unchanged Comment: New RN spoke to [facility] and reported that patient's pacemaker read sick sinus with 2 non sustained VT at 2 sec and 4 sec no Afib. Second Eval Re-Evaluation Time: 11:35 Change: Unchanged Comment: Dr. Shah discussed admission with patient and patient's family. Patient and patient's family are agreeable with this plan. Chest Pain Course/Dx - Course Course Of Treatment: Is here with 3 episodes of diaphoresis, chest pain, shortness of breath that occurred yesterday. Patient's high risk given his cardiac history. Patient's last stress test was in March 2018 per chart review. Patient had an EKG performed here which showed no evidence of ischemia. Patient had negative CBC, CMP, troponin, chest x-ray. Patient had his pacemaker interrogated which showed a functional pacemaker. Patient was admitted to medicine for further evaluation and management. - Diagnoses Provider Diagnoses: Chest pain, Diaphoresis, Hypertension - Provider Notifications Discussed Care Of Patient With: Marine Padilla - Hospitalist Time Discussed With Above Provider: 11:45 Instructed by Provider To: Other - Dr. Shah discussed patient's care with Dr. Padilla who agrees patient should be admitted. Discharge ED - Sign-Out/Discharge Documenting (check all that apply): Patient Departure - admitted Patient Received Moderate/Deep Sedation with Procedure: No - Discharge Plan Condition: Stable Disposition: ADMITTED TO [facility] Referrals: Js Claudio MD [Primary Care Provider] - - Billing Disposition and Condition Condition: STABLE Disposition: Admitted to [facility] - Attestation Statements Document Initiated by Evitaibe: Yes Documenting Evitaibe: Randee Gong Provider For Whom Bandar is Documenting (Include Credential): Dr. Aristeo Shah MD Scribe Attestation: Randee Mijares scribed for Dr. Aristeo Shah MD on 05/10/19 at 1304. Scribe Documentation Reviewed: Yes Provider Attestation: The documentation as recorded by the Randee forde accurately reflects the service I personally performed and the decisions made by me, Dr. Aristeo Shah MD Status of Scribe Document: Viewed
--- OUTSIDE RECORDS SUMMARY | 2019-05-10 10:51 | XMS REPORT | Continuity of Care Document ---
:1940 External Reference #:[id number] Author Name Bettina SellersJason elias-Юлия Address [address] [place] [address] Problems Active Problems Provider Date Disorder of cardiovascular system Js Claudio M.D. Onset: 02/25/2006 Hyperlipidemia Js Claudio M.D. Onset: 02/25/2006 Benign essential hypertension Js Claudio M.D. Onset: 02/25/2006 Migraine Js Claudio M.D. Onset: 12/07/2006 Gastroesophageal reflux disease Js Claudio M.D. Onset: 12/15/2007 Raynaud's disease Js Claudio M.D. Onset: 12/15/2007 Transient cerebral ischemia Js Claudio M.D. Onset: 11/25/2011 Eruption Js Claudio M.D. Onset: 05/31/2012 Folliculitis Js Claudio M.D. Onset: 05/31/2012 Acute upper respiratory infection Js Claudio M.D. Onset: 07/26/2012 Acute bronchitis Js Claudio M.D. Onset: 07/26/2012 Headache Js Claudio M.D. Onset: 02/04/2013 Neck pain Js Claudio M.D. Onset: 02/04/2013 Diverticulitis of colon Js Claudio M.D. Onset: 08/08/2013 Acute pharyngitis Js Claudio M.D. Onset: 01/23/2014 Lymphadenopathy Js Claudio M.D. Onset: 01/23/2014 Disorder of teeth AND/OR supporting Js Claudio M.D. Onset: 03/20/2014 structures Pain in limb Js Claudio M.D. Onset: 04/25/2014 Neuralgia Js Claudio M.D. Onset: 04/25/2014 Cellulitis and abscess of lower limb Yuri Pendleton M.D. Onset: 2014 Neoplasm of uncertain behavior of skin Js Claudio M.D. Onset: 02/06/2015 Myalgia & Myositis Unspecified Js Claudio M.D. Onset: 03/06/2015 Breathing painful Js Claudio M.D. Onset: 07/22/2016 Abdominal pain Yuri Pendleton M.D. Onset: 01/17/2017 Persistent atrial fibrillation Yuri Pendleton M.D. Onset: 01/17/2017 Cardiac pacemaker in situ Js Claudio M.D. Onset: 08/04/2017 Chest pain Js Claudio M.D. Onset: 04/16/2018 Paroxysmal atrial fibrillation Js Claudio M.D. Onset: 04/16/2018 Abnormal glucose level Js Claudio M.D. Onset: 04/16/2018 Left upper quadrant pain Js Claudio M.D. Onset: 06/04/2018 Epigastric pain Js Claudio M.D. Onset: 06/04/2018 Malignant tumor of prostate Js Claudio M.D. Onset: 06/28/2018 Obstructive sleep apnea syndrome Js Claudio M.D. Onset: 06/28/2018 Other hyperlipidemia Js Claudio M.D. Onset: 10/18/2018 Wrist joint pain Js Claudio M.D. Onset: 02/07/2019 Skin sensation disturbance Js Claudio M.D. Onset: 02/07/2019 Social History Type Date Description Comments Sex Unknown Tobacco Use Start: Unknown Nonsmoker Tobacco Use Start: Unknown Patient has never smoked Smoking Status Reviewed: 04/06/19 Patient has never smoked Allergies, Adverse Reactions, Alerts Active Allergies Reaction Severity Comments Date Morphine 05/24/2010 Simvastatin Muscle Pains 05/24/2010 Medications Active Medications SIG Qnty Indications Ordering Date Provider Physical Therapy treatment and M54.5 Bettina 04/06/2019 evaluation of low [place], Afnp-C back pain, recent contusion Tramadol HCL 1-2 by mouth at hs 30tabs M54.5 Bettina 04/06/2019 50mg for back pain [place], Afnp-C Tablets Ranitidine HCL take one tablet by 60tabs R10.13 Js Claudio, 06/04/2018 150mg mouth once a day M.D. Tablets as needed for stomach Pantoprazole Sodium 1 by mouth every 90tabs Js Claudio, 08/20/2017 day M.D. 40mg Tablets Multivitamin 1 PO qd 0units Js Claudio, 10/15/2005 M.DArnold Aspirin 1 po qd Unknown 81mg Tablets Eliquis 1 po bid Unknown 5mg Tablets Rosuvastatin Calcium 1 by mouth every Unknown day 5mg Tablets Lisinopril 1 by mouth every Unknown 5mg Tablets day Clopidogrel Bisulfate 1 by mouth every Unknown day 75mg Tablets Toprol XL 1 po bid Unknown 50mg Tablets ER 24HR Nitrostat 1 sl as needed, Unknown 0.4mg Tablets repeat every 5 Sub minutes up to three tabs, call 911 Glucosamine 1 po qd Unknown Chondroitin Complex 500-400mg Capsules Multaq take one tablet by Unknown 400mg Tablets mouth twice a day Immunizations CPT Code Status Date Vaccine Lot # [id number] Given 05/21/2018 High-Dose, Influenza Virus Vacccine-fluzone 65 [id number] and older 78619 Given 06/24/2017 Pneumococcal Conjugate Vacc-13 [id number] 69327 Given 05/02/2017 High-Dose, Influenza Virus Vacccine-fluzone 65 [id number] and older 29280 Given 05/12/2016 High-Dose, Influenza Virus Vacccine-fluzone 65 [id number] and older 35796 Given 06/26/2015 High-Dose, Influenza Virus Vacccine-fluzone 65 [id number] and older 79909 Given 06/15/2014 High-Dose, Influenza Virus Vacccine-fluzone 65 [id number] and older 04434 Given 03/30/2014 Zostivax [id number] Q2038 Given 06/04/2013 Split Influenza Medicare: Fluzone [id number] 00462 Given 05/21/2012 High-Dose, Influenza Virus Vacccine-fluzone 65 [id number] and older Q2038 Given 06/03/2011 Split Influenza Medicare: Fluzone [id number] 70252 Given 05/11/2010 DO Not Use Split Influenza Virus Vaccine [id number] 41921 Given 06/21/2008 DO Not Use Split Influenza Virus Vaccine [id number] 41184 Given 06/21/2008 Pneumococcal Immunization [id number] 51285 Given 06/09/2007 DO Not Use Split Influenza Virus Vaccine [id number] 74139 Given 06/24/2006 DO Not Use Split Influenza Virus Vaccine [id number] 86889 Given 07/01/2005 Td Immunization, For Use In Individuals 7 Years Or Older 20230 Given 07/01/2005 DO Not Use Split Influenza Virus Vaccine 14508 Given 06/14/2003 DO Not Use Split Influenza Virus Vaccine 80958 Given 06/14/2003 DO Not Use Split Influenza Virus Vaccine 72862 Given 06/17/2002 DO Not Use Split Influenza Virus Vaccine 35940 Given 07/22/2001 Influenza Immunization 51200 Given 07/22/2001 DO Not Use Split Influenza Virus Vaccine Vital Signs Date Vital Result Comment 04/06/2019 11:18am BP Systolic 142 mmHg BP Diastolic 70 mmHg Heart Rate 72 /min Body Temperature 97.7 F Respiratory Rate 12 /min Height 71 inches 5'11" per pt Weight 194.00 lb BMI (Body Mass Index) 27.1 kg/m2 02/07/2019 10:50am BP Systolic 146 mmHg BP Diastolic 82 mmHg Heart Rate 78 /min Body Temperature 97.7 F Respiratory Rate 20 /min Weight 190.00 lb Results Test Date Facility Test Result H/L Range Note Laboratory test 01/24/2019 [facility] [place] SEE RESULT 1 finding BELOW Laboratory test 01/24/2019 [facility] Surgical SEE RESULT 2 finding Pathology Order BELOW Laboratory test 12/17/2018 [facility] PSA Diagnostic < 0.008 Normal 0-4.0 3 finding ng/mL Laboratory test 11/16/2018 [facility] C-Reactive 0.7 mg/L 0.0-4.[address] Protein, [place] [address] (607)- - LD Isoenzymes 11/16/2018 [facility] LDH 198 IU/L 549-386 [address] [place] [address] (60)- - (LD) Fraction 1 31 % 17-32 (LD) Fraction 2 33 % 25-40 (LD) Fraction 3 18 % 17-27 (LD) Fraction 4 8 % 5-13 (LD) Fraction 5 10 % 4-20 CK Isoenzymes, Serum 11/16/2018 [facility] Macro Type 2 0 % Not Observed [address] [place] [address] (600)- - CK-mm 100 % 97-100 Macro Type 1 0 % Not Observed CK-MB 0 % 0-3 CK-BB 0 % 0 Creatine Kinase,Total 84 U/L 24-204 CBC Electronic Fma 11/16/2018 Roney Tang([facility]) WBC 5.1 x10^3/UL 4.0- 10.0 RBC 5.24 x10^6/UL 3.93-6.00 HGB 16.2 g/dL 12.0-17.0 HCT 48 % 35-50 MCV 91.4 fL 80.0-95.0 MCH 30.9 pg 25.6-32.2 MCHC 33.8 g/dL 32.2-36.0 RDW-CV 12.8 % 11.6-14.4 PLT 180 x10^3/UL 163-400 MPV 11.2 fL 9.4-12.4 Devika# 2.71 x10^3/UL 1.56-6.13 Lymph# 1.19 x10^3/UL 1.18-3.74 [place]# 0.77 x10^3/UL 0.24-0.82 Eos # 0.4 x10^3/UL 0.0-0.5 Baso # 0.06 x10^3/UL 0.01-0.08 Devika% 53.0 % 34.0-70.0 Lymph % 23.3 % 20.0-52.0 [place]% 15.1 % High 5.0-12.0 5 Eos% 7.2 % High 0.7-7.0 Baso% 1.2 % 0.1-1.2 1 SEE RESULT BELOW Name: ANDRZEJ JORGENSEN : [address]: Mike Chan MD Acct: [id number] Unit: [id number] AGE: 79 Location: ENDO Re01/24/19 SEX: M Status: REG REF SPEC: [id number] JIN: 01/24/19-[address]: Mike Chan MD REQ: [id number] RECD: 01/24/19 STATUS: REMIGIO TAYLOR DR: Js Claudio MD _ SOURCE: GAS ANTRUM SPDESC: ORDERED: Clotest Procedure Result Reported Site Clotest Final 01/25/19717 ML Clotest Negative * ML - Main Lab . END OF REPORT DEPARTMENT OF PATHOLOGY, [address] [place] [address] Herson Molina M.D. Director [facility] # [id number] 2 SEE RESULT BELOW Name: JOSLYNANDRZEJ : [address]: Mike Chan MD Acct: [id number] Unit: [id number] AGE: 79 Location: ENDO Re01/24/19 SEX: M Status: DEP REF SPEC: [id number] JIN: 01/24/19 [facility] DR: Mike Chan MD REQ: [id number] RECD: 01/24/19 STATUS: ANDREI TAYLOR DR: Js Claudio MD _ ORDERED: LEVEL 4/3, IMMUNO-FIRST ADDENDUM Addendum: An immunohistochemical stain for Helicobacter pylori-like organisms was performed with appropriate controls on part 3 and is negative. Addendum Signed (signature on file) Herson Molina MD 1726 FINAL DIAGNOSIS 1. Small bowel, duodenum, biopsy: -- Partially denuded small bowel mucosa with normal villous architecture and no significant pathologic abnormality. 2. Stomach, polyp, biopsy: -- Fundic gland polyp. 3. Stomach, body, biopsy: -- Gastric fundic gland mucosa with mild superficial chronic inflammation. -- No active gastritis or Helicobacter pylori-like organisms identified. Comment: An immunohistochemical stain for Helicobacter pylori-like organisms is pending in part 3 and will be reported in an addendum. CONTINUED ON NEXT PAGE DEPARTMENT OF PATHOLOGY, [address] [place] [address] Herson Molina M.D. Director [facility] # [id number] RUN DATE: 01/26/19 [facility] LAB LIVE PAGE 2 Patient: ANDRZEJ JORGENSEN [id number] (Continued) CLINICAL HISTORY (Continued) CLINICAL HISTORY Right upper quadrant pain POST-OPERATIVE DIAGNOSIS EGD: esophagus - normal; gastric - biopsy, polyp - biopsy, body biopsy; duodenum - biopsy GROSS DESCRIPTION 1. The specimen is received in formalin labeled, Biopsy Duodenum, and consists of two lynne-pink irregular soft tissue fragments measuring 0.4 x 0.2 x 0.2 cm and 0.6 x 0.2 x 0.1 cm which are submitted entirely in one cassette. 2. The specimen is received in formalin labeled, Biopsy Gastric Polyp, and consists of a 0.5 x 0.3 by up to 0.2 cm lynne-pink irregular to polypoid soft tissue fragment which is submitted entirely in one cassette. 3. The specimen is received in formalin labeled, Biopsy Gastric Body, and consists of a 0.8 by up to 0.3 x 0.1 cm lynne-pink irregular soft tissue fragment which is submitted entirely in one cassette. Signed by and Reported on: Herson Molina MD 07/05 1038 END OF REPORT DEPARTMENT OF PATHOLOGY, [address] [place] [address] Herson Molina M.D. Director [facility] # [id number] 3 Serum levels of PSA measured using the Aldo Bishop DXI Hybritech immunoassay should not be interpreted as absolute evidence of the presence or absence of disease. The PSA value should be used in conjunction with other pertinent clinical diagnostic procedures. A PSA value in the range of 0.1 to 0.6 ng/ml is indeterminate if being used as an indicator of recurrent or residual disease. The values obtained with different assay methods or kits cannot be used interchangeably. 4 SPLIT SPECIMEN 5 consistent w/ previous results Procedures Date Code Description Status 08/17/2013 72849509 Colonoscopy Completed 11/11/2007 [id number] Colonoscopy Completed Medical Devices Description No Information Available Encounters Type Date Location Provider Dx Diagnosis Office Visit 02/07/2019 Main Office Js Claudio, M25.531 Pain in right wrist 11:00a M.DArnold R20.0 Anesthesia of skin I10 Essential (primary) hypertension R07.89 Other chest pain I25.10 Athscl heart disease of [place] coronary artery w/o ang pctrs Office Visit 11/16/2018 9:00a Main Office Camille Deras S57.81xA Crushing injury BRADY Arenas of right forearm, initial encounter W22.8xxA Striking against or struck by other objects, init encntr Office Visit 10/18/2018 2:00p Main Office Js Claudio, I10 Essential ( primary) M.DArnold hypertension I48.0 Paroxysmal atrial fibrillation I25.10 Athscl heart disease of [place] coronary artery w/o ang pctrs Z95.0 Presence of cardiac pacemaker K21.9 Gastro-esophageal reflux disease without esophagitis E78.49 Other hyperlipidemia Assessments Date Code Description Provider 04/06/2019 M54.5 Low back pain Dannie Wing 04/06/2019 W01.198A Fall on same level from slipping, Jason Wing tripping and stumbling with subsequent striking against other object, initial encounter 02/07/2019 M25.531 Pain in right wrist Js Claudio M.D. 02/07/2019 R20.0 Anesthesia of skin Js Claudio M.D. 02/07/2019 I10 Essential (primary) hypertension Js Claudio M.D. 02/07/2019 R07.89 Other chest pain Js Claudio M.D. 02/07/2019 I25.10 Atherosclerotic heart disease of [place] Js Claudio M.D. coronary artery with 11/16/2018 S57.81xA Crushing injury of right forearm, Camille Arenas NP initial encounter 11/16/2018 W22.8xxA Striking against or struck by other Camille Arenas NP objects, initial encount 10/18/2018 I10 Essential (primary) hypertension Js Claudio M.D. 10/18/2018 I48.0 Paroxysmal atrial fibrillation Js Claudio M.D. 10/18/2018 I25.10 Atherosclerotic heart disease of [place] Js Claudio M.D. coronary artery with 10/18/2018 Z95.0 Presence of cardiac pacemaker Js Claudio M.D. 10/18/2018 K21.9 Gastro-esophageal reflux disease without Js Claudio M.D. esophagitis 10/18/2018 E78.49 Other hyperlipidemia Js Claudio M.D. Plan of Treatment Future Appointment(s):04/25/2019 1:00 pm - Js Claudio M.D. at Main [facility]7604/06/2019 - Jason Wing-CM54.5 Low back painNew Medication: Physical Therapy - treatment and evaluation of low back pain, recent contusionTramadol HCL 50 mg - 1-2 by mouth at for back painFollow up:Followup :. (Follow up)W01.198A Fall on same level from slipping, tripping and stumbling with subsequent striking against other object, initial encounterAllComments: Medication Management Patient Understands medications he's taking? Yes No Are there Barriersto Adherence? Yes No Has the patient been asked about herbal supplements and therapies, and OTC meds? Yes No Care Plan1. Patient has been queried about patient's goals/preferences and functional/lifestyle goals at relevant visits. If relevant, describe: na2. Treatment goals asexplained to the patient: abovepain relief 3. Are there barriers to meeting treatment goals? Yes No If Yes, please describe:4. Self-Management goals as described to the patient: Yes No continue local measures pt consult , trial tramadol at hs f/u if no better or sx worsen Functional Status Description No Information Available Mental Status Description No Information Available Referrals Description No Information Available
[2019-05-10 10:52] LABS: ABS Basophils 0.1 10^3/ul (0-0.2); ABS Eosinophils 0.3 10^3/ul (0-0.6); ABS Monocytes 0.5 10^3/ul (0-0.8); ABS Neutrophils 2.7 10^3/ul (1.5-7.7); Eosinophil % 6.1 %; Hematocrit 45 % (42-52); Hemoglobin 15.3 g/dL (14.0-18.0); Lymphocyte % 22.8 %; Mean Corpuscular HGB Conc 34 g/dL (31-36); Mean Corpuscular Hemoglobin 31 pg (27-31); Mean Corpuscular Volume 92 fL (80-94); Mean Platelet Volume 9.1 fL (7.4-10.4); Platelet Count 139 10^3/uL (150-450); Red Blood Count 4.94 10^6 /uL (4.18-5.48); Red Cell Distribution Width 13 % (10-15); White Blood Count 4.5 10^3/uL (3.5-10.8)
[2019-05-10 11:15] LABS: Albumin 3.8 g/dL (3.2-5.2); Albumin/Globulin Ratio 1.5 (1-3); BUN/Creatinine Ratio 13.8 (8-20); Calcium 8.4 mg/dL (8.6-10.3); EGFR African American 73.3 (>60); EGFR Non-African American 60.6 (>60); Globulin 2.5 g/dL (2-4); Potassium 4.1 mmol/L (3.5-5.0); Total Bilirubin 0.8 mg/dL (0.2-1.0); Total Protein 6.3 g/dL (6.4-8.9)
[2019-05-10] MEDS ORDERED: Acetaminophen TAB* 325 MG PO PRN (12:56)
[2019-05-10] MEDS ORDERED: Morphine INJ* 2 MG/ML 1 ML SYRINGE (TWO MG - NEW SYRINGE VERSION) IV PRN (12:56)
--- NOTE | 2019-05-10 15:35 | HP ---
CC: Dr. Claudio; Dr. Cohen * HISTORY AND PHYSICAL: DATE OF ADMISSION: 05/10/19 PRIMARY CARE PROVIDER: Dr. Claudio. PAPER SORTER AND COUNTER: Dr. Cohen. CHIEF COMPLAINT: Chest pressure and sweating. HISTORY OF PRESENT ILLNESS: Andrzej Arzola is an 79-year-old male with history of coronary artery disease and status post coronary artery bypass grafting as well as a total of approximately 5 stents and last stent placed into distal RCA in 2016, who presented to the hospital complaining of sweating and chest pains. The patient stated that he had been having those episodes for the past several months. In fact, he saw Dr. Cohen for that issue in February of 2019. The chest pain and sweats would occur in random, but never with exercise. He stated that he was sitting and doing "nothing" and all of a sudden he would get an episode of diaphoresis and occasionally with that he would get upper right-sided chest pressure. The patient stated that it would last minutes and resolve spontaneously. Yesterday, he had 3 episodes, but overall they have been increasing in frequency on approximately every other day , every few days pattern. Once again, it had been ongoing for several months now. The patient stated that he was evaluated in September for chest pain, but he is not aware if that evaluation had to do with this similar issue. During the patient's evaluation by his slot manager in February, it was recommended for the patient to follow up with his primary care provider in regards to the complaints and that they are not likely cardiac related. The patient stated that he somehow did not get to followup with primary care provider in regards to that. Instead, he called Dr. Cohen, who directed the patient to the hospital for evaluation. Here, his troponin is negative and EKG is paced. Nevertheless , he is going to be placed on overnight observation and pharmacologic stress test in the morning. PAST MEDICAL HISTORY: 1. History of coronary artery bypass grafting in 1992. 2. History of total of 5 stents placed, last one in the RCA in July of 2017. 3. History of atrial fibrillation, status post ablation and pacemaker placement for tachybrady syndrome. 4. Hyperlipidemia. 5. Acid reflux. 6. History of TIA in 2014. 7. Obstructive sleep apnea, on CPAP. PAST SURGICAL HISTORY: Includes: 1. Hernia repair. 2. Retinal surgery. 3. Cataract surgery. 4. Prostatectomy. 5. Detached retina in 1990. 6. Tonsillectomy in 1971. 7. Varicose veins in 2010. MEDICATIONS AT HOME: Include: 1. Aspirin 81 mg daily. 2. Plavix 75 mg daily. 3. Multaq 400 mg b.i.d. 4. Glucosamine/chondroitin 1 tablet daily. 5. Lisinopril 5 mg daily. 6. Toprol-XL 50 mg b.i.d. 7. Multivitamin 1 tablet daily. 8. Protonix 40 mg daily. 9. Crestor 5 mg daily. 10. Apixaban 5 mg b.i.d. ALLERGIES: MORPHINE and STATINS, but please also note that the patient had been on rosuvastatin without any issues. FAMILY HISTORY: Positive for father who of sudden cardiac at the age of 62. Mother of acute renal failure. The patient's brothers have history of heart disease. SOCIAL HISTORY: The patient denies any tobacco, alcohol, or drug use. His surrogate decision maker is his , aMyela. He is a full code. REVIEW OF SYSTEMS: Please see history of present illness. In addition to above mentioned, the patient stated that he has had no problems with exercise intolerance. In fact, he had been very active on a daily basis without any problems with exercise and the diaphoresis and pains that develop usually at rest. All the remaining 12 systems were reviewed with the patient and were otherwise negative. PHYSICAL EXAMINATION GENERAL: The patient is a very pleasant 79-year-old male, who is in no acute distress. Alert, awake, and oriented x3. VITAL SIGNS: Blood pressure of 166/88, heart rate of 78 and regular, respiratory rate 14, oxygen saturation 96% on room air, temperature of 98.0. HEENT: Head: Atraumatic, normocephalic. Eyes: Pupils are equal, reactive to light and accommodation. Oropharynx is clear. Mucosa moist. NECK: Supple. No JVD. No bruits bilaterally. RESPIRATORY: Clear to auscultation bilaterally. CARDIOVASCULAR: Regular rate and rhythm. No murmur. ABDOMEN: Soft, nontender. Bowel sounds are present in all 4 quadrants. EXTREMITIES: There is no edema. Pulses are +2 bilaterally. No clubbing or cyanosis. NEUROLOGIC: Speech is clear. Cranial nerves II through XII grossly intact. Motor strength is 5/5 bilaterally. DIAGNOSTIC STUDIES/LAB DATA: Laboratory data showed white blood cell count of 4.5, hemoglobin of 15.3, hematocrit of 45, and platelets of 139. Sodium was 138 , potassium 4.1, chloride 107, carbon dioxide 27, BUN 16, creatinine 1.16. Liver function tests unremarkable. Brain natriuretic peptide was 235. Troponin of 0. The patient's EKG showed paced rhythm with a heart rate of 76 beats per minute with prolonged SC interval and no ST changes. Comparing with an EKG from September 2018, it looked similar. Portable chest x-ray, impression: "No active cardiopulmonary disease." ASSESSMENT AND PLAN: 1. Episodes of chest pain and diaphoresis. At this point, the patient has had those episodes for several months. His initial cardiac workup is unremarkable. The patient is going to be placed on overnight observation and placed for pharmacologic stress test in the morning. I will continue all of his cardiac medications including the aspirin and Plavix as well as Eliquis. 2. The patient has history of atrial fibrillation, status post ablation and pacemaker placement. Currently, he is in paced rhythm. We will continue Multaq. 3. For DVT prophylaxis, Eliquis is going to be continued. 4. For hypertension, his lisinopril is going to be continued. 5. The patient's code status is full and his surrogate is his . TIME SPENT: Approximately 62 minutes was spent on admission of this patient, more than half that time was spent [id number] with the patient during the interview and physical exam. [id number]/[facility] #: [id number] [place]
[2019-05-10] MEDS: Dronedarone TAB* 400 MG PO SCH (21:37)
[2019-05-10] MEDS: Apixaban* 5 MG TAB PO SCH (21:37)
[2019-05-10] MEDS: Metoprolol Succinate XL TAB* 50 MG PO SCH (21:38)
[2019-05-10] MEDS ORDERED: Psyllium PAK PO SCH (22:00)
[2019-05-10] MEDS ORDERED: Lisinopril TAB* 5 MG PO SCH (22:00)
[2019-05-11] MEDS ORDERED: Multivitamins/Minerals TAB PO SCH (09:00)
[2019-05-11] MEDS ORDERED: Aspirin 81 mg CHEW TAB* 81 MG TAB.CHEW PO SCH (09:00)
[2019-05-11] MEDS ORDERED: Pantoprazole TAB * 40 MG TAB PO SCH (09:00)
[2019-05-11] MEDS ORDERED: Clopidogrel TAB* 75 MG PO SCH (09:00)
[2019-05-11] MEDS: Dronedarone TAB* 400 MG PO SCH (09:01)
[2019-05-11] MEDS: Metoprolol Succinate XL TAB* 50 MG PO SCH (09:01)
[2019-05-11] MEDS ORDERED: Regadenoson* 0.4 MG/5 ML SYRINGE ONE (10:56)
[2019-05-11] MEDS ORDERED: Aminophylline IV* 25 MG/ML 10 ML VIAL ONE (10:57)
[2019-05-11] MEDS: Apixaban* 5 MG TAB PO SCH (13:41)
[2019-05-11 14:10] LABS: TSH (Thyroid Stimulating Horm) 1.01 mcIU/mL (0.34-5.60)
[2019-05-11 15:42] VITALS: BP 140/79
--- NOTE | 2019-05-11 21:40 | DS ---
CC: Dr. Claudio; Dr. Cohen; Dr. Holm * DISCHARGE SUMMARY: DATE OF ADMISSION: 05/10/19 DATE OF DISCHARGE: 05/11/19 DISPOSITION AT DISCHARGE: Home. CONDITION ON DISCHARGE: Stable. DISCHARGE DIAGNOSIS: Chest pain with low probability cardiac stress test documented on 05/11/19. LABORATORY DATA THROUGHOUT THE HOSPITAL STAY: Included troponin 0 throughout the hospital stay. Cardiac stress test. Please note that the patient underwent a chemical cardiac stress test with a nuclear imaging reported as "suggestion of a small region of stress-induced ischemia at the mid anterior wall, new compared with the 2000 exam. Low normal range estimated left ventricular ejection fraction. Akinesia of the septum and hypokinesia of the anterior wall was similar to the prior exam. Assessment: "low risk based on the nuclear portion." The EKG part of the stress test was also unremarkable. After discussion of the cardiac stress test results and viewing it with the [id number] after extrapolating patient's gut and diaphragmatic attenuation, the patient's stress test appears basically to have no reversible ischemia. HOSPITALIZATION COURSE: Andrzej Arzola is an 79-year-old male with history of coronary artery disease, who presented to the hospital complaining of episodes of sweating and upper sternal chest pressure that occur and lasts minutes, occur usually when he is not exercising. The patient has had no problems with exercise tolerance. The symptoms have been intermittently ongoing for the past several months dating back to approximately 8 months ago. The patient once again stated that he had no problems with exercise tolerance and he is rather active. The patient was observed on telemetry monitoring bed and cardiac stress test was noted to have the results as above. Furthermore, the patient's TSH level was noted to be 1.01. At this point, I discussed with the patient the cardiac stress test is rather unremarkable and also his symptomatology would be atypical for heart disease since he has no symptoms with exercise. It would be worthwhile to explore other possibilities of having sweating episodes including hormonal evaluation. Therefore, I referred the patient back to his primary care provider for further evaluation. Once again, TSH was already checked and was unremarkable. PHYSICAL EXAMINATION AT THE TIME OF DISCHARGE: Unchanged from admission. [id number]/[facility] #: [id number] [place]
== END 2019-05-11 16:40 | disposition home or self-care (01) ==
LOC: ED 09:48 → MEDTELE 12:56
PROVIDERS: ADMIT Internal Medicine; ATTEND Internal Medicine
DX: R07.9 Chest pain, unspecified (principal); I25.10 Atherosclerotic heart disease of native coronary artery without angina pectoris; I10 Essential (primary) hypertension; Z95.5 Presence of coronary angioplasty implant and graft; Z79.82 Long term (current) use of aspirin; I25.2 Old myocardial infarction; R06.02 Shortness of breath; Z79.01 Long term (current) use of anticoagulants; R94.31 Abnormal electrocardiogram [ECG] [EKG]; Z95.0 Presence of cardiac pacemaker; E78.5 Hyperlipidemia, unspecified; Z86.73 Personal history of transient ischemic attack (TIA), and cerebral infarction without residual deficits; K21.9 Gastro-esophageal reflux disease without esophagitis; I48.91 Unspecified atrial fibrillation; Z79.899 Other long term (current) drug therapy
CPT/HCPCS: 36415; 71046; 78452; 80053; 83880; 84443; 84484; 85025; 93005; 93017; 99284; A9270-GY; A9502; G0378; J0280; J2785

== ENCOUNTER 2020-07-03 10:51 | Observation (INO) ==
[2020-07-03 11:43] LABS: ABS Basophils 0.1 10^3/ul (0-0.2); ABS Eosinophils 0.2 10^3/ul (0-0.6); ABS Monocytes 0.6 10^3/ul (0-0.8); ABS Neutrophils 3.9 10^3/ul (1.5-7.7); Eosinophil % 2.7 %; Hematocrit 46 % (42-52); Hemoglobin 15.7 g/dL (14.0-18.0); Lymphocyte % 18.3 %; Mean Corpuscular HGB Conc 34 g/dL (31-36); Mean Corpuscular Hemoglobin 31 pg (27-31); Mean Corpuscular Volume 92 fL (80-94); Mean Platelet Volume 9.3 fL (7.4-10.4); Nucleated Red Blood Cells % 0.1; Platelet Count 153 10^3/uL (150-450); Red Blood Count 5.03 10^6 /uL (4.18-5.48); Red Cell Distribution Width 13 % (10-15); White Blood Count 5.7 10^3/uL (3.5-10.8)
[2020-07-03 12:03] LABS: Albumin/Globulin Ratio 1.5 (1-3); Calcium 8.9 mg/dL (8.6-10.3); EGFR African American 73.9 (>60); Globulin 2.6 g/dL (2-4); Potassium 4.3 mmol/L (3.5-5.0); Total Bilirubin 0.7 mg/dL (0.2-1.0); Total Protein 6.6 g/dL (6.4-8.9)
[2020-07-03] MEDS: Psyllium PAK PO SCH (21:20)
[2020-07-03] MEDS: CMC:Rosuvastatin 5 mg TAB (NF) PO SCH (21:22)
[2020-07-04 06:56] LABS: Blood Urea Nitrogen 15 mg/dL (6-24); CO2 Carbon Dioxide 23 mmol/L (22-32); Calcium 8.2 mg/dL (8.6-10.3); Chloride 106 mmol/L (101-111); EGFR African American 80.3 (>60); EGFR Non-African American 66.3 (>60); Glucose 85 mg/dL (70-100); Sodium 136 mmol/L (135-145)
[2020-07-04 07:10] LABS: Anion Gap 7 mmol/L (2-11)
[2020-07-04 08:46] LABS: ABS Eosinophils 0.4 10^3/ul (0-0.6); ABS Lymphocytes 1.5 10^3/ul (1.0-4.8); ABS Monocytes 0.7 10^3/ul (0-0.8); ABS Neutrophils 2.4 10^3/ul (1.5-7.7); Eosinophil % 7.5 %; Hematocrit 44 % (42-52); Hemoglobin 14.7 g/dL (14.0-18.0); Mean Corpuscular HGB Conc 33 g/dL (31-36); Mean Corpuscular Hemoglobin 31 pg (27-31); Mean Corpuscular Volume 93 fL (80-94); Mean Platelet Volume 9.9 fL (7.4-10.4); Platelet Count 139 10^3/uL (150-450); Red Blood Count 4.75 10^6 /uL (4.18-5.48); Red Cell Distribution Width 13 % (10-15); White Blood Count 5.1 10^3/uL (3.5-10.8)
[2020-07-04] MEDS ORDERED: Omeprazole 20 mg CAP (NF) PO SCH (09:00)
[2020-07-04] MEDS: Multivitamins/Minerals TAB PO SCH (10:15)
[2020-07-04] MEDS: CMC:Rosuvastatin 5 mg TAB (NF) PO SCH (20:54)
[2020-07-04] MEDS: Psyllium PAK PO SCH (20:55)
[2020-07-05] MEDS: Multivitamins/Minerals TAB PO SCH (08:49)
[2020-07-05] MEDS ORDERED: Aminophylline 25 MG/ML VIAL ONE (11:03)
[2020-07-05] MEDS ORDERED: Regadenoson 0.4 MG/5 ML SYRINGE ONE (11:03)
[2020-07-05] MEDS ORDERED: Clotrimazole 1% CREAM 30 gm TOPICAL SCH (13:30)
[2020-07-05 16:10] VITALS: BP 164/88
== END 2020-07-05 17:10 | disposition home or self-care (01) ==
LOC: MED 10:51 → ED 10:51 → MED 16:11
PROVIDERS: ADMIT Internal Medicine; ATTEND Internal Medicine

== ENCOUNTER 2021-04-13 09:57 | Observation (INO) ==
[2021-04-13] MEDS ORDERED: NS 0.9% 1000 ml BAG 1,000 ML IV ONE (10:56)
[2021-04-13 11:03] LABS: ABS Monocytes 0.7 10^3/ul (0-0.8); ABS Neutrophils 12.4 10^3/ul (1.5-7.7); Hematocrit 44 % (42-52); Hemoglobin 14.9 g/dL (14.0-18.0); Lymphocyte % 6.8 %; Mean Corpuscular HGB Conc 34 g/dL (31-36); Mean Corpuscular Hemoglobin 31 pg (27-31); Mean Corpuscular Volume 91 fL (80-94); Mean Platelet Volume 9.8 fL (7.4-10.4); Platelet Count 176 10^3/uL (150-450); Red Blood Count 4.83 10^6 /uL (4.18-5.48); Red Cell Distribution Width 13 % (10-15)
[2021-04-13] MEDS ORDERED: Iodixanol (CONTRAST) 320 MG/ML 100 ML SDV IV ONE (11:11)
[2021-04-13 11:17] LABS: Activated Partial Thrombo Time 29.9 seconds (26.0-38.0); INR 1.61 (0.86-1.15)
[2021-04-13 11:20] LABS: Albumin 4.3 g/dL (3.2-5.2); Albumin/Globulin Ratio 1.5 (1-3); EGFR African American 69.5 (>60); EGFR Non-African American 57.4 (>60); Globulin 2.8 g/dL (2-4); HDL Cholesterol 46.7 mg/dL; Potassium 4.2 mmol/L (3.5-5.0); Total Bilirubin 0.8 mg/dL (0.2-1.0); Total Protein 7.1 g/dL (6.4-8.9)
[2021-04-13 11:22] LABS: Troponin I 0.01 ng/mL (<0.03)
[2021-04-14 06:57] LABS: ABS Monocytes 0.7 10^3/ul (0-0.8); ABS Neutrophils 7.4 10^3/ul (1.5-7.7); Eosinophil % 0.3 %; Hematocrit 42 % (42-52); Hemoglobin 14.5 g/dL (14.0-18.0); Lymphocyte % 10.9 %; Mean Corpuscular HGB Conc 35 g/dL (31-36); Mean Corpuscular Hemoglobin 31 pg (27-31); Mean Corpuscular Volume 90 fL (80-94); Mean Platelet Volume 9.9 fL (7.4-10.4); Nucleated Red Blood Cells % 0.2; Platelet Count 145 10^3/uL (150-450); Red Blood Count 4.62 10^6 /uL (4.18-5.48); Red Cell Distribution Width 14 % (10-15); White Blood Count 9.2 10^3/uL (3.5-10.8)
[2021-04-14 07:01] LABS: Calcium 8.5 mg/dL (8.6-10.3); EGFR African American 78.4 (>60); EGFR Non-African American 64.8 (>60); Potassium 4.4 mmol/L (3.5-5.0)
[2021-04-14] MEDS ORDERED: Perflutren Lipid Microsphere 3 ML VIAL ONE (08:04)
[2021-04-14 14:25] VITALS: BP 123/62
== END 2021-04-14 14:45 | disposition home or self-care (01) ==
LOC: MEDTELE 09:57 → ED 09:57 → MEDTELE 14:13
PROVIDERS: ADMIT Internal Medicine; ATTEND Internal Medicine

== ENCOUNTER 2021-05-13 08:27 | Inpatient (IN) ==
[2021-05-13 11:33] LABS: Hematocrit 42 % (42-52); Hemoglobin 14.1 g/dL (14.0-18.0); Mean Corpuscular HGB Conc 34 g/dL (31-36); Mean Corpuscular Hemoglobin 31 pg (27-31); Mean Corpuscular Volume 93 fL (80-94); Mean Platelet Volume 8.5 fL (7.4-10.4); Platelet Count 137 10^3/uL (150-450); Red Blood Count 4.53 10^6 /uL (4.18-5.48); Red Cell Distribution Width 14 % (10-15); White Blood Count 5.8 10^3/uL (3.5-10.8)
[2021-05-13 11:49] LABS: Calcium 8.7 mg/dL (8.6-10.3); EGFR African American 81.8 (>60); EGFR Non-African American 67.6 (>60); Magnesium 2.1 mg/dL (1.9-2.7); Potassium 4.4 mmol/L (3.5-5.0)
[2021-05-14] MEDS ORDERED: Alteplase (CATHFLO) 2 MG VIAL IV ONE ×2 (02:25→02:26)
[2021-05-14] MEDS: Multivitamins/Minerals TAB PO SCH (09:31)
[2021-05-14 10:27] LABS: Calcium 8.9 mg/dL (8.6-10.3); EGFR African American 88.6 (>60); EGFR Non-African American 73.2 (>60); Magnesium 1.9 mg/dL (1.9-2.7); Potassium 4.4 mmol/L (3.5-5.0)
[2021-05-15] MEDS: Multivitamins/Minerals TAB PO SCH (09:46)
[2021-05-15 10:47] LABS: Calcium 8.9 mg/dL (8.6-10.3); EGFR African American 79.2 (>60); EGFR Non-African American 65.5 (>60); Magnesium 1.9 mg/dL (1.9-2.7); Potassium 4.2 mmol/L (3.5-5.0)
[2021-05-15 16:21] VITALS: BP 143/68
== END 2021-05-15 17:22 | disposition home or self-care (01) | DRG 950 ==
LOC: MEDTELE 09:31
PROVIDERS: ADMIT Specialist; ATTEND Specialist

== ENCOUNTER 2021-08-26 18:58 | Observation (INO) ==
[2021-08-26] MEDS ORDERED: NS 0.9% 1000 ml BAG 1,000 ML IV ONE (19:06)
[2021-08-26 19:27] LABS: ABS Eosinophils 0.1 10^3/ul (0-0.6); ABS Lymphocytes 1.2 10^3/ul (1.0-4.8); ABS Monocytes 0.7 10^3/ul (0-0.8); ABS Neutrophils 4.7 10^3/ul (1.5-7.7); Eosinophil % 1.4 %; Hematocrit 44 % (42-52); Hemoglobin 15.3 g/dL (14.0-18.0); Lymphocyte % 17.7 %; Mean Corpuscular HGB Conc 35 g/dL (31-36); Mean Corpuscular Hemoglobin 33 pg (27-31); Mean Corpuscular Volume 94 fL (80-94); Mean Platelet Volume 8.1 fL (7.4-10.4); Platelet Count 182 10^3/uL (150-450); Red Cell Distribution Width 13 % (10-15); White Blood Count 6.7 10^3/uL (3.5-10.8)
[2021-08-26 20:32] LABS: Activated Partial Thrombo Time 25.1 seconds (26.0-38.0); INR 1.14 (0.86-1.15)
[2021-08-26 20:42] LABS: Albumin 3.9 g/dL (3.2-5.2); Calcium 8.6 mg/dL (8.6-10.3); Potassium 4.4 mmol/L (3.5-5.0); Total Bilirubin 0.6 mg/dL (0.2-1.0)
[2021-08-26 20:48] LABS: HDL Cholesterol 43.6 mg/dL; Total Protein 5.9 g/dL (6.4-8.9); eGFR CKD-EPI 68.5 (>60)
[2021-08-26] MEDS ORDERED: Iohexol 350 (CONTRAST) 500 ML MDV IV ONE (21:00)
[2021-08-26] MEDS: Ticagrelor 60 mg TAB (NF) PO ONE ×2 (21:26→21:29)
[2021-08-27 06:50] LABS: ABS Eosinophils 0.1 10^3/ul (0-0.6); ABS Lymphocytes 1.2 10^3/ul (1.0-4.8); ABS Monocytes 0.6 10^3/ul (0-0.8); ABS Neutrophils 4.3 10^3/ul (1.5-7.7); Eosinophil % 1.4 %; Hematocrit 42 % (42-52); Hemoglobin 14.4 g/dL (14.0-18.0); Lymphocyte % 18.4 %; Mean Corpuscular HGB Conc 34 g/dL (31-36); Mean Corpuscular Hemoglobin 32 pg (27-31); Mean Corpuscular Volume 94 fL (80-94); Mean Platelet Volume 7.9 fL (7.4-10.4); Nucleated Red Blood Cells % 0.1; Platelet Count 164 10^3/uL (150-450); Red Blood Count 4.45 10^6 /uL (4.18-5.48); Red Cell Distribution Width 13 % (10-15); White Blood Count 6.2 10^3/uL (3.5-10.8)
[2021-08-27 07:05] LABS: Anion Gap 6 mmol/L (2-11); Blood Urea Nitrogen 13 mg/dL (6-24); CO2 Carbon Dioxide 27 mmol/L (22-32); Calcium 8.3 mg/dL (8.6-10.3); Chloride 102 mmol/L (101-111); Cholesterol 118 mg/dL; Glucose 111 mg/dL (70-100); HDL Cholesterol 39.4 mg/dL; LDL Cholesterol 65 mg/dL; Sodium 135 mmol/L (135-145); Triglycerides 66 mg/dL; eGFR CKD-EPI 77.9 (>60)
[2021-08-27] MEDS ORDERED: Pneumococcal Vac 23-Polyvalent IM ONE (09:00)
[2021-08-27 10:33] LABS: TSH Ultra Thyroid Stim Horm 1.49 mcIU/mL (0.34-5.60)
[2021-08-27 10:44] LABS: Vitamin B12 339 pg/mL (180-914)
[2021-08-27 16:23] VITALS: BP 129/64
[2021-08-27 18:49] LABS: C Reactive Protein < 1.00 mg/L (<8.01)
[2021-08-27 19:31] LABS: Erythrocyte Sed Rate 1 mm/Hr (0-19)
== END 2021-08-27 16:55 | disposition home or self-care (01) ==
LOC: ED 18:58 → EDHOLD 18:58 → SUATTDRO 22:56 → MEDTELE 23:59
PROVIDERS: ADMIT Internal Medicine; ATTEND Hospitalist

== ENCOUNTER 2024-07-25 11:06 | Inpatient (IN) ==
[2024-07-25 15:23] LABS: INR 1.21 (0.85-1.14)
[2024-07-25 15:24] LABS: Hematocrit 46.9 % (38-53); Hemoglobin 16.4 g/dL (13.2-16.3); Mean Corpuscular Hemoglobin 31.7 pg (27-33); Mean Corpuscular Volume 90.5 fL (80-97); Red Blood Count 5.18 10^6/uL (4.06-5.63); Red Cell Distribution Width 15.2 % (12-17); White Blood Count 10.9 10^3/uL (3.6-10.2)
[2024-07-25 15:28] LABS: Urine Appearance Clear; Urine Bilirubin Negative (Negative); Urine Blood Negative (Negative); Urine Color Light-Yellow; Urine Glucose Negative (Negative); Urine Ketones Negative (Negative); Urine Nitrite Negative (Negative); Urine Protein Negative (Negative); Urine Specific Gravity 1.014 (1.002-1.030); Urine Urobilinogen Negative (Negative)
[2024-07-25 16:00] LABS: Albumin 4.5 g/dL (3.2-5.2); Albumin/Globulin Ratio 1.8 (1-3); Calcium 9.3 mg/dL (8.6-10.3); Creatinine, Serum 0.86 mg/dL (0.67-1.17); Globulin 2.5 g/dL (2-4); Potassium 3.9 mmol/L (3.5-5.0); Total Bilirubin 0.9 mg/dL (0.2-1.0); eGFR CKD-EPI 84.9 (>60)
[2024-07-25 16:16] LABS: ABS Basophils 0.1 10^3/uL (0.0-0.1); ABS Eosinophils 0.1 10^3/uL (0.0-0.5); ABS Monocytes 0.9 10^3/uL (0.0-1.1); ABS Neutrophils 8.8 10^3/uL (1.5-7.6); ABS Nucleated RBC 0.01 10^3/ul; Eosinophil % 0.6 %; Lymphocyte % 9.4 %; Mean Platelet Volume 8.3 fL (7.5-11.2); Nucleated Red Blood Cells % 0.1 %/100WBC (0.0-0.8); Platelet Count 209 10^3/uL (150-450)
[2024-07-26] MEDS: Aspirin EC 81 mg TAB.EC (enteric coated) PO SCH (09:57)
[2024-07-26 10:39] LABS: INR 1.23 (0.85-1.14)
[2024-07-26 10:59] LABS: Calcium 8.6 mg/dL (8.6-10.3); Creatinine, Serum 0.88 mg/dL (0.67-1.17); Magnesium 1.9 mg/dL (1.9-2.7); Potassium 4.4 mmol/L (3.5-5.0); eGFR CKD-EPI 84.3 (>60)
[2024-07-26 11:04] LABS: ABS Eosinophils 0.1 10^3/uL (0.0-0.5); ABS Lymphocytes 0.8 10^3/uL (1.0-4.8); ABS Monocytes 0.6 10^3/uL (0.0-1.1); ABS Neutrophils 5.7 10^3/uL (1.5-7.6); ABS Nucleated RBC 0.01 10^3/ul; Eosinophil % 1.3 %; Hematocrit 41.6 % (38-53); Hemoglobin 14.6 g/dL (13.2-16.3); Lymphocyte % 11.6 %; Mean Corpuscular Hemoglobin 31.4 pg (27-33); Mean Corpuscular Volume 89.8 fL (80-97); Mean Platelet Volume 8.5 fL (7.5-11.2); Nucleated Red Blood Cells % 0.2 %/100WBC (0.0-0.8); Platelet Count 211 10^3/uL (150-450); Red Blood Count 4.64 10^6/uL (4.06-5.63); Red Cell Distribution Width 15.3 % (12-17); White Blood Count 7.3 10^3/uL (3.6-10.2)
[2024-07-26] MEDS ORDERED: Polyethylene Glycol 3350 17 GM PACKET PO SCH (23:45)
[2024-07-26] MEDS: Polyethylene Glycol 3350 17 GM PACKET PO PRN (23:54)
[2024-07-27 06:48] LABS: Calcium 8.3 mg/dL (8.6-10.3); Creatinine, Serum 0.85 mg/dL (0.67-1.17); Magnesium 1.9 mg/dL (1.9-2.7); Potassium 4.3 mmol/L (3.5-5.0); eGFR CKD-EPI 85.2 (>60)
[2024-07-27 06:50] LABS: Hematocrit 37.5 % (38-53); Hemoglobin 13.3 g/dL (13.2-16.3); Mean Corpuscular Hemoglobin 31.7 pg (27-33); Mean Corpuscular Hgb Conc 35.4 g/dL (31-36); Mean Corpuscular Volume 89.5 fL (80-97); Mean Platelet Volume 8.2 fL (7.5-11.2); Platelet Count 187 10^3/uL (150-450); Red Blood Count 4.19 10^6/uL (4.06-5.63); Red Cell Distribution Width 15.1 % (12-17); White Blood Count 7.2 10^3/uL (3.6-10.2)
[2024-07-27] MEDS: Magnesium Sulfate IV 1GM/100ML 1 GM/100 ML BAG IV ONE (09:13)
[2024-07-27] MEDS: Acetaminophen IV 1 GM/100ML 1,000 MG/100 ML BAG IV PRN (18:44)
[2024-07-28 06:22] LABS: Calcium 8.2 mg/dL (8.6-10.3); Creatinine, Serum 0.81 mg/dL (0.67-1.17); Magnesium 1.9 mg/dL (1.9-2.7); Potassium 4.4 mmol/L (3.5-5.0); eGFR CKD-EPI 86.4 (>60)
[2024-07-28] MEDS: Iohexol 350 (CONTRAST) 500 ML MDV IV ONE (06:26)
[2024-07-28 07:27] LABS: Hematocrit 37.8 % (38-53); Hemoglobin 13.4 g/dL (13.2-16.3); Mean Corpuscular Hemoglobin 31.7 pg (27-33); Mean Corpuscular Hgb Conc 35.6 g/dL (31-36); Mean Corpuscular Volume 89.2 fL (80-97); Mean Platelet Volume 8.6 fL (7.5-11.2); Platelet Count 186 10^3/uL (150-450); Red Blood Count 4.24 10^6/uL (4.06-5.63); Red Cell Distribution Width 15.2 % (12-17); White Blood Count 8.2 10^3/uL (3.6-10.2)
[2024-07-28] MEDS: Magnesium Sulfate IV 1GM/100ML 1 GM/100 ML BAG IV ONE (08:46)
[2024-07-28] MEDS: Senna TAB 8.6 mg TAB PO SCH (10:32)
[2024-07-28] MEDS: Polyethylene Glycol 3350 17 GM PACKET PO SCH (20:51)
[2024-07-29 06:41] LABS: Calcium 8.3 mg/dL (8.6-10.3); Creatinine, Serum 0.87 mg/dL (0.67-1.17); Magnesium 1.9 mg/dL (1.9-2.7); Potassium 4.5 mmol/L (3.5-5.0); eGFR CKD-EPI 84.6 (>60)
[2024-07-29 07:56] LABS: Hematocrit 38.7 % (38-53); Hemoglobin 13.4 g/dL (13.2-16.3); Mean Corpuscular Hemoglobin 31.1 pg (27-33); Mean Corpuscular Hgb Conc 34.6 g/dL (31-36); Mean Corpuscular Volume 89.8 fL (80-97); Red Blood Count 4.31 10^6/uL (4.06-5.63); Red Cell Distribution Width 14.6 % (12-17); White Blood Count 10.1 10^3/uL (3.6-10.2)
[2024-07-29] MEDS: Magnesium Sulfate 2 gm BAG 2 GM/50 ML BAG IVPB ONE (08:19)
[2024-07-29 09:11] LABS: Mean Platelet Volume 8.5 fL (7.5-11.2); Platelet Count 179 10^3/uL (150-450)
[2024-07-29] MEDS ORDERED: Dexamethasone IV 4 MG/ML VIAL 1 ml VIAL ONE (14:04)
[2024-07-29] MEDS ORDERED: Ondansetron 4 mg VIAL 2 MG/ML 2 ml VIAL ONE (14:04)
[2024-07-29] MEDS ORDERED: Propofol 10 MG/ML 20 ML BTL ONE (14:04)
[2024-07-29] MEDS ORDERED: fentaNYL 100 mcg/2 ml 50 MCG/ML VIAL ONE ×2 (14:06→17:06)
[2024-07-29] MEDS ORDERED: Midazolam 2 mg/2 ml VIAL 1 mg/ml 2 ml VIAL (2 mg) ONE (14:07)
[2024-07-29] MEDS ORDERED: Bupivacaine 0.25% EPI 200,000 30 ML SDV ONE (14:57)
[2024-07-29] MEDS ORDERED: Lidocaine 1% w EPI 1:100,000 MDV 50 ML VIAL ONE (14:57)
[2024-07-29 16:02] LABS: ABS Lymphocytes 0.3 10^3/uL (1.0-4.8); ABS Monocytes 0.7 10^3/uL (0.0-1.1); ABS Neutrophils 7.9 10^3/uL (1.5-7.6); ABS Nucleated RBC 0.01 10^3/ul; Eosinophil % 0.2 %; Lymphocyte % 3.8 %; Mean Corpuscular Hemoglobin 31.3 pg (27-33); Mean Corpuscular Hgb Conc 34.9 g/dL (31-36); Mean Corpuscular Volume 89.7 fL (80-97); Nucleated Red Blood Cells % 0.1 %/100WBC (0.0-0.8); Platelet Count 190 10^3/uL (150-450); Red Blood Count 4.46 10^6/uL (4.06-5.63); Red Cell Distribution Width 14.9 % (12-17)
[2024-07-29 16:17] LABS: INR 1.13 (0.85-1.14)
[2024-07-29 16:28] LABS: Albumin 3.8 g/dL (3.2-5.2); Albumin/Globulin Ratio 1.9 (1-3); Calcium 8.7 mg/dL (8.6-10.3); Creatinine, Serum 0.85 mg/dL (0.67-1.17); Potassium 4.4 mmol/L (3.5-5.0); Total Bilirubin 1.1 mg/dL (0.2-1.0); Total Protein 5.8 g/dL (6.4-8.9); eGFR CKD-EPI 85.2 (>60)
[2024-07-29] MEDS ORDERED: ceFAZolin VIAL VIAL ONE (16:54)
[2024-07-29] MEDS ORDERED: Phenylephrine 40 mcg/mL 10mL (400mcg) SYRINGE ONE (16:55)
[2024-07-29] MEDS ORDERED: Bupivacaine 0.5% SDV PF 30ML VIAL ONE (17:12)
[2024-07-29] MEDS: Enoxaparin 40 MG/0.4 ML SYR SUBCUT SCH (20:50)
[2024-07-29] MEDS: ceFAZolin 2 GM PREMIX 2 GM/50 ML BAG IV SCH (22:32)
[2024-07-29] MEDS: Lactated Ringers 1000 ml BAG 1,000 ML IV SCH (22:40)
[2024-07-30] MEDS: ceFAZolin 2 GM PREMIX 2 GM/50 ML BAG IV SCH (01:37)
[2024-07-30] MEDS: Morphine 2 MG/ML SYRINGE IV PRN (04:11)
[2024-07-30 07:51] LABS: Hematocrit 41.5 % (38-53); Hemoglobin 14.6 g/dL (13.2-16.3); Mean Corpuscular Hemoglobin 31.3 pg (27-33); Mean Corpuscular Hgb Conc 35.2 g/dL (31-36); Mean Corpuscular Volume 89.1 fL (80-97); Red Blood Count 4.66 10^6/uL (4.06-5.63); Red Cell Distribution Width 15.3 % (12-17); White Blood Count 9.2 10^3/uL (3.6-10.2)
[2024-07-30 07:59] LABS: Calcium 8.3 mg/dL (8.6-10.3); Creatinine, Serum 0.93 mg/dL (0.67-1.17); Magnesium 1.9 mg/dL (1.9-2.7); Potassium 4.7 mmol/L (3.5-5.0); eGFR CKD-EPI 80.5 (>60)
[2024-07-30 08:17] LABS: Mean Platelet Volume 7.9 fL (7.5-11.2); Platelet Count 207 10^3/uL (150-450)
[2024-07-30 09:10] VITALS: BP 136/71
== END 2024-07-30 13:35 | disposition home or self-care (01) | DRG 501 ==
LOC: ED 11:06 → EDHOLD 11:06 → SUATTDRO 18:17 → EDHOLD 23:01 → MED 07-26 11:05 → SUATTDRO 07-26 12:00 → MED 07-27 07:47
PROVIDERS: ADMIT Internal Medicine; ATTEND Internal Medicine